=== PATIENT | female | born 1940 | race Caucasian/White ===

== ENCOUNTER 2016-12-17 12:27 | Emergency (ER) | payer MEDICARE, BC ==
[~2016-12-17] VITALS: Ht 154.9 cm; Wt 93.0 kg
[~2016-12-17 12:27] MED LIST: ATOR10TA64 PO; CYAN10009 PO; ENOX40DI SQ; ESCI5TAB8 PO; LACT1CAP73 PO; LOSA25TA34 PO; MAGN400T6 PO; METF500T7 PO; OMEP20CA10 PO; TRAM50TA53 PO; WARF2TAB6 PO; [UNRECOGNIZED DRUG - CODE] PO
[2016-12-17 12:30] VITALS: TEMP 98.2; Ht 154.9 cm; Wt 93.0 kg
--- OUTSIDE RECORDS SUMMARY | 2016-12-17 12:32 | XMS REPORT | Continuity of Care Document ---
Author Author [facility] Organization [facility] Address Unknown Phone Unavailable Support Name Relationship Address Phone CARMENCITA SCALES MD Caregiver [address] [place] [address] [place], [place] [phone] CHRISSIE MARRUFO Next Of Kin [address] [place] [address] Insurance Providers Payer Name Policy Number Subscriber Name Relationship Medicare [id number] Kyala Robertson 16 Self [employer] [place] [id number] Kayla Robertson 16 Self Problems Medical Problems Problem Onset Date Status Malaise and fatigue Unknown Active R/O RI Unknown Active Chest pain rule out RI Unknown Active Dizziness Unknown Active Malaise and fatigue Unknown Active Dizziness Unknown Active Bilateral lower extremity edema Unknown Active Bilateral lower extremity edema Unknown Active Shortness of breath 08/16/2014 Active CHEST PAIN NOS 08/16/2014 Active Dyspnea 08/16/2014 Active Pulmonary emboli Unknown Active Diabetes Unknown Active Hypertension Unknown Active Dyslipidemia Unknown Active GERD (gastroesophageal reflux disease) Unknown Active RLS (restless legs syndrome) Unknown Active Osteoarthritis Unknown Active Anxiety and depression Unknown Active History of gastritis Unknown Active Hypomagnesemia Unknown Active Obesity (BMI 35.0-39.9 without comorbidity) Unknown Active Pleuritic chest pain Unknown Active Atypical chest pain Unknown Active Atypical chest pain Unknown Active Atypical chest pain Unknown Active Anxiety and depression Unknown Active Medications Medication Dose Route Sig Days/Qty Instructions Order Date Discontinued Date Status Omeprazole 20 Mg PO DAILY 05/26/10 10/03/10 Discontinued Fexofenadine Hcl 180 Mg PO DAILY 04/01/09 05/25/10 Discontinued Pramipexole Di-Hcl 0.5 Mg PO BEDTIME 05/26/10 10/03/10 Discontinued Acetaminophen 650 Mg PO 2 TABS AT HS 05/26/10 10/03/10 Discontinued Multivitamins 1 Tab PO BEDTIME 04/01/09 05/25/10 Discontinued Ascorbic Acid 500 Mg PO DAILY 04/01/09 05/25/10 Discontinued Calcium Carbonate/Vitamin D3 1 Tab PO THREE TIMES A DAY 05/26/1012/09 Discontinued Magnesium Oxide 400 Mg PO TWICE A DAY 05/26/10 10/03/10 Discontinued Lisinopril 5 Mg PO DAILY 05/26/10 08/23/11 Discontinued Famotidine 20 Mg PO TWICE A DAY 05/26/10 10/03/10 Discontinued Cholecalciferol 2,000 Unit PO TWICE A DAY 05/26/10 10/03/10 Discontinued Ergocalciferol 50,000 Unit PO ONCE A WEEK 05/26/10 10/03/10 Discontinued [Lamisil] D-1 WEEK,OFF 3 WEEK 05/26/10 10/03/10 Discontinued Pramipexole Di-Hcl 0.5 Mg PO BEDTIME 08/23/11 Active Magnesium Oxide 400 Mg PO 4 TABS BID 08/23/11 10/11/11 Discontinued Calcium Citrate/Vitamin D3 1 Tab PO THREE TIMES A DAY 08/23/1110/11 Discontinued Cholecalciferol 2,000 Unit PO 08/23/11 10/11/11 Discontinued Morphine Sulfate 15 Mg PO TWICE A DAY 10/11/11 04/01/12 Discontinued Morphine Sulfate 10 Mg PO EVERY 4-6 HOURS 10/11/11 04/01/12 Discontinued Acetaminophen BEDTIME 04/01/12 04/10/12 Discontinued Atorvastatin Calcium 10 Mg PO BEDTIME 30 Qty 07/22/14 Active Chlorthalidone 25 Mg PO NEEDED 30 Qty 07/22/14 Active Losartan Potassium 100 Mg PO DAILY 30 Qty 07/22/14 Active Omeprazole 20 Mg PO DAILY 30 Qty 07/22/14 Active Acetaminophen 1-2 Tab PO BEDTIME PRN PAIN 07/22/14 Active [Amlodipine] Unknown Dose 08/27/14 Active Warfarin Sodium 2 Mg PO 1700 Take 1 tablet, by mouth, 1 time a day (at 5 pm). 08/27/14 Active Social History Social History Problem Response Recorded Date/Time Chewing Tobacco Status No 03/11/2014 2:30pm Hx Substance Use No 09/21/2014 9:50pm Hx Alcohol Use No 09/21/2014 9:50pm Has the pt used tobacco in the last 12 months No 07/22/2014 11:55am Tobacco Usage none 04/05/2014 8:20am Query Response Start Date Stop Date Smoking Status Never smoker Hospital Discharge Instructions Instructions: Care Instructions: Reason for Hospitalization: PE I was in the hospital because (patient own words): I FELT LIKE I HAD A BLOOD CLOT AND I DO. Discharge Diet: diabetic diet Discharge Activity: as tolerated Follow Up Appointments: Appointment scheduled with Dr. Scales at 7:00 am, have your INR drawn at that time. Patient Instructions: Should your symptoms return you could contact Dr Scales through the office or return to the ED for emergent evaluation. Please give PE and Coumadin handouts. Condition at time of discharge: Good Pass Congenital Heart Disease Screening Result: Pass Plan of Care Discharge Date 08/20/14 5:07pm Disposition 01 DISCHARGED HOME, SELF-CARE Instructions/Education Provided NM DVT Discharge Instructions Vitamin K DI for Pulmonary Embolism DI for Diabetes Type 2 Warfarin DI for Warfarin Therapy Prescriptions See Medications Section Functional Status Query Response Date Recorded Physical Hygiene Self September 21, 2014 9:50pm Physical Hygiene Self September 21, 2014 9:50pm Allergies, Adverse Reactions, Alerts Allergen Type Severity Reaction Status Last Updated Procaine HCl Allergy Unknown NERVOUS AND HEART RACE Active 09/21/14 hydrocodone bit Allergy Mild FINE RASH AND HEADACHE Active 09/21/14 propoxyphene HCl Allergy Unknown SHAKY, AND LOPEZ Active 09/21/14 albuterol sulfate Allergy Intermediate NERVOUSNESS, PALPITATIONS Active ciprofloxacin HCl Allergy Mild ITCH,HEADACHE Active 09/21/14 Lisinopril Adverse Reaction Unknown DRY COUGH Active 09/21/14 Codeine Allergy Mild RASH,HEADACHE Active 09/21/14 Hydrochlorothiazide Adverse Reaction Unknown NAUSEA, DIZZY Active 09/21/14 Doxycycline Adverse Reaction Unknown NAUSEA, DIZZY Active 09/21/14 Ciprofloxacin Allergy Mild ITCH,HEADACHE Active 09/21/14 Tuberculin,Old Skin Test Allergy Unknown Active 08/27/14 Rofecoxib Allergy Severe JOINT SWELL,RACHEL Active 09/21/14 Immunizations Name Given Type Hx Influenza Vaccination Y JUL 2014 Historical Hx Pneumococcal Vaccination Y JUL 2014 Historical Hx Influenza Vaccination Y JUL 2014 Historical Vital Signs Acute Vital Signs Vital Response Date/Time Temperature (Fahrenheit) 97.4 deg F (96.8 - 99.1) Temperature (Calculated Celsius) 36.07452 degrees C (36.0 - 37.3) Pulse Rate (adult) 69 bpm (60 - 100) Respiratory Rate 26 breaths/min (10 - 20) O2 Sat by Pulse Oximetry 94 % (90 - 100) Oxygen Flow Rate 2 L/min Blood Pressure 91/54 mm Hg Results Test Source Date Result Interp. Ref. Range Comments Activated Partial Thromboplast Time August 27, 2014 7:56pm 53.7 SEC H 24-36 Alanine Aminotransferase (ALT/SGPT) September 21, 2014 9:30pm 29 U/L N 9- 52 Albumin September 21, 2014 9:30pm 4.0 G/DL N 3.5-5.0 Albumin/Globulin Ratio September 21, 2014 9:30pm 1.6 RATIO N 1.1-2.2 Alkaline Phosphatase September 21, 2014 9:30pm 86 U/L N 38-126 Amylase Level April 10, 2012 3:16pm < 30 U/L L 30-110 Anion Gap September 21, 2014 9:30pm 10 MEQ/L N 5-15 Aspartate Amino Transf (AST/SGOT) September 21, 2014 9:30pm 22 U/L N 14- 36 BUN/Creatinine Ratio September 21, 2014 9:30pm 20 RATIO N 6-26 Basophils # (Auto) September 21, 2014 9:30pm 0.0 T/MM3 N 0-0.2 Basophils (%) (Auto) September 21, 2014 9:30pm 0.5 % N 0-2 Blood Urea Nitrogen September 21, 2014 9:30pm 14.0 MG/DL N 7-17 Calcium Level September 21, 2014 9:30pm 9.2 MG/DL N 8.4-10.2 Calculated Osmolality September 21, 2014 9:30pm 279 MOSM/KG N 261-280 Carbon Dioxide Level September 21, 2014 9:30pm 28 MEQ/L N 22-30 Chemistry Specimen Hemolysis September 21, 2014 9:30pm < 15 0-25 0-25 : No Hemolysis.26-70: Slight Hemolysis - can falsely elevate K and Urine Protein. 71-285: Moderate Hemolysis - can falsely elevate K, Troponin I, CA 19-9, PTH, CSF GLucose, and Urine Protein, and can falsely decrease Phenytoin. 286-999: Gross Hemolysis - can falsely elevate K, Troponin I, CA 19-9, PTH, CSF Glucose, and Urine Protine, and can falsely decrease Phenytoin. Recommend specimen recollection. Chloride Level September 21, 2014 9:30pm 105 MEQ/L N 98-107 Cholesterol Level November 10, 2013 6:20am 159 MG/DL N 132-199 COMMENT FASTING Cholesterol/HDL Ratio November 10, 2013 6:20am 3.6 RATIO N 0-4.0 COMMENT FASTING Conjugated Bilirubin June 10, 2012 3:05pm 0.00 MG/DL N 0.00-0.30 Creatinine September 21, 2014 9:30pm 0.7 MG/DL N 0.7-1.2 D-Dimer August 16, 2014 9:18pm 385 NG/ML H 0-224 <224 NG/ML= PRESUMPTIVE NEGATIVE FOR PE OR DVT>224 NG/ML=ADDITIONAL EVALUATION FOR PE OR DVT RECOMMENDED EKG February 06, 2008 12:44pm Complete - Eosinophils # (Auto) September 21, 2014 9:30pm 0.1 T/MM3 N 0-0.5 Eosinophils (%) (Auto) September 21, 2014 9:30pm 1.6 % N 0-4 Erythrocyte Sedimentation Rate October 12, 2011 4:15am 19 MM/HR N 0-20 Free Thyroxine November 10, 2013 6:20am 1.91 NG/DL N 0.78-2.19 COMMENT FASTING Globulin September 21, 2014 9:30pm 2.5 G/DL N 2.4-3.6 Glomerular Filtration Rate Calc September 21, 2014 9:30pm 81 - Glucometer August 20, 2014 10:53am 103 mg/dL N 65-110 Glucose Level September 21, 2014 9:30pm 152 MG/DL H 65-110 HDL Cholesterol Direct November 10, 2013 6:20am 44 MG/DL N 40-60 COMMENT FASTING Hematocrit September 21, 2014 9:30pm 36.8 % N 36-46 Hemoglobin September 21, 2014 9:30pm 12.0 GM/DL N 12-16 Hemoglobin A1c September 16, 2014 9:50am 6.3 % N 6-7 <6.0 NON-DIABETIC RANGE6.0-7.0 ADA THERAPEUTIC RANGE >7.0 ACTION SUGGESTED Icterus Index September 21, 2014 9:30pm < 2 0-7 Immature Granulocyte # (Auto) September 21, 2014 9:30pm 0.02 T/MM3 N 0.00 -0.03 Immature Granulocyte % (Auto) September 21, 2014 9:30pm 0.2 % N 0.0-0.5 LDL Cholesterol, Calculated November 10, 2013 6:20am 95.6 N 66-159 COMMENT FASTING Lab Scanned Report September 28, 2014 8:14pm LAB TEST FORM REQUEST - Lipase April 10, 2012 3:16pm 18 U/L L 23-300 Lymphocytes # (Auto) September 21, 2014 9:30pm 2.6 T/MM3 N 1-4.8 Lymphocytes (%) (Auto) September 21, 2014 9:30pm 30.8 % N 23-45 Magnesium Level 2014 5:21am 1.9 MG/DL DN 1.6-2.3 Mean Corpuscular Hemoglobin September 21, 2014 9:30pm 29.3 UUG N 26-34 Mean Corpuscular Hemoglobin Concent September 21, 2014 9:30pm 32.6 GM/DL N 31-37 Mean Corpuscular Volume September 21, 2014 9:30pm 90.0 UM3 N 80-100 Mean Platelet Volume September 21, 2014 9:30pm 10.5 UM3 N 9.4-12.4 Monocytes # (Auto) September 21, 2014 9:30pm 0.8 T/MM3 N 0-0.8 Monocytes (%) (Auto) September 21, 2014 9:30pm 9.6 % H 0-9.0 [id number] Natriuretic Peptide September 21, 2014 9:30pm 718 PG/ML H 0 -175 Rule in cut points: <50 years old=450; 50-75 years old=900; >75 years old=1800; When utilizing ProBNP rule-in cut points, adjustment for impaired renal function is typically not required. Neutrophils # (Auto) September 21, 2014 9:30pm 4.8 T/MM3 N 1.8-7.7 Neutrophils (%) (Auto) September 21, 2014 9:30pm 57.3 % N 33-66 Platelet Count September 21, 2014 9:30pm 287 T/MM3 N 130-400 Potassium Level September 21, 2014 9:30pm 3.6 MEQ/L N 3.6-5 Prealbumin August 16, 2014 9:18pm 19.7 MG/DL N 17.6-36.0 COMMENT may use blood in lab Prothromb Time International Ratio September 28, 2014 12:51pm 3.27 H 0.81 -1.09 THERAPUTIC RANGE=2.00-3.00 FOR ANTI-THROMBOSIS THERAPUTIC RANGE=2.50- 3.50 FOR IMPLANTED VALVE RDW Standard Deviation September 21, 2014 9:30pm 39.0 FL N 36.9-50.2 Red Blood Count September 21, 2014 9:30pm 4.09 M/MM3 N 4.00-5.20 Sodium Level September 21, 2014 9:30pm 143 MEQ/L N 134-144 Thyroid Stimulating Hormone (TSH) August 16, 2014 9:18pm 1.72 MIU/L N 0.47-4.68 Total Bilirubin September 21, 2014 9:30pm 0.50 MG/DL N 0.20-1.30 Total Protein September 21, 2014 9:30pm 6.5 G/DL N 6.3-8.2 Triglycerides Level November 10, 2013 6:20am 97 MG/DL N 35-135 COMMENT FASTING Troponin I September 21, 2014 9:30pm < 0.012 ng/ml 0-0.12 Turbidity September 21, 2014 9:30pm < 20 0-20 Unconjugated Bilirubin June 10, 2012 3:05pm 0.00 MG/DL N 0.00-1.10 Urinalysis Comment August 17, 2014 12:05am Microscopic not ind. - Has specimen been collected/obtained? Y Urine Bacteria April 11, 2013 6:10pm Trace H - Has specimen been collected/obtained? Y Urine Bilirubin August 17, 2014 12:05am Negative - Has specimen been collected/obtained? Y Urine Blood August 17, 2014 12:05am Negative - Has specimen been collected/obtained? Y Urine Collection Type March 11, 2014 5:30pm Voided-not cc-midstr - Has specimen been collected/obtained? Y Urine Color August 17, 2014 12:05am Yellow - Has specimen been collected/obtained? Y Urine Culture Indicated April 11, 2013 6:10pm Cult reflexed &setup - Has specimen been collected/obtained? Y Urine Glucose (UA) August 17, 2014 12:05am Negative - Has specimen been collected/obtained? Y Urine Ketones August 17, 2014 12:05am Negative - Has specimen been collected/obtained? Y Urine Leukocyte Esterase August 17, 2014 12:05am Negative - Has specimen been collected/obtained? Y Urine Microalbumin September 16, 2014 2:45pm 7.6 MG/L N 0-17 Urine Microalbumin/Creatinine Ratio September 16, 2014 2:45pm 6.1 MG/GM N 0-30 Urine Microscopic Not Indicated April 10, 2012 3:20pm Not indicated - Has specimen been collected/obtained? Y Urine Nitrite August 17, 2014 12:05am Negative - Has specimen been collected/obtained? Y Urine Protein August 17, 2014 12:05am Negative - Has specimen been collected/obtained? Y Urine RBC April 11, 2013 6:10pm None seen /HPF - Has specimen been collected/obtained? Y Urine Random Creatinine September 16, 2014 2:45pm 124.3 MG/DL - Urine Specific [place] August 17, 2014 12:05am <=1.005 L - Has specimen been collected/obtained? Y Urine Squamous Epithelial Cells April 11, 2013 6:10pm 5-10 - Has specimen been collected/obtained? Y Urine Turbidity August 17, 2014 12:05am Clear - Has specimen been collected/obtained? Y Urine Urobilinogen August 17, 2014 12:05am 0.2 EU/DL - Has specimen been collected/obtained? Y Urine WBC April 11, 2013 6:10pm 3-5 /HPF - Has specimen been collected /obtained? Y Urine pH August 17, 2014 12:05am 7.0 - Has specimen been collected/ obtained? Y VLDL Cholesterol November 10, 2013 6:20am 19.4 MG/DL N 0-28 COMMENT FASTING Vitamin B12 Level August 16, 2014 9:18pm 174 PG/ML L 239-931 COMMENT may use blood in lab White Blood Count September 21, 2014 9:30pm 8.3 T/MM3 N 4.5-11.0 Helicobacter pylori Rapid Urease Gastric Biopsy July 23, 2014 9:30am Urine Culture Urine, Voided-Not Cc-Midstream April 11, 2013 6:35pm Streptococcus Anginosus Name: KAYLA ROBERTSON Unit #: [id number] : 1940 Sex: F Loc / Svc: ED DOS: 09/21/14 Signed Report #: [id number] DIAGNOSTIC IMAGING REPORT TYPE OF EXAM: CHEST 1 VIEW Dictated By: DANIELLE ROBB MD INDICATION: ITS.REASON: chest pain CHEST 1 VIEW: Comparison: August 27, 2014 FINDINGS: The lungs are clear. There is no abnormal airspace opacity, pleural effusion or pneumothorax identified. The heart size, pulmonary vasculature and mediastinum are within normal limits. No significant skeletal abnormality is seen. IMPRESSION: No acute cardiopulmonary abnormality. . Procedures Procedure Status Date Provider(s) EGD BIOPSY SINGLE/MULTIPLE completed 07/23/14 MAXWELL YING MD, FACS, CWS PLACE NEEDLE IN VEIN completed 08/27/14 BENJIE LEYVA DO CHEST X-RAY 1 VIEW FRONTAL completed 08/27/14 COMPREHEN METABOLIC PANEL completed 08/27/14 ASSAY OF NATRIURETIC PEPTIDE completed 08/27/14 ASSAY OF TROPONIN QUANT completed 08/27/14 COMPLETE CBC W/AUTO DIFF WBC completed 08/27/14 PROTHROMBIN TIME completed 08/27/14 THROMBOPLASTIN TIME PARTIAL completed 08/27/14 ELECTROCARDIOGRAM TRACING completed 08/27/14 EMERGENCY DEPT VISIT completed 08/27/14 [id number] ITEM OR SERVICE completed 08/27/14 [id number] ITEM OR SERVICE completed 08/27/14 ROUTINE VENIPUNCTURE completed 09/16/14 COMPREHEN METABOLIC PANEL completed 09/16/14 MICROALBUMIN QUANTITATIVE completed 09/16/14 ASSAY OF URINE CREATININE completed 09/16/14 GLYCOSYLATED HEMOGLOBIN TEST completed 09/16/14 PROTHROMBIN TIME completed 09/16/14 PLACE NEEDLE IN VEIN completed 09/21/14 BARBIE HARE MD CHEST X-RAY 1 VIEW FRONTAL completed 09/21/14 COMPREHEN METABOLIC PANEL completed 09/21/14 ASSAY OF NATRIURETIC PEPTIDE completed 09/21/14 ASSAY OF TROPONIN QUANT completed 09/21/14 COMPLETE CBC W/AUTO DIFF WBC completed 09/21/14 PROTHROMBIN TIME completed 09/21/14 ELECTROCARDIOGRAM TRACING completed 09/21/14 EMERGENCY DEPT VISIT completed 09/21/14 Encounters Encounter Location Date/Time Discharged Recurring [facility] 09/28/14 9:39am Departed Emergency Room [facility] 09/21/14 9:22pm Registered Clinic [facility] 09/16/14 9:30am Departed Emergency Room [facility] 08/27/14 7:36pm Discharged Inpatient [facility] 08/16/14 10:43pm Departed Emergency Room [facility] 07/29/14 8:12pm
--- OUTSIDE RECORDS SUMMARY | 2016-12-17 12:32 | XMS REPORT | Referral Summary ---
Author Author [facility] Organization [facility] Address Unknown Phone Unavailable Care Team Providers Care Tennis Net Maker Name Role Phone Shikha Soliz Primary Care Physician [phone] Encounter Date(s): 08/11/16 - 08/11/16 [facility] [address] [place] [id number]- Discharge Diagnosis: Fatigue Discharge Diagnosis: Controlled type 2 diabetes mellitus without complication Discharge Diagnosis: Hypomagnesemia Discharge Diagnosis: CROW on CPAP Discharge Diagnosis: Primary hypercholesterolemia Discharge Diagnosis: Benign hypertension Discharge Diagnosis: LIBERTAD (generalized anxiety disorder) Discharge Diagnosis: Anemia Discharge Diagnosis: Moderate major depression Discharge Diagnosis: Restless legs syndrome (RLS) Discharge Diagnosis: Osteoarthritis of right hip Discharge Diagnosis: Chronic pain of left ankle Discharge Diagnosis: Visit for pelvic exam Discharge Diagnosis: Chronic gastritis Discharge Diagnosis: Spinal stenosis of lumbar region (disorder) Discharge Diagnosis: History of pulmonary embolism Discharge Disposition: 01-Home or Self Care Attending Physician: Jose Soliz MD Admitting Physician: Jose Soliz MD Vital Signs Most recent to 1 oldest [Reference Range]: Temperature Tympanic 36.2 degC [36.6-38.1 degC] *LOW* (08/11/16 9:45 AM) Peripheral Pulse 80 bpm Rate [60-100 bpm] (08/11/16 9:45 AM) Blood Pressure 170/78 mmHg [90-140/60-90 mmHg] *HI* (08/11/16 9:45 AM) Problem List Condition Effective Dates Status Health Status Informant Acquired lymphedema Active of leg(Confirmed) Acquired Active spondylolisthesis (disorder)(Confirmed ) Acute Active bronchitis(Confirmed ) Acute Active pain(Confirmed) Adenomatous colon 2012 Active polyps(Confirmed) Allergic reaction to 2000 Active Vioxx, hospitalized(Confirm ed) Allergic Active rhinitis(Confirmed) Anemia(Confirmed) Active At risk for Active injury(Confirmed)1 At risk of pressure Active sore(Confirmed) Ataxic Active gait(Confirmed) Benign Active hypertension(Confirm ed) Contusion of Active head(Confirmed) Oral Active thrush(Confirmed) Abscess or Active cellulitis, toe(Confirmed) Cellulitis of left Active abdominal wall(Confirmed) Cellulitis of left Active leg(Confirmed) Chronic Active gastritis(Confirmed) Chest Active pain(Confirmed) Chronic Active cough(Confirmed) C. difficile Active colitis(Confirmed) Contusion of right Active hip(Confirmed) Contusion of left Active leg(Confirmed) Degenerative disc Active disease(Confirmed) Acute Active diarrhea(Confirmed) Disc disease, Active degenerative, lumbar or lumbosacral(Confirme d) Edema(Confirmed) Active EGD and 2011 Resolved laryngoscopy(Confirm ed) EGD, popsitive for 07/10/13 Resolved Barretts(Confirmed)2 Endometriosis and 1976 Active heavy bleeding(Confirmed) Abdominal pain, Active acute, epigastric(Confirmed ) Epigastric Resolved pain(Confirmed) Sun exposure large / Active 5 serious sunburns(Confirmed) Fatigue(Confirmed) Active Ganglion Active cyst(Confirmed) Anxiety Active disorder(Confirmed) GERD(Confirmed) 2010 Active History of pulmonary Active embolism(Confirmed) Hayfever(Confirmed) Active High Active cholesterol(Confirme d) hx of adenomatous Resolved colon polyps(Confirmed) Hypertension(Confirm Active ed) Hypokalemia(Confirme Active d) Hypomagnesemia(Confi Active rmed) Hypothyroidism(Confi Resolved rmed) Impaired skin Active integrity(Confirmed) 3 Ingrown left big Active toenail(Confirmed) Knee pain, Active left(Confirmed) Knowledge Active deficit(Confirmed)4 Forearm Active laceration(Confirmed ) Low back pain Active (finding)(Confirmed) Acute right lumbar Active radiculopathy(Confir med) Lumbar Active radiculopathy(Confir med) Lumbar Active spondylosis(Confirme d) Lumbosacral Active spondylosis without myelopathy (disorder)(Confirmed ) Lymphedema of left Active leg(Confirmed) Depression, Active major(Confirmed) Chronic Active nausea(Confirmed) Leg pain, Active left(Confirmed) Palpitations(Confirm Active ed) Anxiety(Confirmed) Active Phlebitis of leg, Active left, superficial(Confirme d) Acute pulmonary Active embolism(Confirmed) Pure Active hypercholesterolemia (Confirmed) Depression(Confirmed Active ) Restless legs Active syndrome (RLS)(Confirmed) Seborrheic Active keratosis(Confirmed) Sinus Active infection(Confirmed) Spinal stenosis of Active lumbar region (disorder)(Confirmed ) Venous stasis Active dermatitis(Confirmed ) FARAZ(Confirmed) Resolved Abdominal Active tenderness, epigastric(Confirmed ) tendonitis, Resolved epicondylitis(Confir med) Tissue perfusion Active alteration(Confirmed )5 Controlled type 2 Active diabetes mellitus without complication(Confirm ed) DM (diabetes Active mellitus), type 2, uncontrolled(Confirm ed) Vasomotor Active rhinitis(Confirmed) 1Problem added automatically by system based on initiation of Risk for Injury Plan of Care 2staying on PPI repeat 3 years 3Problem added automatically by system based on initiation of Impaired Skin Integrity Plan of Care 4Problem added automatically by system based on initiation of Knowledge Deficit Plan of Care 5Problem added automatically by system based on initiation of Tissue Perfusion Cerebral Plan of Care Allergies, Adverse Reactions, Alerts Substance Reaction Severity Status cephalexin1 Active ciprofloxacin heart fluttering Active codeine LOPEZ, ITCH Active doxycycline dizzy, headach Active hydrochlorothiazide nausea, dizzy Active lidocaine-EPINEPHrine shaky and rapid heratbeat Active lisinopril dry cough Active Novocain nervous, heart racing Active Proventil HFA head swimming, nervous Active rofecoxib RASH, JOINTS SWELLED Active tuberculin purified arm swelled up Active protein derivative 1GOT C-DIFF Medications acetaminophen 650 mg, Oral, Bedtime (once a day), 2 tablets, 0 Refill(s) Start Date: 05/11/16 Status: Ordered atorvastatin 10 mg oral tablet See Instructions, TAKE ONE TABLET BY MOUTH DAILY, # 30 tabs, 5 Refill(s), eRx: [facility] #[id number], TAKE ONE TABLET BY MOUTH DAILY Start Date: 03/15/16 Status: Ordered escitalopram 5 mg oral tablet 5 mg 1 tabs, Oral, Daily, # 30 tabs, 5 Refill(s), Pharmacy: [facility] # [id number], 1 tabs Oral Daily Start Date: 03/24/16 Status: Ordered losartan 25 mg oral tablet See Instructions, TAKE ONE TABLET BY MOUTH DAILY, # 30 tabs, 1 Refill(s), eRx: [facility] #[id number], TAKE ONE TABLET BY MOUTH DAILY Start Date: 06/12/16 Status: Ordered magnesium oxide 400 mg (241.3 mg elemental magnesium) oral tablet 400 mg 1 tabs, Oral, Daily, # 30 tabs, 11 Refill(s), Pharmacy: [facility] #[id number], 1 tabs Oral Daily Start Date: 08/11/16 Status: Ordered metFORMIN 1000 mg oral tablet, extended release 1,000 mg 1 tabs, Oral, Daily, with evening meal, # 90 tabs, 3 Refill(s), Pharmacy: [facility] #[id number], 1 tabs Oral Daily,Instr:with evening meal Start Date: 04/04/16 Status: Ordered omeprazole 20 mg oral delayed release capsule See Instructions, TAKE ONE CAPSULE BY MOUTH EVERY DAY, # 30 caps, 2 Refill(s), eRx: [facility] #[id number], TAKE ONE CAPSULE BY MOUTH EVERY DAY Start Date: 05/18/16 Status: Ordered pramipexole 0.5 mg oral tablet See Instructions, TAKE ONE TABLET BY MOUTH EVERY NIGHT AT BEDTIME, # 30 tabs, 1 Refill(s), eRx: [facility] #[id number], TAKE ONE TABLET BY MOUTH EVERY NIGHT AT BEDTIME Start Date: 06/26/16 Status: Ordered Probiotic Formula oral capsule 1 caps, Oral, Daily, 0 Refill(s) Start Date: 05/31/15 Status: Ordered traMADol 50 mg oral tablet See Instructions, 1-2 tabs Oral q6hr as needed for pain, # 60 tabs, 1 Refill(s) Start Date: 05/29/16 Status: Ordered Vitamin B12 1,000 mcg, Oral, Daily, 0 Refill(s) Start Date: 10/22/14 Status: Ordered warfarin 2 mg oral tablet See Instructions, 1 tab daily., # 30 tabs, 1 Refill(s), Pharmacy: [facility] #[id number], 0.5 tabs Oral Daily,x30 days,Instr:NOTE: HOLD today and Sunday, start on 02/20/16Sunday. Start Date: 02/18/16 Status: Ordered Results Urinalysis Most recent to 1 oldest [Reference Range]: UA Color Yellow (08/11/16 10:47 AM) UA Appear Clear 1 (08/11/16 10:47 AM) UA pH [5.0-8.0] 6.0 (08/11/16 10:47 AM) UA Leuk Est Negative [Negative] (08/11/16 10:47 AM) UA Nitrite Negative [Negative] (08/11/16 10:47 AM) UA Protein Negative [Negative] (08/11/16 10:47 AM) UA Glucose Negative [Negative] (08/11/16 10:47 AM) UA Ketones Negative [Negative] (08/11/16 10:47 AM) UA Urobilinogen 0.2 mg/dL [<=1.0 mg/dL] (08/11/16 10:47 AM) UA Bili [Negative] Negative (08/11/16 10:47 AM) UA Blood [Negative] Trace *ABN* (08/11/16 10:47 AM) UA Spec Grav 1.025 [1.003-1.030] (08/11/16 10:47 AM) Type Clean Catch (08/11/16 10:47 AM) 1Result Comment: 2 mls urine submitted for analysis Immunizations Vaccine Date Refusal Reason influenza virus vaccine, inactivated 08/04/16 influenza virus vaccine, inactivated 07/26/15 influenza virus vaccine, inactivated1 07/09/14 influenza virus vaccine, live 07/02/13 influenza virus vaccine, live 08/21/12 pneumococcal 13-valent conjugate vaccine 07/09/14 pneumococcal 23-polyvalent vaccine 03/09/11 tetanus-diphth toxoids (Td) adult/adol 10/06/08 zoster vaccine live 10/20/08 1Result Comment: [07/09/2014] See scanned document Procedures Procedure Date Related Diagnosis Body Site Mammogram1 03/17/16 Cataract extraction and insertion of 2016 intraocular lens2 Open Reduction Internal Fixation Ankle 09/02/15 (Left)3 Open Reduction Internal Fixation Femur 09/02/15 Distal4 Esophagogastroduodenoscopy and biopsy5 07/23/14 Colonoscopic polypectomy6 07/10/13 Esophagogastroduodenoscopy and biopsy7 07/10/13 Rt L4-5/L5-S1 Facet, A Anastasiia 10/29/12 Colonoscopy8, 9 2012 right L4-5 Translaminar 04/24/12 L4-5 Translaminar 03/12/12 RT L3-4/L4-5 Transforaminal 01/02/12 [id number] 2011 Filgxffyphrpmyecmlghwxrbcr71 2010 Laryngoscopy 2011 Souhuut79 2010 Nasal xmqvllmnful72 2002 Left 1st toe joint replacement 2001 Laparoscopic cholecystectomy 2000 bilateral elbow - tendinitis, epicondylitis 1994 Apvvftr30 1985 Appendectomy Cholecystectomy Hysterectomy Knee uloytemjhle10 Right great toenail excision FARAZ - Total abdominal hysterectomy and bilateral salpingo-[id number] [address] [place] [address] 2bilateral--June 2016 3auto-populated from documented surgical case 4auto-populated from documented surgical case 5No Barretts noted on path No cancer ,JORGE ASSAY Negitive No explantion for epigastri pain if still having ongoing pain Rtc to discuss. 6Tubulovillous adenoma,, repeat in 5 years 7Chronic gastritis, Shields's esophagus, 8also had in 2000, and 2002 9and also in 2007 10right hip tendon release 11GERD positive, H. pylori negative 12right wrist surgery for tendinitis 13for fractured nose due to a fall 14on both elbows for tendinitis and epicondylitis 15bilateral TKAs: right in 1996, left in 2006 16endometriosis Social History Social History Type Response Smoking Status Never smoker Assessment and Plan Extracted from: Title: Ambulatory Patient Education Author: Jose Soliz MD Date: 08/16 Preventive Medicine Diabetes and Foot Care Diabetes may cause you to have problems because of poor blood supply ( circulation) to your feet and legs. This may cause the skin on your feet to become thinner, break easier, and heal more slowly. Your skin may become dry, and the skin may peel and crack. You may also have nerve damage in your legs and feet causing decreased feeling in them. You may not notice minor injuries to your feet that could lead to infections or more serious problems. Taking care of your feet is one of the most important things you can do for yourself. HOME CARE INSTRUCTIONS Wear shoes at all times, even in the house. Do not go barefoot. Bare feet are easily injured. Check your feet daily for blisters, cuts, and redness. If you cannot see the bottom of your feet, use a mirror or ask someone for help. Wash your feet with warm water (do not use hot water) and mild soap. Then pat your feet and the areas between your toes until they are completely dry. Do not soak your feet as this can dry your skin. Apply a moisturizing lotion or petroleum jelly (that does not contain alcohol and is unscented) to the skin on your feet and to dry, brittle toenails. Do not apply lotion between your toes. Trim your toenails straight across. Do not dig under them or around the cuticle. File the edges of your nails with an emery board or nail file. Do not cut corns or calluses or try to remove them with medicine. Wear clean socks or stockings every day. Make sure they are not too tight. Do not wear knee-high stockings since they may decrease blood flow to your legs. Wear shoes that fit properly and have enough cushioning. To break in new shoes, wear them for just a few hours a day. This prevents you from injuring your feet. Always look in your shoes before you put them on to be sure there are no objects inside. Do not cross your legs. This may decrease the blood flow to your feet. If you find a minor scrape, cut, or break in the skin on your feet, keep it and the skin around it clean and dry. These areas may be cleansed with mild soap and water. Do not cleanse the area with peroxide, alcohol, or iodine. When you remove an adhesive bandage, be sure not to damage the skin around it. If you have a wound, look at it several times a day to make sure it is healing. Do not use heating pads or hot water bottles. They may burn your skin. If you have lost feeling in your feet or legs, you may not know it is happening until it is too late. Make sure your health care provider performs a complete foot exam at least annually or more often if you have foot problems. Report any cuts, sores, or bruises to your health care provider immediately. SEEK MEDICAL CARE IF: You have an injury that is not healing. You have cuts or breaks in the skin. You have an ingrown nail. You notice redness on your legs or feet. You feel burning or tingling in your legs or feet. You have pain or cramps in your legs and feet. Your legs or feet are numb. Your feet always feel cold. SEEK IMMEDIATE MEDICAL CARE IF: There is increasing redness, swelling, or pain in or around a wound. There is a red line that goes up your leg. Pus is coming from a wound. You develop a fever or as directed by your health care provider. You notice a bad smell coming from an ulcer or wound. This information is not intended to replace advice given to you by your health care provider. Make sure you discuss any questions you have with your health care provider. Document Released: 09/14/2001 Document Revised: 05/20/2014 Document Reviewed: [employer] Patient Education 2016 [employer] No follow up information was provided. Extracted from: Title: Female Physical Author: Jose Soliz MD Date: 08/11/16 Impression and Plan Diagnosis Anemia (LAC55-WF D64.9, Discharge, Medical). Benign hypertension (ZYN57-QY I10, Discharge, Medical). Chronic gastritis (MNL10-XX K29.50, Discharge, Medical). Chronic pain of left ankle (MPV78-AF M25.572, Discharge, Medical). Controlled type 2 diabetes mellitus without complication (DKF77-HE E11.9, Discharge, Medical). Fatigue (HSP72-HY R53.83, Discharge, Medical). LIBERTAD (generalized anxiety disorder) (EGW64-JG F41.1, Discharge, Medical). History of pulmonary embolism (YBM14-NF Z86.711, Discharge, Medical). Hypomagnesemia (LUI51-DU E83.42, Discharge, Medical). Moderate major depression (VBK11-CY F32.1, Discharge, Medical). CROW on CPAP (DYR64-YY G47.33, Discharge, Medical). Osteoarthritis of right hip (RRZ65-NG M16.11, Discharge, Medical). Primary hypercholesterolemia (ELR62-AN E78.00, Discharge, Medical). Restless legs syndrome (RLS) (CFB25-PR G25.81, Discharge, Medical). Spinal stenosis of lumbar region (disorder) (KXB57-ZZ M48.06, Discharge, Medical ). Visit for pelvic exam (CQZ22-GM Z01.419, Discharge, Medical). Plan: 1) Medicare screening breast, pelvic and rectal exam done today. 2) Lab ordered. 3) You have medical clearance for surgery on 08/17/16 (left ankle hardware removal). 4) Stop your Warfarin until after surgery, then resume it at 4 mg daily for 2 days, then 2 mg daily thereafter.. 5) Start Lovenox 40 mg daily injections today, and daily until 24 hours prior to surgery. 6) Get an INR drawn 3 or 4 days after surgery. 7) See me in one month and as needed. 8) I recommend that you get started on your CPAP through sleep medicine. . Orders Orders (Selected) Outpatient Orders InProcess (In Process) Routine Urinalysis: Ordered Office Visit Level 5 Est 12613: Pelvis and Breast exam- with or without exam G0101: . Dx/Order Association Plan: Diagnosis: Anemia Comment: Diagnosis: Benign hypertension Comment: Ordered: Office Visit Level 5 Est 19014; 08/11/16 10:33:00 TAR LEVELER, Chronic pain of left ankle | Restless legs syndrome (RLS) | CROW on CPAP | Benign hypertension | Controlled type 2 diabetes mellitus without complication | Fatigue | LIBERTAD (generalized anxiety disorder) | Chronic gastritis | Histor... Diagnosis: Chronic gastritis Comment: Ordered: Office Visit Level 5 Est 15520; 08/11/16 10:33:00 TAR LEVELER, Chronic pain of left ankle | Restless legs syndrome (RLS) | CROW on CPAP | Benign hypertension | Controlled type 2 diabetes mellitus without complication | Fatigue | LIBERTAD (generalized anxiety disorder) | Chronic gastritis | Histor... Diagnosis: Chronic pain of left ankle Comment: Ordered: Office Visit Level 5 Est 42445; 08/11/16 10:33:00 TAR LEVELER, Chronic pain of left ankle | Restless legs syndrome (RLS) | CROW on CPAP | Benign hypertension | Controlled type 2 diabetes mellitus without complication | Fatigue | LIBERTAD (generalized anxiety disorder) | Chronic gastritis | Histor... Diagnosis: Controlled type 2 diabetes mellitus without complication Comment: Ordered: Office Visit Level 5 Est 05095; 08/11/16 10:33:00 TAR LEVELER, Chronic pain of left ankle | Restless legs syndrome (RLS) | CROW on CPAP | Benign hypertension | Controlled type 2 diabetes mellitus without complication | Fatigue | LIBERTAD (generalized anxiety disorder) | Chronic gastritis | Histor... Diagnosis: Fatigue Comment: Ordered: Office Visit Level 5 Est 43494; 08/11/16 10:33:00 TAR LEVELER, Chronic pain of left ankle | Restless legs syndrome (RLS) | CROW on CPAP | Benign hypertension | Controlled type 2 diabetes mellitus without complication | Fatigue | LIBERTAD (generalized anxiety disorder) | Chronic gastritis | Histor... Diagnosis: LIBERTAD (generalized anxiety disorder) Comment: Ordered: Office Visit Level 5 Est 52085; 08/11/16 10:33:00 TAR LEVELER, Chronic pain of left ankle | Restless legs syndrome (RLS) | CROW on CPAP | Benign hypertension | Controlled type 2 diabetes mellitus without complication | Fatigue | LIBERTAD (generalized anxiety disorder) | Chronic gastritis | Histor... Diagnosis: History of pulmonary embolism Comment: Ordered: Office Visit Level 5 Est 96562; 08/11/16 10:33:00 TAR LEVELER, Chronic pain of left ankle | Restless legs syndrome (RLS) | CROW on CPAP | Benign hypertension | Controlled type 2 diabetes mellitus without complication | Fatigue | LIBERTAD (generalized anxiety disorder) | Chronic gastritis | Histor... Diagnosis: Hypomagnesemia Comment: Ordered: Office Visit Level 5 Est 06803; 08/11/16 10:33:00 TAR LEVELER, Chronic pain of left ankle | Restless legs syndrome (RLS) | CROW on CPAP | Benign hypertension | Controlled type 2 diabetes mellitus without complication | Fatigue | LIBERTAD (generalized anxiety disorder) | Chronic gastritis | Histor... Diagnosis: Moderate major depression Comment: Ordered: Office Visit Level 5 Est 54760; 08/11/16 10:33:00 TAR LEVELER, Chronic pain of left ankle | Restless legs syndrome (RLS) | CROW on CPAP | Benign hypertension | Controlled type 2 diabetes mellitus without complication | Fatigue | LIBERTAD (generalized anxiety disorder) | Chronic gastritis | Histor... Diagnosis: CROW on CPAP Comment: Ordered: Office Visit Level 5 Est 53444; 08/11/16 10:33:00 TAR LEVELER, Chronic pain of left ankle | Restless legs syndrome (RLS) | CROW on CPAP | Benign hypertension | Controlled type 2 diabetes mellitus without complication | Fatigue | LIBERTAD (generalized anxiety disorder) | Chronic gastritis | Histor... Diagnosis: Osteoarthritis of right hip Comment: Diagnosis: Primary hypercholesterolemia Comment: Diagnosis: Restless legs syndrome (RLS) Comment: Ordered: Office Visit Level 5 Est 78558; 08/11/16 10:33:00 TAR LEVELER, Chronic pain of left ankle | Restless legs syndrome (RLS) | CROW on CPAP | Benign hypertension | Controlled type 2 diabetes mellitus without complication | Fatigue | LIBERTAD (generalized anxiety disorder) | Chronic gastritis | Histor... Diagnosis: Spinal stenosis of lumbar region (disorder) Comment: Ordered: Office Visit Level 5 Est 90783; 08/11/16 10:33:00 TAR LEVELER, Chronic pain of left ankle | Restless legs syndrome (RLS) | CROW on CPAP | Benign hypertension | Controlled type 2 diabetes mellitus without complication | Fatigue | LIBERTAD (generalized anxiety disorder) | Chronic gastritis | Histor... Diagnosis: Visit for pelvic exam Comment: Ordered: Pelvis and Breast exam- with or without exam G0101; 08/11 10:48:00 TAR LEVELER, 1, Visit for pelvic exam End of Orders ."
--- OUTSIDE RECORDS SUMMARY | 2016-12-17 12:34 | XMS REPORT | Referral Summary ---
Author Author [facility], [facility] Organization [facility] Address Unknown Phone Unavailable Care Team Providers Care [employer] Name Role Phone Shikha Soliz Primary Care Physician [phone] Encounter VC Date(s): 09/22/16 - 09/22/16 [facility] [address] [place] [id number]- Discharge Diagnosis: Spinal stenosis of lumbar region (disorder) Discharge Diagnosis: Lymphedema of leg Discharge Diagnosis: Right lumbar radiculopathy Discharge Diagnosis: Anemia Discharge Diagnosis: Benign essential hypertension Discharge Diagnosis: Controlled type 2 diabetes mellitus Discharge Disposition: 01-Home or Self Care Attending Physician: Jose Soliz MD Admitting Physician: Jose Soliz MD Vital Signs Most recent to 1 oldest [Reference Range]: Temperature Tympanic 36.0 degC [36.6-38.1 degC] *LOW* (09/22/16 10:21 AM) Peripheral Pulse 80 bpm Rate [60-100 bpm] (09/22/16 10:21 AM) Respiratory Rate 16 br/min [14-20 br/min] (09/22/16 10:21 AM) Blood Pressure 130/80 mmHg [90-140/60-90 mmHg] (09/22/16 10:21 AM) Problem List Condition Effective Dates Status [...] or lumbosacral(Confirme d) Edema(Confirmed) Active EGD and 2010 Resolved laryngoscopy(Confirm ed) EGD, popsitive for 07/10/13 [...] 0 Refill(s) Start Date: 05/11/16 Status: Ordered allopurinol 100 mg oral tablet 100 mg 1 tabs, Oral, Daily, # 30 tabs, 11 Refill(s), Pharmacy: [facility] #[id number], 1 tabs Oral Daily Start Date: 09/01/16 Status: Ordered atorvastatin 10 mg oral tablet See Instructions, TAKE ONE TABLET BY MOUTH DAILY, # 30 tabs, 4 Refill(s), eRx: [facility] #[id number], TAKE ONE TABLET BY MOUTH DAILY Start Date: 09/13/16 Status: Ordered escitalopram 5 mg oral tablet 5 mg 1 tabs, Oral, Daily, # 30 tabs, 5 Refill(s), Pharmacy: [facility] # [id number], 1 tabs Oral Daily Start Date: 03/24/16 Status: Ordered furosemide 20 mg oral tablet 20 mg 1 tabs, Oral, Every other day, # 30 tabs, 5 Refill(s), Pharmacy: [facility] #[id number], 1 tabs Oral Every other day Start Date: 09/22/16 Status: Ordered losartan 25 mg oral tablet See Instructions, TAKE ONE TABLET BY MOUTH DAILY, # 30 tabs, 1 Refill(s), eRx: [facility] #[id number], TAKE ONE TABLET BY MOUTH DAILY Start Date: 06/12/16 Status: Ordered magnesium oxide 400 mg (241.3 mg elemental magnesium) oral tablet 400 mg 1 tabs, Oral, Daily, # 30 tabs, 11 Refill(s), Pharmacy: [facility] #[id number], 1 tabs Oral Daily Start Date: 08/11/16 Status: Ordered metFORMIN 1000 mg oral tablet, extended release 1,000 mg 1 tabs, Oral, Daily, with evening meal, # 90 tabs, 3 Refill(s), Pharmacy: [facility] #[id number], 1 tabs Oral Daily,Instr:with evening meal Start Date: 04/04/16 Status: Ordered omeprazole 20 mg oral delayed release capsule See Instructions, TAKE ONE CAPSULE BY MOUTH EVERY DAY, # 30 caps, 10 Refill(s), eRx: [facility] #[id number], TAKE ONE CAPSULE BY MOUTH EVERY DAY Start Date: 08/28/16 Status: Ordered pramipexole 0.5 mg oral tablet See Instructions, TAKE ONE TABLET BY MOUTH EVERY NIGHT AT BEDTIME, # 30 tabs, 1 Refill(s), eRx: [facility] #[id number], TAKE ONE TABLET BY MOUTH EVERY NIGHT [...] daily., # 30 tabs, 1 Refill(s), Pharmacy: [facility] #[id number], 0.5 tabs Oral Daily,x30 days,Instr:NOTE: HOLD today and Sunday, start on 02/20/16Sunday. Start Date: 02/18/16 Status: Ordered Results No data available for this section Immunizations Given and Recorded Vaccine Date Status Refusal Reason influenza virus vaccine, inactivated 08/04/16 Given influenza virus vaccine, inactivated 07/26/15 Given influenza virus vaccine, inactivated1 07/09/14 Recorded influenza virus vaccine, live 07/02/13 Given influenza virus vaccine, live 08/21/12 Given pneumococcal 13-valent conjugate vaccine 07/09/14 Given pneumococcal 23-polyvalent vaccine 03/09/11 Recorded tetanus-diphth toxoids (Td) adult/adol 10/06/08 Given zoster vaccine live 10/20/08 Given 1Result Comment: [07/09/2014] See scanned document Procedures [...] L4-5 Translaminar 03/12/12 RT L3-4/L4-5 Transforaminal 01/02/12 [id number] 2012 Yd[id number] 2011 Laryngoscopy 2011 Wxeagld70 2011 Nasal gcupqfkibjp34 2002 Left 1st toe joint replacement 2001 Laparoscopic cholecystectomy 2000 bilateral elbow - tendinitis, epicondylitis 1994 Brtiuid26 1985 Appendectomy Cholecystectomy Hysterectomy Knee [id number] Right great toenail excision FARAZ - Total abdominal hysterectomy and bilateral [id number] [address] [place] [address] 2bilateral--June 2016 3auto-populated from documented surgical case [...] Extracted from: Title: Ambulatory Patient Education Author: Joes Soliz MD Date: Procedures Lymphedema Lymphedema is swelling that is caused by the abnormal collection of lymph under the skin. Lymph is fluid from the tissues in your body that travels in the lymphatic system. This system is part of the immune system and includes lymph nodes and lymph vessels. The lymph vessels collect and carry the excess fluid, fats, proteins, and wastes from the tissues of the body to the bloodstream. This system also works to clean and remove bacteria and waste products from the body. Lymphedema occurs when the lymphatic system is blocked. When the lymph vessels or lymph nodes are blocked or damaged, lymph does not drain properly, causing an abnormal buildup of lymph. This leads to swelling in the arms or legs. Lymphedema cannot be cured by medicines, but various methods can be used to help reduce the swelling. CAUSES There are two types of lymphedema. Primary lymphedema is caused by the absence or abnormality of the lymph vessel at . Secondary lymphedema is more common. It occurs when the lymph vessel is damaged or blocked. Common causes of lymph vessel blockage include: Skin infection, such as cellulitis. Infection by parasites (filariasis). Injury. Cancer. Radiation therapy. Formation of scar tissue. Surgery. SYMPTOMS Symptoms of this condition include: Swelling of the arm or leg. A heavy or tight feeling in the arm or leg. Swelling of the feet, toes, or fingers. Shoes or rings may fit more tightly than before. Redness of the skin over the affected area. Limited movement of the affected limb. Sensitivity to touch or discomfort in the affected limb. DIAGNOSIS This condition may be diagnosed with: A physical exam. Medical history. Imaging tests, such as: Lymphoscintigraphy. In this test, a low dose of a radioactive substance is injected to trace the flow of lymph through the lymph vessels. MRI. CT scan. Duplex ultrasound. This test uses sound waves to produce images of the vessels and the blood flow on a screen. Lymphangiography. In this test, a contrast dye is injected into the lymph vessel to help show blockages. TREATMENT Treatment for this condition may depend on the cause. Treatment may include: Exercise. Certain exercises can help fluid move out of the affected limb. Massage. Gentle massage of the affected limb can help move the fluid out of the area. Compression. Various methods may be used to apply pressure to the affected limb in order to reduce the swelling. Wearing compression stockings or sleeves on the affected limb. Bandaging the affected limb. Using an external pump that is attached to a sleeve that alternates between applying pressure and releasing pressure. Surgery. This is usually only done for severe cases. For example, surgery may be done if you have trouble moving the limb or if the swelling does not get better with other treatments. If an underlying condition is causing the lymphedema, treatment for that condition is needed. For example, antibiotic medicines may be used to treat an infection. HOME CARE INSTRUCTIONS Activities Exercise regularly as directed by your health care provider. Do not sit with your legs crossed. When possible, keep the affected limb raised (elevated) above the level of your heart. Avoid carrying things with an arm that is affected by lymphedema. Remember that the affected area is more likely to become injured or infected. Take these steps to help prevent infection: Keep the affected area clean and dry. Protect your skin from cuts. For example, you should use gloves while cooking or gardening. Do not walk barefoot. If you shave the affected area, use an electric razor. General Instructions Take medicines only as directed by your health care provider. Eat a healthy diet that includes a lot of fruits and vegetables. Do not wear tight clothes, shoes, or jewelry. Do not use heating pads over the affected area. Avoid having blood pressure checked on the affected limb. Keep all follow-up visits as directed by your health care provider. This is important. SEEK MEDICAL CARE IF: You continue to have swelling in your limb. You have a fever. You have a cut that does not heal. You have redness or pain in the affected area. You have new swelling in your limb that comes on suddenly. You develop purplish spots or sores (lesions) on your limb. SEEK IMMEDIATE MEDICAL CARE IF: You have a skin rash. You have chills or sweats. You have shortness of breath. This information is not intended to replace advice given to you by your health care provider. Make sure you discuss any questions you have with your health care provider. Document Released: 07/14/2008 Document Revised: 02/01/2016 Document Reviewed: [employer] Interactive Patient Education 2016 [employer] No follow up information was provided. Extracted from: Title: several problems Author: Jose Soliz MD Date: 09/22/16 Impression and Plan Diagnosis Lymphedema of leg (XDR70-VO I89.0, Discharge, Medical). Controlled type 2 diabetes mellitus (BWA40-HU E11.9, Discharge, Medical). Benign essential hypertension (QIZ80-WZ I10, Discharge, Medical). Spinal stenosis of lumbar region (disorder) (WWG53-HL M48.06, Discharge, Medical ). Right lumbar radiculopathy (ZYQ63-LL M54.16, Discharge, Medical). Anemia (BHA23-VK D64.9, Discharge, Medical). Plan: 1) Lab ordered today. 2) Wear your compression stockings every day. 3) Sleep in bed with your legs out horizontally. 4) Use Vaseline to the skin of your legs and feet every day. 5) Keep your appointment in about 12 days, and as needed. 6) No changes made to your routine meds otherwise. . Orders Orders (Selected) Outpatient Orders Ordered Office Visit Level 4 Est 02710: Future (On Hold) BNP: CBC w/ Differential: CMP: Routine Urinalysis: . 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, Lymphedema of leg | Controlled type 2 diabetes mellitus | Benign essential hypertension | Anemia | Spinal stenosis of lumbar region (disorder) | Right lumbar radiculopathy Diagnosis: Controlled type 2 diabetes mellitus Comment: Ordered: Office Visit Level 4 Est [id number]; 09/22/16 10:49:00 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, Lymphedema of leg | Controlled type 2 diabetes mellitus | Benign essential hypertension | Anemia | Spinal stenosis of lumbar region (disorder) | Right lumbar radiculopathy Diagnosis: Lymphedema of leg Comment: Ordered: Office Visit Level 4 Est [id number]; 09/22/16 10:49:00 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, Lymphedema of leg | Controlled type 2 diabetes mellitus | Benign essential hypertension | Anemia | Spinal stenosis of lumbar region (disorder) | Right lumbar radiculopathy Diagnosis: Right lumbar radiculopathy Comment: Ordered: Office Visit Level 4 Est [id number]; 09/22/16 10:49:00 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, Lymphedema of leg | Controlled type 2 diabetes mellitus | Benign essential hypertension | Anemia | Spinal stenosis of lumbar region (disorder) | Right lumbar radiculopathy Diagnosis: Spinal stenosis of lumbar region (disorder) Comment: Ordered: Office Visit Level 4 Est [id number]; 09/22/16 10:49:00 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
--- OUTSIDE RECORDS SUMMARY | 2016-12-17 12:34 | XMS REPORT | Referral Summary ---
Author Author [facility], Family Medicine Organization [facility] Address Unknown Phone Unavailable Care Team Providers Care Collections Clerk Name Role Phone Shikha Soliz Primary Care Physician [phone] Encounter VC Date(s): 10/03/16 - 10/03/16 [facility], Family [address] [place] [address]- Discharge Diagnosis: History of pulmonary embolism Discharge Diagnosis: Spinal stenosis of lumbar region (disorder) Discharge Diagnosis: Primary hypercholesterolemia Discharge Diagnosis: Benign hypertension Discharge Diagnosis: Lymphedema of leg Discharge Diagnosis: Acute bronchitis Discharge Diagnosis: Pansinusitis Discharge Diagnosis: CROW on CPAP Discharge Disposition: 01-Home or Self Care Attending Physician: Jose Soliz MD Admitting Physician: Jose Soliz MD Vital Signs Most recent to 1 oldest [Reference Range]: Temperature Tympanic 35.7 degC [36.6-38.1 degC] *LOW* (10/03/16 9:34 AM) Peripheral Pulse 88 bpm Rate [60-100 bpm] (10/03/16 9:34 AM) Respiratory Rate 18 br/min [14-20 br/min] (10/03/16 9:34 AM) Blood Pressure 126/70 mmHg [90-140/60-90 mmHg] (10/03/16 9:34 AM) SpO2 99 % (10/03/16 9:34 AM) Problem List Condition Effective Dates Status Health Status Informant Acquired lymphedema Active of leg(Confirmed) Acquired Active spondylolisthesis (disorder)(Confirmed ) Acute Active bronchitis(Confirmed ) Acute Active pain(Confirmed) Adenomatous colon 2013 Active polyps(Confirmed) Allergic reaction to 2001 Active Vioxx, hospitalized(Confirm ed) Allergic Active rhinitis(Confirmed) [...] Daily, # 30 tabs, 11 Refill(s), Pharmacy: [facility] #[id number], 1 tabs Oral Daily Start Date: 09/01/16 Status: Ordered atorvastatin 10 mg oral tablet See Instructions, TAKE ONE TABLET BY MOUTH DAILY, # 30 tabs, 4 Refill(s), eRx: [facility] #[id number], TAKE ONE TABLET BY MOUTH DAILY Start Date: 09/13/16 Status: Ordered escitalopram 5 mg oral tablet See Instructions, TAKE ONE TABLET BY MOUTH DAILY, # 30 tabs, 5 Refill(s), eRx: [facility] #[id number] Start Date: 09/28/16 Status: Ordered furosemide 20 mg oral tablet 20 mg 1 tabs, Oral, Every other day, # 30 tabs, 5 Refill(s), Pharmacy: [facility] #[id number], 1 tabs Oral Every other day Start Date: 09/22/16 Status: Ordered losartan 25 mg oral tablet See Instructions, TAKE ONE TABLET BY MOUTH DAILY, # 30 tabs, 5 Refill(s), eRx: [facility] #[id number] Start Date: 09/28/16 Status: Ordered magnesium oxide 400 mg (241.3 mg elemental magnesium) oral tablet 400 mg 1 tabs, Oral, Daily, # 30 tabs, 11 Refill(s), Pharmacy: [facility] #[id number], 1 tabs Oral Daily Start Date: 08/11/16 Status: Ordered metFORMIN 1000 mg oral tablet, extended release 1,000 mg 1 tabs, Oral, Daily, with evening meal, # 90 tabs, 3 Refill(s), Pharmacy: [facility] #[id number], 1 tabs Oral Daily,Instr:with evening meal Start Date: 04/04/16 Status: Ordered omeprazole 20 mg oral delayed release capsule See Instructions, TAKE ONE CAPSULE BY MOUTH EVERY DAY, # 30 caps, 10 Refill(s), eRx: [facility] #[id number], TAKE ONE CAPSULE BY MOUTH EVERY DAY Start Date: 08/28/16 Status: Ordered pramipexole 0.5 mg oral tablet See Instructions, TAKE ONE TABLET BY MOUTH EVERY NIGHT AT BEDTIME, # 30 tabs, 1 Refill(s), eRx: [facility] #[id number], TAKE ONE TABLET BY MOUTH EVERY NIGHT [...] daily., # 30 tabs, 1 Refill(s), Pharmacy: [facility] #[id number], 0.5 tabs Oral Daily,x30 days,Instr:NOTE: HOLD today [...] L4-5 Translaminar 03/12/12 RT L3-4/L4-5 Transforaminal 01/02/12 Lwdisyj42 2011 Kbhjestauntxqbtsxijcsgydco80 2011 Laryngoscopy 2011 Eytdnra86 2010 Nasal houvlusrupe22 2002 Left 1st toe joint replacement 2001 Laparoscopic cholecystectomy 2000 bilateral elbow - tendinitis, epicondylitis 1994 Atyvuhq54 1985 Appendectomy Cholecystectomy Hysterectomy Knee [id number] Right great toenail excision FARAZ - Total abdominal hysterectomy and bilateral salpingo-[id number] [address] [place] [address] 2bilateral--June 2016 3auto-populated from documented surgical case [...] Patient Education Author: Jose Soliz MD Date: Emergency Medicine Acute Bronchitis Bronchitis is inflammation of the airways that extend from the windpipe into the lungs (bronchi). The inflammation often causes mucus to develop. This leads to a cough, which is the most common symptom of bronchitis. In acute bronchitis, the condition usually develops suddenly and goes away over time, usually in a couple weeks. Smoking, allergies, and asthma can make bronchitis worse. Repeated episodes of bronchitis may cause further lung problems. CAUSES Acute bronchitis is most often caused by the same virus that causes a cold. The virus can spread from person to person (contagious) through coughing, sneezing, and touching contaminated objects. SIGNS AND SYMPTOMS Cough. Fever. Coughing up mucus. Body aches. Chest congestion. Chills. Shortness of breath. Sore throat. DIAGNOSIS Acute bronchitis is usually diagnosed through a physical exam. Your health care provider will also ask you questions about your medical history. Tests, such as chest X-rays, are sometimes done to rule out other conditions. TREATMENT Acute bronchitis usually goes away in a couple weeks. Oftentimes, no medical treatment is necessary. Medicines are sometimes given for relief of fever or cough. Antibiotic medicines are usually not needed but may be prescribed in certain situations. In some cases, an inhaler may be recommended to help reduce shortness of breath and control the cough. A cool mist vaporizer may also be used to help thin bronchial secretions and make it easier to clear the chest. HOME CARE INSTRUCTIONS Get plenty of rest. Drink enough fluids to keep your urine clear or pale yellow (unless you have a medical condition that requires fluid restriction). Increasing fluids may help thin your respiratory secretions (sputum) and reduce chest congestion, and it will prevent dehydration. Take medicines only as directed by your health care provider. If you were prescribed an antibiotic medicine, finish it all even if you start to feel better. Avoid smoking and secondhand smoke. Exposure to cigarette smoke or irritating chemicals will make bronchitis worse. If you are a smoker, consider using nicotine gum or skin patches to help control withdrawal symptoms. Quitting smoking will help your lungs heal faster. Reduce the chances of another bout of acute bronchitis by washing your hands frequently, avoiding people with cold symptoms, and trying not to touch your hands to your mouth, nose, or eyes. Keep all follow-up visits as directed by your health care provider. SEEK MEDICAL CARE IF: Your symptoms do not improve after 1 week of treatment. SEEK IMMEDIATE MEDICAL CARE IF: You develop an increased fever or chills. You have chest pain. You have severe shortness of breath. You have bloody sputum. You develop dehydration. You faint or repeatedly feel like you are going to pass out. You develop repeated vomiting. You develop a severe headache. MAKE SURE YOU: Understand these instructions. Will watch your condition. Will get help right away if you are not doing well or get worse. This information is not intended to replace advice given to you by your health care provider. Make sure you discuss any questions you have with your health care provider. Document Released: 10/25/2005 Document Revised: 10/08/2015 Document Reviewed: [employer] Patient Education 2016 [employer]. No follow up information was provided. Extracted from: Title: several problems Author: Jose Soliz MD Date: 10/03/16 Impression and Plan Diagnosis Spinal stenosis of lumbar region (disorder) (EUY98-GC M48.06, Discharge, Medical ). Benign hypertension (HTQ13-HX I10, Discharge, Medical). Primary hypercholesterolemia (CFE34-MI E78.00, Discharge, Medical). Lymphedema of leg (VNP62-IF I89.0, Discharge, Medical). Acute bronchitis (SKT20-TP J20.9, Discharge, Medical). Pansinusitis (DCW72-OF J32.4, Discharge, Medical). CROW on CPAP (FQQ21-RL G47.33, Discharge, Medical). History of pulmonary embolism (GYZ58-AQ Z86.711, Discharge, Medical). Plan: 1) Rest at home. 2) Humidity is helpful. 3) No antibiotics are indicated at this time. 4) Postpone your colonoscopy for 3-4 weeks. 5) Take your Lovenox today, then stop it. 6) Take 2 Warfarin tabs today and 2 tabs tomorrow, then resume one daily. 7) INR and CBC in 3 days. 8) No changes made to your other meds. 9) Keep your followup appointment with me as scheduled.. Orders Orders (Selected) Outpatient Orders Ordered Office Visit Level 4 Est 97247: . Dx/Order Association Plan: Diagnosis: Acute bronchitis Comment: Modified: Office Visit Level 4 Est [id number]; 10/03/16 10:04:00 [employer], Acute bronchitis | Pansinusitis | Lymphedema of leg | Benign hypertension | CROW on CPAP | Spinal stenosis of lumbar region (disorder) | Primary hypercholesterolemia | History of pulmonary embolism Diagnosis: Benign hypertension Comment: Modified: Office Visit Level 4 Est [id number]; 10/03/16 10:04:00 [employer] DES[employer]ER, Acute bronchitis | Pansinusitis | Lymphedema of leg | Benign hypertension | CROW on CPAP | Spinal stenosis of lumbar region (disorder) | Primary hypercholesterolemia | History of pulmonary embolism Diagnosis: History of pulmonary embolism Comment: Modified: Office Visit Level 4 Est [id number]; 10/03/16 10:04:00 [employer] DES[employer]ER, Acute bronchitis | Pansinusitis | Lymphedema of leg | Benign hypertension | CROW on CPAP | Spinal stenosis of lumbar region (disorder) | Primary hypercholesterolemia | History of pulmonary embolism Diagnosis: Lymphedema of leg Comment: Modified: Office Visit Level 4 Est [id number]; 10/03/16 10:04:00 [employer] DEC[employer] DES[employer]ER, Acute bronchitis | Pansinusitis | Lymphedema of leg | Benign hypertension | CROW on CPAP | Spinal stenosis of lumbar region (disorder) | Primary hypercholesterolemia | History of pulmonary embolism Diagnosis: CROW on CPAP Comment: Modified: Office Visit Level 4 Est [id number]; 10/03/16 10:04:00 [employer] DEC[employer] DES[employer]ER, Acute bronchitis | Pansinusitis | Lymphedema of leg | Benign hypertension | CROW on CPAP | Spinal stenosis of lumbar region (disorder) | Primary hypercholesterolemia | History of pulmonary embolism Diagnosis: Pansinusitis Comment: Modified: Office Visit Level 4 Est [id number]; 10/03/16 10:04:00 [employer] DES[employer]ER, Acute bronchitis | Pansinusitis | Lymphedema of leg | Benign hypertension | CROW on CPAP | Spinal stenosis of lumbar region (disorder) | Primary hypercholesterolemia | History of pulmonary embolism Diagnosis: Primary hypercholesterolemia Comment: Modified: Office Visit Level 4 Est [id number]; 10/03/16 10:04:00 [employer] DES[employer]ER, Acute bronchitis | Pansinusitis | Lymphedema of leg | Benign hypertension | CROW on CPAP | Spinal stenosis of lumbar region (disorder) | Primary hypercholesterolemia | History of pulmonary embolism Diagnosis: Spinal stenosis of lumbar region (disorder) Comment: Modified: Office Visit Level 4 Est [id number]; 10/03/16 10:04:00 [employer] DEC[employer] DES[employer]ER, Acute bronchitis | Pansinusitis | Lymphedema of leg | Benign hypertension | CROW on CPAP | Spinal stenosis of lumbar region (disorder) | Primary hypercholesterolemia | History of pulmonary embolism End of Orders ."
--- OUTSIDE RECORDS SUMMARY | 2016-12-17 12:35 | XMS REPORT | Continuity of Care Document ---
Author Author [facility] Organization [facility] Address Unknown Phone Unavailable Support Name Relationship Address Phone BARBIE HARE MD Caregiver [facility] [address] [place] [address] Unavailable CARMENCITA SCALES MD Caregiver [address] [place] [address] [phone] CHRISSIE MARRUFO Next Of Kin [address] [place] [address] Insurance Providers Payer Name Policy Number Subscriber Name Relationship Medicare [id number] Kayla Robertson [address] [facility] [id number] Kayla Robertson 16 Self Problems Medical Problems Problem Onset Date Status Malaise and fatigue Unknown Active R/O [place] Unknown Active Chest pain rule out [place] Unknown Active Dizziness Unknown Active Malaise and fatigue Unknown Active Dizziness Unknown Active Medications Medication Dose Route Sig [...] D-1 WEEK,OFF 3 WEEK 05/26/10 10/03/10 Discontinued Omeprazole 20 Mg PO DAILY 08/23/11 Active Losartan Potassium 100 Mg PO DAILY 08/23/11 Active Pramipexole Di-Hcl 0.5 Mg PO BEDTIME 08/23/11 [...] 04/01/12 Discontinued Acetaminophen BEDTIME 04/01/12 04/10/12 Discontinued Acetaminophen 1,000 Mg PO BEDTIME PRN 04/10/12 Active Ipratropium [place] 2 [place] EA NOSTRIL DAILY 07/09/13 Active Chlorthalidone 25 Mg PO NEEDED 11/09/13 Active Social History Social History Problem Response Recorded Date/Time Smoking Status Never smoker 03/11/2014 2:30pm Chewing Tobacco Status No 03/11/2014 2:30pm Hx Substance Use No 03/11/2014 2:30pm Hx Alcohol Use No 03/11/2014 2:30pm Has the pt used tobacco in the last 12 months No 11/09/2013 9:36pm Query Response Start Date Stop Date Smoking Status Never smoker Hospital Discharge Instructions No hospital discharge instructions. Plan of Care No plan of care. Functional Status No functional status results. Allergies, Adverse Reactions, Alerts Allergen Type Severity Reaction Status Last Updated Procaine HCl Allergy Unknown NERVOUS AND HEART RACE Active 11/09/13 hydrocodone bit Allergy Mild FINE RASH AND HEADACHE Active 11/09/13 propoxyphene HCl Allergy Unknown SHAKY, AND LOPEZ Active 11/09/13 albuterol sulfate Allergy Intermediate NERVOUSNESS, PALPITATIONS Active ciprofloxacin HCl Allergy Mild ITCH,HEADACHE Active 11/09/13 Lisinopril Adverse Reaction Unknown DRY COUGH Active 11/09/13 Codeine Allergy Mild RASH,HEADACHE Active 11/09/13 Hydrochlorothiazide Adverse Reaction Unknown NAUSEA, DIZZY Active 11/09/13 Doxycycline Adverse Reaction Unknown NAUSEA, DIZZY Active 11/09/13 Ciprofloxacin Allergy Mild ITCH,HEADACHE Active 11/09/13 Tuberculin,Old Skin Test Allergy Unknown Active 11/09/13 Rofecoxib Allergy Severe JOINT SWELL,RACHEL Active 11/09/13 Immunizations Name Given Type Hx Influenza Vaccination Y JUL 2013 Historical Hx Pneumococcal Vaccination Y JUL 2011 Historical Hx Influenza Vaccination Y JUL 2013 Historical Vital Signs No known vital signs results. Results Test Source Date Result Interp. Ref. Range Comments Activated Partial Thromboplast Time November 09, 2013 5:58pm 33.3 SEC N 24-36 Alanine Aminotransferase (ALT/SGPT) March 11, 2014 4:00pm 31 U/L N 9-52 Albumin March 11, 2014 4:00pm 3.9 G/DL N 3.5-5.0 Albumin/Globulin Ratio March 11, 2014 4:00pm 1.4 RATIO N 1.1-2.2 Alkaline Phosphatase March 11, 2014 4:00pm 93 U/L N 38-126 Amylase Level April 10, 2012 3:16pm < 30 U/L L 30-110 Anion Gap March 11, 2014 4:00pm 11 MEQ/L N 5-15 Aspartate Amino Transf (AST/SGOT) March 11, 2014 4:00pm 22 U/L N 14-36 BUN/Creatinine Ratio March 11, 2014 4:00pm 20 RATIO N 6-26 Basophils # (Auto) March 11, 2014 4:00pm 0.0 T/MM3 N 0-0.2 Basophils (%) (Auto) March 11, 2014 4:00pm 0.1 % N 0-2 Blood Urea Nitrogen March 11, 2014 4:00pm 16.0 MG/DL N 7-17 Calcium Level March 11, 2014 4:00pm 9.3 MG/DL N 8.4-10.2 Calculated Osmolality March 11, 2014 4:00pm 250 MOSM/KG L 261-280 Carbon Dioxide Level March 11, 2014 4:00pm 27 MEQ/L N 22-30 Chloride Level March 11, 2014 4:00pm 91 MEQ/L L 98-107 Cholesterol Level November 10, 2013 6:20am 159 MG/DL N 132-199 COMMENT FASTING Cholesterol/HDL Ratio November 10, 2013 6:20am 3.6 RATIO N 0-4.0 COMMENT FASTING Conjugated Bilirubin June 10, 2012 3:05pm 0.00 MG/DL N 0.00-0.30 Creatinine March 11, 2014 4:00pm 0.8 MG/DL N 0.7-1.2 Eosinophils # (Auto) March 11, 2014 4:00pm 0.0 T/MM3 N 0-0.5 Eosinophils (%) (Auto) March 11, 2014 4:00pm 0.4 % N 0-4 Erythrocyte Sedimentation Rate October 12, 2011 4:15am 19 MM/HR N 0-20 Free Thyroxine November 10, 2013 6:20am 1.91 NG/DL N 0.78-2.19 COMMENT FASTING Globulin March 11, 2014 4:00pm 2.7 G/DL N 2.4-3.6 Glucose Level March 11, 2014 4:00pm 105 MG/DL N 65-110 Hematocrit March 11, 2014 4:00pm 38.7 % N 36-46 Hemoglobin March 11, 2014 4:00pm 13.5 GM/DL N 12-16 LDL Cholesterol, Calculated November 10, 2013 6:20am 95.6 N 66-159 COMMENT FASTING Lipase April 10, 2012 3:16pm 18 U/L L 23-300 Lymphocytes # (Auto) March 11, 2014 4:00pm 1.5 T/MM3 N 1-4.8 Lymphocytes (%) (Auto) March 11, 2014 4:00pm 17.7 % L 23-45 Magnesium Level March 11, 2014 4:00pm 1.5 MG/DL L 1.6-2.3 Mean Corpuscular Hemoglobin March 11, 2014 4:00pm 29.7 UUG N 26-34 Mean Corpuscular Hemoglobin Concent March 11, 2014 4:00pm 34.9 GM/DL N 31 -37 Mean Corpuscular Volume March 11, 2014 4:00pm 85.2 UM3 N 80-100 Mean Platelet Volume March 11, 2014 4:00pm 10.4 UM3 N 9.4-12.4 Monocytes # (Auto) March 11, 2014 4:00pm 0.8 T/MM3 N 0-0.8 Monocytes (%) (Auto) March 11, 2014 4:00pm 9.9 % H 0-9.0 Neutrophils # (Auto) March 11, 2014 4:00pm 5.9 T/MM3 N 1.8-7.7 Neutrophils (%) (Auto) March 11, 2014 4:00pm 71.7 % H 33-66 Platelet Count March 11, 2014 4:00pm 274 T/MM3 N 130-400 Potassium Level March 11, 2014 4:00pm 3.7 MEQ/L N 3.6-5 Prothromb Time International Ratio November 09, 2013 5:58pm 0.97 N 0.86- 1.10 THERAPUTIC RANGE=2.00-3.00 FOR ANTI-THROMBOSIS THERAPUTIC RANGE=2.50- 3.50 FOR IMPLANTED VALVE RDW Standard Deviation March 11, 2014 4:00pm 38.7 FL N 36.9-50.2 Red Blood Count March 11, 2014 4:00pm 4.54 M/MM3 N 4.00-5.20 Sodium Level March 11, 2014 4:00pm 129 MEQ/L L 134-144 Thyroid Stimulating Hormone (TSH) March 11, 2014 4:00pm 1.59 MIU/L N 0.47 -4.68 Total Bilirubin March 11, 2014 4:00pm 1.00 MG/DL N 0.20-1.30 Total Protein March 11, 2014 4:00pm 6.6 G/DL N 6.3-8.2 Triglycerides Level November 10, 2013 6:20am 97 MG/DL N 35-135 COMMENT FASTING Troponin I March 11, 2014 4:00pm < 0.012 ng/ml 0-0.12 Unconjugated Bilirubin June 10, 2012 3:05pm 0.00 MG/DL N 0.00-1.10 Urine Bacteria April 11, 2013 6:10pm Trace H - Has specimen been collected/obtained? Y Urine Bilirubin March 11, 2014 5:30pm Negative - Has specimen been collected/obtained? Y Urine Blood March 11, 2014 5:30pm Negative - Has specimen been collected/obtained? Y Urine Collection Type March 11, 2014 5:30pm Voided-not cc-midstr - Has specimen been collected/obtained? Y Urine Color March 11, 2014 5:30pm Yellow - Has specimen been collected /obtained? Y Urine Culture Indicated April 11, 2013 6:10pm Cult reflexed &setup - Has specimen been collected/obtained? Y Urine Glucose (UA) March 11, 2014 5:30pm Negative - Has specimen been collected/obtained? Y Urine Ketones March 11, 2014 5:30pm Trace H - Has specimen been collected/obtained? Y Urine Leukocyte Esterase March 11, 2014 5:30pm Trace H - Has specimen been collected/obtained? Y Urine Nitrite March 11, 2014 5:30pm Negative - Has specimen been collected/obtained? Y Urine Protein March 11, 2014 5:30pm Negative - Has specimen been collected/obtained? Y Urine RBC April 11, 2013 6:10pm None seen /HPF - Has specimen been collected/obtained? Y Urine Specific [place] March 11, 2014 5:30pm <=1.005 L - Has specimen been collected/obtained? Y Urine Squamous Epithelial Cells April 11, 2013 6:10pm 5-10 - Has specimen been collected/obtained? Y Urine Turbidity March 11, 2014 5:30pm Clear - Has specimen been collected/obtained? Y Urine Urobilinogen March 11, 2014 5:30pm 0.2 EU/DL - Has specimen been collected/obtained? Y Urine WBC April 11, 2013 6:10pm 3-5 /HPF - Has specimen been collected /obtained? Y Urine pH March 11, 2014 5:30pm 6.0 - Has specimen been collected/ obtained? Y VLDL Cholesterol November 10, 2013 6:20am 19.4 MG/DL N 0-28 COMMENT FASTING White Blood Count March 11, 2014 4:00pm 8.3 T/MM3 N 4.5-11.0 Chemistry Specimen Hemolysis March 11, 2014 4:00pm 18 N 0-25 0-25: No Hemolysis.26-70: Slight Hemolysis - can falsely elevate K and Urine Protein. 71-285: Moderate Hemolysis - can falsely elevate K, Troponin I, CA 19-9, PTH, CSF GLucose, and Urine Protein, and can falsely decrease Phenytoin. 286-999: Gross Hemolysis - can falsely elevate K, Troponin I, CA 19-9, PTH, CSF Glucose, and Urine Protine, and can falsely decrease Phenytoin. Recommend specimen recollection. Urinalysis Comment March 11, 2014 5:30pm Microscopic not ind. - Has specimen been collected/obtained? Y Glucometer November 10, 2013 10:08am 133 mg/dL H 65-110 Lab Scanned Report November 01, 2011 10:07pm LAB TEST FORM REQUEST [id number] - EKG February 06, 2008 12:44pm Complete - HDL Cholesterol Direct November 10, 2013 6:20am 44 MG/DL N 40-60 COMMENT FASTING Turbidity March 11, 2014 4:00pm < 20 0-20 Glomerular Filtration Rate Calc March 11, 2014 4:00pm 70 - Immature Granulocyte # (Auto) March 11, 2014 4:00pm 0.02 T/MM3 N 0.00- 0.03 Immature Granulocyte % (Auto) March 11, 2014 4:00pm 0.2 % N 0.0-0.5 Icterus Index March 11, 2014 4:00pm < 2 0-7 IK-Lqz-C-Type Natriuretic Peptide March 11, 2014 4:00pm 266 PG/ML H 0- 175 Rule in cut points: <50 years old=450; 50-75 years old=900; >75 years old=1800; When utilizing ProBNP rule-in cut points, adjustment for impaired renal function is typically not required. Urine Microscopic Not Indicated April 10, 2012 3:20pm Not indicated - Has specimen been collected/obtained? Y Urine Culture Urine, Voided-Not Cc-Midstream April 11, 2013 6:35pm Streptococcus Anginosus Helicobacter pylori Rapid Urease Gastric Biopsy July 10, 2013 7:47am Procedures No known history of procedures. Encounters Encounter Location Date/Time Departed Emergency Room [facility] 06/22/14 8:30pm Recent Diagnosis
--- OUTSIDE RECORDS SUMMARY | 2016-12-17 12:36 | XMS REPORT | Referral Summary ---
Author Author [facility] Organization [facility]mediate [facility] Address Unknown Phone Unavailable Care Team Providers Care Abstract Manager Name Role Phone Shikha Soliz Primary Care Physician [phone] Encounter VC Date(s): 09/30/16 - 09/30/16 [facility], [address] [place] [address]- Discharge Diagnosis: Acute viral bronchitis Discharge Disposition: 01-Home or Self Care Attending Physician: Tj See MD Admitting Physician: Tj See MD Vital Signs Most recent to 1 oldest [Reference Range]: Temperature Tympanic 37.5 degC [36.6-38.1 degC] (09/30/16 11:56 AM) Peripheral Pulse 104 bpm Rate [60-100 bpm] *HI* (09/30/16 11:56 AM) Blood Pressure 142/82 mmHg [90-140/60-90 mmHg] *HI* (09/30/16 11:56 AM) SpO2 95 % (09/30/16 11:56 AM) Problem List Condition Effective Dates Status Health Status Informant Acquired lymphedema Active of leg(Confirmed) Acquired Active spondylolisthesis (disorder)(Confirmed ) Acute Active bronchitis(Confirmed ) Acute Active pain(Confirmed) Adenomatous colon 2012 Active polyps(Confirmed) Allergic reaction to 2001 Active [...] Daily, # 30 tabs, 11 Refill(s), Pharmacy: [facility] #[id number], 1 tabs Oral Daily Start Date: 09/01/16 Status: Ordered atorvastatin 10 mg oral tablet See Instructions, TAKE ONE TABLET BY MOUTH DAILY, # 30 tabs, 4 Refill(s), eRx: [facility] #[id number], TAKE ONE TABLET BY MOUTH DAILY Start Date: 09/13/16 Status: Ordered escitalopram 5 mg oral tablet See Instructions, TAKE ONE TABLET BY MOUTH DAILY, # 30 tabs, 5 Refill(s), eRx: [facility] #[id number] Start Date: 09/28/16 Status: Ordered furosemide 20 mg oral tablet 20 mg 1 tabs, Oral, Every other day, # 30 tabs, 5 Refill(s), Pharmacy: [facility] #[id number], 1 tabs Oral Every other day Start Date: 09/22/16 Status: Ordered losartan 25 mg oral tablet See Instructions, TAKE ONE TABLET BY MOUTH DAILY, # 30 tabs, 5 Refill(s), eRx: [facility] #[id number] Start Date: 09/28/16 Status: Ordered magnesium oxide 400 mg (241.3 mg elemental magnesium) oral tablet 400 mg 1 tabs, Oral, Daily, # 30 tabs, 11 Refill(s), Pharmacy: [facility] #[id number], 1 tabs Oral Daily Start Date: 08/11/16 Status: Ordered metFORMIN 1000 mg oral tablet, extended release 1,000 mg 1 tabs, Oral, Daily, with evening meal, # 90 tabs, 3 Refill(s), Pharmacy: [facility] #[id number], 1 tabs Oral Daily,Instr:with evening meal Start Date: 04/04/16 Status: Ordered omeprazole 20 mg oral delayed release capsule See Instructions, TAKE ONE CAPSULE BY MOUTH EVERY DAY, # 30 caps, 10 Refill(s), eRx: [facility] #[id number], TAKE ONE CAPSULE BY MOUTH EVERY DAY Start Date: 08/28/16 Status: Ordered pramipexole 0.5 mg oral tablet See Instructions, TAKE ONE TABLET BY MOUTH EVERY NIGHT AT BEDTIME, # 30 tabs, 1 Refill(s), eRx: [facility] #[id number], TAKE ONE TABLET BY MOUTH EVERY NIGHT [...] daily., # 30 tabs, 1 Refill(s), Pharmacy: [facility] #[id number], 0.5 tabs Oral Daily,x30 days,Instr:NOTE: HOLD today [...] L4-5 Translaminar 03/12/12 RT L3-4/L4-5 Transforaminal 01/02/12 [id number] 2011 Pezgxsotetucxjxoealomvimpw89 2011 Laryngoscopy 2011 Ygenzku65 2010 Nasal [id number] 2002 Left 1st toe joint replacement 2001 Laparoscopic cholecystectomy 2000 bilateral elbow - tendinitis, epicondylitis 1994 Biidvuu45 1985 Appendectomy Cholecystectomy Hysterectomy Knee [id number] Right great toenail excision FARAZ - Total abdominal hysterectomy and bilateral salpingo-[id number] [address] [place] [address] 2bilateral--June 2016 3auto-populated from documented surgical case [...] smoker Assessment and Plan Extracted from: Title: Immediate care Author: Tj See MD Date: 09/30/16 Assessment/Plan 1.Acute viral bronchitis Fever Influenza testing was obtained and was negative. Advised about symptomatic management, and encouraged more frequent blood sugar testing, discussed expectationsand follow-up when necessary.
--- OUTSIDE RECORDS SUMMARY | 2016-12-17 12:36 | XMS REPORT | Continuity of Care Document ---
Author Author [facility] Organization [facility] Address Unknown Phone Unavailable Support Name Relationship Address Phone ARCHIE BLOOD MD Caregiver [address] [place] [address] CARMENCITA SCALES MD Caregiver [address] [place] [address] [place] [address] [phone] YARONVIRGILA Next Of Kin [address] [place], [place] [id number] Insurance Providers Payer Name Policy Number Subscriber Name Relationship Medicare [id number] Kayla Robertson 16 Self [facility] [id number] Kayla Robertson 16 Self Problems Medical Problems Problem Onset Date Status Malaise and fatigue Unknown Active R/O [place] Unknown Active Chest pain rule out [place] Unknown Active Dizziness Unknown Active Malaise and fatigue Unknown Active Dizziness Unknown Active Bilateral lower extremity edema Unknown Active Medications Medication Dose Route Sig [...] Omeprazole 20 Mg PO DAILY 08/23/11 Active Pramipexole Di-Hcl [...] 04/01/12 Discontinued Acetaminophen BEDTIME 04/01/12 04/10/12 Discontinued Furosemide 1 Tab PO DAILY 06/29/14 Active [Lopressor] 06/29/14 Active [Hydroch] 06/29/14 Active Social History Social History Problem Response Recorded Date/Time Smoking Status Never smoker 03/11/2014 2:30pm Chewing Tobacco Status No 03/11/2014 2:30pm Hx Substance Use No 06/29/2014 7:59pm Hx Alcohol Use No 06/29/2014 7:59pm Has the pt used tobacco in the last 12 months No 11/09/2013 9:36pm Query Response Start Date Stop Date Smoking Status Never smoker Hospital Discharge Instructions No hospital discharge instructions. Plan of Care No plan of care. Functional Status Query Response Date Recorded Physical Hygiene Self June 29, 2014 7:59pm Disabilities None June 29, 2014 7:59pm Devices Used Glasses June 29, 2014 7:59pm Dressing Self June 29, 2014 7:59pm Ambulation Self June 29, 2014 7:59pm Diet Self June 29, 2014 7:59pm Mental Status Alert June 29, 2014 8:18pm Disabilities None June 29, 2014 7:59pm Devices Used Glasses June 29, 2014 7:59pm Physical Hygiene Self June 29, 2014 7:59pm Dressing Self June 29, 2014 7:59pm Ambulation Self June 29, 2014 7:59pm Diet Self June 29, 2014 7:59pm Allergies, Adverse Reactions, Alerts Allergen Type Severity Reaction Status Last Updated Procaine HCl Allergy Unknown NERVOUS AND HEART RACE Active 11/09/13 hydrocodone bit Allergy Mild FINE RASH AND HEADACHE Active 06/29/14 propoxyphene HCl Allergy Unknown SHAKY, AND LOPEZ Active 06/29/14 albuterol sulfate Allergy Intermediate NERVOUSNESS, PALPITATIONS Active ciprofloxacin HCl Allergy Mild ITCH,HEADACHE Active 06/29/14 Lisinopril Adverse Reaction Unknown DRY COUGH Active 06/29/14 Codeine Allergy Mild RASH,HEADACHE Active 06/29/14 Hydrochlorothiazide Adverse Reaction Unknown NAUSEA, DIZZY Active 06/29/14 Doxycycline Adverse Reaction Unknown NAUSEA, DIZZY Active 06/29/14 Ciprofloxacin Allergy Mild ITCH,HEADACHE Active 06/29/14 Tuberculin,Old Skin Test Allergy Unknown Active 06/29/14 Rofecoxib Allergy Severe JOINT SWELL,RACHEL Active 06/29/14 Immunizations Name Given Type Hx Influenza Vaccination Y JUL 2013 Historical Hx Pneumococcal Vaccination Y JUL 2011 Historical Hx Influenza Vaccination Y JUL 2013 Historical Vital Signs Acute Vital Signs Vital Response Date/Time Temperature (Fahrenheit) 97.7 deg F (96.8 - 99.1) Temperature (Calculated Celsius) 36.02768 degrees C (36.0 - 37.3) Pulse Rate (adult) 76 bpm (60 - 100) Respiratory Rate 20 breaths/min (10 - 20) O2 Sat by Pulse Oximetry 99 % (90 - 100) Blood Pressure 196/92 mm Hg Height 5 ft 1 in Weight 180 lb Body Mass Index 34.0 kg/m^2 Results Test Source Date Result Interp. Ref. [...] Has specimen been collected/obtained? Y Urine Specific [place] March 11, 2014 5:30pm <=1.005 L - [...] 01, 2011 10:07pm LAB TEST FORM REQUEST [id number] - EKG February 06, 2008 12:44pm Complete [...] March 11, 2014 4:00pm < 2 0-7 KJ-Wmo-P-Type Natriuretic Peptide March 11, 2014 4:00pm 266 [...] Encounters Encounter Location Date/Time Departed Emergency Room [facility] 06/29/14 4:02pm Departed Emergency Room [facility] 06/22/14 8:30pm Recent Diagnosis
--- OUTSIDE RECORDS SUMMARY | 2016-12-17 12:36 | XMS REPORT | Continuity of Care Document ---
Author Author [facility] Organization [facility] Address Unknown Phone Unavailable Support Name Relationship Address Phone BENJIE LEYVA DO Caregiver [facility] [address] [place], [place] [phone] CARMENCITA SCALES MD Caregiver [address] [place] [address] [place] [address] [phone] CHRISSIE MARRUFO Next Of Kin [address] [place] [address] Insurance Providers Payer Name Policy Number Subscriber Name Relationship Medicare [id number] Kayla Robertson 16 Self [employer] [facility] [id number] Kayla Robertson 16 Self Problems Medical Problems Problem Onset Date Status Malaise and fatigue Unknown Active R/O [place] Unknown Active Chest pain rule out [place] Unknown Active Dizziness Unknown Active Malaise and [...] Furosemide 1 Tab PO DAILY 06/29/14 Active Atorvastatin Calcium 10 Mg PO BEDTIME 30 Qty 07/22/14 Active Chlorthalidone 25 Mg PO NEEDED 30 Qty 07/22/14 Active Losartan Potassium 100 Mg PO DAILY 30 Qty 07/22/14 Active Omeprazole 20 Mg PO TWICE A DAY 30 Qty 07/22/14 Active Sucralfate 1 Gm PO FOUR TIMES DAILY 120 Qty 07/22/14 Active Acetaminophen 1-2 Tab PO Every 6 Hours PRN PAIN 07/22/14 Active Ondansetron HCl 4 Mg PO NEEDED 20 Qty 07/22/14 Active Social History Social History Problem Response Recorded Date/Time Smoking Status Never smoker 03/11/2014 2:30pm Chewing Tobacco Status No 03/11/2014 2:30pm Hx Substance Use No 07/22/2014 11:55am Hx Alcohol Use No 07/22/2014 11:55am Has the pt used tobacco in the last 12 months No 07/22/2014 11:55am Query Response Start Date Stop Date Smoking Status Never smoker Hospital Discharge Instructions No hospital discharge instructions. Plan of Care No plan of care. Functional Status Query Response Date Recorded Physical Hygiene Self June 29, 2014 7:59pm Physical Hygiene Self June 29, 2014 7:59pm Allergies, Adverse Reactions, Alerts Allergen Type Severity Reaction Status Last Updated Procaine HCl Allergy Unknown NERVOUS AND HEART RACE Active 07/30/14 hydrocodone bit Allergy Mild FINE RASH AND HEADACHE Active 10/30/14 propoxyphene HCl Allergy Unknown SHAKY, AND LOPEZ Active 07/30/14 albuterol sulfate Allergy Intermediate NERVOUSNESS, PALPITATIONS Active ciprofloxacin HCl Allergy Mild ITCH,HEADACHE Active 07/30/14 Lisinopril Adverse Reaction Unknown DRY COUGH Active 07/30/14 Codeine Allergy Mild RASH,HEADACHE Active 07/30/14 Hydrochlorothiazide Adverse Reaction Unknown NAUSEA, DIZZY Active 07/30/14 Doxycycline Adverse Reaction Unknown NAUSEA, DIZZY Active 07/30/14 Ciprofloxacin Allergy Mild ITCH,HEADACHE Active 07/30/14 Tuberculin,Old Skin Test Allergy Unknown Active 07/30/14 Rofecoxib Allergy Severe JOINT SWELL,RACHEL Active 07/30/14 Immunizations Name Given Type Hx Influenza Vaccination Y JULY 2014 Historical Hx Pneumococcal Vaccination Y JULY 2014 Historical Hx Influenza Vaccination Y JULY 2014 Historical Vital Signs Acute Vital Signs Vital Response Date/Time Temperature (Fahrenheit) 97 deg F (96.8 - 99.1) Temperature (Calculated Celsius) 36.1140 degrees C (36.0 - 37.3) Pulse Rate (adult) 75 bpm (60 - 100) Respiratory Rate 20 breaths/min (10 - 20) O2 Sat by Pulse Oximetry 98 % (90 - 100) Blood Pressure 169/89 mm Hg Results Test Source Date Result [...] Has specimen been collected/obtained? Y Urine Specific [place] March 11, 2014 5:30pm <=1.005 L - [...] - Has specimen been collected/obtained? Y Glucometer July 23, 2014 8:17am 125 mg/dL H 65-110 Lab Scanned Report November 01, 2011 10:07pm LAB TEST FORM REQUEST [id number] - EKG February 06, 2008 12:44pm Complete [...] March 11, 2014 4:00pm < 2 0-7 OH-Mvk-O-Type Natriuretic Peptide March 11, 2014 4:00pm 266 PG/ML H 0- 175 Rule in cut points: <50 years old=450; 50-75 years old=900; >75 years old=1800; When utilizing ProBNP rule-in cut points, adjustment for impaired renal function is typically not required. Urine Microscopic Not Indicated April 10, 2012 3:20pm Not indicated - Has specimen been collected/obtained? Y Helicobacter pylori Rapid Urease Gastric Biopsy July 23, 2014 9:30am Urine Culture Urine, Voided-Not Cc-Midstream April 11, 2013 6:35pm Streptococcus Anginosus Procedures Procedure Status Date Provider(s) EGD BIOPSY SINGLE/MULTIPLE completed 07/23/14 MAXWELL YING MD, FACS, CWS Encounters Encounter Location Date/Time Departed Emergency Room [facility] 07/29/14 8:12pm Departed Emergency Room [facility] 06/29/14 4:02pm Departed Emergency Room [facility] 06/22/14 8:30pm Recent Diagnosis
--- OUTSIDE RECORDS SUMMARY | 2016-12-17 12:37 | XMS REPORT | Referral Summary ---
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 Name Role Phone Shikha Soliz Primary Care Physician [phone] Encounter VC Date(s): 08/31/16 - 08/31/16 [facility] [address] [place] [id number]- Discharge Diagnosis: Benign hypertension Discharge Diagnosis: Spinal stenosis of lumbar region (disorder) Discharge Diagnosis: Controlled type 2 diabetes mellitus without complication Discharge Diagnosis: Swelling of finger joint of right hand Discharge Diagnosis: Pain in finger of right hand Discharge Disposition: 01-Home or Self Care Attending Physician: Jose Soliz MD Admitting Physician: Jose Soliz MD Vital Signs Most recent to 1 oldest [Reference Range]: Temperature Tympanic 36.5 degC [36.6-38.1 degC] *LOW* (08/31/16 9:36 AM) Peripheral Pulse 96 bpm Rate [60-100 bpm] (08/31/16 9:36 AM) Blood Pressure 120/64 mmHg [90-140/60-90 mmHg] (08/31/16 9:36 AM) Problem List Condition Effective Dates Status [...] DAILY, # 30 tabs, 5 Refill(s), eRx: [facility] #[id number], TAKE ONE TABLET BY MOUTH DAILY Start Date: 03/15/16 Status: Ordered escitalopram 5 mg oral tablet 5 mg 1 tabs, Oral, Daily, # 30 tabs, 5 Refill(s), Pharmacy: [facility] # [id number], 1 tabs Oral Daily Start Date: 03/24/16 Status: Ordered losartan 25 mg oral tablet See Instructions, TAKE ONE TABLET BY MOUTH DAILY, # 30 tabs, 1 Refill(s), eRx: [facility] #[id number], TAKE ONE TABLET BY MOUTH DAILY Start Date: 06/12/16 Status: Ordered magnesium oxide 400 mg (241.3 mg elemental magnesium) oral tablet 400 mg 1 tabs, Oral, Daily, # 30 tabs, 11 Refill(s), Pharmacy: [facility] #[id number], 1 tabs Oral Daily Start Date: 08/11/16 Status: Ordered metFORMIN 1000 mg oral tablet, extended release 1,000 mg 1 tabs, Oral, Daily, with evening meal, # 90 tabs, 3 Refill(s), Pharmacy: [facility] #[id number], 1 tabs Oral Daily,Instr:with evening meal Start Date: 04/04/16 Status: Ordered omeprazole 20 mg oral delayed release capsule See Instructions, TAKE ONE CAPSULE BY MOUTH EVERY DAY, # 30 caps, 10 Refill(s), eRx: [facility] #[id number], TAKE ONE CAPSULE BY MOUTH EVERY DAY Start Date: 08/28/16 Status: Ordered pramipexole 0.5 mg oral tablet See Instructions, TAKE ONE TABLET BY MOUTH EVERY NIGHT AT BEDTIME, # 30 tabs, 1 Refill(s), eRx: [facility] #[id number], TAKE ONE TABLET BY MOUTH EVERY NIGHT AT BEDTIME Start Date: 06/26/16 Status: Ordered predniSONE 20 mg oral tablet 20 mg 1 tabs, Oral, Daily, X 5 days, # 5 tabs, 0 Refill(s), Pharmacy: [facility] #[id number], 1 tabs Oral Daily,x5 days Start Date: 08/31/16 Stop Date: 09/05/16 Status: Ordered Probiotic Formula oral capsule 1 [...] daily., # 30 tabs, 1 Refill(s), Pharmacy: [facility] #[id number], 0.5 tabs Oral Daily,x30 days,Instr:NOTE: HOLD today and Sunday, start on 02/20/16Sunday. Start Date: 02/18/16 Status: Ordered Results Hematology Most recent to 1 oldest [Reference Range]: WBC [4.8-10.8 9.1 10*3/uL 10*3/uL] (08/31/16 10:55 AM) RBC [4.00-5.20] 4.17 (08/31/16 10:55 AM) Hgb [12.0-16.0 11.8 gm/dL gm/dL] *LOW* (08/31/16 10:55 AM) Hct [37.0-47.0 %] 37.7 % (08/31/16 10:55 AM) MCV [82.0-99.0 fL] 90.4 fL (08/31/16 10:55 AM) MCH [27.0-32.0 pg] 28.3 pg (08/31/16 10:55 AM) MCHC [32.0-36.0 31.3 gm/dL gm/dL] *LOW* (08/31/16 10:55 AM) RDW [11.5-14.5 %] 13.7 % (08/31/16 10:55 AM) Platelet [150-400 309 10*3/uL 10*3/uL] (08/31/16 10:55 AM) MPV [8.8-14.8 fL] 11.4 fL (08/31/16 10:55 AM) Immature 0.1 % Granulocytes (08/31/16 10:55 AM) [0.0-1.0 %] Neutrophils [51-75 63 % %] (08/31/16 10:55 AM) Lymphocytes [20-46 27 % %] (08/31/16 10:55 AM) Monocytes [4-11 %] 9 % (08/31/16 10:55 AM) Eosinophils [0-4 %] 1 % (08/31/16 10:55 AM) Basophils [0-2 %] 0 % (08/31/16 10:55 AM) Neutro Absolute 5.75 10*3 [1.90-7.00 10*3] (08/31/16 10:55 AM) Lymph Absolute 2.43 10*3 [0.80-3.30 10*3] (08/31/16 10:55 AM) Whiteside Absolute 0.81 10*3 [0.30-1.00 10*3] (08/31/16 10:55 AM) Eos Absolute 0.11 10*3 [0.00-0.50 10*3] (08/31/16 10:55 AM) Baso Absolute 0.02 10*3 [0.00-0.20 10*3] (08/31/16 10:55 AM) Sed Rate [0-23] 34 *HI* (08/31/16 10:55 AM) Chemistry Most recent to 1 oldest [Reference Range]: Sodium Lvl [135-144 142 mEq/L mEq/L] (08/31/16 10:55 AM) Potassium Lvl 4.3 mEq/L [3.5-5.2 mEq/L] (08/31/16 10:55 AM) Chloride [99-111 108 mEq/L mEq/L] (08/31/16 10:55 AM) CO2 [22-31 mEq/L] 19 mEq/L *LOW* (08/31/16 10:55 AM) AGAP [3-20] 15 (08/31/16 10:55 AM) BUN [10-20 mg/dL] 17 mg/dL (08/31/16 10:55 AM) Glucose Lvl [70-99 109 mg/dL mg/dL] *HI* (08/31/16 10:55 AM) Creatinine Lvl 0.85 mg/dL [0.57-1.11 mg/dL] (08/31/16 10:55 AM) eGFR [>60 mL/min] >60 mL/min 1 (08/31/16 10:55 AM) Calcium Lvl 9.0 mg/dL [8.9-10.5 mg/dL] (08/31/16 10:55 AM) Uric Acid [2.6-6.0 7.7 mg/dL mg/dL] *HI* (08/31/16 10:55 AM) 1Result Comment: Multiply eGFR results by 1.21 for race. Immunizations Vaccine Date Refusal Reason influenza virus [...] L4-5 Translaminar 03/12/12 RT L3-4/L4-5 Transforaminal 01/02/12 Itemlif51 2011 Usjclgvducglqdsjentxzriefv61 2011 Laryngoscopy 2011 Krshzvo89 2011 Nasal bpcwjhfttio41 2002 Left 1st toe joint replacement 2001 Laparoscopic cholecystectomy 2000 bilateral elbow - tendinitis, epicondylitis 1994 Msxbinn65 1985 Appendectomy Cholecystectomy Hysterectomy Knee [id number] Right great toenail excision FARAZ - Total abdominal hysterectomy and bilateral [id number]-[id number] 1[place] [facility] 2bilateral--June 2016 3auto-populated from documented surgical case [...] Patient Education Author: Jose Soliz MD Date: 08/31 Home Health Care Diabetes and Exercise Exercising regularly is important. It is not just about losing weight. It has many health benefits, such as: Improving your overall fitness, flexibility, and endurance. Increasing your bone density. Helping with weight control. Decreasing your body fat. Increasing your muscle strength. Reducing stress and tension. Improving your overall health. People with diabetes who exercise gain additional benefits because exercise: Reduces appetite. Improves the body's use of blood sugar (glucose). Helps lower or control blood glucose. Decreases blood pressure. Helps control blood lipids (such as cholesterol and triglycerides). Improves the body's use of the hormone insulin by: Increasing the body's insulin sensitivity. Reducing the body's insulin needs. Decreases the risk for heart disease because exercising: Lowers cholesterol and triglycerides levels. Increases the levels of good cholesterol (such as high-density lipoproteins [HDL]) in the body. Lowers blood glucose levels. YOUR ACTIVITY PLAN Choose an activity that you enjoy, and set realistic goals. To exercise safely, you should begin practicing any new physical activity slowly, and gradually increase the intensity of the exercise over time. Your health care provider or community educator can help create an activity plan that works for you. General recommendations include: Encouraging children to engage in at least 60 minutes of physical activity each day. Stretching and performing strength training exercises, such as yoga or weight lifting, at least 2 times per week. Performing a total of at least 150 minutes of moderate-intensity exercise each week, such as brisk walking or water aerobics. Exercising at least 3 days per week, making sure you allow no more than 2 consecutive days to pass without exercising. Avoiding long periods of inactivity (90 minutes or more). When you have to spend an extended period of time sitting down, take frequent breaks to walk or stretch. RECOMMENDATIONS FOR EXERCISING WITH TYPE 1 OR TYPE 2 DIABETES Check your blood glucose before exercising. If blood glucose levels are greater than 240 mg/dL, check for urine ketones. Do not exercise if ketones are present. Avoid injecting insulin into areas of the body that are going to be exercised. For example, avoid injecting insulin into: The arms when playing tennis. The legs when jogging. Keep a record of: Food intake before and after you exercise. Expected peak times of insulin action. Blood glucose levels before and after you exercise. The type and amount of exercise you have done. Review your records with your health care provider. Your health care provider will help you to develop guidelines for adjusting food intake and insulin amounts before and after exercising. If you take insulin or oral hypoglycemic agents, watch for signs and symptoms of hypoglycemia. They include: Dizziness. Shaking. Sweating. Chills. Confusion. Drink plenty of water while you exercise to prevent dehydration or heat stroke. Body water is lost during exercise and must be replaced. Talk to your health care provider before starting an exercise program to make sure it is safe for you. Remember, almost any type of activity is better than none. This information is not intended to replace advice given to you by your health care provider. Make sure you discuss any questions you have with your health care provider. Document Released: 12/07/2004 Document Revised: 02/01/2016 Document Reviewed: [employer] Patient Education 2016 [employer] No follow up information was provided. Extracted from: Title: right fourth finger pain and Author: Jose Soliz MD Date: 08/31 swelling Impression and Plan Diagnosis Pain in finger of right hand (FXT33-SZ M79.644, Discharge, Medical). Swelling of finger joint of right hand (CSJ73-XN M25.441, Discharge, Medical). Spinal stenosis of lumbar region (disorder) (FGM26-GA M48.06, Discharge, Medical ). Benign hypertension (ILI39-WG I10, Discharge, Medical). Controlled type 2 diabetes mellitus without complication (SLJ36-LR E11.9, Discharge, Medical). Plan: 1) Lab and finger xrays ordered. 2) Take the Colcrys and prednisone as directed. 3) No changes made to your other meds. 4) Followup as scheduled.. Orders Orders (Selected) Outpatient Orders Ordered Office Visit Level 4 Est 71738: Completed BMP: CBC w/ Differential: CRP C-Reactive Protein: ESR: Uric Acid: XR Finger 4th Digit Right: eGFR: Prescriptions Prescribed predniSONE 20 mg oral tablet: 20 mg=1 tabs, Oral, Daily, for 5 days, 5 tabs, 0 Refill(s) Completed Colcrys 0.6 mg oral tablet: 1.2 mg=2 tabs, Oral, Once, at first sign of gout flare followed by 1 tablet in 1 hour, 3 tabs, 1 Refill(s). Dx/Order Association Plan: Diagnosis: Benign hypertension Comment: Ordered: Office Visit Level 4 Est [id number]; 08/31/16 10:22:00 BOAT MASTER, Pain in finger of right hand | Swelling of finger joint of right hand | Controlled type 2 diabetes mellitus without complication | Benign hypertension | Spinal stenosis of lumbar region (disorder) Other status: BMP; Blood, Routine Collect, 08/31/16 10:35:00 BOAT MASTER, Once, Stop date 08/31/16 10:35:00 BOAT MASTER, Lab Collect, Controlled type 2 diabetes mellitus without complication | Benign hypertension (Completed) Diagnosis: Controlled type 2 diabetes mellitus without complication Comment: Ordered: Office Visit Level 4 Est [id number]; 08/31/16 10:22:00 BOAT MASTER, Pain in finger of right hand | Swelling of finger joint of right hand | Controlled type 2 diabetes mellitus without complication | Benign hypertension | Spinal stenosis of lumbar region (disorder) Other status: BMP; Blood, Routine Collect, 08/31/16 10:35:00 BOAT MASTER, Once, Stop date 08/31/16 10:35:00 BOAT MASTER, Lab Collect, Controlled type 2 diabetes mellitus without complication | Benign hypertension (Completed) Diagnosis: Pain in finger of right hand Comment: Ordered: Office Visit Level 4 Est [id number]; 08/31/16 10:22:00 BOAT MASTER, Pain in finger of right hand | Swelling of finger joint of right hand | Controlled type 2 diabetes mellitus without complication | Benign hypertension | Spinal stenosis of lumbar region (disorder) Other status: CRP C-Reactive Protein; Blood, Routine Collect, 10/16 10:35:00 BOAT MASTER, Once, Stop date 08/31/16 10:35:00 BOAT MASTER, Lab Collect, Pain in finger of right hand | Swelling of finger joint of right hand (Completed) Uric Acid; Blood, Routine Collect, 08/31/16 10:35:00 BOAT MASTER, Once, Stop date 08/31/16 10:35:00 BOAT MASTER, Lab Collect, Pain in finger of right hand | Swelling of finger joint of right hand (Completed) ESR; Blood, Routine Collect, 08/31/16 10:35: 00 BOAT MASTER, Once, Stop date 08/31/16 10:35:00 BOAT MASTER, Lab Collect, Pain in finger of right hand | Swelling of finger joint of right hand (Completed) CBC w/ Differential; Blood, Routine Collect , 08/31/16 10:35:00 BOAT MASTER, Once, Stop date 08/31/16 10:35:00 BOAT MASTER, Lab Collect, Pain in finger of right hand | Swelling of finger joint of right hand (Completed ) XR Finger 4th Digit Right; 08/31/16 10:35: 00 BOAT MASTER, Routine, Stop date 08/31/16 10:35:00 BOAT MASTER, Reason: Pain in joint finger, Transport Mode: Patient Bed, Patient has IV, Pain in finger of right hand | Swelling of finger joint of right hand, ABN Status: Not Required (Completed) Diagnosis: Spinal stenosis of lumbar region (disorder) Comment: Ordered: Office Visit Level 4 Est [id number]; 08/31/16 10:22:00 BOAT MASTER, Pain in finger of right hand | Swelling of finger joint of right hand | Controlled type 2 diabetes mellitus without complication | Benign hypertension | Spinal stenosis of lumbar region (disorder) Diagnosis: Swelling of finger joint of right hand Comment: Ordered: Office Visit Level 4 Est [id number]; 08/31/16 10:22:00 BOAT MASTER, Pain in finger of right hand | Swelling of finger joint of right hand | Controlled type 2 diabetes mellitus without complication | Benign hypertension | Spinal stenosis of lumbar region (disorder) Other status: CRP C-Reactive Protein; Blood, Routine Collect, 10/16 10:35:00 BOAT MASTER, Once, Stop date 08/31/16 10:35:00 BOAT MASTER, Lab Collect, Pain in finger of right hand | Swelling of finger joint of right hand (Completed) Uric Acid; Blood, Routine Collect, 08/31/16 10:35:00 BOAT MASTER, Once, Stop date 08/31/16 10:35:00 BOAT MASTER, Lab Collect, Pain in finger of right hand | Swelling of finger joint of right hand (Completed) ESR; Blood, Routine Collect, 08/31/16 10:35: 00 BOAT MASTER, Once, Stop date 08/31/16 10:35:00 BOAT MASTER, Lab Collect, Pain in finger of right hand | Swelling of finger joint of right hand (Completed) CBC w/ Differential; Blood, Routine Collect , 08/31/16 10:35:00 BOAT MASTER, Once, Stop date 08/31/16 10:35:00 BOAT MASTER, Lab Collect, Pain in finger of right hand | Swelling of finger joint of right hand (Completed ) XR Finger 4th Digit Right; 08/31/16 10:35: 00 BOAT MASTER, Routine, Stop date 08/31/16 10:35:00 BOAT MASTER, Reason: Pain in joint finger, Transport Mode: Patient Bed, Patient has IV, Pain in finger of right hand | Swelling of finger joint of right hand, ABN Status: Not Required (Completed) Additional Orders: Comment: Other status: Colcrys 0.6 mg oral tablet,1.2 mg 2 tabs, Oral, Once , at first sign of gout flare followed by 1 tablet in 1 hour, # 3 tabs, 1 Refill (s), Pharmacy: [facility] #[id number](Complete) Ordered: predniSONE 20 mg oral tablet,20 mg 1 tabs, Oral, Daily, X 5 days, # 5 tabs, 0 Refill(s), Pharmacy: [facility] #[id number], 1 tabs Oral Daily,x5 days End of Orders ."
--- OUTSIDE RECORDS SUMMARY | 2016-12-17 12:38 | XMS REPORT | Referral Summary ---
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 Name Role Phone Shikha Soliz Primary Care Physician [phone] Encounter VC Date(s): 08/04/16 - 08/04/16 [facility], [address] [place] [address]- Discharge Disposition: 01-Home or Self Care Attending Physician: Jose Soliz MD Admitting Physician: Jose Sloiz MD Vital Signs Most recent to 1 oldest [Reference Range]: Blood Pressure 124/80 mmHg [90-140/60-90 mmHg] (08/04/16 10:33 AM) Problem List Condition Effective Dates Status [...] abdominal wall(Confirmed) Cellulitis of left Active leg(Confirmed) Chest Active pain(Confirmed) Chronic Active cough(Confirmed) Chronic Active gastritis(Confirmed) C. difficile Active colitis(Confirmed) Contusion of right Active hip(Confirmed) Contusion of left Active leg(Confirmed) Degenerative disc Active disease(Confirmed) Acute Active diarrhea(Confirmed) Disc disease, Active degenerative, lumbar or lumbosacral(Confirme d) Edema(Confirmed) Active EGD and 2010 Resolved laryngoscopy(Confirm ed) EGD, popsitive for 07/10/13 Resolved Barretts(Confirmed)2 Endometriosis and 1977 Active heavy bleeding(Confirmed) Abdominal pain, Active acute, [...] headach Active hydrochlorothiazide nausea, dizzy Active lidocaine-EPINEPHrine Active lisinopril dry cough Active Novocain nervous, [...] DAILY, # 30 tabs, 5 Refill(s), eRx: [facility] #[id number], TAKE ONE TABLET BY MOUTH DAILY Start Date: 03/15/16 Status: Ordered escitalopram 5 mg oral tablet 5 mg 1 tabs, Oral, Daily, # 30 tabs, 5 Refill(s), Pharmacy: [facility] # [id number], 1 tabs Oral Daily Start Date: 03/24/16 Status: Ordered losartan 25 mg oral tablet See Instructions, TAKE ONE TABLET BY MOUTH DAILY, # 30 tabs, 1 Refill(s), eRx: [facility] #[id number], TAKE ONE TABLET BY MOUTH DAILY Start Date: 06/12/16 Status: Ordered metFORMIN 1000 mg oral tablet, extended release 1,000 mg 1 tabs, Oral, Daily, with evening meal, # 90 tabs, 3 Refill(s), Pharmacy: [facility] #[id number], 1 tabs Oral Daily,Instr:with evening meal Start Date: 04/04/16 Status: Ordered omeprazole 20 mg oral delayed release capsule See Instructions, TAKE ONE CAPSULE BY MOUTH EVERY DAY, # 30 caps, 2 Refill(s), eRx: [facility] #[id number], TAKE ONE CAPSULE BY MOUTH EVERY DAY Start Date: 05/18/16 Status: Ordered pramipexole 0.5 mg oral tablet See Instructions, TAKE ONE TABLET BY MOUTH EVERY NIGHT AT BEDTIME, # 30 tabs, 1 Refill(s), eRx: [facility] #[id number], TAKE ONE TABLET BY MOUTH EVERY NIGHT [...] Status: Ordered warfarin 2 mg oral tablet 1 mg 0.5 tabs, Oral, Daily, NOTE: HOLD today and Sunday, start on 02/20/16Sunday., # 15 tabs, 1 Refill(s), Pharmacy: [facility] #[id number], 0.5 tabs Oral Daily,x30 days,Instr:NOTE: HOLD today and Sunday, start on 02/20/16Sunday. Start Date: 02/18/16 Stop Date: 04/18/16 Status: Ordered Results No data available for this section Immunizations Vaccine Date Refusal Reason influenza virus vaccine, inactivated 08/04/16 influenza virus vaccine, inactivated 07/26/15 influenza virus vaccine, inactivated1 07/09/14 influenza virus vaccine, live 07/02/13 influenza virus vaccine, live 08/21/12 pneumococcal 13-valent conjugate vaccine 07/09/14 pneumococcal 23-polyvalent vaccine 03/09/11 tetanus-diphth toxoids (Td) adult/adol 10/06/08 zoster vaccine live 10/20/08 1Result Comment: [07/09/2014] See scanned document Procedures Procedure Date Related Diagnosis Body Site Mammogram1 03/17/16 Open Reduction Internal Fixation Ankle 09/02/15 (Left)2 Open Reduction Internal Fixation Femur 09/02/15 Distal3 Esophagogastroduodenoscopy and biopsy4 07/23/14 Colonoscopic polypectomy5 07/10/13 Esophagogastroduodenoscopy and biopsy6 07/10/13 Rt L4-5/L5-S1 Facet, A Anastasiia 10/29/12 Colonoscopy7, 8 2012 right L4-5 Translaminar 04/24/12 L4-5 Translaminar 03/12/12 RT L3-4/L4-5 Transforaminal 01/02/12 Surgery9 2011 Mlwfbfgxjikxoxeuxrzdreavhr96 2011 Laryngoscopy 2011 Qzlxymy97 2011 Nasal zbsxbzqudyz26 2002 Left 1st toe joint replacement 2001 Laparoscopic cholecystectomy 2001 bilateral elbow - tendinitis, epicondylitis 1994 Ejlywmg06 1985 Appendectomy Cholecystectomy Hysterectomy Knee [id number] Right great toenail excision FARAZ - Total abdominal hysterectomy and bilateral salpingo-vejcrjfokuzn65 [address] [place] [address] 2auto-populated from documented surgical case 3auto-populated from documented surgical case 4No Barretts noted on path No cancer ,JORGE ASSAY Negitive No explantion for epigastri pain if still having ongoing pain Rtc to discuss. 5Tubulovillous adenoma,, repeat in 5 years 6Chronic gastritis, Shields's esophagus, 7also had in 2000, and 2002 8and also in 2007 9right hip tendon release 10GERD positive, H. pylori negative 11right wrist surgery for tendinitis 12for fractured nose due to a fall 13on both elbows for tendinitis and epicondylitis 14bilateral TKAs: right in 1996, left in 2006 15endometriosis Social History Social History Type Response Smoking Status Never smoker Assessment and Plan Extracted from: Title: additional Wellness note Author: Jaxon Ureña RN Date: 08/04/16 Patient scored a 6 on the depressions screening. She is currently taking escitalopram for her depression. Extracted from: Title: Ambulatory Patient Education Author: Jaxon Ureña RN Date: 08/04/16 Geriatrics Fall Prevention in the Home Falls can cause injuries. They can happen to people of all ages. There are many things you can do to make your home safe and to help prevent falls. WHAT CAN I DO ON THE OUTSIDE OF MY HOME? Regularly fix the edges of walkways and driveways and fix any cracks. Remove anything that might make you trip as you walk through a door, such as a raised step or threshold. Trim any bushes or trees on the path to your home. Use bright outdoor lighting. Clear any walking paths of anything that might make someone trip, such as rocks or tools. Regularly check to see if handrails are loose or broken. Make sure that both sides of any steps have handrails. Any raised decks and porches should have guardrails on the edges. Have any leaves, snow, or ice cleared regularly. Use sand or salt on walking paths during winter. Clean up any spills in your garage right away. This includes oil or grease spills. WHAT CAN I DO IN THE BATHROOM? Use night lights. Install grab bars by the toilet and in the tub and shower. Do not use towel bars as grab bars. Use non-skid mats or decals in the tub or shower. If you need to sit down in the shower, use a plastic, non-slip stool. Keep the floor dry. Clean up any water that spills on the floor as soon as it happens. Remove soap buildup in the tub or shower regularly. Attach bath mats securely with double-sided non-slip rug tape. Do not have throw rugs and other things on the floor that can make you trip. WHAT CAN I DO IN THE BEDROOM? Use night lights. Make sure that you have a light by your bed that is easy to reach. Do not use any sheets or blankets that are too big for your bed. They should not hang down onto the floor. Have a firm chair that has side arms. You can use this for support while you get dressed. Do not have throw rugs and other things on the floor that can make you trip. WHAT CAN I DO IN THE KITCHEN? Clean up any spills right away. Avoid walking on wet floors. Keep items that you use a lot in blwk-na-ttqop places. If you need to reach something above you, use a strong step stool that has a grab bar. Keep electrical cords out of the way. Do not use floor russian or wax that makes floors slippery. If you must use wax, use non-skid floor wax. Do not have throw rugs and other things on the floor that can make you trip. WHAT CAN I DO WITH MY STAIRS? Do not leave any items on the stairs. Make sure that there are handrails on both sides of the stairs and use them. Fix handrails that are broken or loose. Make sure that handrails are as long as the stairways. Check any carpeting to make sure that it is firmly attached to the stairs. Fix any carpet that is loose or worn. Avoid having throw rugs at the top or bottom of the stairs. If you do have throw rugs, attach them to the floor with carpet tape. Make sure that you have a light switch at the top of the stairs and the bottom of the stairs. If you do not have them, ask someone to add them for you. WHAT ELSE CAN I DO TO HELP PREVENT FALLS? Wear shoes that: Do not have high heels. Have rubber bottoms. Are comfortable and fit you well. Are closed at the toe. Do not wear sandals. If you use a stepladder: Make sure that it is fully opened. Do not climb a closed stepladder. Make sure that both sides of the stepladder are locked into place. Ask someone to hold it for you, if possible. Clearly jef and make sure that you can see: Any grab bars or handrails. First and last steps. Where the edge of each step is. Use tools that help you move around (mobility aids) if they are needed. These include: Canes. Walkers. Scooters. Crutches. Turn on the lights when you go into a dark area. Replace any light bulbs as soon as they burn out. Set up your furniture so you have a clear path. Avoid moving your furniture around. If any of your floors are uneven, fix them. If there are any pets around you, be aware of where they are. Review your medicines with your doctor. Some medicines can make you feel dizzy. This can increase your chance of falling. Ask your doctor what other things that you can do to help prevent falls. This information is not intended to replace advice given to you by your health care provider. Make sure you discuss any questions you have with your health care provider. Document Released: 07/14/2010 Document Revised: 02/01/2016 Document Reviewed: Elsevier Interactive Patient Education 2016 [employer] No follow up information was provided.
--- OUTSIDE RECORDS SUMMARY | 2016-12-17 12:38 | XMS REPORT | Continuity of Care Document ---
Author Author [facility] Organization [facility] Address Unknown Phone Unavailable Support Name Relationship Address Phone MAXWELL YING FACS, MD Caregiver [address] [place] [address] [place] [phone] CARMENCITA SCALES MD Caregiver [address] [place] [address] [place] [phone] CHRISSIE MARRUFO Next Of Kin [address] [place], [place] [id number] Insurance Providers Payer Name Policy Number Subscriber Name Relationship Medicare [id number] Kayla Robertson 16 Self [facility] [id number] Kayla Robertson 16 Self Advance Directives Directive Response Recorded Date/Time Ordered Resuscitation Status Full Code 07/22/14 12:13pm Resuscitation Documents on File Yes 07/22/14 11:52am Problems Medical Problems Problem Onset Date Status [...] Vital Signs Vital Response Date/Time Temperature (Fahrenheit) 97.6 deg F (96.8 - 99.1) Temperature (Calculated Celsius) 36.90383 degrees C (36.0 - 37.3) Temperature Source Temporal Pulse Rate (adult) 77 bpm (60 - 100) Respiratory Rate 14 breaths/min (10 - 20) O2 Sat by Pulse Oximetry 97 % (90 - 100) Oxygen Delivery Method Room Air Blood Pressure 173/75 mm Hg Blood Pressure Source Automatic Cuff Height 5 ft 1 in Weight 186 lb Body Mass Index 35.0 kg/m^2 Results Test Source Date Result Interp. [...] 11, 2014 4:00pm 27 MEQ/L N 22-30 Chemistry Specimen Hemolysis March 11, 2014 4:00pm [...] decrease Phenytoin. Recommend specimen recollection. Chloride Level March 11, 2014 4:00pm 91 MEQ/L L 98-107 Cholesterol Level November 10, 2013 6:20am 159 MG/DL N 132-199 COMMENT FASTING Cholesterol/HDL Ratio November 10, 2013 6:20am 3.6 RATIO N 0-4.0 COMMENT FASTING Conjugated Bilirubin June 10, 2012 3:05pm 0.00 MG/DL N 0.00-0.30 Creatinine March 11, 2014 4:00pm 0.8 MG/DL N 0.7-1.2 EKG February 06, 2008 12:44pm Complete - Eosinophils # (Auto) March 11, 2014 4:00pm 0.0 T/MM3 N 0-0.5 Eosinophils (%) (Auto) March 11, 2014 4:00pm 0.4 % N 0-4 Erythrocyte Sedimentation Rate October 12, 2011 4:15am 19 MM/HR N 0-20 Free Thyroxine November 10, 2013 6:20am 1.91 NG/DL N 0.78-2.19 COMMENT FASTING Globulin March 11, 2014 4:00pm 2.7 G/DL N 2.4-3.6 Glomerular Filtration Rate Calc March 11, 2014 4:00pm 70 - Glucometer July 23, 2014 8:17am 125 mg/dL H 65-110 Glucose Level March 11, 2014 4:00pm 105 MG/DL N 65-110 HDL Cholesterol Direct November 10, 2013 6:20am 44 MG/DL N 40-60 COMMENT FASTING Hematocrit March 11, 2014 4:00pm 38.7 % N 36-46 Hemoglobin March 11, 2014 4:00pm 13.5 GM/DL N 12-16 Icterus Index March 11, 2014 4:00pm < 2 0-7 Immature Granulocyte # (Auto) March 11, 2014 4:00pm 0.02 T/MM3 N 0.00- 0.03 Immature Granulocyte % (Auto) March 11, 2014 4:00pm 0.2 % N 0.0-0.5 LDL Cholesterol, Calculated November 10, 2013 6:20am 95.6 N 66-159 COMMENT FASTING Lab Scanned Report November 01, 2011 10:07pm LAB TEST FORM REQUEST [id number] - Lipase April 10, 2012 3:16pm 18 [...] 11, 2014 4:00pm 9.9 % H 0-9.0 NM-Olu-S-Type Natriuretic Peptide March 11, 2014 4:00pm 266 PG/ML H 0- 175 Rule in cut points: <50 years old=450; 50-75 years old=900; >75 years old=1800; When utilizing ProBNP rule-in cut points, adjustment for impaired renal function is typically not required. Neutrophils # (Auto) March 11, 2014 4:00pm [...] 11, 2014 4:00pm < 0.012 ng/ml 0-0.12 Turbidity March 11, 2014 4:00pm < 20 0-20 Unconjugated Bilirubin June 10, 2012 3:05pm 0.00 MG/DL N 0.00-1.10 Urinalysis Comment March 11, 2014 5:30pm Microscopic [...] - Has specimen been collected/obtained? Y Urine Microscopic Not Indicated April 10, 2012 3:20pm Not indicated - Has specimen been collected/obtained? Y Urine Nitrite March 11, 2014 5:30pm Negative - Has specimen been collected/obtained? Y Urine Protein March 11, 2014 5:30pm Negative - Has specimen been collected/obtained? Y Urine RBC April 11, 2013 6:10pm None seen /HPF - Has specimen been collected/obtained? Y Urine Specific [place] March 11, 2014 5:30pm <=1.005 L - [...] 11, 2014 4:00pm 8.3 T/MM3 N 4.5-11.0 Helicobacter pylori Rapid Urease Gastric Biopsy July 10, 2013 7:47am Urine Culture Urine, Voided-Not Cc-Midstream April 11, 2013 6:35pm Streptococcus Anginosus Procedures Procedure Status Date Provider(s) EGD (esophagogastroduodenoscopy) completed 07/23/14 MAXWELL YING MD, FACS, CWS Encounters Encounter Location Date/Time Departed Emergency Room [facility] 06/29/14 4:02pm Departed Emergency Room [facility] 06/22/14 8:30pm
--- OUTSIDE RECORDS SUMMARY | 2016-12-17 12:39 | XMS REPORT | Continuity of Care Document ---
Author Author [facility] Organization [facility] Address Unknown Phone Unavailable Support Name Relationship Address Phone BARBIE HARE MD Caregiver [facility] [address] [place] [address] Unavailable CARMENCITA SCALES MD Caregiver [address] [place] [phone] CHRISSIE MARRUFO Next Of Kin [address] [place] [address] Insurance Providers Payer Name Policy Number Subscriber Name Relationship Medicare [id number] Kayla Robertson 16 Self [facility] [id number] Kayla Robertson 16 Self Chief Complaint and Reason for Visit Chief Complaint Chest Pain Reason for Visit [id number] Problems Medical Problems Problem Onset Date Status Malaise and fatigue Unknown Active R/O MN Unknown Active Chest pain rule out MN Unknown Active Dizziness Unknown Active Malaise and [...] handouts. Condition at time of discharge: Good Good at [phone]. 2. Problems such as: Temp above 101.5 degrees You develop redness, excessive swelling of the incision, increasing pain or excessive foul smelling drainage. 3. If the office is closed, call [facility] at [phone] and have your Surgeon paged. Condition at time of discharge: Fair Discharge Diet: Regular Diet Discharge Activity: No weight bearing on left leg. Elevate left leg. Apply ice pack to left knee to reduce swelling. May ambulate with front wheeled walker but must avoid weight bearing left leg. Follow Up Appointments: Scheduled for surgical repair of left tibial plateau fracture by Dr. Danielle Ureña on 09/21/14. Patient Instructions: Same as discharge activity listed above Take medications as directed. Durable Medical Equipment: Front wheeled Walker Notify Physician If: Severe pain not controlled with Roxicodone 5 mg 1-2 tabs po q4-6hrs prn pain. Condition at time of discharge: Good Plan of Care Discharge Date 08/20/14 5:07pm Disposition 02 TO [facility] Condition at Discharge Improved Instructions/Education Provided [facility] Discharge Instructions Vitamin K DI for Pulmonary Embolism DI for Diabetes Type 2 Warfarin DI for Warfarin Therapy Prescriptions See Medications Section Referrals CARMENCITA SCALES MD Functional Status Query Response Date Recorded Physical Hygiene Self September 21, 2014 9:50pm Disabilities None September 21, 2014 9:50pm Devices Used None September 21, 2014 9:50pm Dressing Self September 21, 2014 9:50pm Ambulation Self September 21, 2014 9:50pm Diet Self September 21, 2014 9:50pm Mental Status Alert September 21, 2014 10:45pm Disabilities None September 21, 2014 9:50pm Devices Used None September 21, 2014 9:50pm Physical Hygiene Self September 21, 2014 9:50pm Dressing Self September 21, 2014 9:50pm Ambulation Self September 21, 2014 9:50pm Diet Self September 21, 2014 9:50pm Allergies, Adverse [...] F (96.8 - 99.1) Temperature (Calculated Celsius) 36.39683 degrees C (36.0 - 37.3) Pulse Rate (adult) 69 bpm (60 - 100) Respiratory Rate 26 breaths/min (10 - 20) O2 Sat by Pulse Oximetry 94 % (90 - 100) Oxygen Flow Rate 2 L/min Blood Pressure 91/54 mm Hg Height 5 ft 1 in Weight 188 lb Body Mass Index 35.0 kg/m^2 Results [...] 21, 2014 9:30pm 28 MEQ/L N 22-30 Chloride Level September 21, 2014 9:30pm 105 [...] NG/ML=ADDITIONAL EVALUATION FOR PE OR DVT RECOMMENDED Eosinophils # (Auto) September 21, 2014 9:30pm 0.1 T/MM3 N 0-0.5 Eosinophils (%) (Auto) September 21, 2014 9:30pm 1.6 % N 0-4 Erythrocyte Sedimentation Rate October 12, 2011 4:15am 19 MM/HR N 0-20 Free Thyroxine November 10, 2013 6:20am 1.91 NG/DL N 0.78-2.19 COMMENT FASTING Globulin September 21, 2014 9:30pm 2.5 G/DL N 2.4-3.6 Glucose Level September 21, 2014 9:30pm 152 MG/DL H 65-110 Hematocrit September 21, 2014 9:30pm 36.8 % N 36-46 Hemoglobin September 21, 2014 9:30pm 12.0 GM/DL N 12-16 Hemoglobin A1c September 16, 2014 9:50am 6.3 % N 6-7 <6.0 NON-DIABETIC RANGE6.0-7.0 ADA THERAPEUTIC RANGE >7.0 ACTION SUGGESTED LDL Cholesterol, Calculated November 10, 2013 6:20am [...] 21, 2014 9:30pm 9.6 % H 0-9.0 Neutrophils # (Auto) September 21, 2014 9:30pm 4.8 T/MM3 N 1.8-7.7 Neutrophils (%) (Auto) September 21, 2014 9:30pm 57.3 % N 33-66 Platelet Count September 21, 2014 9:30pm 287 T/MM3 N 130-400 Potassium Level September 21, 2014 9:30pm 3.6 MEQ/L N 3.6-5 Prealbumin August 16, 2014 9:18pm 19.7 MG/DL N 17.6-36.0 COMMENT may use blood in lab Prothromb Time International Ratio September 21, 2014 9:30pm 4.47 H 0.81- 1.09 THERAPUTIC RANGE=2.00-3.00 FOR ANTI-THROMBOSIS THERAPUTIC RANGE=2.50- 3.50 [...] 21, 2014 9:30pm < 0.012 ng/ml 0-0.12 Unconjugated Bilirubin June [...] 2014 2:45pm 6.1 MG/GM N 0-30 Urine Nitrite August 17, 2014 12:05am Negative - Has specimen been collected/obtained? Y Urine Protein August 17, 2014 12:05am Negative - Has specimen been collected/obtained? Y Urine RBC April 11, 2013 6:10pm None seen /HPF - Has specimen been collected/obtained? Y Urine Random Creatinine September 16, 2014 2:45pm 124.3 MG/DL - Urine Specific [place] August 17, 2014 12:05am <=1.005 L - [...] 21, 2014 9:30pm 8.3 T/MM3 N 4.5-11.0 Chemistry Specimen Hemolysis September 21, 2014 9:30pm [...] decrease Phenytoin. Recommend specimen recollection. Urinalysis Comment August 17, 2014 12:05am Microscopic not ind. - Has specimen been collected/obtained? Y Glucometer August 20, 2014 10:53am 103 mg/dL N 65-110 Lab Scanned Report September 21, 2014 9:08pm LAB TEST FORM REQUEST [id number] - EKG February 06, 2008 12:44pm Complete - HDL Cholesterol Direct November 10, 2013 6:20am 44 MG/DL N 40-60 COMMENT FASTING Turbidity September 21, 2014 9:30pm < 20 0-20 Glomerular Filtration Rate Calc September 21, 2014 9:30pm 81 - Immature Granulocyte # (Auto) September 21, 2014 9:30pm 0.02 T/MM3 N 0.00 -0.03 Immature Granulocyte % (Auto) September 21, 2014 9:30pm 0.2 % N 0.0-0.5 Icterus Index September 21, 2014 9:30pm < 2 0-7 QR-Fha-V-Type Natriuretic Peptide September 21, 2014 9:30pm 718 [...] Urease Gastric Biopsy July 23, 2014 9:30am Name: KAYLA ROEBRTSON Unit #: [id number] : 1940 Sex: F Loc / Svc: ED DOS: 08/27/14 Signed Report #: [id number] DIAGNOSTIC IMAGING REPORT TYPE OF EXAM: CHEST 1 VIEW Dictated By: DANIELLE MANDUJANO MD INDICATION: ITS.REASON: chest pain CHEST 1 VIEW: Comparison: August 20, 2014 Findings: The lungs are stable in appearance without new focal airspace consolidation. There is no pleural effusion or pneumothorax. The heart size, pulmonary vascularity and mediastinal contours are unchanged. IMPRESSION: Stable appearance of the chest without acute cardiopulmonary disease. . Procedures Procedure Status Date Provider(s) EGD [...] completed 08/27/14 EMERGENCY DEPT VISIT completed 08/27/14 [id number] ITEM OR SERVICE completed 08/27/14 [id number] ITEM OR SERVICE completed 08/27/14 Encounters Encounter Location Date/Time Departed Emergency Room [facility] 09/21/14 9:22pm Registered [facility] 09/21/14 8:56am Registered Clinic [facility] 09/16/14 9:30am Departed Emergency Room [facility] 08/27/14 7:36pm Discharged Inpatient [facility] 08/16/14 10:43pm Departed Emergency Room [facility] 07/29/14 8:12pm Departed Emergency Room [facility] 06/29/14 4:02pm Recent Diagnosis
--- OUTSIDE RECORDS SUMMARY | 2016-12-17 12:40 | XMS REPORT | Continuity of Care Document ---
Author Author [facility] Organization [facility] Address Unknown Phone Unavailable Support Name Relationship Address Phone MAXWELL YING FACS, MD Caregiver [address] [place] [address] [place] [address] Unavailable CARMENCITA SCALES MD Caregiver [address] [place] [address] [place] [address] Unavailable RAHUL ROBERTSON Next Of Kin [address] [place] [address] C Insurance Providers Guarantor Kayla Robertson Address [address] [place] [address] Email [email or web address] Payer Medicare Policy Number [id number] Subscriber's Name Kayla Robertson Relationship 18 Self Effective Date 03 [facility] Policy Number [id number] Subscriber's Name Kayla Robertson Relationship 18 Self Group Number [id number] Effective Date 91 Advance Directives Directive Response Recorded Date/Time Ordered Resuscitation Status Full Code 11/02/16 12:02pm Resuscitation Documents on File Yes 11/03/16 6:47am DPOA for Healthcare Only Yes 11/03/16 6:47am Living Will Yes 11/03/16 6:47am Problems Active Problems Medical Problem Onset Date Status Anticoagulated on Coumadin Unknown Chronic Anticoagulated on Coumadin Unknown Acute Anxiety and depression Unknown Chronic Atypical chest pain Unknown Acute Bilateral lower extremity edema Unknown Acute C. difficile colitis Unknown Resolved CHEST PAIN NOS 08/16/2014 Acute Cellulitis Unknown Acute Diabetes Unknown Chronic Dizziness Unknown Acute Dyslipidemia Unknown Chronic Elevated blood pressure Unknown Acute Femur fracture, left Unknown Acute Femur fracture, left Unknown Acute GERD (gastroesophageal reflux disease) Unknown Chronic Gait instability Unknown Acute Head ache Unknown Acute History of deep venous thrombosis or pulmonary embolus Unknown Resolved History of gastritis Unknown Chronic History of migraine headaches Unknown Resolved Hx of pulmonary embolus Unknown Resolved Hyperkalemia Unknown Acute Hypertension Unknown Chronic Hypomagnesemia Unknown Acute Knee pain Unknown Acute Left fibular fracture Unknown Acute Low back pain Unknown Acute Lymphedema Unknown Resolved Malaise and fatigue Unknown Acute Nausea & vomiting Unknown Acute Obesity (BMI 35.0-39.9 without comorbidity) Unknown Chronic Osteoarthritis Unknown Chronic Palpitations Unknown Acute Peptic ulcer disease Unknown Chronic Pleuritic chest pain Unknown Acute Pulmonary emboli Unknown Acute R/O NM Unknown Acute RLS (restless legs syndrome) Unknown Chronic Shortness of breath 08/16/2014 Acute Status post ORIF of fracture of ankle Unknown Chronic Swelling of left knee joint Unknown Acute Swelling of left lower extremity Unknown Acute Thrush Unknown Acute Trimalleolar fracture of ankle, closed Unknown Acute UTI (urinary tract infection) Unknown Acute Vitamin B12 deficiency Unknown Chronic Past Problems Medical Problem Onset Date Dyspnea 08/16/2014 History of pulmonary embolism Unknown Mixed headache Unknown Palpitations Unknown Postoperative bleeding from incision Unknown Skin irritation Unknown Skin tear of right forearm without complication Unknown Sprain of left knee Unknown Tachycardia Unknown Medications Current Home Medications Medication Dose Units Route Directions Days Qty Instructions Start Date Atorvastatin Calcium 10 Mg Tablet 10 Mg Oral Bedtime 06/15/15 Cyanocobalamin (Vitamin B-12) (Vitamin B-12) 1,000 Mcg Tablet 1,000 Mcg Oral Daily 03/30/16 Enoxaparin Sodium (Lovenox) 40 Mg/0.4 Ml Inj 0.4 Ml Sub-Q Daily 11/02/16 Escitalopram Oxalate 5 Mg Tablet 5 Mg Oral Daily 09/01/15 Lactobacillus Combination No.4 (Probiotic) 1 Each Capsule 1 Cap Oral Daily 08/17/16 Losartan Potassium 25 Mg Tablet 25 Mg Oral Daily 03/26/16 Magnesium Oxide 400 Mg Tablet 400 Mg Oral Daily 08/16/16 Metformin Hcl (Metformin Hcl Er) 500 Mg Tab.er.24h 500 Mg Oral Twice Daily With Meals 09/14/16 Omeprazole 20 Mg Capsule.dr 20 Mg Oral Before Breakfast 07/22/14 Pramipexole Di-Hcl (Mirapex) 0.5 Mg Tablet 0.5 Mg Oral Bedtime Tramadol Hcl (Ultram) 50 Mg Tablet 50-100 Mg Oral Every 6 Hours as needed for Pain 60 Tablet 08/18/16 Warfarin Sodium 2 Mg Tablet 2 Mg Oral Give With Supper 06/24/15 Past Home Medications Medication Directions Ordered Status Acetaminophen (Tylenol Extra Strength) 500 Mg Tablet, 1000 Mg Oral Bedtime as needed for Pain 07/22/14 Discontinued Acetaminophen (Tylenol) 500 Mg Tablet, Bedtime 04/01/12 Discontinued Acetaminophen (Tylenol Arthritis) 650 Mg Tablet.sa, 650 Mg Oral 2 Tabs At Hs 05/26/10 Discontinued Ascorbic Acid (Vitamin C) 500 Mg Tablet, 500 Mg Oral Daily 04/01/09 Discontinued Calcium Carbonate/Vitamin D3 (Calcium 600 + D Tablet) 1 Tab Tablet, 1 Tab Oral Three Times A Day 05/26/10 Discontinued Calcium Citrate/Vitamin D3 (Calcium Citrate + D Caplet) 1 Tab Tablet, 1 Tab Oral Three Times A Day 08/23/11 Discontinued Cholecalciferol (Vitamin D) 1,000 Unit Capsule, 2000 Unit Oral 08/23/11 Discontinued Cholecalciferol (Vitamin D) 1,000 Unit Tablet, 2000 Unit Oral Twice A Day 26/07 Discontinued Citalopram Hydrobromide (Celexa) 10 Mg Tablet, 1 Tab Oral Daily 06/24/15 Discontinued Ergocalciferol (Vitamin D) 50,000 Unit Capsule, [address]331 Unit Oral Once A Week 05/26/10 Discontinued Famotidine 20 Mg Tablet, 20 Mg Oral Twice A Day 05/26/10 Discontinued Fexofenadine Hcl 180 Mg Tablet, 180 Mg Oral Daily 04/01/09 Discontinued Lamisil , D-1 Week,Off 3 Week 05/26/10 Discontinued Lisinopril 5 Mg Tablet, 5 Mg Oral Daily 05/26/10 Discontinued Losartan Potassium 100 Mg Tablet, 100 Mg Oral Daily 07/22/14 Discontinued Magnesium Oxide 400 Mg Tablet, 400 Mg Oral 4 Tabs Bid 08/23/11 Discontinued Magnesium Oxide 400 Mg Tablet, 400 Mg Oral Twice A Day 05/26/10 Discontinued Metformin Hcl 1,000 Mg Tablet, 1000 Mg Oral Daily 06/15/15 Discontinued Morphine Sulfate (Ms Contin) 15 Mg Tablet.sa, 15 Mg Oral Twice A Day Discontinued Morphine Sulfate 10 Mg/5 Ml Solution, 10 Mg Oral Every 4-6 Hours 10/11/11 Discontinued Multivitamins (Multivitamin) 1 Tab Tablet, 1 Tab Oral Bedtime 04/01/09 Discontinued Nystatin 100,000 Unit/1 Ml Oral.susp, 5 Ml Oral Four Times Daily 06/22/15 Discontinued Omeprazole (Prilosec) 20 Mg Tablet.dr, 20 Mg Oral Daily 05/26/10 Discontinued Pramipexole Di-Hcl (Mirapex) 0.5 Mg Tablet, 0.5 Mg Oral Bedtime 05/26/10 Discontinued Tramadol Hcl 50 Mg Tablet, 50 Mg Oral Every 4 Hours as needed for Pain Discontinued Warfarin Sodium 2 Mg Tablet, 1 Tab Oral Daily 06/12/15 Discontinued Social History Social History Problem Response Recorded Date/Time Onset Date Status Reason for Hospitalization History of polyps 11/03/2016 9:26am Not Applicable Not Applicable Chewing Tobacco Status No 03/11/2014 2:30pm Not Applicable Not Applicable Hx Substance Use No 09/14/2016 6:54pm Not Applicable Not Applicable Hx Alcohol Use No 09/14/2016 6:54pm Not Applicable Not Applicable Has the pt used tobacco in the last 12 months No 10/29/2016 4:34pm Not Applicable Not Applicable Tobacco Usage none 09/09/2015 10:15am Not Applicable Not Applicable Query Response Start Date Stop Date Smoking Status Never smoker Hospital Discharge Instructions Instructions: Care Instructions: I was in the hospital because (patient own words): "COLONOSCOPY" Discharge Diet: As Tolerated Discharge Activity: Do NOT drive today Follow Up Appointments: Follow up with Dr. Ying as needed. Pending Lab / Results: Will be notified Patient Instructions: If biopsies performed during colonoscopy, results/recommendations will be mailed in about 2-3 weeks. If biopsies performed during EGD, results/recommendations will be mailed in about 1 week. Expected Signs/Symptoms: None Notify Physician If: Call physician if temperature is GREATER than 101.5, severe abdominal pain or severe rectal bleeding. During Business Hours:: Call [phone] After Business Hours:: Call [phone] (hospital) Pain Management/Treatment: Call Dr. Ying if increasing abdominal pain Wound/Incision Care: N/A Condition at time of discharge: Good Plan of Care Discharge Date 11/03/16 10:06am Instructions/Education Provided [facility] Prescriptions See Medication Section Functional Status Query Response Date Recorded Ability to complete ADL's impeded by No change November 03, 2016 6:47am Allergies, Adverse Reactions, Alerts Allergen Type Severity Reaction Status Last Updated Procaine HCl Allergy Unknown NERVOUS AND HEART RACE Active 11/03/16 hydrocodone bit Allergy Mild FINE RASH AND HEADACHE Active 11/03/16 propoxyphene HCl Allergy Unknown SHAKY, AND LOPEZ Active 11/03/16 albuterol sulfate Allergy Intermediate NERVOUSNESS, PALPITATIONS Active ciprofloxacin HCl Allergy Mild ITCH,HEADACHE; HEART FLUTTER Active Lisinopril Adverse Reaction Unknown DRY COUGH Active 11/03/16 Lidocaine Allergy Unknown PER H&P Active 11/03/16 Codeine Allergy Mild RASH,HEADACHE Active 11/03/16 Epinephrine Allergy Unknown PER H&P Active 11/03/16 Hydrochlorothiazide Adverse Reaction Unknown NAUSEA, DIZZY Active 11/03/16 Cephalexin Adverse Reaction Intermediate C-DIFF Active 11/03/16 Doxycycline Adverse Reaction Unknown NAUSEA, DIZZY Active 11/03/16 Ciprofloxacin Allergy Mild ITCH,HEADACHE, HEART FLUTTER Active 11/03/16 Tuberculin,Old Skin Test Allergy Unknown SWELLING OF ARM AT INJECTION SITE Active 11/03/16 Rofecoxib Allergy Severe JOINT SWELL,RACHEL Active 11/03/16 Immunizations Query Response on File Recorded Date/Time Hx Influenza Vaccination Y 10/29/16 4:34pm Hx Pneumococcal Vaccination Y doesnt remember, less than 10yrs 10/29/16 4: 34pm Hx Influenza Vaccination Y 10/29/16 4:34pm Influenza Vaccine Hx AUGUST 2016 09/14/16 7:02pm Tetanus Diptheria Vaccine History 09/01/15 09/14/16 6:54pm Tdap Vaccine Hx 201409/14/16 7:02pm Vital Signs Acute Vital Signs Vital Response Date/Time Temperature (Fahrenheit) 97.2 deg F (96.8 - 99.1) 11/03/2016 9:09am Temperature (Calculated Celsius) 36.23372 degrees C (36.0 - 37.3) 11/03/2016 9:09am Temperature Source Temporal 11/03/2016 9:09am Pulse Rate (adult) 72 bpm (60 - 100) 11/03/2016 10:00am Respiratory Rate 16 breaths/min (10 - 20) 11/03/2016 10:00am O2 Sat by Pulse Oximetry 95 % (90 - 100) 11/03/2016 10:00am Oxygen Delivery Method Room Air 2016 12:05pm Oxygen Delivery Method Room Air 11/03/2016 10:00am Oxygen Flow Rate 1.00 L/min 2016 3:44am Blood Pressure 172/79 mm Hg 11/03/2016 10:00am Blood Pressure Source Automatic Cuff 11/03/2016 10:00am Height (Feet) 5 feet 11/03/2016 6:38am Height (Inches) 1.00 inches 11/03/2016 6:38am Weight (Kilograms) 86.700 kg 11/03/2016 6:38am Body Mass Index (BMI) 36.1 11/03/2016 6:38am Results Laboratory Results Test Name Result Units Flags Reference Collection Date/Time Result Date/ Time Comments Magnesium Level 1.5 MG/DL L 1.6-2.3 08/11/2016 1:20pm 08/11/2016 2:03pm Hemoglobin A1c 6.8 % 6.1-7.9 08/11/2016 1:20pm 08/11/2016 1:38pm <6.0 NON-DIABETIC RANGE 6.1-7.9 [facility] TARGET RANGE >8.0 ACTION SUGGESTED Prothromb Time International Ratio 0.94 0.76-1.04 11/03/2016 6:51am 11/03/2016 7:18am THERAPUTIC RANGE=2.00-3.00 FOR ANTI-THROMBOSIS THERAPUTIC RANGE=2.50-3.50 FOR IMPLANTED VALVE Glucometer 155 mg/dL H 65-110 11/03/2016 6:27am 11/03/2016 7:11am Icterus Index < 2 0-7 09/22/2016 11:30am 09/22/2016 11:45am Chemistry Specimen Hemolysis < 15 0-25 09/22/2016 11:30am 09/22/2016 11:45am 0-25: Specimen Exhibited No Hemolysis. Turbidity < 20 0-20 09/22/2016 11:30am 09/22/2016 11:45am Sodium Level 139 MEQ/L 134-144 09/22/2016 11:30am 09/22/2016 11:45am Potassium Level 3.8 MEQ/L 3.6-5 09/22/2016 11:30am 09/22/2016 11:45am Chloride Level 102 MEQ/L 98-107 09/22/2016 11:30am 09/22/2016 11:45am Carbon Dioxide Level 28 MEQ/L 22-30 09/22/2016 11:30am 09/22/2016 11: 45am Anion Gap 9 MEQ/L 5-15 09/22/2016 11:30am 09/22/2016 11:45am Blood Urea Nitrogen 13.0 MG/DL 7-17 09/22/2016 11:30am 09/22/2016 11: 45am Creatinine 0.6 MG/DL L 0.7-1.2 09/22/2016 11:30am 09/22/2016 11:45am BUN/Creatinine Ratio 22 RATIO 6-26 09/22/2016 11:30am 09/22/2016 11: 45am Glomerular Filtration Rate Calc 97 09/22/2016 11:30am 09/22/2016 11 :45am Glucose Level 137 MG/DL H 65-110 09/22/2016 11:30am 09/22/2016 11:45am Calculated Osmolality 270 MOSM/KG 261-280 09/22/2016 11:30am 2015 11:45am Calcium Level 9.6 MG/DL 8.4-10.2 09/22/2016 11:30am 09/22/2016 11:45am Total Bilirubin 0.80 MG/DL 0.20-1.30 09/22/2016 11:30am 09/22/2016 11: 45am Alkaline Phosphatase 103 U/L 38-126 09/22/2016 11:30am 09/22/2016 11: 45am Total Protein 6.8 G/DL 6.3-8.2 09/22/2016 11:30am 09/22/2016 11:45am Albumin 3.8 G/DL 3.5-5.0 09/22/2016 11:30am 09/22/2016 11:45am Globulin 3.0 G/DL 2.4-3.6 09/22/2016 11:30am 09/22/2016 11:45am Albumin/Globulin Ratio 1.3 RATIO 1.1-2.2 09/22/2016 11:30am 09/22/2016 11:45am Aspartate Amino Transf (AST/SGOT) 16 U/L 14-36 09/22/2016 11:30am 09/22 11:45am Alanine Aminotransferase (ALT/SGPT) 27 U/L 9-52 09/22/2016 11:30am 11:45am JB-Fht-X-Type Natriuretic Peptide 1440 PG/ML H 0-175 09/22/2016 11:30am 09/22/2016 11:53am Rule in cut points: <50 years old=450; 50-75 years old=900; >75 years old=1800; When utilizing ProBNP rule-in cut points, adjustment for impaired renal function is typically not required. Urine Collection Type CLEANCATCH-MIDSTREAM 09/22/2016 11:33am 09/22 11:37am Urine Color YELLOW YELLOW 09/22/2016 11:33am 09/22/2016 11:37am Urine Turbidity CLEAR CLEAR 09/22/2016 11:33am 09/22/2016 11:37am Urine Specific Fortine 1.015 1.015-1.025 09/22/2016 11:33am 2015 11:37am Urine pH 6.0 5.0-8.0 09/22/2016 11:33am 09/22/2016 11:37am Urine Leukocyte Esterase NEGATIVE NEGATIVE 09/22/2016 11:33am 2015 11:37am Urine Nitrite NEGATIVE NEGATIVE 09/22/2016 11:33am 09/22/2016 11: 37am Urine Protein NEGATIVE NEGATIVE 09/22/2016 11:33am 09/22/2016 11: 37am Urine Glucose (UA) NEGATIVE NEGATIVE 09/22/2016 11:33am 09/22/2016 11 :37am Urine Ketones NEGATIVE NEGATIVE 09/22/2016 11:33am 09/22/2016 11: 37am Urine Urobilinogen 0.2 EU/DL NORMAL 09/22/2016 11:33am 09/22/2016 11: 37am Urine Bilirubin NEGATIVE NEGATIVE 09/22/2016 11:33am 09/22/2016 11: 37am Urine Blood NEGATIVE NEGATIVE 09/22/2016 11:33am 09/22/2016 11:37am Urinalysis Comment MICROSCOPIC NOT IND. 09/22/2016 11:33am 2015 11:37am Neutrophils % (Manual) 68.0 % H 33-66 10/06/2016 9:53am 10/06/2016 11: 00am Lymphocytes % (Manual) 25.0 % 23-45 10/06/2016 9:53am 10/06/2016 11: 00am Monocytes % (Manual) 5.0 % 0-9.0 10/06/2016 9:53am 10/06/2016 11:00am Eosinophils % (Manual) 1.0 % 0-4 10/06/2016 9:53am 10/06/2016 11:00am Basophils % (Manual) 1.0 % 0-2 10/06/2016 9:53am 10/06/2016 11:00am Absolute Neutrophils (Manual) 6.3 T/MM3 1.8-7.7 10/06/2016 9:53am 10/06 11:00am Lymphocytes # (Manual) 2.3 T/MM3 1-4.8 10/06/2016 9:53am 10/06/2016 11: 00am Monocytes # (Manual) 0.5 T/MM3 0-0.8 10/06/2016 9:53am 10/06/2016 11: 00am Eosinophils # (Manual) 0.1 T/MM3 0-0.5 10/06/2016 9:53am 10/06/2016 11: 00am Basophils # (Manual) 0.1 T/MM3 0-0.2 10/06/2016 9:53am 10/06/2016 11: 00am Red Cell Morphology Comment NORMAL 10/06/2016 9:53am 10/06/2016 11: 00am White Blood Count 7.3 T/MM3 4.5-11.0 11/01/2016 10:13am 11/01/2016 10: 18am Red Blood Count 4.40 M/MM3 4.00-5.20 11/01/2016 10:am 11/01/2016 10: 18am Hemoglobin 12.6 GM/DL 12-16 11/01/2016 10:11/01/2016 10:18am Hematocrit 39.7 % 36-46 11/01/2016 10:11/01/2016 10:18am Mean Corpuscular Volume 90.2 UM3 80-100 11/01/2016 10:am 11/01/2016 10:18am Mean Corpuscular Hemoglobin 28.6 UUG 26-34 11/01/2016 10:am 2016 10:18am Mean Corpuscular Hemoglobin Concent 31.7 GM/DL 31-37 11/01/2016 10:11/01/2016 10:18am RDW Standard Deviation 44.8 FL 36.9-50.2 11/01/2016 10:11/01/2016 10:18am Platelet Count 257 T/MM3 130-400 11/01/2016 10:11/01/2016 10:18am Mean Platelet Volume 10.4 UM3 9.4-12.4 11/01/2016 10:11/01/2016 10 :18am Neutrophils (%) (Auto) 58.2 % 33-66 11/01/2016 10:11/01/2016 10: 18am Lymphocytes (%) (Auto) 31.9 % 23-45 11/01/2016 10:11/01/2016 10: 18am Monocytes (%) (Auto) 8.3 % 0-9.0 11/01/2016 10:11/01/2016 10:18am Eosinophils (%) (Auto) 1.0 % 0-4 11/01/2016 10:11/01/2016 10:18am Basophils (%) (Auto) 0.3 % 0-2 11/01/2016 10:11/01/2016 10:18am Immature Granulocyte % (Auto) 0.3 % 0.0-0.5 11/01/2016 10:2016 10:18am Absolute Neutrophils (auto) 4.2 T/MM3 1.8-7.7 11/01/2016 10:am 2016 10:18am Absolute Lymphocytes (auto) 2.3 T/MM3 1-4.8 11/01/2016 10:2016 10:18am Absolute Monocytes (auto) 0.6 T/MM3 0-0.8 11/01/2016 10:2016 10:18am Absolute Eosinophils (auto) 0.1 T/MM3 0-0.5 11/01/2016 10:2016 10:18am Absolute Basophils (auto) 0.0 T/MM3 0-0.2 11/01/2016 10:2016 10:18am Absolute Immature Granulocyte (auto 0.02 T/MM3 0.00-0.03 11/01/2016 10: 11/01/2016 10:18am Procedures Procedure Status Date Provider(s) Routine venipuncture Completed 04/07/16 Assay of magnesium Completed 04/07/16 Prothrombin time Completed 04/07/16 Routine venipuncture Completed 04/07/16 Prothrombin time Completed 04/07/16 Capillary blood draw Completed 04/07/16 Prothrombin time Completed 04/07/16 Capillary blood draw Completed 04/07/16 Prothrombin time Completed 04/07/16 Capillary blood draw Completed 04/07/16 Prothrombin time Completed 04/07/16 Capillary blood draw Completed 04/07/16 Prothrombin time Completed 04/07/16 Capillary blood draw Completed 04/07/16 Prothrombin time Completed 04/07/16 Capillary blood draw Completed 04/07/16 Prothrombin time Completed 04/07/16 Capillary blood draw Completed 04/07/16 Prothrombin time Completed 04/07/16 Capillary blood draw Completed 04/07/16 Prothrombin time Completed 04/07/16 Capillary blood draw Completed 04/07/16 Prothrombin time Completed 04/07/16 Capillary blood draw Completed 04/07/16 Prothrombin time Completed 04/07/16 Capillary blood draw Completed 04/07/16 Prothrombin time Completed 04/07/16 Capillary blood draw Completed 04/07/16 Prothrombin time Completed 04/07/16 Removal of support implant Completed 08/17/16 LUCERO DANIELLE MD Routine venipuncture Completed 08/17/16 Routine venipuncture Completed 08/17/16 X-ray exam of ankle Completed 08/17/16 Fluoroscope examination Completed 08/17/16 Metabolic panel total ca Completed 08/17/16 Reagent strip/blood glucose Completed 08/17/16 Reagent strip/blood glucose Completed 08/17/16 Reagent strip/blood glucose Completed 08/17/16 Complete cbc w/auto diff wbc Completed 08/17/16 Prothrombin time Completed 08/17/16 Prothrombin time Completed 08/17/16 Measure blood oxygen level Completed 08/17/16 PT EVALUATION Completed 08/17/16 OT EVALUATION Completed 08/17/16 Gait training therapy Completed 08/17/16 Therapeutic activities Completed 08/17/16 Self care mngment training Completed 08/17/16 060714"16 SQ. IN. OR LESS, WITHOUT ADHESIVE BORDER, EACH ANY Completed [id number] ITEM OR SERVICE Completed 08/17/16 [id number] ITEM OR SERVICE Completed 08/17/16 [id number] ITEM OR SERVICE Completed 08/17/16 [id number] ITEM OR SERVICE Completed 08/17/16 [id number] ITEM OR SERVICE Completed 08/17/16 [id number] ITEM OR SERVICE Completed 08/17/16 [id number] ITEM OR SERVICE Completed 08/17/16 [id number] ITEM OR SERVICE Completed 08/17/16 [id number] ITEM OR SERVICE Completed 08/17/16 [id number] ITEM OR SERVICE Completed 08/17/16 PT MOBILITY CURRENT STATUS Completed 08/17/16 PT MOBILITY GOAL STATUS Completed 08/17/16 PT MOBILITY GOAL STATUS Completed 08/17/16 PT MOBILITY DISCHARGE STATUS Completed 08/17/16 OT SELF CARE CURRENT STATUS Completed 08/17/16 OT SELF CARE GOAL STATUS Completed 08/17/16 [id number]"INJECTION, ENOXAPARIN SODIUM, 10 MG" Completed 08/17/16 [id number]"INJECTION, ENOXAPARIN SODIUM, 10 MG" Completed 08/17/16 [id number]"INJECTION, ONDANSETRON HYDROCHLORIDE, PER 1 MG" Completed 08/17/16 PROPOFOL INJ 500 MG/50ML Completed 08/17/16 PROPOFOL INJ 500 MG/50ML Completed 08/17/16 139014"INJECTION, FENTANYL CITRATE, 0.1 MG" Completed 08/17/16 [id number]"INJECTION, FENTANYL CITRATE, 0.1 MG" Completed 08/17/16 055504"INJECTION, FENTANYL CITRATE, 0.1 MG" Completed 08/17/16 485430"RINGERS LACTATE INFUSION, UP TO 1000 CC" Completed 08/17/16 [id number]"RINGERS LACTATE INFUSION, UP TO 1000 CC" Completed 08/17/16 [id number]"RINGERS LACTATE INFUSION, UP TO 1000 CC" Completed 08/17/16 [id number]"RINGERS LACTATE INFUSION, UP TO 1000 CC" Completed 08/17/16 [id number]"RINGERS LACTATE INFUSION, UP TO 1000 CC" Completed 08/17/16 102801"MATERIAL, PREFABRICATED, INCLUDES FITTING AND ADJUSTM Completed Glycosylated hemoglobin test Completed 08/11/16 Assay of magnesium Completed 08/11/16 Ther/proph/diag inj sc/im Completed 08/11/16 030815"INJECTION, ENOXAPARIN SODIUM, 10 MG" Completed 08/11/16 Ther/proph/diag inj sc/im Completed 08/11/16 467142"INJECTION, ENOXAPARIN SODIUM, 10 MG" Completed 08/11/16 Ther/proph/diag inj sc/im Completed 08/11/16 [id number]"INJECTION, ENOXAPARIN SODIUM, 10 MG" Completed 08/11/16 Ther/proph/diag inj sc/im Completed 08/11/16 [id number]"INJECTION, ENOXAPARIN SODIUM, 10 MG" Completed 08/11/16 Ther/proph/diag inj sc/im Completed 08/11/16 958125"INJECTION, ENOXAPARIN SODIUM, 10 MG" Completed 08/11/16 Ther/proph/diag inj sc/im Completed 08/11/16 [id number]"INJECTION, ENOXAPARIN SODIUM, 10 MG" Completed 08/11/16 Ther/proph/diag inj sc/im Completed 08/19/16 [id number]"INJECTION, ENOXAPARIN SODIUM, 10 MG" Completed 08/19/16 Ther/proph/diag inj sc/im Completed 08/19/16 [id number]"INJECTION, ENOXAPARIN SODIUM, 10 MG" Completed 08/19/16 Emergency dept visit Completed 08/20/16 [id number]"ADHESIVE BORDER, EACH DRESSING" Completed 08/20/16 X-ray exam of knee 3 Completed 09/14/16 Emergency dept visit Completed 09/14/16 Routine venipuncture Completed 09/19/16 Complete cbc w/auto diff wbc Completed 09/19/16 Routine venipuncture Completed 09/22/16 Comprehen metabolic panel Completed 09/22/16 Urinalysis auto w/o scope Completed 09/22/16 Assay of natriuretic peptide Completed 09/22/16 Complete cbc w/auto diff wbc Completed 09/22/16 Colonoscopy with polypectomy and biopsy Completed 11/03/16 MAXWELL YING MD, FACS, JENAS Encounters Encounter Location Arrival/Admit Date Discharge/Depart Date Attending Provider Departed [facility] 11/03/16 6:15am 11/03/16 10 :06am MAXWELL YING FACSS MD Registered [facility] 11/02/16 10:00am CARMENCITA SCALES MD Registered [facility] 11/02/16 9:48am ERNESTO MCLEAN Registered [facility] 10/23/16 9:20am CARMENCITA SCALES MD Discharged [facility] 10/03/16 2:00pm 10/03/16 4:35pm CARMENCITA SCALES MD Registered [facility] 09/22/16 11:07am CARMENCITA SCALES MD Registered [facility] 09/19/16 4:31pm MAXWELL MERCER APRN Departed Emergency Room [facility] 09/14/16 6:34pm 09/14/16 8: 03pm RENE RANGEL MD Departed Emergency Room [facility] 08/20/16 12:59am 08/20/16 1: 49am IGNACIO HERRERA MD Discharged Recurring [facility] 08/19/16 9:21am 09/30/16 11:06pm ERNESTO MCLEAN Departed Surgical Day Care [facility] 08/17/16 5:28am 08/18/16 1: 05pm LUCERO DANIELLE MD Discharged Recurring [facility] 08/11/16 1:07pm 08/16/16 7:38am CARMENCITA SCALES MD Discharged Recurring [facility] 04/07/16 8:51am 09/30/16 11:31pm CARMENCITA SCALES MD
--- OUTSIDE RECORDS SUMMARY | 2016-12-17 12:41 | XMS REPORT | Continuity of Care Document ---
Author Author [facility] Organization [facility] Address Unknown Phone Unavailable Support Name Relationship Address Phone AUTUMNBENJIE MENDIETA Caregiver [facility] [address] [place] [phone] CARMENCITA SOLIZ MD Caregiver [address] [place] [address] [place] [phone] CHRISSIE MARRUFO Next Of Kin [address] [place] [address] Insurance Providers Payer Name Policy Number Subscriber Name Relationship Medicare [id number] Kayla Robertson 16 Self [facility] [id number] Kayla Robertson 16 Self Advance Directives Directive Response Recorded Date/Time Advanced Directives Type None 08/27/14 7:39pm Chief Complaint and Reason for Visit Chief Complaint Chest Pain Reason for Visit [id number] Problems Medical Problems Problem Onset Date Status Malaise and fatigue Unknown Active R/O WI Unknown Active Chest pain rule out WI Unknown Active Dizziness Unknown Active Malaise and [...] Unknown Active Atypical chest pain Unknown Active Medications Medication Dose Route Sig [...] No 03/11/2014 2:30pm Hx Substance Use No 08/27/2014 8:21pm Hx Alcohol Use No 08/27/2014 8:21pm Has the pt used tobacco in the [...] Follow Up Appointments: Appointment scheduled with Dr. Soliz at 7:00 am, have your INR drawn at that time. Patient Instructions: Should your symptoms return you could contact Dr Soliz through the office or return to the ED for emergent evaluation. Please give PE and Coumadin handouts. Condition at time of discharge: Good Condition at time of discharge: Good see instructions Condition at time of discharge: Good Fair Plan of Care Discharge Date 08/20/14 5:07pm Disposition 02 TO [facility] Condition at Discharge Improved Instructions/Education Provided [facility] Discharge Instructions Vitamin K DI for Pulmonary Embolism DI for Diabetes Type 2 Warfarin DI for Warfarin Therapy Prescriptions See Medications Section Referrals CARMENCITA SOLIZ MD Functional Status Query Response Date Recorded Physical Hygiene Self August 27, 2014 8:21pm Disabilities None August 27, 2014 8:21pm Devices Used Glasses August 27, 2014 8:21pm Dressing Self August 27, 2014 8:21pm Ambulation Self August 27, 2014 8:21pm Diet Self August 27, 2014 8:21pm Mental Status Alert Oriented August 27, 2014 8:21pm Disabilities None August 27, 2014 8:21pm Devices Used Glasses August 27, 2014 8:21pm Physical Hygiene Self August 27, 2014 8:21pm Dressing Self August 27, 2014 8:21pm Ambulation Self August 27, 2014 8:21pm Diet Self August 27, 2014 8:21pm Allergies, Adverse Reactions, Alerts Allergen Type Severity Reaction Status Last Updated Procaine HCl Allergy Unknown NERVOUS AND HEART RACE Active 08/27/14 hydrocodone bit Allergy Mild FINE RASH AND HEADACHE Active 08/27/14 propoxyphene HCl Allergy Unknown SHAKY, AND LOPEZ Active 08/27/14 albuterol sulfate Allergy Intermediate NERVOUSNESS, PALPITATIONS Active ciprofloxacin HCl Allergy Mild ITCH,HEADACHE Active 08/27/14 Lisinopril Adverse Reaction Unknown DRY COUGH Active 08/27/14 Codeine Allergy Mild RASH,HEADACHE Active 08/27/14 Hydrochlorothiazide Adverse Reaction Unknown NAUSEA, DIZZY Active 08/27/14 Doxycycline Adverse Reaction Unknown NAUSEA, DIZZY Active 08/27/14 Ciprofloxacin Allergy Mild ITCH,HEADACHE Active 08/27/14 Tuberculin,Old Skin Test Allergy Unknown Active 08/27/14 Rofecoxib Allergy Severe JOINT SWELL,RACHEL Active 08/27/14 Immunizations Name Given Type Hx Influenza Vaccination Y JUL 2014 Historical Hx Pneumococcal Vaccination Y JUL 2014 Historical Hx Influenza Vaccination Y JUL 2014 Historical Vital Signs Acute Vital Signs Vital Response Date/Time Temperature (Fahrenheit) 96.9 deg F (96.8 - 99.1) Temperature (Calculated Celsius) 36.69312 degrees C (36.0 - 37.3) Pulse Rate (adult) 73 bpm (60 - 100) Respiratory Rate 16 breaths/min (10 - 20) O2 Sat by Pulse Oximetry 98 % (90 - 100) Oxygen Flow Rate 2 L/min Blood Pressure 138/78 mm Hg Height 5 ft 1 in Weight 190 lb Body Mass Index 35.0 kg/m^2 Results Test Source Date Result Interp. Ref. Range Comments Activated Partial Thromboplast Time August 27, 2014 7:56pm 53.7 SEC H 24-36 Alanine Aminotransferase (ALT/SGPT) August 27, 2014 7:56pm 39 U/L N 9- 52 Albumin August 27, 2014 7:56pm 3.7 G/DL N 3.5-5.0 Albumin/Globulin Ratio August 27, 2014 7:56pm 1.4 RATIO N 1.1-2.2 Alkaline Phosphatase August 27, 2014 7:56pm 101 U/L N 38-126 Amylase Level April 10, 2012 3:16pm < 30 U/L L 30-110 Anion Gap August 27, 2014 7:56pm 10 MEQ/L N 5-15 Aspartate Amino Transf (AST/SGOT) August 27, 2014 7:56pm 18 U/L N 14- 36 BUN/Creatinine Ratio August 27, 2014 7:56pm 20 RATIO N 6-26 Basophils # (Auto) August 27, 2014 7:56pm 0.0 T/MM3 N 0-0.2 Basophils (%) (Auto) August 27, 2014 7:56pm 0.3 % N 0-2 Blood Urea Nitrogen August 27, 2014 7:56pm 16.0 MG/DL N 7-17 Calcium Level August 27, 2014 7:56pm 9.0 MG/DL N 8.4-10.2 Calculated Osmolality August 27, 2014 7:56pm 279 MOSM/KG N 261-280 Carbon Dioxide Level August 27, 2014 7:56pm 28 MEQ/L N 22-30 Chloride Level August 27, 2014 7:56pm 105 MEQ/L N 98-107 Cholesterol Level November 10, 2013 6:20am 159 MG/DL N 132-199 COMMENT FASTING Cholesterol/HDL Ratio November 10, 2013 6:20am 3.6 RATIO N 0-4.0 COMMENT FASTING Conjugated Bilirubin June 10, 2012 3:05pm 0.00 MG/DL N 0.00-0.30 Creatinine August 27, 2014 7:56pm 0.8 MG/DL N 0.7-1.2 D-Dimer August 16, 2014 9:18pm 385 NG/ML H 0-224 <224 NG/ML= PRESUMPTIVE NEGATIVE FOR PE OR DVT>224 NG/ML=ADDITIONAL EVALUATION FOR PE OR DVT RECOMMENDED Eosinophils # (Auto) August 27, 2014 7:56pm 0.1 T/MM3 N 0-0.5 Eosinophils (%) (Auto) August 27, 2014 7:56pm 1.3 % N 0-4 Erythrocyte Sedimentation Rate October 12, 2011 4:15am 19 MM/HR N 0-20 Free Thyroxine November 10, 2013 6:20am 1.91 NG/DL N 0.78-2.19 COMMENT FASTING Globulin August 27, 2014 7:56pm 2.7 G/DL N 2.4-3.6 Glucose Level August 27, 2014 7:56pm 146 MG/DL H 65-110 Hematocrit August 27, 2014 7:56pm 37.1 % N 36-46 Hemoglobin August 27, 2014 7:56pm 12.0 GM/DL N 12-16 Hemoglobin A1c August 17, 2014 5:06am 6.4 % N 6-7 <6.0 NON-DIABETIC RANGE6.0-7.0 ADA THERAPEUTIC RANGE >7.0 ACTION SUGGESTED LDL Cholesterol, Calculated November 10, 2013 6:20am 95.6 N 66-159 COMMENT FASTING Lipase April 10, 2012 3:16pm 18 U/L L 23-300 Lymphocytes # (Auto) August 27, 2014 7:56pm 2.2 T/MM3 N 1-4.8 Lymphocytes (%) (Auto) August 27, 2014 7:56pm 28.0 % N 23-45 Magnesium Level 2014 5:21am 1.9 MG/DL DN 1.6-2.3 Mean Corpuscular Hemoglobin August 27, 2014 7:56pm 29.7 UUG N 26-34 Mean Corpuscular Hemoglobin Concent August 27, 2014 7:56pm 32.3 GM/DL N 31-37 Mean Corpuscular Volume August 27, 2014 7:56pm 91.8 UM3 N 80-100 Mean Platelet Volume August 27, 2014 7:56pm 10.4 UM3 N 9.4-12.4 Monocytes # (Auto) August 27, 2014 7:56pm 0.6 T/MM3 N 0-0.8 Monocytes (%) (Auto) August 27, 2014 7:56pm 8.0 % N 0-9.0 Neutrophils # (Auto) August 27, 2014 7:56pm 4.8 T/MM3 N 1.8-7.7 Neutrophils (%) (Auto) August 27, 2014 7:56pm 62.3 % N 33-66 Platelet Count August 27, 2014 7:56pm 266 T/MM3 N 130-400 Potassium Level August 27, 2014 7:56pm 4.0 MEQ/L N 3.6-5 Prealbumin August 16, 2014 9:18pm 19.7 MG/DL N 17.6-36.0 COMMENT may use blood in lab Prothromb Time International Ratio August 27, 2014 7:56pm 3.11 H 0.81- 1.09 THERAPUTIC RANGE=2.00-3.00 FOR ANTI-THROMBOSIS THERAPUTIC RANGE=2.50- 3.50 FOR IMPLANTED VALVE RDW Standard Deviation August 27, 2014 7:56pm 40.4 FL N 36.9-50.2 Red Blood Count August 27, 2014 7:56pm 4.04 M/MM3 N 4.00-5.20 Sodium Level August 27, 2014 7:56pm 143 MEQ/L N 134-144 Thyroid Stimulating Hormone (TSH) August 16, 2014 9:18pm 1.72 MIU/L N 0.47-4.68 Total Bilirubin August 27, 2014 7:56pm 0.40 MG/DL N 0.20-1.30 Total Protein August 27, 2014 7:56pm 6.4 G/DL N 6.3-8.2 Triglycerides Level November 10, 2013 6:20am 97 MG/DL N 35-135 COMMENT FASTING Troponin I August 27, 2014 7:56pm < 0.012 ng/ml 0-0.12 Unconjugated Bilirubin June [...] Has specimen been collected/obtained? Y Urine Specific [place] August 17, 2014 12:05am <=1.005 L - [...] use blood in lab White Blood Count August 27, 2014 7:56pm 7.7 T/MM3 N 4.5-11.0 Chemistry Specimen Hemolysis August 27, 2014 7:56pm < 15 0-25 0-25 : No Hemolysis.26-70: [...] 103 mg/dL N 65-110 Lab Scanned Report August 26, 2014 10:29am LAB TEST FORM REQUEST [id number] - EKG February 06, 2008 12:44pm Complete - HDL Cholesterol Direct November 10, 2013 6:20am 44 MG/DL N 40-60 COMMENT FASTING Turbidity August 27, 2014 7:56pm < 20 0-20 Glomerular Filtration Rate Calc August 27, 2014 7:56pm 70 - Immature Granulocyte # (Auto) August 27, 2014 7:56pm 0.01 T/MM3 N 0.00 -0.03 Immature Granulocyte % (Auto) August 27, 2014 7:56pm 0.1 % N 0.0-0.5 Icterus Index August 27, 2014 7:56pm < 2 0-7 IU-Ztt-G-Type Natriuretic Peptide August 27, 2014 7:56pm 634 PG/ML H 0 -175 Rule in cut [...] Biopsy July 23, 2014 9:30am Name: KAYLA ROBERTSON Unit #: [id number] : 1940 Sex: F DISCHARGE SUMMARY Admit Date: 08/16/14 Report #: [id number] General Date Date DATE: 08/20/14 TIME: 16:23 Attending Physician Omid Olivares MD Admitting Physician Omid Olivares MD Consulting Physician Admitting Diagnosis (1) Pulmonary emboli Status: Acute (2) Pleuritic chest pain Status: Acute (3) History of gastritis Status: Chronic Assessment & Plan: EGD 07/23/14 (4) Anxiety and depression Status: Chronic (5) RLS (restless legs syndrome) Status: Chronic (6) Dyslipidemia Status: Chronic (7) Hypertension Status: Chronic (8) GERD (gastroesophageal reflux disease) Status: Chronic (9) Osteoarthritis Status: Chronic (10) Diabetes Status: Chronic (11) Hypomagnesemia Status: Acute Assessment & Plan: Present on admission Discharge Diagnosis same Procedures none Laboratory Laboratory Laboratory Tests Test 08/19/14 08/19/14 08/20/14 08/20/14 17:31 20:40 06:05 06:38 Glucometer 137 mg/dL 133 mg/dL 123 mg/dL White Blood Count 5.4 T/MM3 Red Blood Count 3.89 M/MM3 Hemoglobin 11.7 GM/DL Hematocrit 35.6 % Mean Corpuscular Volume 91.5 UM3 Mean Corpuscular Hemoglobin 30.1 UUG Mean Corpuscular Hemoglobin 32.9 GM/DL Concent RDW Standard Deviation 39.6 FL Platelet Count 223 T/MM3 Mean Platelet Volume 10.5 UM3 Immature Granulocyte % (Auto) 0.6 % Neutrophils (%) (Auto) 49.1 % Lymphocytes (%) (Auto) 38.8 % Monocytes (%) (Auto) 9.2 % Eosinophils (%) (Auto) 1.7 % Basophils (%) (Auto) 0.6 % Immature Granulocyte # (Auto) 0.03 T/MM3 Neutrophils # (Auto) 2.7 T/MM3 Lymphocytes # (Auto) 2.1 T/MM3 Monocytes # (Auto) 0.5 T/MM3 Eosinophils # (Auto) 0.1 T/MM3 Basophils # (Auto) 0.0 T/MM3 Prothromb Time International 2.20 Ratio Turbidity < 20 Sodium Level 139 MEQ/L Potassium Level 5.1 MEQ/L Chloride Level 110 MEQ/L Carbon Dioxide Level 23 MEQ/L Anion Gap 6 MEQ/L Blood Urea Nitrogen 10.0 MG/DL Creatinine 0.6 MG/DL Glomerular Filtration Rate 97 Calc BUN/Creatinine Ratio 17 RATIO Glucose Level 111 MG/DL Calculated Osmolality 268 MOSM/KG Calcium Level 8.9 MG/DL Icterus Index < 2 Chemistry Specimen Hemolysis 178 Test 08/20/14 10:53 Glucometer 103 mg/dL History of Present Illness Mrs. Robertson is a 73-year-old female who presents to the emergency room secondary to acute onset of left-sided chest pain with associated shortness of breath. She reports about two days ago she dropped a very heavy wooden plank onto her left leg. She has been noticing some increasing bruising but no significant swelling of her left leg or calf. She has some twinging of discomfort at times when she touches this area but really she has been able to walk around and move well. This evening, she noticed a sharp twinge of pain in her left chest. It was quite sharp and stabbing. Associated with this was shortness of breath. She hasnt been having increasing cough, congestion or any sputum. Denies fevers or chills. She has not been noticing nausea, vomiting or change in stool. In light of her recent leg injury and this chest pain, she was worried about possible blood clot she presents to emergency room where she was evaluated. There, her D-dimer is elevated at 385. Troponin is undetectable. She underwent CT per PE protocol which did show evidence of bilateral pulmonary emboli. Dr. Olivares was notified and patient was subsequently placed in inpatient admission status. Of note, she has not been noticing any recent viral syndrome. She denies palpitations, cardiac irregularity. Vision and hearing have been stable. Her acid reflux has been doing well and she has not been having odynophagia or dysphagia. Bowels have been stable. She denies urinary pain or discomfort. She denies any syncope or loss of consciousness. Anticipated length of stay is thought to be greater than two midnights. Level of intensity of care is deemed moderate in that she will need anticoagulation with Lovenox for her acute pulmonary emboli while we transition to oral Coumadin. She will also need close cardiopulmonary monitoring in light of her bilateral pulmonary emboli. Hospital Course 08/20- Pt INR 2.2, repeat CXR is negative. Discharge home with Rx for Coumadin and instructions to f/u with Dr Soliz on Sunday for repeat INR and hospital followup. Should her symptoms return she could contact Dr Soliz through the office or return to the ED for emergent evaluation. Time spent in discharge activity was 35 min 08/19- Continue current plan of care Lovenox and Coumadin until therapeutic Blood sugars remain stable Continue to monitor other labs including hemoglobin and electrolytes Discuss discharge planning 08/18/14: Kayla is breathing easily on room air and has not had much change today. She is noted to be slightly anemic at 11.2 today. Mag level has improved to 1.9. Will continue Lovenox and Coumadin per pharmacy protocol for anticoagulation as well as home medications. Blood sugars remain stable and will continue to monitor BGMs. She continues to have occasional left sided chest pain that requires morphine for relief . 08/17/14: Kayla has not had much change today. Serial troponins remained negative. Doppler US of legs was negative for DVTs. Due to feeling short of breath, she was placed on 2L NC with improvement. Will continue to try and wean oxygen requirements. Will continue Lovenox and Coumadin per pharmacy protocol for anticoagulation as well as home medications. Blood sugars remain stable and will continue BGMs. Will continue to monitor labs including CBC, BMP, INR and Mag in AM. Problems: DVT Prophylaxis: Lovenox, Coumadin GI Prophylaxis: Protonix Code Status Full Code Home Meds Active Scripts Warfarin Sodium 4 Mg Tablet4 Mg PO 1700 30 Days Take 1 tablet, by mouth, 1 time a day (at 5 pm). Prov:MARIEADEEL DO 08/20/14 Reported Medications Acetaminophen (Tylenol Extra Strength)500 Mg Tablet1-2 Tab PO HS PRN (PAIN) 07/22/14 Omeprazole 20 Mg Capsule.dr20 Mg PO BID #30 07/22/14 Losartan Potassium 100 Mg [id number] Mg PO DAILY #30 07/22/14 Chlorthalidone 25 Mg Qvhuia19 Mg PO PRN #30 07/22/14 Atorvastatin Calcium 40 Mg Pfuuvb72 Mg PO HS #30 07/22/14 Pramipexole Di-Hcl (Mirapex)0.5 Mg Tablet0.5 Mg PO HS 08/23/11 Discharge Disposition stable Copies To 1: CARMENCITA SOLIZ MD, CARRIE DO Aug 20, 2014 16:24 Procedures Procedure Status Date Provider(s) EGD BIOPSY SINGLE/MULTIPLE completed 07/23/14 MAXWELL YING MD, FACS, CWS Encounters Encounter Location Date/Time Departed Emergency Room [facility] 08/27/14 7:36pm Registered Recurring [facility] 08/26/14 8:39am Discharged Inpatient [facility] 08/16/14 10:43pm Departed Emergency Room [facility] 07/29/14 8:12pm Departed Emergency Room [facility] 06/29/14 4:02pm Departed Emergency Room [facility] 06/22/14 8:30pm Recent Diagnosis
--- OUTSIDE RECORDS SUMMARY | 2016-12-17 12:41 | XMS REPORT | Referral Summary ---
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 Operator Name Role Phone Shikha Soliz Primary Care Physician [phone] Encounter Date(s): 11/14/16 - 11/14/16 [facility], [address] [place] [phone] Discharge Diagnosis: Chronic low back pain Discharge Diagnosis: Bilateral primary osteoarthritis of hip Discharge Diagnosis: Lumbar spinal stenosis Discharge Diagnosis: Controlled type 2 diabetes mellitus without complication Discharge Diagnosis: Benign essential hypertension Discharge Diagnosis: Right lumbar radiculopathy Discharge Disposition: 01-Home or Self Care Attending Physician: Jose Soliz MD Vital Signs Most recent to 1 oldest [Reference Range]: Temperature Tympanic 36.9 degC [36.6-38.1 degC] (11/14/16 9:43 AM) Peripheral Pulse 68 bpm Rate [60-100 bpm] (11/14/16 9:43 AM) Blood Pressure 158/84 mmHg [90-140/60-90 mmHg] *HI* (11/14/16 9:43 AM) Problem List Condition Effective Dates Status [...] DAILY, # 30 tabs, 4 Refill(s), eRx: [facility] #[id number], TAKE ONE TABLET BY MOUTH DAILY Start Date: 09/13/16 Status: Ordered escitalopram 5 mg oral tablet See Instructions, TAKE ONE TABLET BY MOUTH DAILY, # 30 tabs, 5 Refill(s), eRx: [facility] #[id number] Start Date: 09/28/16 Status: Ordered furosemide 20 mg oral tablet 20 mg 1 tabs, Oral, Every other day, # 30 tabs, 5 Refill(s), Pharmacy: [facility] #[id number], 1 tabs Oral Every other day Start Date: 09/22/16 Status: Ordered losartan 25 mg oral tablet See Instructions, TAKE ONE TABLET BY MOUTH DAILY, # 30 tabs, 5 Refill(s), eRx: [facility] #[id number] Start Date: 09/28/16 Status: Ordered magnesium oxide 400 mg (241.3 mg elemental magnesium) oral tablet 400 mg 1 tabs, Oral, Daily, # 30 tabs, 11 Refill(s), Pharmacy: [facility] #[id number], 1 tabs Oral Daily Start Date: 08/11/16 Status: Ordered metFORMIN 1000 mg oral tablet, extended release 1,000 mg 1 tabs, Oral, Daily, with evening meal, # 90 tabs, 3 Refill(s), Pharmacy: [facility] #[id number], 1 tabs Oral Daily,Instr:with evening meal Start Date: 04/04/16 Status: Ordered omeprazole 20 mg oral delayed release capsule See Instructions, TAKE ONE CAPSULE BY MOUTH EVERY DAY, # 30 caps, 10 Refill(s), eRx: [facility] #[id number], TAKE ONE CAPSULE BY MOUTH EVERY DAY Start Date: 08/28/16 Status: Ordered pramipexole 0.5 mg oral tablet 0.5 mg 1 tabs, Oral, Bedtime (once a day), # 30 tabs, 9 Refill(s), Pharmacy: [facility] #[id number], 1 tabs Oral Bedtime (once a day) Start Date: 10/31/16 Status: Ordered Probiotic Formula oral capsule 1 [...] daily., # 30 tabs, 1 Refill(s), Pharmacy: [facility] #[id number], 0.5 tabs Oral Daily,x30 days,Instr:NOTE: HOLD today [...] L4-5 Translaminar 03/12/12 RT L3-4/L4-5 Transforaminal 01/02/12 [id number] 2011 Gizsretagzxxtroknkkiergilq50 2010 Laryngoscopy 2011 Ulcmpig51 2010 Nasal bcpwobftslb39 2002 Left 1st toe joint replacement 2001 Laparoscopic cholecystectomy 2000 bilateral elbow - tendinitis, epicondylitis 1994 Azjaykc88 1985 Appendectomy Cholecystectomy Hysterectomy Knee [id number] Right great toenail excision FARAZ - Total abdominal hysterectomy and bilateral salpingo-ymhzcvvdkhew95 [address] [place] [address] 2bilateral--June 2016 3auto-populated from documented surgical case [...] Patient Education Author: Jose Soliz MD Date: 11/14 Preventive Medicine Back Exercises Back exercises help treat and prevent back injuries. The goal of back exercises is to increase the strength of your abdominal and back muscles and the flexibility of your back. These exercises should be started when you no longer have back pain. Back exercises include: Pelvic Tilt. Lie on your back with your knees bent. Tilt your pelvis until the lower part of your back is against the floor. Hold this position 5 to 10 sec and repeat 5 to 10 times. Knee to Chest. Pull first 1 knee up against your chest and hold for 20 to 30 seconds, repeat this with the other knee, and then both knees. This may be done with the other leg straight or bent, whichever feels better. Sit-Ups or Curl-Ups. Bend your knees 90 degrees. Start with tilting your pelvis, and do a partial, slow sit-up, lifting your trunk only 30 to 45 degrees off the floor. Take at least 2 to 3 seconds for each sit-up. Do not do sit-ups with your knees out straight. If partial sit-ups are difficult, simply do the above but with only tightening your abdominal muscles and holding it as directed. Hip-Lift. Lie on your back with your knees flexed 90 degrees. Push down with your feet and shoulders as you raise your hips a couple inches off the floor; hold for 10 seconds, repeat 5 to 10 times. Back arches. Lie on your stomach, propping yourself up on bent elbows. Slowly press on your hands, causing an arch in your low back. Repeat 3 to 5 times. Any initial stiffness and discomfort should lessen with repetition over time. Shoulder-Lifts. Lie face down with arms beside your body. Keep hips and torso pressed to floor as you slowly lift your head and shoulders off the floor. Do not overdo your exercises, especially in the beginning. Exercises may cause you some mild back discomfort which lasts for a few minutes; however, if the pain is more severe, or lasts for more than 15 minutes, do not continue exercises until you see your caregiver. Improvement with exercise therapy for back problems is slow. See your caregivers for assistance with developing a proper back exercise program. This information is not intended to replace advice given to you by your health care provider. Make sure you discuss any questions you have with your health care provider. Document Released: 10/25/2005 Document Revised: 12/09/2012 Document Reviewed: [employer] Interactive Patient Education 2016 [employer] No follow up information was provided. Extracted from: Title: multiple problems Author: Jose Soliz MD Date: 11/14/16 Impression and Plan Diagnosis Lumbar spinal stenosis (ZYX81-BI M48.06, Discharge, Medical). Chronic low back pain (OPE00-LF M54.5, Discharge, Medical). Right lumbar radiculopathy (RRL53-AX M54.16, Discharge, Medical). Benign essential hypertension (RKK37-DA I10, Discharge, Medical). Controlled type 2 diabetes mellitus without complication (NTE10-XE E11.9, Discharge, Medical). Bilateral primary osteoarthritis of hip (LVX83-XH M16.0, Discharge, Medical). Plan: 1) Daily water exercises will help your low back pain the most. 2) PT ordered for your lumbar spinal stenosis. 3) You may proceed with your right hip injection as planned. 4) Continue your current meds, and your planned INR in 6 days. 5) See me in 3 months and as needed.. Orders Orders (Selected) Outpatient Orders Ordered Office Visit Level 4 Est 16546: . Dx/Order Association Plan: Diagnosis: Benign essential hypertension Comment: Ordered: Office Visit Level 4 Est 81993; 11/14/16 10:23:00 [employer], Lumbar spinal stenosis | Chronic low back pain | Right lumbar radiculopathy | Benign essential hypertension | Controlled type 2 diabetes mellitus without complication | Bilateral primary osteoarthritis of hip Diagnosis: Bilateral primary osteoarthritis of hip Comment: Ordered: Office Visit Level 4 Est 21684; 11/14/16 10:23:00 [employer], Lumbar spinal stenosis | Chronic low back pain | Right lumbar radiculopathy | Benign essential hypertension | Controlled type 2 diabetes mellitus without complication | Bilateral primary osteoarthritis of hip Diagnosis: Chronic low back pain Comment: Ordered: Office Visit Level 4 Est 83912; 11/14/16 10:23:00 [employer], Lumbar spinal stenosis | Chronic low back pain | Right lumbar radiculopathy | Benign essential hypertension | Controlled type 2 diabetes mellitus without complication | Bilateral primary osteoarthritis of hip Diagnosis: Controlled type 2 diabetes mellitus without complication Comment: Ordered: Office Visit Level 4 Est 83164; 11/14/16 10:23:00 [employer]ER, Lumbar spinal stenosis | Chronic low back pain | Right lumbar radiculopathy | Benign essential hypertension | Controlled type 2 diabetes mellitus without complication | Bilateral primary osteoarthritis of hip Diagnosis: Lumbar spinal stenosis Comment: Ordered: Office Visit Level 4 Est 37023; 11/14/16 10:23:00 [employer]ER, Lumbar spinal stenosis | Chronic low back pain | Right lumbar radiculopathy | Benign essential hypertension | Controlled type 2 diabetes mellitus without complication | Bilateral primary osteoarthritis of hip Diagnosis: Right lumbar radiculopathy Comment: Ordered: Office Visit Level 4 Est 25392; 11/14/16 10:23:00 [employer]ER, Lumbar spinal stenosis | Chronic low back pain | Right lumbar radiculopathy | Benign essential hypertension | Controlled type 2 diabetes mellitus without complication | Bilateral primary osteoarthritis of hip End of Orders ."
--- OUTSIDE RECORDS SUMMARY | 2016-12-17 12:41 | XMS REPORT | Referral Summary ---
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 Name Role Phone Shikha Soliz Primary Care Physician [phone] Encounter Date(s): 09/05/16 - 09/05/16 [facility], Surgery [address] [place] [address] [place] [phone]- Discharge Diagnosis: History of pulmonary embolism Discharge Diagnosis: Encounter for colonoscopy due to history of adenomatous colonic polyps Discharge Disposition: 01-Home or Self Care Attending Physician: Levi Thomas MD Admitting Physician: Levi Thomas MD Referring Physician: Jose Soliz MD Vital Signs Most recent to 1 oldest [Reference Range]: Temperature Tympanic 36.6 degC [36.6-38.1 degC] (09/05/16 2:06 PM) Blood Pressure 152/70 mmHg [90-140/60-90 mmHg] *HI* (09/05/16 2:06 PM) Problem List Condition Effective Dates Status Health [...] Daily, # 30 tabs, 11 Refill(s), Pharmacy: [facility] #[id number], 1 tabs Oral Daily Start Date: 09/01/16 Status: Ordered atorvastatin 10 mg oral tablet See Instructions, TAKE ONE TABLET BY MOUTH DAILY, # 30 tabs, 5 Refill(s), eRx: [facility] #[id number], TAKE ONE TABLET BY MOUTH DAILY Start Date: 03/15/16 Status: Ordered escitalopram 5 mg oral tablet 5 mg 1 tabs, Oral, Daily, # 30 tabs, 5 Refill(s), Pharmacy: [facility] # [id number], 1 tabs Oral Daily Start Date: 03/24/16 Status: Ordered losartan 25 mg oral tablet See Instructions, TAKE ONE TABLET BY MOUTH DAILY, # 30 tabs, 1 Refill(s), eRx: [facility] #[id number], TAKE ONE TABLET BY MOUTH DAILY Start Date: 06/12/16 Status: Ordered magnesium oxide 400 mg (241.3 mg elemental magnesium) oral tablet 400 mg 1 tabs, Oral, Daily, # 30 tabs, 11 Refill(s), Pharmacy: [facility] #[id number], 1 tabs Oral Daily Start Date: 08/11/16 Status: Ordered metFORMIN 1000 mg oral tablet, extended release 1,000 mg 1 tabs, Oral, Daily, with evening meal, # 90 tabs, 3 Refill(s), Pharmacy: [facility] #[id number], 1 tabs Oral Daily,Instr:with evening meal Start Date: 04/04/16 Status: Ordered omeprazole 20 mg oral delayed release capsule See Instructions, TAKE ONE CAPSULE BY MOUTH EVERY DAY, # 30 caps, 10 Refill(s), eRx: [facility] #[id number], TAKE ONE CAPSULE BY MOUTH EVERY DAY Start Date: 08/28/16 Status: Ordered pramipexole 0.5 mg oral tablet See Instructions, TAKE ONE TABLET BY MOUTH EVERY NIGHT AT BEDTIME, # 30 tabs, 1 Refill(s), eRx: [facility] #[id number], TAKE ONE TABLET BY MOUTH EVERY NIGHT [...] daily., # 30 tabs, 1 Refill(s), Pharmacy: [facility] #[id number], 0.5 tabs Oral Daily,x30 days,Instr:NOTE: HOLD today [...] L4-5 Translaminar 03/12/12 RT L3-4/L4-5 Transforaminal 01/02/12 [id number] 2011 Okkxbxujvtbmhfahwzdjbulczr10 2010 Laryngoscopy 2011 Yjmrggp19 2010 Nasal uhdtjqirfsh52 2002 Left 1st toe joint replacement 2001 Laparoscopic cholecystectomy 2000 bilateral elbow - tendinitis, epicondylitis 1994 Cntgzim87 1985 Appendectomy Cholecystectomy Hysterectomy Knee Right great toenail excision FARAZ - Total abdominal hysterectomy and bilateral salpingo-shrigonaahgh42 [address] [place] [address] 2bilateral--June 2016 3auto-populated from documented surgical case [...] Smoking Status Never smoker Assessment and Plan No data available for this section
--- OUTSIDE RECORDS SUMMARY | 2016-12-17 12:41 | XMS REPORT | Continuity of Care Document ---
Author Author [facility] Organization [facility] Address Unknown Phone Unavailable Support Name Relationship Address Phone OMID OLIVARES MD Caregiver [address] [place] [address] [address] [place] [phone] CONNOR CONCEPCION MD Caregiver [address] [place] [address] [place] [phone] CARMENCITA SOLIZ MD Caregiver [address] [place] [address] [address] [place] [phone] CHRISSIE MARRUFO Next Of Kin [address] [place] [phone] Insurance Providers Payer Name Policy Number Subscriber Name Relationship Medicare [id number] Kayla Robertson 16 Self [facility] [id number] Kayla Robertson 18 Self Advance Directives Directive Response Recorded Date/Time Advanced Directives Type DNR Documentation Living Will DPOA for Healthcare 10:43pm Ordered Resuscitation Status Full Code 08/16/14 10:43pm Resuscitation Documents on File Yes 08/16/14 11:16pm Chief Complaint and Reason for Visit Chief Complaint BILATERAL PULMONARY EMBOLI Reason for Visit Chest pain rule out [place] Shortness of breath CHEST PAIN NOS Dyspnea Pulmonary emboli Diabetes Hypertension Dyslipidemia GERD (gastroesophageal reflux disease) RLS (restless legs syndrome) Osteoarthritis Anxiety and depression History of gastritis Hypomagnesemia Obesity (BMI 35.0-39.9 without comorbidity) Pleuritic chest pain Problems Medical Problems Problem Onset Date Status Malaise and fatigue Unknown Active R/O [place] Unknown Active Chest pain rule out [place] Unknown Active Dizziness Unknown Active Malaise and [...] Unknown Active Pleuritic chest pain Unknown Active Medications Medication Dose [...] TWICE A DAY 30 Qty 07/22/14 Active Acetaminophen 1-2 Tab PO BEDTIME PRN PAIN 07/22/14 Active Warfarin Sodium 4 Mg PO 1700 30 Days Take 1 tablet, by mouth, 1 time a day (at 5 pm). 08/20/14 Active Social History Social History Problem Response Recorded Date/Time Smoking Status Never smoker 03/11/2014 2:30pm Chewing Tobacco Status No 03/11/2014 2:30pm Hx Substance Use No 08/16/2014 9:21pm Hx Alcohol Use No 08/16/2014 9:21pm Has the pt used tobacco in the [...] Good Condition at time of discharge: Good your medications, please contact our office at [phone]. Condition at time of discharge: Fair Plan of Care Discharge Date 08/20/14 5:07pm Disposition 01 DISCHARGED HOME, SELF-CARE Instructions/Education Provided [facility] DVT Discharge Instructions Vitamin K DI for Pulmonary Embolism DI for Diabetes Type 2 Warfarin DI for Warfarin Therapy Prescriptions See Medications Section Functional Status Query Response Date Recorded Physical Hygiene Self August 20, 2014 4:36pm Disabilities Visual August 20, 2014 4:36pm Devices Used Glasses August 20, 2014 4:36pm Dressing Self August 20, 2014 4:36pm Ambulation Self August 20, 2014 4:36pm Diet Self August 20, 2014 4:36pm Mental Status Alert Oriented August 20, 2014 4:36pm Disabilities Visual August 20, 2014 4:36pm Devices Used Glasses August 20, 2014 4:36pm Physical Hygiene Self August 20, 2014 4:36pm Dressing Self August 20, 2014 4:36pm Ambulation Self August 20, 2014 4:36pm Diet Self August 20, 2014 4:36pm Allergies, Adverse Reactions, Alerts Allergen Type Severity Reaction Status Last Updated Procaine HCl Allergy Unknown NERVOUS AND HEART RACE Active 08/16/14 hydrocodone bit Allergy Mild FINE RASH AND HEADACHE Active 07/30/14 propoxyphene HCl Allergy Unknown SHAKY, AND LOPEZ Active 08/16/14 albuterol sulfate Allergy Intermediate NERVOUSNESS, PALPITATIONS Active ciprofloxacin HCl Allergy Mild ITCH,HEADACHE Active 08/16/14 Lisinopril Adverse Reaction Unknown DRY COUGH Active 08/16/14 Codeine Allergy Mild RASH,HEADACHE Active 08/16/14 Hydrochlorothiazide Adverse Reaction Unknown NAUSEA, DIZZY Active 08/16/14 Doxycycline Adverse Reaction Unknown NAUSEA, DIZZY Active 08/16/14 Ciprofloxacin Allergy Mild ITCH,HEADACHE Active 08/16/14 Tuberculin,Old Skin Test Allergy Unknown Active 08/16/14 Rofecoxib Allergy Severe JOINT SWELL,RACHEL Active 08/16/14 Immunizations Name Given Type Hx Influenza Vaccination Y JUL 2014 Historical Hx Pneumococcal Vaccination Y JUL 2014 Historical Hx Influenza Vaccination Y JUL 2014 Historical Vital Signs Acute Vital Signs Vital Response Date/Time Temperature (Fahrenheit) 98.5 deg F (96.8 - 99.1) Temperature (Calculated Celsius) 36.00345 degrees C (36.0 - 37.3) Temperature Source Oral Pulse Rate (adult) 71 bpm (60 - 100) Respiratory Rate 20 breaths/min (10 - 20) O2 Sat by Pulse Oximetry 97 % (90 - 100) Oxygen Delivery Method Room Air Height 5 ft 1 in Weight 191 lb Body Mass Index 36.0 kg/m^2 Results Test Source Date Result Interp. Ref. Range Comments Activated Partial Thromboplast Time August 16, 2014 9:18pm 26.9 SEC N 24-36 Ordering r/o VTE Yes Alanine Aminotransferase (ALT/SGPT) August 17, 2014 5:06am 32 U/L N 9- 52 Albumin August 17, 2014 5:06am 2.7 G/DL L 3.5-5.0 Albumin/Globulin Ratio August 17, 2014 5:06am 1.2 RATIO N 1.1-2.2 Alkaline Phosphatase August 17, 2014 5:06am 69 U/L N 38-126 Amylase Level April 10, 2012 3:16pm < 30 U/L L 30-110 Anion Gap August 20, 2014 6:38am 6 MEQ/L N 5-15 Aspartate Amino Transf (AST/SGOT) August 17, 2014 5:06am 15 U/L DN 14- 36 BUN/Creatinine Ratio August 20, 2014 6:38am 17 RATIO N 6-26 Basophils # (Auto) August 20, 2014 6:38am 0.0 T/MM3 N 0-0.2 Basophils (%) (Auto) August 20, 2014 6:38am 0.6 % N 0-2 Blood Urea Nitrogen August 20, 2014 6:38am 10.0 MG/DL N 7-17 Calcium Level August 20, 2014 6:38am 8.9 MG/DL N 8.4-10.2 Calculated Osmolality August 20, 2014 6:38am 268 MOSM/KG N 261-280 Carbon Dioxide Level August 20, 2014 6:38am 23 MEQ/L N 22-30 Chemistry Specimen Hemolysis August 20, 2014 6:38am 178 H 0-25 0-25: No Hemolysis.26-70: Slight Hemolysis - [...] decrease Phenytoin. Recommend specimen recollection. Chloride Level August 20, 2014 6:38am 110 MEQ/L H 98-107 Cholesterol Level November 10, 2013 6:20am 159 MG/DL N 132-199 COMMENT FASTING Cholesterol/HDL Ratio November 10, 2013 6:20am 3.6 RATIO N 0-4.0 COMMENT FASTING Conjugated Bilirubin June 10, 2012 3:05pm 0.00 MG/DL N 0.00-0.30 Creatinine August 20, 2014 6:38am 0.6 MG/DL L 0.7-1.2 D-Dimer August 16, 2014 9:18pm 385 NG/ML H 0-224 <224 NG/ML= PRESUMPTIVE NEGATIVE FOR PE OR DVT>224 NG/ML=ADDITIONAL EVALUATION FOR PE OR DVT RECOMMENDED EKG February 06, 2008 12:44pm Complete - Eosinophils # (Auto) August 20, 2014 6:38am 0.1 T/MM3 N 0-0.5 Eosinophils (%) (Auto) August 20, 2014 6:38am 1.7 % N 0-4 Erythrocyte Sedimentation Rate October 12, 2011 4:15am 19 MM/HR N 0-20 Free Thyroxine November 10, 2013 6:20am 1.91 NG/DL N 0.78-2.19 COMMENT FASTING Globulin August 17, 2014 5:06am 2.3 G/DL L 2.4-3.6 Glomerular Filtration Rate Calc August 20, 2014 6:38am 97 - Glucometer August 20, 2014 10:53am 103 mg/dL N 65-110 Glucose Level August 20, 2014 6:38am 111 MG/DL H 65-110 HDL Cholesterol Direct November 10, 2013 6:20am 44 MG/DL N 40-60 COMMENT FASTING Hematocrit August 20, 2014 6:38am 35.6 % L 36-46 Hemoglobin August 20, 2014 6:38am 11.7 GM/DL L 12-16 Hemoglobin A1c August 17, 2014 5:06am 6.4 % N 6-7 <6.0 NON-DIABETIC RANGE6.0-7.0 ADA THERAPEUTIC RANGE >7.0 ACTION SUGGESTED Icterus Index August 20, 2014 6:38am < 2 0-7 Immature Granulocyte # (Auto) August 20, 2014 6:38am 0.03 T/MM3 N 0.00 -0.03 Immature Granulocyte % (Auto) August 20, 2014 6:38am 0.6 % H 0.0-0.5 LDL Cholesterol, Calculated November 10, 2013 6:20am 95.6 N 66-159 COMMENT FASTING Lab Scanned Report November 01, 2011 10:07pm LAB TEST FORM REQUEST [id number] - Lipase April 10, 2012 3:16pm 18 U/L L 23-300 Lymphocytes # (Auto) August 20, 2014 6:38am 2.1 T/MM3 N 1-4.8 Lymphocytes (%) (Auto) August 20, 2014 6:38am 38.8 % N 23-45 Magnesium Level 2014 5:21am 1.9 MG/DL DN 1.6-2.3 Mean Corpuscular Hemoglobin August 20, 2014 6:38am 30.1 UUG N 26-34 Mean Corpuscular Hemoglobin Concent August 20, 2014 6:38am 32.9 GM/DL N 31-37 Mean Corpuscular Volume August 20, 2014 6:38am 91.5 UM3 N 80-100 Mean Platelet Volume August 20, 2014 6:38am 10.5 UM3 N 9.4-12.4 Monocytes # (Auto) August 20, 2014 6:38am 0.5 T/MM3 N 0-0.8 Monocytes (%) (Auto) August 20, 2014 6:38am 9.2 % H 0-9.0 JE-Cdp-Y-Type Natriuretic Peptide August 16, 2014 9:18pm 305 PG/ML H 0 -175 Rule in cut points: <50 years old=450; 50-75 years old=900; >75 years old=1800; When utilizing ProBNP rule-in cut points, adjustment for impaired renal function is typically not required. Neutrophils # (Auto) August 20, 2014 6:38am 2.7 T/MM3 N 1.8-7.7 Neutrophils (%) (Auto) August 20, 2014 6:38am 49.1 % N 33-66 Platelet Count August 20, 2014 6:38am 223 T/MM3 N 130-400 Potassium Level August 20, 2014 6:38am 5.1 MEQ/L DH 3.6-5 CAPILLARY DRAW, PATIENT IS A DIFFICULT STICK, MODERATEHEMOLYSIS NOTED Prealbumin August 16, 2014 9:18pm 19.7 MG/DL N 17.6-36.0 COMMENT may use blood in lab Prothromb Time International Ratio August 20, 2014 6:38am 2.20 H 0.79- 1.23 THERAPUTIC RANGE=2.00-3.00 FOR ANTI-THROMBOSIS THERAPUTIC RANGE=2.50- 3.50 FOR IMPLANTED VALVE RDW Standard Deviation August 20, 2014 6:38am 39.6 FL N 36.9-50.2 Red Blood Count August 20, 2014 6:38am 3.89 M/MM3 L 4.00-5.20 Sodium Level August 20, 2014 6:38am 139 MEQ/L N 134-144 Thyroid Stimulating Hormone (TSH) August 16, 2014 9:18pm 1.72 MIU/L N 0.47-4.68 Total Bilirubin August 17, 2014 5:06am 0.30 MG/DL N 0.20-1.30 Total Protein August 17, 2014 5:06am 5.0 G/DL L 6.3-8.2 Triglycerides Level November 10, 2013 6:20am 97 MG/DL N 35-135 COMMENT FASTING Troponin I August 17, 2014 1:06pm < 0.012 ng/ml 0-0.12 Turbidity August 20, 2014 6:38am < 20 0-20 Unconjugated Bilirubin June 10, [...] Has specimen been collected/obtained? Y Urine Specific [place] August 17, 2014 12:05am <=1.005 L - [...] blood in lab White Blood Count August 20, 2014 6:38am 5.4 T/MM3 N 4.5-11.0 Helicobacter pylori Rapid Urease Gastric Biopsy July 23, 2014 9:30am Urine Culture Urine, Voided-Not Cc-Midstream April 11, 2013 6:35pm Streptococcus Anginosus Name: KAYLA ROBERTSON Unit #: [id number] : 1940 Sex: F DISCHARGE SUMMARY Admit Date: 08/16/14 Report #: [id number] General Date Date DATE: 08/20/14 TIME: 16:23 [...] 1 time a day (at 5 pm). Prov:ADEEL SALAZAR DO 08/20/14 Reported Medications Acetaminophen (Tylenol Extra Strength)500 Mg Tablet1-2 Tab PO HS PRN (PAIN) 07/22/14 Omeprazole 20 Mg Capsule.dr20 Mg PO BID #30 07/22/14 Losartan Potassium 100 Mg [id number] Mg PO DAILY #30 07/22/14 Chlorthalidone 25 Mg Dleoyn48 Mg PO PRN #30 07/22/14 Atorvastatin Calcium 40 Mg Vxmmoi08 Mg PO HS #30 07/22/14 Pramipexole Di-Hcl (Mirapex)0.5 Mg Tablet0.5 Mg PO HS 08/23/11 Discharge Disposition stable Copies To 1: CARMENCITA SOLIZ MD, CARRIE DO Aug 20, 2014 16:24 Procedures Procedure Status Date Provider(s) EGD BIOPSY SINGLE/MULTIPLE completed 07/23/14 MAXWELL YING MD, FACS, CWS Encounters Encounter Location Date/Time Discharged Inpatient [facility] 08/16/14 10:43pm Departed Emergency Room [facility] 07/29/14 8:12pm Departed Emergency Room [facility] 06/29/14 4:02pm Departed Emergency Room [facility] 06/22/14 8:30pm Recent Diagnosis Chest pain rule out [place] Shortness of breath CHEST PAIN NOS Dyspnea Pulmonary emboli Diabetes Hypertension Dyslipidemia GERD (gastroesophageal reflux disease) RLS (restless legs syndrome) Osteoarthritis Anxiety and depression History of gastritis Hypomagnesemia Obesity (BMI 35.0-39.9 without comorbidity) Pleuritic chest pain
--- OUTSIDE RECORDS SUMMARY | 2016-12-17 12:42 | XMS REPORT | Continuity of Care Document ---
Author Author [facility] [facility] Organization [facility] Address Unknown Phone Unavailable Support Name Relationship Address Phone MAXWELL YING FACS, MD Caregiver [address] [place] [address] [place] [address] Unavailable CARMENCITA SCALES MD Caregiver [address] [place] [address] [place] [address] Unavailable RAHUL ROBERTSON Next Of Kin [address] [place] [address] C Insurance Providers Guarantor Kayla Robertson Address [address] [place] [address] Email [email or web address] Payer Medicare Policy Number [id number] Subscriber's Name Kayla Robertson Relationship 18 Self Effective Date 03 [facility] Policy Number [id number] Subscriber's Name Kayla Robertson Relationship 18 Self Group Number [id number] Effective Date 91 Advance Directives Directive Response [...] Unknown Acute Pulmonary emboli Unknown Acute R/O [place] Unknown Acute RLS (restless legs syndrome) Unknown [...] Discontinued Ergocalciferol (Vitamin D) 50,000 Unit Capsule, 54446 Unit Oral Once A Week 05/26/10 Discontinued [...] severe rectal bleeding. During Business Hours:: Call [phone] After Business Hours:: Call [phone] (hospital) Pain Management/Treatment: Call Dr. Ying if increasing abdominal pain Wound/Incision Care: N/A Condition at time of discharge: Good Plan of Care Discharge Date 11/03/16 10:06am Instructions/Education Provided [facility] Prescriptions See Medication Section Functional [...] Vital Signs Vital Response Date/Time Temperature (Fahrenheit) 96.5 deg F (96.8 - 99.1) 11/04/2016 5:51pm Temperature (Calculated Celsius) 35.95103 degrees C (36.0 - 37.3) 11/04/2016 5:51pm Temperature Source Temporal 11/03/2016 9:09am Pulse Rate (adult) 68 bpm (60 - 100) 11/04/2016 5:51pm Respiratory Rate 20 breaths/min (10 - 20) 11/04/2016 5:51pm O2 Sat by Pulse Oximetry 100 % (90 - 100) 11/04/2016 5:51pm Oxygen Delivery Method Room Air 2016 12:05pm Oxygen Delivery Method Room Air 11/03/2016 5:56pm Oxygen Flow Rate 1.00 L/min 2016 3:44am Blood Pressure 178/78 mm Hg 11/04/2016 5:51pm Blood Pressure Source Automatic Cuff 11/04/2016 5:51pm Height (Feet) 5 feet 11/03/2016 6:38am Height (Inches) 1.00 inches 11/03/2016 6:38am Weight (Kilograms) 86.700 kg 11/03/2016 6:38am Body Mass Index (BMI) 36.1 11/03/2016 6:38am Results Laboratory Results Test Name Result Units Flags Reference Collection Date/Time Result Date/ Time Comments Magnesium Level 1.5 MG/DL L 1.6-2.3 08/11/2016 1:20pm 08/11/2016 2:03pm Hemoglobin A1c 6.8 % 6.1-7.9 08/11/2016 1:20pm 08/11/2016 1:38pm <6.0 NON-DIABETIC RANGE 6.1-7.9 [facility] TARGET RANGE >8.0 ACTION SUGGESTED Glucometer 155 mg/dL H 65-110 11/03/2016 6:27am [...] (ALT/SGPT) 27 U/L 9-52 09/22/2016 11:30am 11:45am DL-Rbd-C-Type Natriuretic Peptide 1440 PG/ML H 0-175 09/22/2016 [...] CLEAR 09/22/2016 11:33am 09/22/2016 11:37am Urine Specific [place] 1.015 1.015-1.025 09/22/2016 11:33am 2015 11:37am Urine [...] Comment NORMAL 10/06/2016 9:53am 10/06/2016 11: 00am Prothromb Time International Ratio 1.50 H 0.90-1.23 11/07/2016 8:47am 11/07/2016 9:07am THERAPUTIC RANGE=2.00-3.00 FOR ANTI-THROMBOSIS THERAPUTIC RANGE=2.50-3.50 FOR IMPLANTED VALVE White Blood Count 7.3 T/MM3 4.5-11.0 11/01/2016 10:13am 11/01/2016 10: 18am Red Blood Count 4.40 M/MM3 4.00-5.20 11/01/2016 10:13am 11/01/2016 10: 18am Hemoglobin 12.6 GM/DL 12-16 11/01/2016 10:11/01/2016 10:18am Hematocrit 39.7 % 36-46 11/01/2016 10:11/01/2016 10:18am Mean Corpuscular Volume 90.2 UM3 80-100 11/01/2016 10:13am 11/01/2016 10:18am Mean Corpuscular Hemoglobin 28.6 UUG 26-34 11/01/2016 10:13am 2016 10:18am Mean Corpuscular Hemoglobin Concent 31.7 GM/DL 31-37 11/01/2016 10:1311/01/2016 10:18am RDW Standard Deviation 44.8 FL 36.9-50.2 11/01/2016 10:1311/01/2016 10:18am Platelet Count 257 T/MM3 130-400 11/01/2016 10:11/01/2016 10:18am Mean Platelet Volume 10.4 UM3 9.4-12.4 11/01/2016 10:11/01/2016 10 :18am Neutrophils (%) (Auto) 58.2 % 33-66 11/01/2016 10:11/01/2016 10: 18am Lymphocytes (%) (Auto) 31.9 % 23-45 11/01/2016 10:11/01/2016 10: 18am Monocytes (%) (Auto) 8.3 % 0-9.0 11/01/2016 10:am 11/01/2016 10:18am Eosinophils (%) (Auto) 1.0 % 0-4 11/01/2016 10:11/01/2016 10:18am Basophils (%) (Auto) 0.3 % 0-2 11/01/2016 10:11/01/2016 10:18am Immature Granulocyte % (Auto) 0.3 % 0.0-0.5 11/01/2016 10:2016 10:18am Absolute Neutrophils (auto) 4.2 T/MM3 1.8-7.7 11/01/2016 10:am 2016 10:18am Absolute Lymphocytes (auto) 2.3 T/MM3 1-4.8 11/01/2016 10:am 2016 10:18am Absolute Monocytes (auto) 0.6 T/MM3 0-0.8 [...] 08/17/16 Self care mngment training Completed 08/17/16 839275"16 SQ. IN. OR LESS, WITHOUT ADHESIVE BORDER, EACH ANY Completed [id number] ITEM OR SERVICE Completed 08/17/16 [id number] ITEM OR SERVICE Completed 08/17/16 921240EMH-RELFGIS ITEM OR SERVICE Completed 08/17/16 [id number]-MRWLSCT ITEM OR SERVICE Completed 08/17/16 [id number]-AADVJDI ITEM OR SERVICE Completed 08/17/16 [id number]-ZJDBNON ITEM OR SERVICE Completed 08/17/16 243794RPN-YVJMORC ITEM OR SERVICE Completed 08/17/16 252525YDK-RNRFNFG ITEM OR SERVICE Completed 08/17/16 [id number]-SEMUVNL ITEM OR SERVICE Completed 08/17/16 [id number]-BWUMUKN ITEM OR SERVICE Completed 08/17/16 PT MOBILITY CURRENT STATUS Completed 08/17/16 PT MOBILITY GOAL STATUS Completed 08/17/16 PT MOBILITY GOAL STATUS Completed 08/17/16 PT MOBILITY DISCHARGE STATUS Completed 08/17/16 OT SELF CARE CURRENT STATUS Completed 08/17/16 OT SELF CARE GOAL STATUS Completed 08/17/16 [id number]"INJECTION, ENOXAPARIN SODIUM, 10 MG" Completed 08/17/16 [id number]"INJECTION, ENOXAPARIN SODIUM, 10 MG" Completed 08/17/16 [id number]"INJECTION, ONDANSETRON HYDROCHLORIDE, PER 1 MG" Completed 08/17/16 PROPOFOL INJ 500 MG/50ML Completed 08/17/16 PROPOFOL INJ 500 MG/50ML Completed 08/17/16 093461"INJECTION, FENTANYL CITRATE, 0.1 MG" Completed 08/17/16 [id number]"INJECTION, FENTANYL CITRATE, 0.1 MG" Completed 08/17/16 280753"INJECTION, FENTANYL CITRATE, 0.1 MG" Completed 08/17/16 769460"RINGERS LACTATE INFUSION, UP TO 1000 CC" Completed 08/17/16 277614"RINGERS LACTATE INFUSION, UP TO 1000 CC" Completed 08/17/16 895571"RINGERS LACTATE INFUSION, UP TO 1000 CC" Completed 08/17/16 350780"RINGERS LACTATE INFUSION, UP TO 1000 CC" Completed 08/17/16 862977"RINGERS LACTATE INFUSION, UP TO 1000 CC" Completed 08/17/16 755031"MATERIAL, PREFABRICATED, INCLUDES FITTING AND ADJUSTM Completed Glycosylated hemoglobin test Completed 08/11/16 Assay of magnesium Completed 08/11/16 Ther/proph/diag inj sc/im Completed 08/11/16 802727"INJECTION, ENOXAPARIN SODIUM, 10 MG" Completed 08/11/16 Ther/proph/diag inj sc/im Completed 08/11/16 136731"INJECTION, ENOXAPARIN SODIUM, 10 MG" Completed 08/11/16 Ther/proph/diag inj sc/im Completed 08/11/16699219"INJECTION, ENOXAPARIN SODIUM, 10 MG" Completed 08/11/16 Ther/proph/diag inj sc/im Completed 08/11/16 541114"INJECTION, ENOXAPARIN SODIUM, 10 MG" Completed 08/11/16 Ther/proph/diag inj sc/im Completed 08/11/16 [id number]"INJECTION, ENOXAPARIN SODIUM, 10 MG" Completed 08/11/16 Ther/proph/diag inj sc/im Completed 08/11/16 341381"INJECTION, ENOXAPARIN SODIUM, 10 MG" Completed 08/11/16 Ther/proph/diag inj sc/im Completed 08/19/16 [id number]"INJECTION, ENOXAPARIN SODIUM, 10 MG" Completed 08/19/16 Ther/proph/diag inj sc/im Completed 08/19/16 [id number]"INJECTION, ENOXAPARIN SODIUM, 10 MG" Completed 08/19/16 Emergency dept visit Completed 08/20/16 878156"ADHESIVE BORDER, EACH DRESSING" Completed 08/20/16 Colonoscopy w/lesion removal Completed 11/03/16 MAXWELL YING MD, FACS, CWS Reagent strip/blood glucose Completed 11/03/16 Prothrombin time Completed 11/03/16 Tissue exam by pathologist Completed 11/03/16 [id number]"RINGERS LACTATE INFUSION, UP TO 1000 CC" Completed 11/03/16 Ther/proph/diag inj sc/im Completed 10/01/16 391655"INJECTION, ENOXAPARIN SODIUM, 10 MG" Completed 10/01/16 Ther/proph/diag inj sc/im Completed 10/01/16 [id number]"INJECTION, ENOXAPARIN SODIUM, 10 MG" Completed 10/01/16 Ther/proph/diag inj sc/im Completed 10/01/16 159576"INJECTION, ENOXAPARIN SODIUM, 10 MG" Completed 10/01/16 X-ray exam of knee 3 Completed 09/14/16 Emergency dept visit Completed 09/14/16 Routine venipuncture Completed 09/19/16 Complete cbc w/auto diff wbc Completed 09/19/16 Routine venipuncture Completed 09/22/16 Comprehen metabolic panel Completed 09/22/16 Urinalysis auto w/o scope Completed 09/22/16 Assay of natriuretic peptide Completed 09/22/16 Complete cbc w/auto diff wbc Completed 09/22/16 Njx interlaminar lmbr/sac Completed 11/02/16 277097"INJECTION, METHYLPREDNISOLONE ACETATE, 40 MG" Completed 11/02/16 [id number]"LOW OSMOLAR CONTRAST MATERIAL, 100-199 MG/ML IODINE C Completed Encounters Encounter Location Arrival/Admit Date Discharge/Depart Date Attending Provider Registered [facility] 11/07/16 8:36am CARMENCITA SCALES MD Discharged [facility] 11/04/16 10:00am 11/04/16 6:04pm CARMENCITA SCALES MD Departed Surgical Day Care [facility] 11/03/16 6:15am 11/03/16 10 :06am MAXWELL YING FACS, MD Registered [facility] 11/02/16 9:48am ERNESTO MCLEAN Discharged [facility] 10/01/16 3:58pm 10/03/16 4:35pm CARMENCITA SCALES MD Registered [facility] 09/22/16 11:07am CARMENCITA SCALES MD Registered [facility] 09/19/16 4:31pm MAXWELL MERCER APRN Departed Emergency Room [facility] 09/14/16 6:34pm 09/14/16 8: 03pm RENE RANGEL MD Departed Emergency Room [facility] 08/20/16 12:59am 08/20/16 1: 49am IGNACIO HERRERA MD Discharged [facility] 08/19/16 9:21am 09/30/16 11:06pm ERNESTO MCLEAN Departed Surgical Day Care [facility] 08/17/16 5:28am 08/18/16 1: 05pm LUCERO DANIELLE MD Discharged [facility] 08/11/16 1:07pm 08/16/16 7:38am CARMENCITA SCALES MD Discharged [facility] 04/07/16 8:51am 09/30/16 11:31pm CARMENCITA SCALES MD
--- OUTSIDE RECORDS SUMMARY | 2016-12-17 12:43 | XMS REPORT | Continuity of Care Document ---
Author Author [facility] Organization [facility] Address Unknown Phone Unavailable Support Name Relationship Address Phone BENJIE LEYVA Caregiver [address] [place] [phone] CAMDEN HERNANDEZ MD Caregiver [address] [place] [address] DR VARELA, [facility] CARMENCITA SOLIZ MD Caregiver [address] [place] [address] [place] [address] [phone] CHRISSIE MARRUFO Next Of Kin [address] [place] [phone] Insurance Providers Payer Name Policy Number Subscriber Name Relationship Medicare [id number] Kayla Robertson 16 Self [employer] [facility] [id number] Kayla Robertson 18 Self Advance Directives Directive Response Recorded Date/Time Advanced Directives Type None 10/21/14 12:17am Ordered Resuscitation Status Full Code 10/20/14 11:40pm Resuscitation Documents on File Yes 10/21/14 12:40am Chief Complaint and Reason for Visit Chief Complaint CHEST PAIN Reason for Visit Anxiety and depression Swelling of left knee joint Anticoagulated on Coumadin Swelling of left lower extremity Problems Medical Problems Problem Onset Date Status Malaise and fatigue Unknown Active R/O IA Unknown Active Chest pain rule out IA Unknown Active Dizziness Unknown Active Malaise and [...] Unknown Active Anxiety and depression Unknown Active Swelling of left knee joint Unknown Active Anticoagulated on Coumadin Unknown Active Swelling of left lower extremity Unknown Active Medications Medication Dose Route Sig [...] a day (at 5 pm). 08/27/14 Active [Lasix] 10/20/14 Active Cyanocobalamin (Vitamin B-12) 1 Tab PO DAILY For Low B12 60 Days Active Social History Social History Problem Response Recorded Date/Time Chewing Tobacco Status No 03/11/2014 2:30pm Hx Substance Use No 10/20/2014 9:48pm Hx Alcohol Use No 10/20/2014 9:48pm Has the pt used tobacco in the last 12 months No 10/21/2014 12:45am Tobacco Usage none 10/21/2014 9:00am Query Response Start Date Stop Date Smoking Status Never smoker Hospital Discharge Instructions Instructions: Care Instructions: Reason for Hospitalization: Chest pain I was in the hospital because (patient own words): LEG PAIN, CHEST AND BACK TIGHTNESS Discharge Diet: Cardiac Discharge Activity: As tolerated Follow Up Appointments: Dr Soliz in 1 week Condition at time of discharge: Good Notify Physician If: fever greater than or equal to 101, chest pain, shortness of breath, calf pain. Condition at time of discharge: Good Good Good Plan of Care Discharge Date 10/21/14 7:18pm Disposition 01 DISCHARGED HOME, SELF-CARE Instructions/Education Provided DI for Chest Pain Prescriptions See Medications Section Functional Status Query Response Date Recorded Physical Hygiene Self October 20, 2014 9:48pm Disabilities None October 21, 2014 12:17am Devices Used None October 21, 2014 12:17am Dressing Self October 20, 2014 9:48pm Ambulation Self October 20, 2014 9:48pm Diet Self October 20, 2014 9:48pm Mental Status Alert Oriented October 21, 2014 12:17am Disabilities None October 21, 2014 12:17am Devices Used None October 21, 2014 12:17am Physical Hygiene Self October 20, 2014 9:48pm Dressing Self October 20, 2014 9:48pm Ambulation Self October 20, 2014 9:48pm Diet Self October 20, 2014 9:48pm Allergies, Adverse Reactions, Alerts Allergen Type Severity Reaction Status Last Updated Procaine HCl Allergy Unknown NERVOUS AND HEART RACE Active 10/20/14 hydrocodone bit Allergy Mild FINE RASH AND HEADACHE Active 10/20/14 propoxyphene HCl Allergy Unknown SHAKY, AND LOPEZ Active 10/20/14 albuterol sulfate Allergy Intermediate NERVOUSNESS, PALPITATIONS Active ciprofloxacin HCl Allergy Mild ITCH,HEADACHE Active 10/20/14 Lisinopril Adverse Reaction Unknown DRY COUGH Active 10/20/14 Codeine Allergy Mild RASH,HEADACHE Active 10/20/14 Hydrochlorothiazide Adverse Reaction Unknown NAUSEA, DIZZY Active 10/20/14 Doxycycline Adverse Reaction Unknown NAUSEA, DIZZY Active 10/20/14 Ciprofloxacin Allergy Mild ITCH,HEADACHE Active 10/20/14 Tuberculin,Old Skin Test Allergy Unknown Active 10/20/14 Rofecoxib Allergy Severe JOINT SWELL,RACHEL Active 10/20/14 Immunizations Name Given Type Hx Influenza Vaccination Y JUL 2014 Historical Hx Pneumococcal Vaccination Y JUL 2014 Historical Hx Influenza Vaccination Y JUL 2014 Historical Vital Signs Acute Vital Signs Vital Response Date/Time Temperature (Fahrenheit) 97.5 deg F (96.8 - 99.1) Temperature (Calculated Celsius) 36.27000 degrees C (36.0 - 37.3) Temperature Source Temporal Pulse Rate (adult) 73 bpm (60 - 100) Respiratory Rate 18 breaths/min (10 - 20) O2 Sat by Pulse Oximetry 100 % (90 - 100) Oxygen Delivery Method Room Air Blood Pressure 155/81 mm Hg Blood Pressure Source Automatic Cuff Height 5 ft 1 in Weight 192 lb Body Mass Index 36.0 kg/m^2 Results Test Source Date Result Interp. Ref. Range Comments Activated Partial Thromboplast Time October 20, 2014 9:59pm 42.4 SEC H 24-36 Alanine Aminotransferase (ALT/SGPT) October 20, 2014 9:59pm 28 U/L N 9- 52 Albumin October 20, 2014 9:59pm 4.2 G/DL N 3.5-5.0 Albumin/Globulin Ratio October 20, 2014 9:59pm 1.4 RATIO N 1.1-2.2 Alkaline Phosphatase October 20, 2014 9:59pm 101 U/L N 38-126 Amylase Level April 10, 2012 3:16pm < 30 U/L L 30-110 Anion Gap October 21, 2014 4:14am 8 MEQ/L N 5-15 Aspartate Amino Transf (AST/SGOT) October 20, 2014 9:59pm 20 U/L N 14- 36 BUN/Creatinine Ratio October 21, 2014 4:14am 16 RATIO N 6-26 Basophils # (Auto) October 21, 2014 4:14am 0.0 T/MM3 N 0-0.2 Basophils (%) (Auto) October 21, 2014 4:14am 0.5 % N 0-2 Blood Urea Nitrogen October 21, 2014 4:14am 11.0 MG/DL N 7-17 Calcium Level October 21, 2014 4:14am 8.6 MG/DL N 8.4-10.2 Calculated Osmolality October 21, 2014 4:14am 270 MOSM/KG N 261-280 Carbon Dioxide Level October 21, 2014 4:14am 29 MEQ/L N 22-30 Chemistry Specimen Hemolysis October 21, 2014 4:16am < 15 0-25 0-25: No Hemolysis.26-70: Slight Hemolysis - [...] decrease Phenytoin. Recommend specimen recollection. Chloride Level October 21, 2014 4:14am 102 MEQ/L N 98-107 Cholesterol Level November 10, 2013 6:20am 159 MG/DL N 132-199 COMMENT FASTING Cholesterol/HDL Ratio November 10, 2013 6:20am 3.6 RATIO N 0-4.0 COMMENT FASTING Conjugated Bilirubin June 10, 2012 3:05pm 0.00 MG/DL N 0.00-0.30 Creatinine October 21, 2014 4:14am 0.7 MG/DL N 0.7-1.2 D-Dimer August 16, 2014 9:18pm 385 NG/ML H 0-224 <224 NG/ML= PRESUMPTIVE NEGATIVE FOR PE OR DVT>224 NG/ML=ADDITIONAL EVALUATION FOR PE OR DVT RECOMMENDED EKG February 06, 2008 12:44pm Complete - Eosinophils # (Auto) October 21, 2014 4:14am 0.2 T/MM3 N 0-0.5 Eosinophils (%) (Auto) October 21, 2014 4:14am 2.4 % N 0-4 Erythrocyte Sedimentation Rate October 12, 2011 4:15am 19 MM/HR N 0-20 Free Thyroxine November 10, 2013 6:20am 1.91 NG/DL N 0.78-2.19 COMMENT FASTING Globulin October 20, 2014 9:59pm 2.9 G/DL N 2.4-3.6 Glomerular Filtration Rate Calc October 21, 2014 4:14am 81 - Glucometer October 21, 2014 5:15pm 140 mg/dL H 65-110 Glucose Level October 21, 2014 4:14am 148 MG/DL H 65-110 HDL Cholesterol Direct November 10, 2013 6:20am 44 MG/DL N 40-60 COMMENT FASTING Hematocrit October 21, 2014 4:14am 31.7 % DL 36-46 Hemoglobin October 21, 2014 4:14am 10.2 GM/DL DL 12-16 Hemoglobin A1c September 16, 2014 9:50am 6.3 % N 6-7 <6.0 NON-DIABETIC RANGE6.0-7.0 ADA THERAPEUTIC RANGE >7.0 ACTION SUGGESTED Icterus Index October 21, 2014 4:14am < 2 0-7 Immature Granulocyte # (Auto) October 21, 2014 4:14am 0.01 T/MM3 N 0.00- 0.03 Immature Granulocyte % (Auto) October 21, 2014 4:14am 0.2 % N 0.0-0.5 LDL Cholesterol, Calculated November 10, 2013 6:20am 95.6 N 66-159 COMMENT FASTING Lab Scanned Report October 19, 2014 8:32pm LAB TEST FORM REQUEST [id number] - Lipase April 10, 2012 3:16pm 18 U/L L 23-300 Lymphocytes # (Auto) October 21, 2014 4:14am 2.2 T/MM3 N 1-4.8 Lymphocytes (%) (Auto) October 21, 2014 4:14am 33.4 % N 23-45 Magnesium Level 2014 5:21am 1.9 MG/DL DN 1.6-2.3 Mean Corpuscular Hemoglobin October 21, 2014 4:14am 28.9 UUG N 26-34 Mean Corpuscular Hemoglobin Concent October 21, 2014 4:14am 32.2 GM/DL N 31-37 Mean Corpuscular Volume October 21, 2014 4:14am 89.8 UM3 N 80-100 Mean Platelet Volume October 21, 2014 4:14am 10.9 UM3 N 9.4-12.4 Monocytes # (Auto) October 21, 2014 4:14am 0.6 T/MM3 N 0-0.8 Monocytes (%) (Auto) October 21, 2014 4:14am 8.8 % N 0-9.0 [id number]-Zjd-A-Type Natriuretic Peptide October 20, 2014 9:59pm 481 PG/ML H 0- 175 Rule in cut points: <50 years old=450; 50-75 years old=900; >75 years old=1800; When utilizing ProBNP rule-in cut points, adjustment for impaired renal function is typically not required. Neutrophils # (Auto) October 21, 2014 4:14am 3.6 T/MM3 N 1.8-7.7 Neutrophils (%) (Auto) October 21, 2014 4:14am 54.7 % N 33-66 Platelet Count October 21, 2014 4:14am 221 T/MM3 N 130-400 Potassium Level October 21, 2014 4:14am 3.4 MEQ/L L 3.6-5 Prealbumin October 21, 2014 4:16am 15.9 MG/DL L 17.6-36.0 COMMENT BLOOD IN LABCOMMENT BLOOD IN LAB COMMENT BLOOD IN LAB Prothromb Time International Ratio October 21, 2014 4:14am 2.28 H 0.81- 1.09 THERAPUTIC RANGE=2.00-3.00 FOR ANTI-THROMBOSIS THERAPUTIC RANGE=2.50- 3.50 FOR IMPLANTED VALVE RDW Standard Deviation October 21, 2014 4:14am 38.3 FL N 36.9-50.2 Red Blood Count October 21, 2014 4:14am 3.53 M/MM3 L 4.00-5.20 Sodium Level October 21, 2014 4:14am 139 MEQ/L N 134-144 Thyroid Stimulating Hormone (TSH) October 21, 2014 4:16am 2.86 MIU/L N 0.47-4.68 COMMENT BLOOD IN LABCOMMENT BLOOD IN LAB COMMENT BLOOD IN LAB Total Bilirubin October 20, 2014 9:59pm 0.60 MG/DL N 0.20-1.30 Total Protein October 20, 2014 9:59pm 7.1 G/DL N 6.3-8.2 Triglycerides Level November 10, 2013 6:20am 97 MG/DL N 35-135 COMMENT FASTING Troponin I October 21, 2014 4:16am < 0.012 ng/ml 0-0.12 COMMENT BLOOD IN LABCOMMENT BLOOD IN LAB COMMENT BLOOD IN LAB Turbidity October 21, 2014 4:14am < 20 0-20 Unconjugated Bilirubin June 10, [...] 2014 2:45pm 124.3 MG/DL - Urine Specific [place] August 17, 2014 12:05am <=1.005 L - [...] N 0-28 COMMENT FASTING Vitamin B12 Level October 21, 2014 4:16am 193 PG/ML L 239-931 COMMENT BLOOD IN LABCOMMENT BLOOD IN LAB COMMENT BLOOD IN LAB White Blood Count October 21, 2014 4:14am 6.6 T/MM3 N 4.5-11.0 Helicobacter pylori Rapid Urease Gastric Biopsy July 23, 2014 9:30am Urine Culture Urine, Voided-Not Cc-Midstream April 11, 2013 6:35pm Streptococcus Anginosus Name: KAYLA ROBERTSON Unit #: [id number] : 1940 Sex: F Loc / Svc: SRG DOS: 10/20/14 Signed Report #: [id number] DIAGNOSTIC IMAGING REPORT TYPE OF EXAM: CHEST 1 VIEW Dictated By: MAXWELL BLAKE MD INDICATION: ITS.REASON: chest pain CHEST 1 VIEW: Comparison: Compared to the previous study dated 08/27/2014 FINDINGS: The lungs are clear. There is [...] completed 08/27/14 EMERGENCY DEPT VISIT completed 08/27/14 [id number] ITEM OR SERVICE completed 08/27/14 [id number] ITEM OR SERVICE completed 08/27/14 ROUTINE VENIPUNCTURE [...] completed 09/21/14 Encounters Encounter Location Date/Time Discharged Inpatient [facility] 10/20/14 11:40pm Registered [facility] 10/19/14 3:34pm Departed Emergency Room [facility] 09/21/14 9:22pm Registered Clinic [facility] 09/16/14 9:30am Departed Emergency Room [facility] 08/27/14 7:36pm Discharged Recurring [facility] 08/26/14 8:39am Discharged Inpatient [facility] 08/16/14 10:43pm Departed Emergency Room [facility] 07/29/14 8:12pm Recent Diagnosis Anxiety and depression Swelling of left knee joint Anticoagulated on Coumadin Swelling of left lower extremity
--- OUTSIDE RECORDS SUMMARY | 2016-12-17 12:43 | XMS REPORT | Continuity of Care Document ---
Author Author [facility] Organization [facility] Address Unknown Phone Unavailable Allergies Medications Problems Procedures Results Encounters ACCT No. Visit Date/Time Discharge Status Pt. Type Provider Facility Loc./Unit Complaint [id number] 11/06/2013 09:54:00 11/06/2013 23 :59:59 CLS Outpatient [id number] 10/20/2013 14:46:00 10/20/2013 23 :59:59 CLS Outpatient [id number] 10/06/2013 11:06:00 10/06/2013 23 :59:59 CLS Outpatient [id number] 09/03/2013 10:26:00 09/03/2013 23 :59:59 CLS Outpatient
--- OUTSIDE RECORDS SUMMARY | 2016-12-17 12:45 | XMS REPORT | Continuity of Care Document ---
Author Author [facility] LIVE Organization [facility] LIVE Address Unknown Phone Unavailable Support Name Relationship Address Phone CONNOR CONCEPCION MD Caregiver [address] [place] [phone] CARMENCITA SOLIZ MD Caregiver [address] [place] [address] [place] [address] [phone] YARONVIRGILA Next Of Kin [address] [place] [address] Insurance Providers Payer Name Policy Number Subscriber Name Relationship Medicare [id number] Kayla Robertson 16 Self [facility] [id number] Kayla Robertson 16 Self Advance Directives Directive Response Recorded Date/Time Advanced Directives Type Living Will None 11/08/14 9:58pm Chief Complaint and Reason for Visit Chief Complaint Chest Pain Reason for Visit [id number] pain rule out TN Problems Medical Problems Problem Onset Date Status Malaise and fatigue Unknown Active R/O TN Unknown Active Chest pain rule out TN Unknown Active Dizziness Unknown Active Malaise and [...] Swelling of left lower extremity Unknown Active Cellulitis Unknown Active Medications Medication Dose Route Sig [...] 04/01/12 Discontinued Acetaminophen BEDTIME 04/01/12 04/10/12 Discontinued Losartan Potassium 100 Mg PO DAILY 30 Qty 07/22/14 Active Omeprazole 20 Mg PO DAILY 30 Qty 07/22/14 Active Acetaminophen 1-2 Tab PO BEDTIME PRN PAIN 07/22/14 Active [Amlodipine] Unknown Dose 08/27/14 Active Warfarin Sodium 2 Mg PO 1700 Take 1 tablet, by mouth, 1 time a day (at 5 pm). 08/27/14 Active Cyanocobalamin (Vitamin B-12) 1 Tab PO DAILY For Low B12 60 Days Active Cephalexin 1 Cap PO THREE TIMES A DAY 21 Qty 11/09/14 Active Social History Social History Problem Response Recorded Date/Time Chewing Tobacco Status No 03/11/2014 2:30pm Hx Substance Use No 11/08/2014 10:22pm Hx Alcohol Use No 11/08/2014 10:22pm Has the pt used tobacco in the [...] week Condition at time of discharge: Good Plan of Care Discharge Date 10/21/14 7:18pm [place] [address] [facility] [place] Improved Instructions/Education Provided DI for Chest Pain Prescriptions See Medications Section Referrals CARMENCITA SOLIZ MD Functional Status Query Response Date Recorded Physical Hygiene Self November 08, 2014 10:22pm Disabilities Visual November 08, 2014 10:22pm Devices Used Glasses November 08, 2014 10:22pm Dressing Self November 08, 2014 10:22pm Ambulation Self November 08, 2014 10:22pm Diet Self November 08, 2014 10:22pm Mental Status Alert Oriented November 08, 2014 10:22pm Disabilities Visual November 08, 2014 10:22pm Devices Used Glasses November 08, 2014 10:22pm Physical Hygiene Self November 08, 2014 10:22pm Dressing Self November 08, 2014 10:22pm Ambulation Self November 08, 2014 10:22pm Diet Self November 08, 2014 10:22pm Allergies, Adverse Reactions, Alerts Allergen Type Severity Reaction Status Last Updated Procaine HCl Allergy Unknown NERVOUS AND HEART RACE Active 11/08/14 hydrocodone bit Allergy Mild FINE RASH AND HEADACHE Active 11/08/14 propoxyphene HCl Allergy Unknown SHAKY, AND LOPEZ Active 11/08/14 albuterol sulfate Allergy Intermediate NERVOUSNESS, PALPITATIONS Active ciprofloxacin HCl Allergy Mild ITCH,HEADACHE Active 11/08/14 Lisinopril Adverse Reaction Unknown DRY COUGH Active 11/08/14 Codeine Allergy Mild RASH,HEADACHE Active 11/08/14 Hydrochlorothiazide Adverse Reaction Unknown NAUSEA, DIZZY Active 11/08/14 Doxycycline Adverse Reaction Unknown NAUSEA, DIZZY Active 02/08/15 Ciprofloxacin Allergy Mild ITCH,HEADACHE Active 11/08/14 Tuberculin,Old Skin Test Allergy Unknown Active 11/08/14 Rofecoxib Allergy Severe JOINT SWELL,RACHEL Active 11/08/14 Immunizations Name Given Type Hx Influenza Vaccination Y 07/2014 Historical Hx Pneumococcal Vaccination Y JUL 2014 Historical Hx Influenza Vaccination Y 07/2014 Historical Vital Signs Acute Vital Signs Vital Response Date/Time Temperature (Fahrenheit) 97.7 deg F (96.8 - 99.1) Temperature (Calculated Celsius) 36.02156 degrees C (36.0 - 37.3) Pulse Rate (adult) 70 bpm (60 - 100) Respiratory Rate 20 breaths/min (10 - 20) O2 Sat by Pulse Oximetry 97 % (90 - 100) Blood Pressure 115/56 mm Hg Height 5 ft 1 in Weight 194 lb Body Mass Index 36.0 kg/m^2 Results Test Source Date Result Interp. Ref. Range Comments Activated Partial Thromboplast Time November 08, 2014 10:43pm 41.8 SEC H 24-36 Alanine Aminotransferase (ALT/SGPT) November 08, 2014 10:43pm 18 U/L N 9 -52 Albumin November 08, 2014 10:43pm 3.7 G/DL N 3.5-5.0 Albumin/Globulin Ratio November 08, 2014 10:43pm 1.4 RATIO N 1.1-2.2 Alkaline Phosphatase November 08, 2014 10:43pm 99 U/L N 38-126 Amylase Level April 10, 2012 3:16pm < 30 U/L L 30-110 Anion Gap November 08, 2014 10:43pm 11 MEQ/L N 5-15 Aspartate Amino Transf (AST/SGOT) November 08, 2014 10:43pm 16 U/L N 14- 36 BUN/Creatinine Ratio November 08, 2014 10:43pm 14 RATIO N 6-26 Basophils # (Auto) November 08, 2014 10:43pm 0.0 T/MM3 N 0-0.2 Basophils (%) (Auto) November 08, 2014 10:43pm 0.4 % N 0-2 Blood Urea Nitrogen November 08, 2014 10:43pm 11.0 MG/DL N 7-17 Calcium Level November 08, 2014 10:43pm 9.1 MG/DL N 8.4-10.2 Calculated Osmolality November 08, 2014 10:43pm 275 MOSM/KG N 261-280 Carbon Dioxide Level November 08, 2014 10:43pm 29 MEQ/L N 22-30 Chemistry Specimen Hemolysis November 08, 2014 10:43pm < 15 0-25 0-25 : No Hemolysis.26-70: [...] decrease Phenytoin. Recommend specimen recollection. Chloride Level November 08, 2014 10:43pm 100 MEQ/L N 98-107 Cholesterol Level November 10, 2013 6:20am 159 MG/DL N 132-199 COMMENT FASTING Cholesterol/HDL Ratio November 10, 2013 6:20am 3.6 RATIO N 0-4.0 COMMENT FASTING Conjugated Bilirubin June 10, 2012 3:05pm 0.00 MG/DL N 0.00-0.30 Creatinine November 08, 2014 10:43pm 0.8 MG/DL N 0.7-1.2 D-Dimer November 08, 2014 10:43pm < 150 NG/ML 0-230 <230 NG/ML D-DU= PRESUMPTIVE NEGATIVE FOR PE OR DVT>230 NG/ML D-DU=ADDITIONAL EVAL FOR PE OR DVT RECOMMENDED EKG February 06, 2008 12:44pm Complete - Eosinophils # (Auto) November 08, 2014 10:43pm 0.2 T/MM3 N 0-0.5 Eosinophils (%) (Auto) November 08, 2014 10:43pm 3.2 % N 0-4 Erythrocyte Sedimentation Rate October 12, 2011 4:15am 19 MM/HR N 0-20 Free Thyroxine November 10, 2013 6:20am 1.91 NG/DL N 0.78-2.19 COMMENT FASTING Globulin November 08, 2014 10:43pm 2.7 G/DL N 2.4-3.6 Glomerular Filtration Rate Calc November 08, 2014 10:43pm 70 - Glucometer October 21, 2014 5:15pm 140 mg/dL H 65-110 Glucose Level November 08, 2014 10:43pm 217 MG/DL H 65-110 HDL Cholesterol Direct November 10, 2013 6:20am 44 MG/DL N 40-60 COMMENT FASTING Hematocrit November 08, 2014 10:43pm 34.1 % L 36-46 Hemoglobin November 08, 2014 10:43pm 11.2 GM/DL L 12-16 Hemoglobin A1c September 16, 2014 9:50am 6.3 % N 6-7 <6.0 NON-DIABETIC RANGE6.0-7.0 ADA THERAPEUTIC RANGE >7.0 ACTION SUGGESTED Icterus Index November 08, 2014 10:43pm < 2 0-7 Immature Granulocyte # (Auto) November 08, 2014 10:43pm 0.01 T/MM3 N 0.00-0.03 Immature Granulocyte % (Auto) November 08, 2014 10:43pm 0.1 % N 0.0-0.5 LDL Cholesterol, Calculated November 10, 2013 6:20am 95.6 N 66-159 COMMENT FASTING Lab Scanned Report October 29, 2014 10:18pm LAB TEST FORM REQUEST - Lipase April 10, 2012 3:16pm 18 U/L L 23-300 Lymphocytes # (Auto) November 08, 2014 10:43pm 1.9 T/MM3 N 1-4.8 Lymphocytes (%) (Auto) November 08, 2014 10:43pm 26.5 % N 23-45 Magnesium Level 2014 5:21am 1.9 MG/DL DN 1.6-2.3 Mean Corpuscular Hemoglobin November 08, 2014 10:43pm 29.3 UUG N 26-34 Mean Corpuscular Hemoglobin Concent November 08, 2014 10:43pm 32.8 GM/DL N 31-37 Mean Corpuscular Volume November 08, 2014 10:43pm 89.3 UM3 N 80-100 Mean Platelet Volume November 08, 2014 10:43pm 10.4 UM3 N 9.4-12.4 Monocytes # (Auto) November 08, 2014 10:43pm 0.5 T/MM3 N 0-0.8 Monocytes (%) (Auto) November 08, 2014 10:43pm 7.6 % N 0-9.0 TY-Vur-O-Type Natriuretic Peptide October 20, 2014 9:59pm 481 PG/ML H 0- 175 Rule in cut points: <50 years old=450; 50-75 years old=900; >75 years old=1800; When utilizing ProBNP rule-in cut points, adjustment for impaired renal function is typically not required. Neutrophils # (Auto) November 08, 2014 10:43pm 4.3 T/MM3 N 1.8-7.7 Neutrophils (%) (Auto) November 08, 2014 10:43pm 62.2 % N 33-66 Platelet Count November 08, 2014 10:43pm 240 T/MM3 N 130-400 Potassium Level November 08, 2014 10:43pm 3.4 MEQ/L L 3.6-5 Prealbumin October 21, 2014 4:16am 15.9 MG/DL L 17.6-36.0 COMMENT BLOOD IN LABCOMMENT BLOOD IN LAB COMMENT BLOOD IN LAB Prothromb Time International Ratio November 08, 2014 10:43pm 2.09 H 0.81 -1.09 THERAPUTIC RANGE=2.00-3.00 FOR ANTI-THROMBOSIS THERAPUTIC RANGE=2.50- 3.50 FOR IMPLANTED VALVE RDW Standard Deviation November 08, 2014 10:43pm 38.9 FL N 36.9-50.2 Red Blood Count November 08, 2014 10:43pm 3.82 M/MM3 L 4.00-5.20 Sodium Level November 08, 2014 10:43pm 140 MEQ/L N 134-144 Thyroid Stimulating Hormone (TSH) October 21, 2014 4:16am 2.86 MIU/L N 0.47-4.68 COMMENT BLOOD IN LABCOMMENT BLOOD IN LAB COMMENT BLOOD IN LAB Total Bilirubin November 08, 2014 10:43pm 0.50 MG/DL N 0.20-1.30 Total Protein November 08, 2014 10:43pm 6.4 G/DL N 6.3-8.2 Triglycerides Level November 10, 2013 6:20am 97 MG/DL N 35-135 COMMENT FASTING Troponin I October 21, 2014 4:16am < 0.012 ng/ml 0-0.12 COMMENT BLOOD IN LABCOMMENT BLOOD IN LAB COMMENT BLOOD IN LAB Turbidity November 08, 2014 10:43pm < 20 0-20 Unconjugated Bilirubin June 10, 2012 3:05pm 0.00 MG/DL N 0.00-1.10 Urinalysis Comment November 08, 2014 11:35pm Microscopic not ind. - Has specimen been collected/obtained? Y Urine Bacteria April 11, 2013 6:10pm Trace H - Has specimen been collected/obtained? Y Urine Bilirubin November 08, 2014 11:35pm Negative - Has specimen been collected/obtained? Y Urine Blood November 08, 2014 11:35pm Negative - Has specimen been collected/obtained? Y Urine Collection Type November 08, 2014 11:35pm Cleancatch-midstream - Has specimen been collected/obtained? Y Urine Color November 08, 2014 11:35pm Yellow - Has specimen been collected/obtained? Y Urine Culture Indicated April 11, 2013 6:10pm Cult reflexed &setup - Has specimen been collected/obtained? Y Urine Glucose (UA) November 08, 2014 11:35pm 1+ H - Has specimen been collected/obtained? Y Urine Ketones November 08, 2014 11:35pm Negative - Has specimen been collected/obtained? Y Urine Leukocyte Esterase November 08, 2014 11:35pm Negative - Has specimen been collected/obtained? Y Urine Microalbumin September 16, 2014 2:45pm 7.6 MG/L N 0-17 Urine Microalbumin/Creatinine Ratio September 16, 2014 2:45pm 6.1 MG/GM N 0-30 Urine Microscopic Not Indicated April 10, 2012 3:20pm Not indicated - Has specimen been collected/obtained? Y Urine Nitrite November 08, 2014 11:35pm Negative - Has specimen been collected/obtained? Y Urine Protein November 08, 2014 11:35pm Negative - Has specimen been collected/obtained? Y Urine RBC April 11, 2013 6:10pm None seen /HPF - Has specimen been collected/obtained? Y Urine Random Creatinine September 16, 2014 2:45pm 124.3 MG/DL - Urine Specific Mulino November 08, 2014 11:35pm 1.010 L - Has specimen been collected/obtained? Y Urine Squamous Epithelial Cells April 11, 2013 6:10pm 5-10 - Has specimen been collected/obtained? Y Urine Turbidity November 08, 2014 11:35pm Clear - Has specimen been collected/obtained? Y Urine Urobilinogen November 08, 2014 11:35pm 0.2 EU/DL - Has specimen been collected/obtained? Y Urine WBC April 11, 2013 6:10pm 3-5 /HPF - Has specimen been collected /obtained? Y Urine pH November 08, 2014 11:35pm 6.0 - Has specimen been collected/ obtained? Y VLDL Cholesterol November 10, 2013 6:20am 19.4 MG/DL N 0-28 COMMENT FASTING Vitamin B12 Level October 21, 2014 4:16am 193 PG/ML L 239-931 COMMENT BLOOD IN LABCOMMENT BLOOD IN LAB COMMENT BLOOD IN LAB White Blood Count November 08, 2014 10:43pm 7.0 T/MM3 N 4.5-11.0 Helicobacter pylori Rapid Urease Gastric Biopsy July 23, 2014 9:30am Urine Culture Urine, Voided-Not Cc-Midstream April 11, 2013 6:35pm Streptococcus Anginosus Name: KAYLA ROBERTSON Unit #: [id number] : 1940 Sex: F Loc / Svc: SR DOS: 10/20/14 Signed Report #: [id number] DIAGNOSTIC IMAGING REPORT TYPE OF EXAM: CHEST [...] abnormality. . Procedures Procedure Status Date Provider(s) PLACE NEEDLE IN VEIN completed 08/27/14 BENJIE LEYVA DO CHEST X-RAY 1 VIEW FRONTAL completed 08/27/14 COMPREHEN METABOLIC PANEL completed 08/27/14 ASSAY OF NATRIURETIC PEPTIDE completed 08/27/14 ASSAY OF TROPONIN QUANT completed 08/27/14 COMPLETE CBC W/AUTO DIFF WBC completed 08/27/14 PROTHROMBIN TIME completed 08/27/14 THROMBOPLASTIN TIME PARTIAL completed 08/27/14 ELECTROCARDIOGRAM TRACING completed 08/27/14 EMERGENCY DEPT VISIT completed 08/27/14 [id number] ITEM OR SERVICE completed 08/27/14 [id number] ITEM OR SERVICE completed 08/27/14 ROUTINE VENIPUNCTURE [...] completed 09/21/14 EMERGENCY DEPT VISIT completed 09/21/14 ROUTINE VENIPUNCTURE completed 10/20/14 ROUTINE VENIPUNCTURE completed 10/20/14 CHEST X-RAY 1 VIEW FRONTAL completed 10/20/14 METABOLIC PANEL TOTAL CA completed 10/20/14 COMPREHEN METABOLIC PANEL completed 10/20/14 VITAMIN B-12 completed 10/20/14 REAGENT STRIP/BLOOD GLUCOSE completed 10/20/14 REAGENT STRIP/BLOOD GLUCOSE completed 10/20/14 ASSAY OF NATRIURETIC PEPTIDE completed 10/20/14 ASSAY OF PREALBUMIN completed 10/20/14 ASSAY THYROID STIM HORMONE completed 10/20/14 ASSAY OF TROPONIN QUANT completed 10/20/14 ASSAY OF TROPONIN QUANT completed 10/20/14 ASSAY OF TROPONIN QUANT completed 10/20/14 COMPLETE CBC W/AUTO DIFF WBC completed 10/20/14 COMPLETE CBC W/AUTO DIFF WBC completed 10/20/14 PROTHROMBIN TIME completed 10/20/14 PROTHROMBIN TIME completed 10/20/14 THROMBOPLASTIN TIME PARTIAL completed 10/20/14 ELECTROCARDIOGRAM TRACING completed 10/20/14 THER/PROPH/DIAG INJ SC/IM completed 10/20/14 THER/PROPH/DIAG INJ SC/IM completed 10/20/14 THER/PROPH/DIAG INJ IV PUSH completed 10/20/14 EMERGENCY DEPT VISIT completed 10/20/14 [id number] ITEM OR SERVICE completed 10/20/14 [id number] ITEM OR SERVICE completed 10/20/14 [id number] ITEM OR SERVICE completed 10/20/14 [id number] ITEM OR SERVICE completed 10/20/14 [id number] ITEM OR SERVICE completed 10/20/14 [id number] ITEM OR SERVICE completed 10/20/14 [id number]"HOSPITAL OBSERVATION SERVICE, PER HOUR" completed 10/20/14 [id number]"HOSPITAL OBSERVATION SERVICE, PER HOUR" completed 10/20/14 [id number]"INJECTION, ENOXAPARIN SODIUM, 10 MG" completed 10/20/14"INJECTION, ENOXAPARIN SODIUM, 10 MG" completed 10/20/14"INJECTION, FUROSEMIDE, UP TO 20 MG" completed 10/20/14"INJECTION, VITAMIN B-12 CYANOCOBALAMIN, UP TO 1000 M completed ROUTINE VENIPUNCTURE completed 10/22/14 ASSAY OF SERUM POTASSIUM completed 10/22/14 PROTHROMBIN TIME completed 10/22/14 Encounters Encounter Location Date/Time Departed Emergency Room [facility] 11/08/14 9:56pm Registered [facility] 11/03/14 1:20pm Registered [facility] 10/29/14 9:56am Registered [facility] 10/22/14 10:38am Discharged Inpatient [facility] 10/20/14 11:40pm Departed Emergency Room [facility] 09/21/14 9:22pm Registered [facility] 09/16/14 9:30am Departed Emergency Room [facility] 08/27/14 7:36pm Discharged Recurring [facility] 08/26/14 8:39am Discharged Inpatient [facility] 08/16/14 10:43pm Recent Diagnosis
--- NOTE | 2016-12-17 12:56 | NUR ---
REPORT TO BRENDON MORE
[2016-12-17] MEDS ORDERED: LIDOCAINE 1% (10mg/ml) 30ml SDV INFIL ONE (13:00)
--- NOTE | 2016-12-17 13:03 | ERPDOC ---
Departure Disposition Decision Date: Dec 17, 2016 Disposition Decision Time: 13:12 (JEET BUCKLEY APRN) Disposition: 01 DISCHARGED HOME, SELF-CARE Impression Impression (JEET BUCKLEY APRN) Impression: Primary Impression: Leg laceration Encounter type: initial encounter Laterality: right Qualified Codes: S81.811A - Laceration without foreign body, right lower leg, initial encounter Severity: Moderate (JEET BUCKLEY APRN) Condition: Stable Seen By: Mid-level only (JEET BUCKLEY APRN) Referrals: CARMENCITA SCALES MD (Family) Patient Instructions: Laceration (ED) Problems/Meds/Labs Reviewed?: Yes Medications reviewed and manag: Yes (JEET BUCKLEY APRN) Additional Instructions: Wash the area daily with soap and water. I do want you to follow up with your primary care provider in 7-10 days for suture removal. May keep covered with a thin layer of antibiotic ointment and a band aid. Follow up care ordered?: Yes Mental Status: Alert, Oriented (JEET BUCKLEY APRN) HPI - Skin General General Chief Complaint: Laceration Stated Complaint: CUT ON RIGHT LEG Time Seen by Provider: 12:49 Source: patient Exam Limitations: no limitations (JEET BUCKLEY APRN) Time Seen by Provider: 12:49 (RENE RANGEL MD) HPI - Skin General Initial Comments She was at home today was walking through the house. She hit her right leg on the laundry basket and has a small 1 cm laceration on her leg. It was bleeding quite a bit at home since she is on Coumadin so she wanted to get it evaluated due to the bleeding. Occurred At: home Onset: Rapid Duration: 1 hr Severity: mild Location: extremities (right leg) Possible Cause: no cause identified Associated Symptoms: denies symptoms Hx of Similar Symptoms: No (JEET BUCKLEY APRN) Allergies: Coded Allergies: rofecoxib (Verified Allergy, Severe, JOINT SWELL,RACHEL, 12/17/16) albuterol sulfate (Verified Allergy, Intermediate, NERVOUSNESS, PALPITATIONS, 12/17/16) ciprofloxacin (Verified Allergy, Mild, ITCH,HEADACHE, HEART FLUTTER, ) ciprofloxacin HCl (Verified Allergy, Mild, ITCH,HEADACHE; HEART FLUTTER, ) codeine (Verified Allergy, Mild, RASH,HEADACHE, 12/17/16) hydrocodone bit (Verified Allergy, Mild, FINE RASH AND HEADACHE, 12/17/16) Procaine HCl (Verified Allergy, Unknown, NERVOUS AND HEART RACE, 12/17/16) FROM DR SCALES H&P DATED 03-14-12 Tuberculin,Old Skin Test (Verified Allergy, Unknown, SWELLING OF ARM AT INJECTION SITE, 12/17/16) epinephrine (Verified Allergy, Unknown, PER H&P, 12/17/16) lidocaine (Verified Allergy, Unknown, PER H&P, 12/17/16) propoxyphene HCl (Verified Allergy, Unknown, SHAKY, AND LOPEZ, 12/17/16) cephalexin (Verified Adverse Reaction, Intermediate, C-DIFF, 12/17/16) C-Diff doxycycline (Verified Adverse Reaction, Unknown, NAUSEA, DIZZY, 12/17/16) hydrochlorothiazide (Verified Adverse Reaction, Unknown, NAUSEA, DIZZY, ) PER H&P lisinopril (Verified Adverse Reaction, Unknown, DRY COUGH, 12/17/16) Past History Patient Surgical History 1. Appendectomy 2. Cholecystectomy 3. Hysterectomy 4. Bilateral total knee arthroplasties 5. Tendon surgeries on both forearms, right hip, and right wrist 6. ORIF trimalleolar fracture with ORIF of periprosthetic femur fracture (NOLD,JEET N SUPERINTENDENT TERMINAL) Past Medical History Metabolic: diabetes, hypercholesterolemia, hypertension ENMT: sinusitis Cardiac: A-fib Respiratory: pulmonary embolus GI: GERD, constipation, gallbladder disease, other, ulcers Female: kidney stones Neurological: CVA, migraines Musculoskeletal: osteoarthritis, other Hematologic: DVT Psychological: anxiety, depression (NOLD,JEET N SUPERINTENDENT TERMINAL) Surgical History General: appendix, gallbladder Reproductive/: hysterectomy Joint: elbow, foot, knee (NOLD,JEET N SUPERINTENDENT TERMINAL) Family History Family PMH: FOUND: CAD, hypertension (NOLD,JEET N SUPERINTENDENT TERMINAL) Vaccines Hx Influenza Vaccination: Yes () Hx Pneumococcal Vaccination: Yes (doesnt remember, less than 10yrs) (NOLD,JEET N SUPERINTENDENT TERMINAL) Social History Does patient use chewing tobac: No Second Hand Exposure: No Substance Use Type: does not use Alcohol Intake: none Housing: house Household Members: none (JEET BUCKLEY APRN) Review of Systems Constitutional Constitutional: DENIES: chills, dizziness, fatigue, fever, weakness (SAV BUCKLEYA N SUPERINTENDENT TERMINAL) Musculoskeletal General: DENIES: pain (SAV BUCKLEYA N SUPERINTENDENT TERMINAL) Integumentary Skin: other (1cm laceration on the right leg), DENIES: rash (SAV BUCKLEYA Aj SUPERINTENDENT TERMINAL ) Neurological General: DENIES: numbness, tingling, weakness (INA,JEET N SUPERINTENDENT TERMINAL) Physical Exam General General Nourishment: well nourished, well developed, appears stated age, no acute distress, adult General Body Habitus: well groomed (JEET BUCKLEY APRN) Vitals and Pain First Documented Vital Signs Date Time Temp Pulse Resp B/P Pulse Ox O2 Delivery O2 Flow Rate FiO2 12/17/16 12:30 98.2 78 16 177/78 98 Room Air (RENE RANGEL MD) Vitals and Pain Weight: Kilograms: Height (feet): 5 Height (inches): 1.00 Triage Pain Scale: (JEET BUCKLEY APRN) RN VS reviewed by Provider: Yes (JEET BUCKLEY APRN) Normal Exams: Musculoskeletal: No tenderness, or deformity noted, good range of motion, all extremities Integumentary: No rashes, hives, or bruising noted Neurologic: Patient is alert, and oriented Psychiatric: Patient exhibits, appropriate attention, emotion and affect (JEET BUCKLEY SUPERINTENDENT TERMINAL) Integumentary (brief) Integumentary Brief: FOUND: other (She does have a small 1cm laceration on the right nichols, no active bleeding currently but is a little oozy. It does not approximate well enough for wound adhesive) (SAV BUCKLEYA N SUPERINTENDENT TERMINAL) Differential Diagnoses Considering: Laceration, Other (FB in skin) (STARKESA N SUPERINTENDENT TERMINAL) Procedures Procedures Performed Procedures Performed: Laceration Repair (STARKESA N SUPERINTENDENT TERMINAL) Laceration/Wound Repair Wound/Laceration Repair : Wound Location: lower extremity (right lower extremity) Wound Length (cm): 1 Depth, Shape: superficial, linear Explored: clean Prep: chlorasept Anesthesia: 1% Lidocaine Type of Block: local Repaired With: Sutures Suture Size: 5:0 Suture Type: prolene Number of Sutures: 2 Layer Closure?: No (JEET BUCKLEY APRN) Progress Results/Orders Orders Procedure Category Date Status Time Lidocaine 1% PHA 12/17/16 Complete (Xylocaine 1%) 13:00 (RENE RANGEL MD) Medications Current ED Medications Lidocaine HCl (Xylocaine 1%) 100 mg O ONCE INFIL Last administered on t 13:22; Start 12/17/16 at 13:00; Stop 12/17/16 at 13:01; Status DC (RENE RANGEL MD) Progress Progress Sutures out with PCP in 7-10 days. Cover with a band aid as needed and wash daily with soap and water. Follow up with PCP if any other issues/concerns. (JEET BUCKLEY APRN) JEET BUCKLEY APRN Dec 17, 2016 13:03 RENE RANGEL MD Dec 18, 2016 10:24
[2016-12-17] MEDS ORDERED: FURO20TA4 PO (13:04)
[2016-12-17] MEDS ORDERED: LIDO700A30 TD (13:04)
--- NOTE | 2016-12-17 13:04 | NUR ---
CLARICE OTERO IN WITH PT
--- OUTSIDE RECORDS SUMMARY | 2016-12-17 13:10 | XMS REPORT | Continuity of Care Document ---
Author Author [facility] Organization [facility] Address Unknown Phone Unavailable Support Name Relationship Address Phone CARMENCITA SCALES MD Caregiver [address] [place] [address] [address] [place], [place] [phone] CHRISSIE MARRUFO Next Of Kin [address] [place] [address] Insurance Providers Payer Name Policy Number Subscriber Name Relationship Medicare [id number] Kayla Robertson 16 Self [employer] [place] [id number] Kayla Robertson 16 Self Problems Medical Problems Problem Onset Date Status Malaise and fatigue Unknown Active R/O [place] Unknown Active Chest pain rule out [place] Unknown Active Dizziness Unknown Active Malaise and [...] F (96.8 - 99.1) Temperature (Calculated Celsius) 36.92254 degrees C (36.0 - 37.3) Pulse Rate [...] 21, 2014 9:30pm 9.6 % H 0-9.0 NF-Zfi-W-Type Natriuretic Peptide September 21, 2014 9:30pm 718 [...] 2014 2:45pm 124.3 MG/DL - Urine Specific [place] August 17, 2014 12:05am <=1.005 L - [...] Streptococcus Anginosus Name: KAYLA ROBERTSON Unit #: [id number] : 1940 Sex: F Loc / Svc: ED DOS: 09/21/14 Signed Report #: [id number] DIAGNOSTIC IMAGING REPORT TYPE OF EXAM: CHEST [...] completed 08/27/14 EMERGENCY DEPT VISIT completed 08/27/14 [id number] ITEM OR SERVICE completed 08/27/14 [id number] ITEM OR SERVICE completed 08/27/14 ROUTINE VENIPUNCTURE [...] 09/21/14 Encounters Encounter Location Date/Time Discharged Recurring [facility] 09/28/14 9:39am Departed Emergency Room [facility] 09/21/14 9:22pm Registered Clinic [facility] 09/16/14 9:30am Departed Emergency Room [facility] 08/27/14 7:36pm Discharged Inpatient [facility] 08/16/14 10:43pm Departed Emergency Room [facility] 07/29/14 8:12pm
--- OUTSIDE RECORDS SUMMARY | 2016-12-17 13:13 | XMS REPORT | Continuity of Care Document ---
Author Author [facility] Organization [facility] Address Unknown Phone Unavailable Support Name Relationship Address Phone BENJIE LEYVA DO Caregiver [facility] [address] [place], [place] [phone] CARMENCITA SCALES MD Caregiver [address] [place] [address] [place] [address] [phone] CHRISSIE MARRUFO Next Of Kin [address] [place] [address] Insurance Providers Payer Name Policy Number Subscriber Name Relationship Medicare [id number] Kayla Robertson [address] [facility] [id number] Kayla Robertson 16 Self Problems Medical Problems [...] Has specimen been collected/obtained? Y Urine Specific [place] March 11, 2014 5:30pm <=1.005 L - [...] 01, 2011 10:07pm LAB TEST FORM REQUEST [id number] - EKG February 06, 2008 12:44pm Complete [...] March 11, 2014 4:00pm < 2 0-7 GX-Njc-D-Type Natriuretic Peptide March 11, 2014 4:00pm 266 [...] Encounters Encounter Location Date/Time Departed Emergency Room [facility] 07/29/14 8:12pm Departed Emergency Room [facility] 06/29/14 4:02pm Departed Emergency Room [facility] 06/22/14 8:30pm Recent Diagnosis
--- OUTSIDE RECORDS SUMMARY | 2016-12-17 13:13 | XMS REPORT | Continuity of Care Document ---
Author Author [facility] Organization [facility] Address Unknown Phone Unavailable Support Name Relationship Address Phone BARBIE HARE MD Caregiver [facility] [address] [place] [address] Unavailable CARMENCITA SCALES MD Caregiver [address] [place] [address] [phone] CHRISSIE MARRUFO Next Of Kin [address] [place] [address] Insurance Providers Payer Name Policy Number Subscriber Name Relationship Medicare [id number] Kayla Robertson 16 Self [employer] [facility] [id number] Kayla Robertson 16 Self Problems Medical Problems [...] Mg PO BEDTIME PRN 04/10/12 Active Ipratropium [place] 2 Wrights EA NOSTRIL DAILY 07/09/13 Active Chlorthalidone 25 [...] Has specimen been collected/obtained? Y Urine Specific [place] March 11, 2014 5:30pm <=1.005 L - [...] 01, 2011 10:07pm LAB TEST FORM REQUEST [id number] - EKG February 06, 2008 12:44pm Complete [...] March 11, 2014 4:00pm < 2 0-7 FM-Cce-U-Type Natriuretic Peptide March 11, 2014 4:00pm 266 [...] Encounters Encounter Location Date/Time Departed Emergency Room [facility] 06/22/14 8:30pm Recent Diagnosis
--- OUTSIDE RECORDS SUMMARY | 2016-12-17 13:14 | XMS REPORT | Continuity of Care Document ---
Author Author [facility] Organization [facility] Address Unknown Phone Unavailable Support Name Relationship Address Phone ARCHIE BLOOD MD Caregiver [address] [place] [phone] CARMENCITA SCALES MD Caregiver [address] [place] [address] [place] [address] [phone] YARONVIRGILA Next Of Kin [address] [place], [place] [phone] Insurance Providers Payer Name Policy Number Subscriber Name Relationship Medicare [id number] Kayla Robertson 16 Self [facility] [id number] Kayla Robertson 16 Self Problems Medical Problems Problem Onset Date Status Malaise and fatigue Unknown Active R/O MD Unknown Active Chest pain rule out [place] Unknown Active Dizziness Unknown Active Malaise and [...] F (96.8 - 99.1) Temperature (Calculated Celsius) 36.95037 degrees C (36.0 - 37.3) Pulse Rate [...] Has specimen been collected/obtained? Y Urine Specific [place] March 11, 2014 5:30pm <=1.005 L - [...] 01, 2011 10:07pm LAB TEST FORM REQUEST [id number] - EKG February 06, 2008 12:44pm Complete [...] March 11, 2014 4:00pm < 2 0-7 YZ-Hul-T-Type Natriuretic Peptide March 11, 2014 4:00pm 266 [...] Encounters Encounter Location Date/Time Departed Emergency Room [facility] 06/29/14 4:02pm Departed Emergency Room [facility] 06/22/14 8:30pm Recent Diagnosis
--- OUTSIDE RECORDS SUMMARY | 2016-12-17 13:15 | XMS REPORT | Continuity of Care Document ---
Author Author [facility] Organization [facility] Address Unknown Phone Unavailable Support Name Relationship Address Phone MAXWELL YING FACS, MD Caregiver [address] [place] [address] [place] [phone] CARMENCITA SCALES MD Caregiver [address] [place] [address] [place] [phone] CHRISSIE MARRUFO Next Of Kin [address] [place], [place] [phone] Insurance Providers Payer Name Policy Number Subscriber Name Relationship Medicare [id number] Kayla Robertson 16 Self [facility] [id number] Kayla Robertson 16 Self Advance Directives Directive [...] F (96.8 - 99.1) Temperature (Calculated Celsius) 36.07910 degrees C (36.0 - 37.3) Temperature Source [...] 01, 2011 10:07pm LAB TEST FORM REQUEST [id number] - Lipase April 10, 2012 3:16pm 18 [...] 11, 2014 4:00pm 9.9 % H 0-9.0 HZ-Bxc-P-Type Natriuretic Peptide March 11, 2014 4:00pm 266 [...] Has specimen been collected/obtained? Y Urine Specific [place] March 11, 2014 5:30pm <=1.005 L - [...] Encounters Encounter Location Date/Time Departed Emergency Room [facility] 06/29/14 4:02pm Departed Emergency Room [facility] 06/22/14 8:30pm
--- OUTSIDE RECORDS SUMMARY | 2016-12-17 13:16 | XMS REPORT | Continuity of Care Document ---
Author Author [facility] Organization [facility] Address Unknown Phone Unavailable Support Name Relationship Address Phone BARBIE HARE MD Caregiver [facility] [address] [place] [address] Unavailable CARMENCITA SCALES MD Caregiver [address] [place] [phone] CHRISSIE MARRUFO Next Of Kin [address] [place] [address] Insurance Providers Payer Name Policy Number Subscriber Name Relationship Medicare [id number] Kayla Robertson 18 Self [facility] [id number] Kayla Robertson 16 Self Chief Complaint and Reason for Visit Chief Complaint Chest Pain Reason for Visit [id number] Problems Medical Problems Problem Onset Date Status Malaise and fatigue Unknown Active R/O [place] Unknown Active Chest pain rule out [place] Unknown Active Dizziness Unknown Active Malaise and [...] at time of discharge: Good Good at [phone]. 2. Problems such as: Temp above 101.5 degrees You develop redness, excessive swelling of the incision, increasing pain or excessive foul smelling drainage. 3. If the office is closed, call [facility] at [phone] and have your Surgeon paged. Condition at [...] Discharge Date 08/20/14 5:07pm Disposition 02 TO [facility] Condition at Discharge Improved Instructions/Education Provided [facility] Discharge Instructions Vitamin K DI for [...] F (96.8 - 99.1) Temperature (Calculated Celsius) 36.59645 degrees C (36.0 - 37.3) Pulse Rate [...] 2014 2:45pm 124.3 MG/DL - Urine Specific [place] August 17, 2014 12:05am <=1.005 L - [...] 21, 2014 9:08pm LAB TEST FORM REQUEST [id number] - EKG February 06, 2008 12:44pm Complete [...] September 21, 2014 9:30pm < 2 0-7 QH-Zmz-O-Type Natriuretic Peptide September 21, 2014 9:30pm 718 [...] 2014 9:30am Name: KAYLA ROBERTSON Unit #: [id number] : 1940 Sex: F Loc / Svc: ED DOS: 08/27/14 Signed Report #: [id number] DIAGNOSTIC IMAGING REPORT TYPE OF EXAM: CHEST [...] completed 08/27/14 EMERGENCY DEPT VISIT completed 08/27/14 [id number] ITEM OR SERVICE completed 08/27/14 [id number] ITEM OR SERVICE completed 08/27/14 Encounters Encounter Location Date/Time Departed Emergency Room [facility] 09/21/14 9:22pm Registered [facility] 09/21/14 8:56am Registered Clinic [facility] 09/16/14 9:30am Departed Emergency Room [facility] 08/27/14 7:36pm Discharged Inpatient [facility] 08/16/14 10:43pm Departed Emergency Room [facility] 07/29/14 8:12pm Departed Emergency Room [facility] 06/29/14 4:02pm Recent Diagnosis
--- OUTSIDE RECORDS SUMMARY | 2016-12-17 13:18 | XMS REPORT | Continuity of Care Document ---
Author Author [facility] Organization [facility] Address Unknown Phone Unavailable Support Name Relationship Address Phone AUTUMNBENJIE MENDIETA Caregiver [facility] [address] [place] [phone] CARMENCITA SOLIZ MD Caregiver [address] [place] [address] [place] [address] [phone] CHRISSIE MARRUFO Next Of Kin [address] [place] [address] Insurance Providers Payer Name Policy Number Subscriber Name Relationship Medicare [id number] Kayla Robertson [address] [facility] [id number] Kayla Robertson 16 Self Advance Directives Directive Response Recorded Date/Time Advanced Directives Type None 08/27/14 7:39pm Chief Complaint and Reason for Visit Chief Complaint Chest Pain Reason for Visit [id number] Problems Medical Problems Problem Onset Date Status [...] Discharge Date 08/20/14 5:07pm Disposition 02 TO [facility] Condition at Discharge Improved Instructions/Education Provided [facility] Discharge Instructions Vitamin K DI for [...] F (96.8 - 99.1) Temperature (Calculated Celsius) 36.32614 degrees C (36.0 - 37.3) Pulse Rate [...] Has specimen been collected/obtained? Y Urine Specific [place] August 17, 2014 12:05am <=1.005 L - [...] 26, 2014 10:29am LAB TEST FORM REQUEST [id number] - EKG February 06, 2008 12:44pm Complete [...] August 27, 2014 7:56pm < 2 0-7 LA-Vgq-U-Type Natriuretic Peptide August 27, 2014 7:56pm 634 [...] 2014 9:30am Name: KAYLA ROBERTSON Unit #: [id number] : 1940 Sex: F DISCHARGE SUMMARY Admit Date: 08/16/14 Report #: [id number] General Date Date DATE: 08/20/14 TIME: 16:23 [...] BID #30 07/22/14 Losartan Potassium 100 Mg [id number] Mg PO DAILY #30 07/22/14 Chlorthalidone 25 Mg Dfnkvn15 Mg PO PRN #30 07/22/14 Atorvastatin Calcium 40 Mg Zaokad89 Mg PO HS #30 07/22/14 Pramipexole Di-Hcl (Mirapex)0.5 Mg Tablet0.5 Mg PO HS 08/23/11 Discharge Disposition stable Copies To 1: CARMENCITA SOLIZ MD, CARRIE DO Aug 20, 2014 16:24 Procedures Procedure Status Date Provider(s) EGD BIOPSY SINGLE/MULTIPLE completed 07/23/14 MAXWELL YING MD, FACS, CWS Encounters Encounter Location Date/Time Departed Emergency Room [facility] 08/27/14 7:36pm Registered Recurring [facility] 08/26/14 8:39am Discharged Inpatient [facility] 08/16/14 10:43pm Departed Emergency Room [facility] 07/29/14 8:12pm Departed Emergency Room [facility] 06/29/14 4:02pm Departed Emergency Room [facility] 06/22/14 8:30pm Recent Diagnosis
--- OUTSIDE RECORDS SUMMARY | 2016-12-17 13:18 | XMS REPORT | Continuity of Care Document ---
Author Author [facility] Organization [facility] Address Unknown Phone Unavailable Support Name Relationship Address Phone OMID OLIVARES MD Caregiver [address] [place] [address] [place] [phone] CONNOR CONCEPCION MD Caregiver [address] [place] [address] [place] [phone] CARMENCITA SOLIZ MD Caregiver [address] [place] [address] [place] [phone] CHRISSIE MARRUFO Next Of Kin [address] [place] [phone] Insurance Providers Payer Name Policy Number Subscriber Name Relationship Medicare [id number] Kayla Robertson 16 Self [facility] [id number] Kayla Robertson 16 Self Advance Directives Directive Response Recorded Date/Time Advanced Directives Type DNR Documentation Living Will DPOA for Healthcare 10:43pm Ordered Resuscitation Status Full Code 08/16/14 10:43pm Resuscitation Documents on File Yes 08/16/14 11:16pm Chief Complaint and Reason for Visit Chief Complaint BILATERAL PULMONARY EMBOLI Reason for Visit Chest pain rule out [place] Shortness of breath CHEST PAIN NOS Dyspnea Pulmonary emboli Diabetes Hypertension Dyslipidemia GERD (gastroesophageal reflux disease) RLS (restless legs syndrome) Osteoarthritis Anxiety and depression History of gastritis Hypomagnesemia Obesity (BMI 35.0-39.9 without comorbidity) Pleuritic chest pain Problems Medical Problems Problem Onset Date Status Malaise and fatigue Unknown Active R/O [place] Unknown Active Chest pain rule out [place] Unknown Active Dizziness Unknown Active Malaise and [...] your medications, please contact our office at [phone]. Condition at time of discharge: Fair Plan [...] F (96.8 - 99.1) Temperature (Calculated Celsius) 36.48928 degrees C (36.0 - 37.3) Temperature Source [...] 01, 2011 10:07pm LAB TEST FORM REQUEST [id number] - Lipase April 10, 2012 3:16pm 18 [...] 20, 2014 6:38am 9.2 % H 0-9.0 TA-Atx-B-Type Natriuretic Peptide August 16, 2014 9:18pm 305 [...] Has specimen been collected/obtained? Y Urine Specific [place] August 17, 2014 12:05am <=1.005 L - [...] Streptococcus Anginosus Name: KAYLA ROBERTSON Unit #: [id number] : 1940 Sex: F DISCHARGE SUMMARY Admit Date: 08/16/14 Report #: [id number] General Date Date DATE: 08/20/14 TIME: 16:23 [...] BID #30 07/22/14 Losartan Potassium 100 Mg Woagtz195 Mg PO DAILY #30 07/22/14 Chlorthalidone 25 Mg Ytrefo48 Mg PO PRN #30 07/22/14 Atorvastatin Calcium 40 Mg Qkmvrq42 Mg PO HS #30 07/22/14 Pramipexole Di-Hcl (Mirapex)0.5 Mg Tablet0.5 Mg PO HS 08/23/11 Discharge Disposition stable Copies To 1: CARMENCITA SOLIZ MD, CARRIE DO Aug 20, 2014 16:24 Procedures Procedure Status Date Provider(s) EGD BIOPSY SINGLE/MULTIPLE completed 07/23/14 MAXWELL YING MD, FACS, CWS Encounters Encounter Location Date/Time Discharged Inpatient [facility] 08/16/14 10:43pm Departed Emergency Room [facility] 07/29/14 8:12pm Departed Emergency Room [facility] 06/29/14 4:02pm Departed Emergency Room [facility] 06/22/14 8:30pm Recent Diagnosis Chest pain rule out MS Shortness of breath CHEST PAIN NOS Dyspnea Pulmonary emboli Diabetes Hypertension Dyslipidemia GERD (gastroesophageal reflux disease) RLS (restless legs syndrome) Osteoarthritis Anxiety and depression History of gastritis Hypomagnesemia Obesity (BMI 35.0-39.9 without comorbidity) Pleuritic chest pain
--- OUTSIDE RECORDS SUMMARY | 2016-12-17 13:20 | XMS REPORT | Continuity of Care Document ---
Author Author [facility] Organization [facility] Address Unknown Phone Unavailable Allergies Medications Problems Procedures Results Encounters ACCT No. Visit Date/Time Discharge Status Pt. Type Provider Facility Loc./Unit Complaint [id number] 11/06/2013 09:54:00 11/06/2013 23 :59:59 CLS Outpatient [id number] 10/20/2013 14:46:00 10/20/2013 23 :59:59 CLS Outpatient [id number] 10/06/2013 11:06:00 10/06/2013 23 :59:59 CLS Outpatient [id number] 09/03/2013 10:26:00 09/03/2013 23 :59:59 CLS Outpatient
--- OUTSIDE RECORDS SUMMARY | 2016-12-17 13:20 | XMS REPORT | Continuity of Care Document ---
Author Author [facility] Organization [facility] Address Unknown Phone Unavailable Support Name Relationship Address Phone BENJIE LYEVA Caregiver [address] [place] [phone] CAMDEN HERNANDEZ MD Caregiver [address] [place] [address] DR VAREL[place], [facility] CARMENCITA SOLIZ MD Caregiver [address] [place] [address] [place] [address] [phone] CHRISSIE MARRUFO Next Of Kin [address] [place] [phone] Insurance Providers Payer Name Policy Number Subscriber Name Relationship Medicare [id number] Kayla Robertson 18 Self [facility] [id number] Kayla Robertson 16 Self Advance Directives Directive [...] F (96.8 - 99.1) Temperature (Calculated Celsius) 36.86634 degrees C (36.0 - 37.3) Temperature Source [...] 19, 2014 8:32pm LAB TEST FORM REQUEST [id number] - Lipase April 10, 2012 3:16pm 18 [...] 21, 2014 4:14am 8.8 % N 0-9.0 FK-Prf-Q-Type Natriuretic Peptide October 20, 2014 9:59pm 481 [...] 2014 2:45pm 124.3 MG/DL - Urine Specific [place] August 17, 2014 12:05am <=1.005 L - [...] Streptococcus Anginosus Name: KAYLA ROBERTSON Unit #: [id number] : 1940 Sex: F Loc / Svc: SRG DOS: 10/20/14 Signed Report #: [id number] DIAGNOSTIC IMAGING REPORT TYPE OF EXAM: CHEST [...] completed 08/27/14 EMERGENCY DEPT VISIT completed 08/27/14 [id number] ITEM OR SERVICE completed 08/27/14 [id number] ITEM OR SERVICE completed 08/27/14 ROUTINE VENIPUNCTURE [...] 09/21/14 Encounters Encounter Location Date/Time Discharged Inpatient [facility] 10/20/14 11:40pm Registered [facility] 10/19/14 3:34pm Departed Emergency Room [facility] 09/21/14 9:22pm Registered Clinic [facility] 09/16/14 9:30am Departed Emergency Room [facility] 08/27/14 7:36pm Discharged Recurring [facility] 08/26/14 8:39am Discharged Inpatient [facility] 08/16/14 10:43pm Departed Emergency Room [facility] 07/29/14 8:12pm Recent Diagnosis Anxiety and depression Swelling of left knee joint Anticoagulated on Coumadin Swelling of left lower extremity
--- OUTSIDE RECORDS SUMMARY | 2016-12-17 13:22 | XMS REPORT | Continuity of Care Document ---
Author Author [facility] Organization [facility] Address Unknown Phone Unavailable Support Name Relationship Address Phone CONNOR CONCEPCION MD Caregiver [address] [place] [phone] CARMENCITA SOLIZ MD Caregiver [address] [address] [place] [address] [phone] YARONVIRGILA Next Of Kin [address] [place] [address] Insurance Providers Payer Name Policy Number Subscriber Name Relationship Medicare [id number] Kayla Robertson 16 Self [facility] [id number] Kayla Robertson 16 Self Advance Directives Directive Response Recorded Date/Time Advanced Directives Type Living Will None 11/08/14 9:58pm Chief Complaint and Reason for Visit Chief Complaint Chest Pain Reason for Visit YVW-AIRU-Riman pain rule out [place] Problems Medical Problems Problem Onset Date Status Malaise and fatigue Unknown Active R/O [place] Unknown Active Chest pain rule out [place] Unknown Active Dizziness Unknown Active Malaise and [...] Date 10/21/14 7:18pm Disposition 02 [place] [facility] Condition at Discharge Improved Instructions/Education Provided DI [...] F (96.8 - 99.1) Temperature (Calculated Celsius) 36.97959 degrees C (36.0 - 37.3) Pulse Rate [...] 08, 2014 10:43pm 7.6 % N 0-9.0 MN-Gvt-B-Type Natriuretic Peptide October 20, 2014 9:59pm 481 [...] 2014 2:45pm 124.3 MG/DL - Urine Specific [place] November 08, 2014 11:35pm 1.010 L - [...] Streptococcus Anginosus Name: KAYLA ROBERTSON Unit #: [id number] : 1940 Sex: F Loc / Svc: SR DOS: 10/20/14 Signed Report #: [id number] DIAGNOSTIC IMAGING REPORT TYPE OF EXAM: CHEST [...] completed 08/27/14 EMERGENCY DEPT VISIT completed 08/27/14 [id number] ITEM OR SERVICE completed 08/27/14 [id number] ITEM OR SERVICE completed 08/27/14 ROUTINE VENIPUNCTURE [...] completed 10/20/14 EMERGENCY DEPT VISIT completed 10/20/14 [id number] ITEM OR SERVICE completed 10/20/14 [id number] ITEM OR SERVICE completed 10/20/14 [id number] ITEM OR SERVICE completed 10/20/14 [id number] ITEM OR SERVICE completed 10/20/14 [id number] ITEM OR SERVICE completed 10/20/14 [id number] ITEM OR SERVICE completed 10/20/14 [id number]"HOSPITAL OBSERVATION SERVICE, PER HOUR" completed 10/20/14 [id number]"HOSPITAL OBSERVATION SERVICE, PER HOUR" completed 10/20/14 [id number]"INJECTION, ENOXAPARIN SODIUM, 10 MG" completed 10/20/14"INJECTION, ENOXAPARIN SODIUM, 10 MG" completed 10/20/14"INJECTION, FUROSEMIDE, UP TO 20 MG" completed 10/20/14"INJECTION, VITAMIN B-12 CYANOCOBALAMIN, UP TO 1000 M completed ROUTINE VENIPUNCTURE completed 10/22/14 ASSAY OF SERUM POTASSIUM completed 10/22/14 PROTHROMBIN TIME completed 10/22/14 Encounters Encounter Location Date/Time Departed Emergency Room [facility] 11/08/14 9:56pm Registered [facility] 11/03/14 1:20pm Registered [facility] 10/29/14 9:56am Registered [facility] 10/22/14 10:38am Discharged Inpatient [facility] 10/20/14 11:40pm Departed Emergency Room [facility] 09/21/14 9:22pm Registered [facility] 09/16/14 9:30am Departed Emergency Room [facility] 08/27/14 7:36pm Discharged Recurring [facility] 08/26/14 8:39am Discharged Inpatient [facility] 08/16/14 10:43pm Recent Diagnosis
[2016-12-17 13:25] VITALS: BP 162/74; PULSE 86; RESP 16; O2SAT 98
== END 2016-12-17 13:25 | disposition home or self-care (01) ==
LOC: ED 12:27
DX: S81.811A Laceration without foreign body, right lower leg, initial encounter (principal); W45.8XXA Other foreign body or object entering through skin, initial encounter; W22.09XA Striking against other stationary object, initial encounter; Y93.01 Activity, walking, marching and hiking; Y92.009 Unspecified place in unspecified non-institutional (private) residence as the place of occurrence of the external cause; Y99.8 Other external cause status

== ENCOUNTER → 2016-12-26 | Outpatient (CLI) | payer MEDICARE, BC ==
[~2016-12-26] MED LIST changes: -ENOX40DI SQ; +FURO20TA4 PO; +LIDO700A30 TD
[2016-12-26 11:04] LABS: INR 1.4 (0.90-1.23); PROTHROMBIN TIME 16.4 SEC (10.8-13.8)
[2016-12-26 11:11] LABS: BASOPHILS % (AUTO) 0.4 % (0-2); EOSINOPHILS # (AUTO) 0.1 T/MM3 (0-0.5); EOSINOPHILS % (AUTO) 0.9 % (0-4); HCT - HEMATOCRIT 39.3 % (36-46); HGB - HEMOGLOBIN 12.6 GM/DL (12-16); IMMATURE GRANULOCYTE # (AUTO) 0.02 T/MM3 (0.00-0.03); IMMATURE GRANULOCYTE % (AUTO) 0.2 % (0.0-0.5); LYMPHOCYTES # (AUTO) 2.1 T/MM3 (1-4.8); LYMPHOCYTES % (AUTO) 25.5 % (23-45); MEAN CORPUSCULAR HGB 28.8 UUG (26-34); MEAN CORPUSCULAR HGB CONC(MCHC 32.1 GM/DL (31-37); MEAN CORPUSCULAR VOLUME 89.7 UM3 (80-100); MEAN PLATELET VOLUME 10.4 UM3 (9.4-12.4); MONOCYTES # (AUTO) 0.7 T/MM3 (0-0.8); MONOCYTES % (AUTO) 8.3 % (0-9.0); NEUTROPHILS #(AUTO)-ABSOLUTE 5.2 T/MM3 (1.8-7.7); NEUTROPHILS % (AUTO) 64.7 % (33-66); RED BLOOD COUNT 4.38 M/MM3 (4.00-5.20); WBC - WHITE BLOOD COUNT 8.1 T/MM3 (4.5-11.0)
[2016-12-26 11:22] LABS: ANION GAP 9 MEQ/L (5-15); BUN/CREATININE RATIO 30 RATIO (6-26); CALCIUM 9.4 MG/DL (8.4-10.2); CHLORIDE 104 MEQ/L (98-107); CO2 - CARBON DIOXIDE 24 MEQ/L (22-30); GLOMERULAR FILTRATION RATE 54; GLUCOSE 205 MG/DL (65-110); POTASSIUM 5.3 MEQ/L (3.6-5); SODIUM 137 MEQ/L (134-144)
== END ==
LOC: LAB 10:35
PROVIDERS: ATTEND Family Medicine
DX: L03.116 Cellulitis of left lower limb (principal); Z86.711 Personal history of pulmonary embolism; E11.9 Type 2 diabetes mellitus without complications
CPT/HCPCS: 36416; 80048; 85025; 85610

== ENCOUNTER → 2017-01-03 | Outpatient (CLI) | payer MEDICARE, BC ==
[2017-01-03 11:36] LABS: INR 1.9 (0.76-1.04); PROTHROMBIN TIME 21.6 SEC (9.31-12.49)
[2017-01-03 11:38] LABS: BASOPHILS # (AUTO) 0.1 T/MM3 (0-0.2); BASOPHILS % (AUTO) 0.7 % (0-2); EOSINOPHILS # (AUTO) 0.1 T/MM3 (0-0.5); EOSINOPHILS % (AUTO) 1.3 % (0-4); HCT - HEMATOCRIT 39.1 % (36-46); HGB - HEMOGLOBIN 12.5 GM/DL (12-16); IMMATURE GRANULOCYTE # (AUTO) 0.02 T/MM3 (0.00-0.03); IMMATURE GRANULOCYTE % (AUTO) 0.3 % (0.0-0.5); LYMPHOCYTES # (AUTO) 2.2 T/MM3 (1-4.8); LYMPHOCYTES % (AUTO) 31.5 % (23-45); MEAN CORPUSCULAR HGB 28.5 UUG (26-34); MEAN CORPUSCULAR VOLUME 89.1 UM3 (80-100); MEAN PLATELET VOLUME 10.5 UM3 (9.4-12.4); MONOCYTES # (AUTO) 0.5 T/MM3 (0-0.8); MONOCYTES % (AUTO) 6.6 % (0-9.0); NEUTROPHILS #(AUTO)-ABSOLUTE 4.1 T/MM3 (1.8-7.7); NEUTROPHILS % (AUTO) 59.6 % (33-66); RED BLOOD COUNT 4.39 M/MM3 (4.00-5.20); WBC - WHITE BLOOD COUNT 6.9 T/MM3 (4.5-11.0)
[2017-01-03 11:46] LABS: ANION GAP 11 MEQ/L (5-15); BUN/CREATININE RATIO 23 RATIO (6-26); CALCIUM 9.5 MG/DL (8.4-10.2); CHLORIDE 101 MEQ/L (98-107); CO2 - CARBON DIOXIDE 25 MEQ/L (22-30); CREATININE 1.1 MG/DL (0.7-1.2); GLOMERULAR FILTRATION RATE 48; GLUCOSE 137 MG/DL (65-110); POTASSIUM 5.1 MEQ/L (3.6-5); SODIUM 137 MEQ/L (134-144)
[2017-01-04 08:16] LABS: BAND NEUTROPHILS # 0.1 T/MM3; BASOPHILS # (MANUAL) 0.1 T/MM3 (0-0.2); EOSINOPHILS # (MANUAL) 0.1 T/MM3 (0-0.5); LYMPHOCYTES # (MANUAL) 2.6 T/MM3 (1-4.8); MONOCYTES # (MANUAL) 0.6 T/MM3 (0-0.8); NEUTROPHILS #(MANUAL)-ABSOLUTE 3.5 T/MM3 (1.8-7.7); TOTAL CELLS COUNTED 100 %
== END ==
LOC: LAB 11:03
PROVIDERS: ATTEND Family Medicine
DX: L03.116 Cellulitis of left lower limb (principal); R19.7 Diarrhea, unspecified; Z86.711 Personal history of pulmonary embolism
CPT/HCPCS: 36415; 80048; 85007; 85025; 85027; 85610; 87507

== ENCOUNTER → 2017-01-17 | Outpatient (CLI) | payer MEDICARE, BC ==
[2017-01-17 10:58] LABS: INR 2.8 (0.90-1.23); PROTHROMBIN TIME 31.8 SEC (10.8-13.8)
[2017-01-17 11:08] LABS: ANION GAP 11 MEQ/L (5-15); BUN/CREATININE RATIO 34 RATIO (6-26); CALCIUM 9.8 MG/DL (8.4-10.2); CHLORIDE 109 MEQ/L (98-107); CO2 - CARBON DIOXIDE 23 MEQ/L (22-30); CREATININE 0.7 MG/DL (0.7-1.2); GLOMERULAR FILTRATION RATE 81; GLUCOSE 169 MG/DL (65-110); SODIUM 143 MEQ/L (134-144)
== END ==
LOC: LAB 10:22
PROVIDERS: ATTEND Family Medicine
DX: Z86.711 Personal history of pulmonary embolism (principal); R60.9 Edema, unspecified
CPT/HCPCS: 36416; 80048; 85610

== ENCOUNTER 2017-01-23 19:55 | Emergency (ER) | payer MEDICARE, BC ==
[~2017-01-23] VITALS: Ht 154.9 cm; Wt 95.4 kg
[2017-01-23 19:58] VITALS: Ht 154.9 cm; Wt 95.4 kg
--- OUTSIDE RECORDS SUMMARY | 2017-01-23 20:10 | XMS REPORT | Continuity of Care Document ---
Author Author [facility] Organization [facility] Address Unknown Phone Unavailable Support Name Relationship Address Phone CARMENCITA SCALES MD Caregiver [address] [place] [address] [place], [place] [phone] CHRISSIE MARRUFO Next Of Kin [address] [place] [address] Insurance Providers Payer Name Policy Number Subscriber Name Relationship Medicare [id number] Kayla Robertson 16 Self [employer] [place] [id number] Kayla Robertson 16 Self Problems Medical Problems [...] F (96.8 - 99.1) Temperature (Calculated Celsius) 36.38621 degrees C (36.0 - 37.3) Pulse Rate [...] 21, 2014 9:30pm 9.6 % H 0-9.0 AV-Wac-N-Type Natriuretic Peptide September 21, 2014 9:30pm 718 [...] 2014 2:45pm 124.3 MG/DL - Urine Specific [place] August 17, 2014 12:05am <=1.005 L - [...] Streptococcus Anginosus Name: KAYLA ROBERTSON Unit #: [id number] : 1940 Sex: F Loc / Svc: ED DOS: 09/21/14 Signed Report #: [id number] DIAGNOSTIC IMAGING REPORT TYPE OF EXAM: CHEST [...] completed 08/27/14 EMERGENCY DEPT VISIT completed 08/27/14 [id number] ITEM OR SERVICE completed 08/27/14 [id number] ITEM OR SERVICE completed 08/27/14 ROUTINE VENIPUNCTURE [...] 09/21/14 Encounters Encounter Location Date/Time Discharged Recurring [facility] 09/28/14 9:39am Departed Emergency Room [facility] 09/21/14 9:22pm Registered Clinic [facility] 09/16/14 9:30am Departed Emergency Room [facility] 08/27/14 7:36pm Discharged Inpatient [facility] 08/16/14 10:43pm Departed Emergency Room [facility] 07/29/14 8:12pm
--- OUTSIDE RECORDS SUMMARY | 2017-01-23 20:12 | XMS REPORT | Continuity of Care Document ---
Author Author [facility] Organization [facility] Address Unknown Phone Unavailable Support Name Relationship Address Phone RENE RANGEL MD Caregiver [address] [place] [address] Unavailable CARMENCITA SCALES MD Caregiver [address] [facility] [place] [address] Unavailable RAHUL ROBERTSON Next Of Kin [address] [place] [address] C Insurance Providers Guarantor Kayla Robertson Address [address] [place] [id number] Email [email or web address] Payer Medicare Policy Number [id number] Subscriber's Name Kayla Robertson Relationship 18 Self Effective Date 03 Payer [facility] Policy Number [id number] Subscriber's Name Kayla Robertson Relationship 18 Self Group Number [id number] Effective Date 91 Advance Directives Directive Response Recorded Date/Time Advanced Directives Type None 12/17/16 12:30pm Chief Complaint and Reason for Visit Chief Complaint Laceration Reason for Visit [id number] Problems Active Problems Medical Problem Onset Date [...] Unknown Acute Pulmonary emboli Unknown Acute R/O [place] Unknown Acute RLS (restless legs syndrome) Unknown [...] Dyspnea 08/16/2014 History of pulmonary embolism Unknown Leg laceration Unknown Mixed headache Unknown Palpitations Unknown Postoperative [...] Mcg Tablet 1,000 Mcg Oral Daily 03/30/16 Escitalopram Oxalate 5 Mg Tablet 5 Mg Oral Daily 09/01/15 Furosemide 20 Mg Tablet 20 Mg Oral Daily 12/17/16 Lactobacillus Combination No.4 (Probiotic) 1 Each Capsule 1 Cap Oral Daily 08/17/16 Lidocaine 1 Each Adh..patch 1 Patch Transderm Daily 12/17/16 Losartan Potassium 25 Mg Tablet 25 Mg [...] Discontinued Ergocalciferol (Vitamin D) 50,000 Unit Capsule, [id number] Unit Oral Once A Week 05/26/10 Discontinued [...] Problem Response Recorded Date/Time Onset Date Status Chewing Tobacco Status No 03/11/2014 2:30pm Not Applicable Not Applicable Hx Substance Use No 12/17/2016 12:54pm Not Applicable Not Applicable Hx Alcohol Use No 12/17/2016 12:54pm Not Applicable Not Applicable Has the pt used tobacco in the last 12 months No 10/29/2016 4:34pm Not Applicable Not Applicable Tobacco Usage none 09/09/2015 10:15am Not Applicable Not Applicable Query Response Start Date Stop Date Smoking Status Never smoker Hospital Discharge Instructions No hospital discharge instructions. Plan of Care Discharge Date 12/17/16 1:25pm Disposition 01 DISCHARGED HOME, SELF-CARE Condition at Discharge Stable Instructions/Education Provided Laceration (ED) Prescriptions See Medication Section Referrals CARMENCITA SCALES MD Address: [address] [place] [address] [place] [phone] Additional Instructions/Education Wash the area daily with soap and water. I do want you to follow up with your primary care provider in 7-10 days for suture removal. May keep covered with a thin layer of antibiotic ointment and a band aid. Care Plan and Goals Physician Care Plan Problem:Leg Laceration Goal: Follow up with primary care provider Instructions: Take medications and follow care plan as discussed/written Functional Status No functional status results. Allergies, Adverse Reactions, Alerts Allergen Type Severity Reaction Status Last Updated Procaine HCl Allergy Unknown NERVOUS AND HEART RACE Active 12/17/16 hydrocodone bit Allergy Mild FINE RASH AND HEADACHE Active 12/17/16 propoxyphene HCl Allergy Unknown SHAKY, AND LOPEZ Active 12/17/16 albuterol sulfate Allergy Intermediate NERVOUSNESS, PALPITATIONS Active ciprofloxacin HCl Allergy Mild ITCH,HEADACHE; HEART FLUTTER Active Lisinopril Adverse Reaction Unknown DRY COUGH Active 12/17/16 Lidocaine Allergy Unknown PER H&P Active 12/17/16 Codeine Allergy Mild RASH,HEADACHE Active 12/17/16 Epinephrine Allergy Unknown PER H&P Active 12/17/16 Hydrochlorothiazide Adverse Reaction Unknown NAUSEA, DIZZY Active 12/17/16 Cephalexin Adverse Reaction Intermediate C-DIFF Active 12/17/16 Doxycycline Adverse Reaction Unknown NAUSEA, DIZZY Active 12/17/16 Ciprofloxacin Allergy Mild ITCH,HEADACHE, HEART FLUTTER Active 12/17/16 Tuberculin,Old Skin Test Allergy Unknown SWELLING OF ARM AT INJECTION SITE Active 12/17/16 Rofecoxib Allergy Severe JOINT SWELL,RACHEL Active 12/17/16 Immunizations Query Response on File Recorded Date/Time Hx Influenza Vaccination Y 10/29/16 4:34pm Hx Pneumococcal Vaccination Y doesnt remember, less than 10yrs 10/29/16 4: 34pm Hx Influenza Vaccination Y 10/29/16 4:34pm Influenza Vaccine Hx AUGUST 2016 12/17/16 12:56pm Tetanus Diptheria Vaccine History 09/01/15 12/17/16 12:54pm Tdap Vaccine Hx 201412/17/16 12:56pm Vital Signs Acute Vital Signs Vital Response Date/Time Temperature (Fahrenheit) 98.2 deg F (96.8 - 99.1) 12/17/2016 12:30pm Temperature (Calculated Celsius) 36.08239 degrees C (36.0 - 37.3) 12/17/2016 12:30pm Temperature Source Temporal 11/03/2016 9:09am Pulse Rate (adult) 78 bpm (60 - 100) 12/17/2016 12:30pm Respiratory Rate 16 breaths/min (10 - 20) 12/17/2016 12:30pm O2 Sat by Pulse Oximetry 98 % (90 - 100) 12/17/2016 12:30pm Oxygen Delivery Method Room Air 11/03/2016 5:56pm Blood Pressure 177/78 mm Hg 12/17/2016 12:30pm Blood Pressure Source Automatic Cuff 11/04/2016 5:51pm Height (Feet) 5 feet 12/17/2016 12:30pm Height (Inches) 1.00 inches 12/17/2016 12:30pm Weight (Kilograms) 93.000 kg 12/17/2016 12:30pm Body Mass Index (BMI) 38.0 12/17/2016 12:30pm Results Laboratory Results Test Name Result Units Flags Reference Collection Date/Time Result Date/ Time Comments Magnesium Level 1.4 MG/DL L 1.6-2.3 04/07/2016 9:14am 04/07/2016 9:28am Glucometer 155 mg/dL H 65-110 11/03/2016 6:27am [...] 270 MOSM/KG 261-280 09/22/2016 11:30am 2015 11:45am Total Bilirubin 0.80 MG/DL 0.20-1.30 09/22/2016 11:30am 09/22/2016 11: 45am Total Protein 6.8 G/DL 6.3-8.2 09/22/2016 11:30am 09/22/2016 11:45am Albumin 3.8 G/DL 3.5-5.0 09/22/2016 11:30am 09/22/2016 11:45am Globulin 3.0 G/DL 2.4-3.6 09/22/2016 11:30am 09/22/2016 11:45am Albumin/Globulin Ratio 1.3 RATIO 1.1-2.2 09/22/2016 11:30am 09/22/2016 11:45am Aspartate Amino Transf (AST/SGOT) 16 U/L 14-36 09/22/2016 11:30am 09/22 11:45am Alanine Aminotransferase (ALT/SGPT) 27 U/L 9-52 09/22/2016 11:30am 11:45am BP-Nml-G-Type Natriuretic Peptide 1440 PG/ML H 0-175 09/22/2016 [...] CLEAR 09/22/2016 11:33am 09/22/2016 11:37am Urine Specific [place] 1.015 1.015-1.025 09/22/2016 11:33am 2015 11:37am Urine [...] 10/06/2016 11: 00am Prothromb Time International Ratio 2.20 H 0.90-1.23 12/12/2016 9:44am 12/12/2016 9:49am THERAPUTIC RANGE=2.00-3.00 FOR ANTI-THROMBOSIS THERAPUTIC RANGE=2.50-3.50 FOR IMPLANTED VALVE White Blood Count 7.3 T/MM3 4.5-11.0 11/01/2016 10:13am 11/01/2016 10: 18am Red Blood Count 4.40 M/MM3 4.00-5.20 11/01/2016 10:11/01/2016 10: 18am Hemoglobin 12.6 GM/DL 12-16 11/01/2016 10:11/01/2016 10:18am Hematocrit 39.7 % 36-46 11/01/2016 10:11/01/2016 10:18am Mean Corpuscular Volume 90.2 UM3 80-100 11/01/2016 10:11/01/2016 10:18am Mean Corpuscular Hemoglobin 28.6 UUG 26-34 11/01/2016 10:2016 10:18am Mean Corpuscular Hemoglobin Concent 31.7 GM/DL [...] Absolute Neutrophils (auto) 4.2 T/MM3 1.8-7.7 11/01/2016 10:2016 10:18am Absolute Lymphocytes (auto) 2.3 T/MM3 1-4.8 11/01/2016 10:13am 2016 10:18am Absolute Monocytes (auto) 0.6 T/MM3 0-0.8 11/01/2016 10:13am 2016 10:18am Absolute Eosinophils (auto) 0.1 T/MM3 0-0.5 11/01/2016 10:13am 2016 10:18am Absolute Basophils (auto) 0.0 T/MM3 0-0.2 11/01/2016 10:13am 2016 10:18am Absolute Immature Granulocyte (auto 0.02 T/MM3 0.00-0.03 11/01/2016 10: 13am 11/01/2016 10:18am Calcium Level 9.1 MG/DL 8.4-10.2 12/05/2016 1:00pm 12/05/2016 1:34pm Alkaline Phosphatase 90 U/L 38-126 12/05/2016 1:00pm 12/05/2016 1:34pm 25-Hydroxy Vitamin D3 <10 ng/mL 12/05/2016 1:00pm 12/07/2016 8:24am 25-Hydroxy Vitamin D2 <7 ng/mL 12/05/2016 1:00pm 12/07/2016 8:24am 25-Hydroxy Vitamin D Total <17 ng/mL L 30-74 12/05/2016 1:00pm 2016 8:24am The desirable level of 25-Hydroxy Vitamin D Total(D2 + D3) is 30- 74 ng/mL. A level consistently >200 is potentially toxic. Vitamin D, 25-Hydroxy performed at [facility] Reference [facility], [address] [place] [address] Skin Toggler Alhaji Ferreira, Procedures Procedure Status Date Provider(s) Routine venipuncture [...] draw Completed 04/07/16 Prothrombin time Completed 04/07/16 Ther/proph/diag inj sc/im Completed 08/19/16 [id number]"INJECTION, ENOXAPARIN SODIUM, 10 MG" Completed 08/19/16 Ther/proph/diag inj sc/im Completed 08/19/16 [id number]"INJECTION, ENOXAPARIN SODIUM, 10 MG" Completed 08/19/16 Colonoscopy w/lesion removal Completed 11/03/16 MAXWELL YING MD, FACS, CWS Reagent strip/blood glucose Completed 11/03/16 Prothrombin time Completed 11/03/16 Tissue exam by pathologist Completed 11/03/16 [id number]"RINGERS LACTATE INFUSION, UP TO 1000 CC" Completed 11/03/16 Ther/proph/diag inj sc/im Completed 10/01/16 [id number]"INJECTION, ENOXAPARIN SODIUM, 10 MG" Completed 10/01/16 Ther/proph/diag inj sc/im Completed 10/01/16 [id number]"INJECTION, ENOXAPARIN SODIUM, 10 MG" Completed 10/01/16 Ther/proph/diag inj sc/im Completed 10/01/16 [id number]"INJECTION, ENOXAPARIN SODIUM, 10 MG" Completed 10/01/16 Routine venipuncture Completed 09/19/16 Complete cbc w/auto diff wbc Completed 09/19/16 Routine venipuncture Completed 09/22/16 Comprehen metabolic panel Completed 09/22/16 Urinalysis auto w/o scope Completed 09/22/16 Assay of natriuretic peptide Completed 09/22/16 Complete cbc w/auto diff wbc Completed 09/22/16 Njx interlaminar lmbr/sac Completed 11/02/16 [id number]"INJECTION, METHYLPREDNISOLONE ACETATE, 40 MG" Completed 11/02/16"LOW OSMOLAR CONTRAST MATERIAL, 100-199 MG/ML IODINE C Completed Drain/inj joint/bursa w/o us Completed 11/20/16 LUCERO DANIELLE MD Needle localization by xray Completed 11/20/16"INJECTION, METHYLPREDNISOLONE ACETATE, 80 MG" Completed 11/20/16"LOW OSMOLAR CONTRAST MATERIAL, 300-399 MG/ML IODINE C Completed "LOW OSMOLAR CONTRAST MATERIAL, 300-399 MG/ML IODINE C Completed Routine venipuncture Completed 12/05/16 Dxa bone density axial Completed 12/05/16 Vitamin d 25 hydroxy Completed 12/05/16 Assay of calcium Completed 12/05/16 Assay alkaline phosphatase Completed 12/05/16 Encounters Encounter Location Arrival/Admit Date Discharge/Depart Date Attending Provider Departed Emergency Room [facility] 12/17/16 12:27pm 12/17/16 1: 25pm RENE RANGEL MD Registered [facility] 12/12/16 9:20am CARMENCITA SCALES MD Registered [facility] 12/05/16 12:09pm RENE BEARD MD Registered [facility] 11/20/16 7:11am LUCERO DANIELLE MD Discharged [facility] 11/04/16 10:00am 11/04/16 6:04pm CARMENCITA SCALES MD Departed [facility] Day Care [facility] 11/03/16 6:15am 11/03/16 10 :06am MAXWELL YING FACS, MD Registered [facility] 11/02/16 9:48am ERNESTO MCLEAN Discharged [facility] 10/01/16 3:58pm 10/03/16 4:35pm CARMENCITA SCALES MD Registered [facility] 09/22/16 11:07am CARMENCITA SCALES MD Registered [facility] 09/19/16 4:31pm MAXWELL MERCER APRN Discharged [facility] 08/19/16 9:21am 09/30/16 11:06pm ERNESTO MCLEAN Discharged [facility] 04/07/16 8:51am 09/30/16 11:31pm CARMENCITA SCALES MD Recent Diagnosis
--- OUTSIDE RECORDS SUMMARY | 2017-01-23 20:13 | XMS REPORT | Continuity of Care Document ---
Author Author [facility] Organization [facility] Address Unknown Phone Unavailable Support Name Relationship Address Phone BENJIE LEYVA DO Caregiver [facility] [address] [place], [place] [id number] CARMENCITA SCALES MD Caregiver [address] [place] [address] [place] [address] [phone] CHRISSIE MARRUFO Next Of Kin [address] [place] [address] Insurance Providers Payer Name Policy Number Subscriber Name Relationship Medicare [id number] Kayla Robertson 18 Self Blue Cross [facility] [id number] Kayla Robertson 16 Self Problems Medical Problems Problem Onset Date Status Malaise and fatigue Unknown Active R/O [place] Unknown Active Chest pain rule out [place] Unknown Active Dizziness Unknown Active Malaise and [...] Has specimen been collected/obtained? Y Urine Specific [place] March 11, 2014 5:30pm <=1.005 L - [...] 01, 2011 10:07pm LAB TEST FORM REQUEST [id number] - EKG February 06, 2008 12:44pm Complete [...] March 11, 2014 4:00pm < 2 0-7 LJ-Kqj-R-Type Natriuretic Peptide March 11, 2014 4:00pm 266 [...] Encounters Encounter Location Date/Time Departed Emergency Room [facility] 07/29/14 8:12pm Departed Emergency Room [facility] 06/29/14 4:02pm Departed Emergency Room [facility] 06/22/14 8:30pm Recent Diagnosis
--- OUTSIDE RECORDS SUMMARY | 2017-01-23 20:13 | XMS REPORT | Continuity of Care Document ---
Author Author [facility] Organization [facility] Address Unknown Phone Unavailable Support Name Relationship Address Phone BARBIE HARE MD Caregiver [facility] [address] [place] [address] Unavailable CARMENCITA SCALES MD Caregiver [address] [place] [address] [phone] CHRISSIE MARRUFO Next Of Kin [address] [place] [address] Insurance Providers Payer Name Policy Number Subscriber Name Relationship Medicare [id number] Kayla Robertson 18 Self Blue Cross [facility] [id number] Kayla Robertson 18 Self Problems Medical Problems Problem Onset Date Status Malaise and fatigue Unknown Active R/O [place] Unknown Active Chest pain rule out [place] Unknown Active Dizziness Unknown Active Malaise and [...] Mg PO BEDTIME PRN 04/10/12 Active Ipratropium [place] 2 [place] EA NOSTRIL DAILY 07/09/13 Active Chlorthalidone 25 [...] Has specimen been collected/obtained? Y Urine Specific [place] March 11, 2014 5:30pm <=1.005 L - [...] 01, 2011 10:07pm LAB TEST FORM REQUEST [id number] - EKG February 06, 2008 12:44pm Complete [...] March 11, 2014 4:00pm < 2 0-7 TY-Sfw-L-Type Natriuretic Peptide March 11, 2014 4:00pm 266 [...] Encounters Encounter Location Date/Time Departed Emergency Room [facility] 06/22/14 8:30pm Recent Diagnosis
--- OUTSIDE RECORDS SUMMARY | 2017-01-23 20:14 | XMS REPORT | Continuity of Care Document ---
Author Author [facility] Organization LIVE Address Unknown Phone Unavailable Support Name Relationship Address Phone ARCHIE BLOOD MD Caregiver [address] [place] [address] CARMENCITA SCALES MD Caregiver [address] [place] [address] [place] [address] [phone] YARONVIRGILA Next Of Kin [address] [place], [place] [phone] Insurance Providers Payer Name Policy Number Subscriber Name Relationship Medicare [id number] Kayla Robertson 16 Self Blue [facility] [id number] Kayla Robertson 16 Self Problems Medical Problems [...] F (96.8 - 99.1) Temperature (Calculated Celsius) 36.70769 degrees C (36.0 - 37.3) Pulse Rate [...] Has specimen been collected/obtained? Y Urine Specific [place] March 11, 2014 5:30pm <=1.005 L - [...] 01, 2011 10:07pm LAB TEST FORM REQUEST [id number] - EKG February 06, 2008 12:44pm Complete [...] March 11, 2014 4:00pm < 2 0-7 QI-Wxa-N-Type Natriuretic Peptide March 11, 2014 4:00pm 266 [...] Encounters Encounter Location Date/Time Departed Emergency Room [facility] 06/29/14 4:02pm Departed Emergency Room [facility] 06/22/14 8:30pm Recent Diagnosis
[2017-01-23] MEDS ORDERED: ASPIRIN 81 MG CHEWABLE TABLET PO ONE (20:15)
--- OUTSIDE RECORDS SUMMARY | 2017-01-23 20:15 | XMS REPORT | Continuity of Care Document ---
Author Author [facility] Organization [facility] Address Unknown Phone Unavailable Support Name Relationship Address Phone MAXWELL YING FACS, MD Caregiver [address] [place] [address] [place] [phone] CARMENCITA SCALES MD Caregiver [address] [place] [address] [place] [phone] CHRISSIE MARRUFO Next Of Kin [address] [place], [place] [phone] Insurance Providers Payer Name Policy Number Subscriber Name Relationship Medicare [id number] Kayla Robertson 16 Self [facility] [id number] Kayla Robertson 16 Self Advance Directives Directive Response Recorded Date/Time Ordered Resuscitation Status Full Code 07/22/14 12:13pm Resuscitation Documents on File Yes 07/22/14 11:52am Problems Medical Problems Problem Onset Date Status Malaise and fatigue Unknown Active R/O [place] Unknown Active Chest pain rule out [place] Unknown Active Dizziness Unknown Active Malaise and [...] F (96.8 - 99.1) Temperature (Calculated Celsius) 36.01870 degrees C (36.0 - 37.3) Temperature Source [...] 01, 2011 10:07pm LAB TEST FORM REQUEST [id number] - Lipase April 10, 2012 3:16pm 18 [...] 11, 2014 4:00pm 9.9 % H 0-9.0 FZ-Seg-E-Type Natriuretic Peptide March 11, 2014 4:00pm 266 [...] Has specimen been collected/obtained? Y Urine Specific [place] March 11, 2014 5:30pm <=1.005 L - [...] Encounters Encounter Location Date/Time Departed Emergency Room [facility] 06/29/14 4:02pm Departed Emergency Room [facility] 06/22/14 8:30pm
--- OUTSIDE RECORDS SUMMARY | 2017-01-23 20:16 | XMS REPORT | Continuity of Care Document ---
Author Author [facility] Organization [facility] Address Unknown Phone Unavailable Support Name Relationship Address Phone BARBIE HARE MD Caregiver [facility] [address] [place] [address] Unavailable CARMENCITA SCALES MD Caregiver [address] [place] [phone] CHRISSIE MARRUFO Next Of Kin [address] [place] [address] Insurance Providers Payer Name Policy Number Subscriber Name Relationship Medicare [id number] Kayla Robertson 16 Self [facility] [id number] Kayla Robertson 16 Self Chief Complaint and Reason for Visit Chief Complaint Chest Pain Reason for Visit [id number] Problems Medical Problems Problem Onset Date Status Malaise and fatigue Unknown Active R/O [place] Unknown Active Chest pain rule out [place] Unknown Active Dizziness Unknown Active Malaise and [...] at time of discharge: Good Good at [phone]. 2. Problems such as: Temp above 101.5 degrees You develop redness, excessive swelling of the incision, increasing pain or excessive foul smelling drainage. 3. If the office is closed, call [facility] at [phone] and have your Surgeon paged. Condition at [...] Discharge Date 08/20/14 5:07pm Disposition 02 TO [facility] Condition at Discharge Improved Instructions/Education Provided [facility] Discharge Instructions Vitamin K DI for [...] F (96.8 - 99.1) Temperature (Calculated Celsius) 36.87082 degrees C (36.0 - 37.3) Pulse Rate [...] 2014 2:45pm 124.3 MG/DL - Urine Specific [place] August 17, 2014 12:05am <=1.005 L - [...] 21, 2014 9:08pm LAB TEST FORM REQUEST [id number] - EKG February 06, 2008 12:44pm Complete [...] September 21, 2014 9:30pm < 2 0-7 BN-Vhn-Q-Type Natriuretic Peptide September 21, 2014 9:30pm 718 [...] 2014 9:30am Name: KAYLA ROBERTSON Unit #: [id number] : 1940 Sex: F Loc / Svc: ED DOS: 08/27/14 Signed Report #: [id number] DIAGNOSTIC IMAGING REPORT TYPE OF EXAM: CHEST [...] completed 08/27/14 EMERGENCY DEPT VISIT completed 08/27/14 [id number] ITEM OR SERVICE completed 08/27/14 [id number] ITEM OR SERVICE completed 08/27/14 Encounters Encounter Location Date/Time Departed Emergency Room [facility] 09/21/14 9:22pm Registered [facility] 09/21/14 8:56am Registered Clinic [facility] 09/16/14 9:30am Departed Emergency Room [facility] 08/27/14 7:36pm Discharged Inpatient [facility] 08/16/14 10:43pm Departed Emergency Room [facility] 07/29/14 8:12pm Departed Emergency Room [facility] 06/29/14 4:02pm Recent Diagnosis
--- OUTSIDE RECORDS SUMMARY | 2017-01-23 20:18 | XMS REPORT | Continuity of Care Document ---
Author Author [facility] Organization [facility] Address Unknown Phone Unavailable Support Name Relationship Address Phone AUTUMNBENJIE MENDIETA Caregiver [facility] [address] [place] [phone] CARMENCITA SOLIZ MD Caregiver [address] [place] [address] [place] [address] [phone] CHRISSIE MARRUFO Next Of Kin [address] [place] [address] Insurance Providers Payer Name Policy Number Subscriber Name Relationship Medicare [id number] Kayla Robertson 16 Self [facility] [id number] Kayla Robertson 18 Self Advance Directives Directive Response Recorded Date/Time Advanced Directives Type None 08/27/14 7:39pm Chief Complaint and Reason for Visit Chief Complaint Chest Pain Reason for Visit [id number] Problems Medical Problems Problem Onset Date Status [...] Discharge Date 08/20/14 5:07pm Disposition 02 [place] [facility] Condition at Discharge Improved Instructions/Education Provided [facility] Discharge Instructions Vitamin K DI for [...] F (96.8 - 99.1) Temperature (Calculated Celsius) 36.72203 degrees C (36.0 - 37.3) Pulse Rate [...] Has specimen been collected/obtained? Y Urine Specific [place] August 17, 2014 12:05am <=1.005 L [...] 26, 2014 10:29am LAB TEST FORM REQUEST [id number] - EKG February 06, 2008 12:44pm Complete [...] August 27, 2014 7:56pm < 2 0-7 ZN-Oqc-G-Type Natriuretic Peptide August 27, 2014 7:56pm 634 [...] 2014 9:30am Name: KAYLA ROBERTSON Unit #: [id number] : 1940 Sex: F DISCHARGE SUMMARY Admit Date: 08/16/14 Report #: [id number] General Date Date DATE: 08/20/14 TIME: 16:23 [...] BID #30 07/22/14 Losartan Potassium 100 Mg [id number] Mg PO DAILY #30 07/22/14 Chlorthalidone 25 Mg Aglwcp46 Mg PO PRN #30 07/22/14 Atorvastatin Calcium 40 Mg Mwwtvc41 Mg PO HS #30 07/22/14 Pramipexole Di-Hcl (Mirapex)0.5 Mg Tablet0.5 Mg PO HS 08/23/11 Discharge Disposition stable Copies To 1: CARMENCITA SOLIZ MD, CARRIE DO Aug 20, 2014 16:24 Procedures Procedure Status Date Provider(s) EGD BIOPSY SINGLE/MULTIPLE completed 07/23/14 MAXWELL YING MD, FACS, CWS Encounters Encounter Location Date/Time Departed Emergency Room [facility] 08/27/14 7:36pm Registered Recurring [facility] 08/26/14 8:39am Discharged Inpatient [facility] 08/16/14 10:43pm Departed Emergency Room [facility] 07/29/14 8:12pm Departed Emergency Room [facility] 06/29/14 4:02pm Departed Emergency Room [facility] 06/22/14 8:30pm Recent Diagnosis
--- OUTSIDE RECORDS SUMMARY | 2017-01-23 20:18 | XMS REPORT | Continuity of Care Document ---
Author Author [facility] Organization [facility] Address Unknown Phone Unavailable Support Name Relationship Address Phone OMID OLIVARES MD Caregiver [address] [place] [address] [place] [phone] CONNOR CONCEPCION MD Caregiver [address] [place] [address] [place] [phone] CARMENCITA SOLIZ MD Caregiver [address] [place] [address] [place] [phone] CHRISSIE MARRUFO Next Of Kin [address] [place] [phone] Insurance Providers Payer Name Policy Number Subscriber Name Relationship Medicare [id number] Kayla Robertson 18 Self [facility] [id number] Kayla Robertson 18 Self Advance Directives Directive Response Recorded Date/Time Advanced Directives Type DNR Documentation Living Will DPOA for Healthcare 10:43pm Ordered Resuscitation Status Full Code 08/16/14 10:43pm Resuscitation Documents on File Yes 08/16/14 11:16pm Chief Complaint and Reason for Visit Chief Complaint BILATERAL PULMONARY EMBOLI Reason for Visit Chest pain rule out SC Shortness of breath CHEST PAIN NOS Dyspnea Pulmonary emboli Diabetes Hypertension Dyslipidemia GERD (gastroesophageal reflux disease) RLS (restless legs syndrome) Osteoarthritis Anxiety and depression History of gastritis Hypomagnesemia Obesity (BMI 35.0-39.9 without comorbidity) Pleuritic chest pain Problems Medical Problems Problem Onset Date Status Malaise and fatigue Unknown Active R/O SC Unknown Active Chest pain rule out SC Unknown Active Dizziness Unknown Active Malaise and [...] your medications, please contact our office at [phone]. Condition at time of discharge: Fair Plan [...] F (96.8 - 99.1) Temperature (Calculated Celsius) 36.29711 degrees C (36.0 - 37.3) Temperature Source [...] 01, 2011 10:07pm LAB TEST FORM REQUEST [id number] - Lipase April 10, 2012 3:16pm 18 [...] 20, 2014 6:38am 9.2 % H 0-9.0 PT-Bdq-K-Type Natriuretic Peptide August 16, 2014 9:18pm 305 [...] Has specimen been collected/obtained? Y Urine Specific [place] August 17, 2014 12:05am <=1.005 L - [...] Streptococcus Anginosus Name: KAYLA ROBERTSON Unit #: [id number] : 1940 Sex: F DISCHARGE SUMMARY Admit Date: 08/16/14 Report #: [id number] General Date Date DATE: 08/20/14 TIME: 16:23 [...] BID #30 07/22/14 Losartan Potassium 100 Mg [id number] Mg PO DAILY #30 07/22/14 Chlorthalidone 25 Mg Sxkddl38 Mg PO PRN #30 07/22/14 Atorvastatin Calcium 40 Mg Yfmzah09 Mg PO HS #30 07/22/14 Pramipexole Di-Hcl (Mirapex)0.5 Mg Tablet0.5 Mg PO HS 08/23/11 Discharge Disposition stable Copies To 1: CARMENCITA SOLIZ MD, CARRIE DO Aug 20, 2014 16:24 Procedures Procedure Status Date Provider(s) EGD BIOPSY SINGLE/MULTIPLE completed 07/23/14 MAXWELL YING MD, FACS, CWS Encounters Encounter Location Date/Time Discharged Inpatient [facility] 08/16/14 10:43pm Departed Emergency Room [facility] 07/29/14 8:12pm Departed Emergency Room [facility] 06/29/14 4:02pm Departed Emergency Room [facility] 06/22/14 8:30pm Recent Diagnosis Chest pain rule out SC Shortness of breath CHEST PAIN NOS Dyspnea Pulmonary emboli Diabetes Hypertension Dyslipidemia GERD (gastroesophageal reflux disease) RLS (restless legs syndrome) Osteoarthritis Anxiety and depression History of gastritis Hypomagnesemia Obesity (BMI 35.0-39.9 without comorbidity) Pleuritic chest pain
--- NOTE | 2017-01-23 20:20 | NUR ---
IV IV ATTEMPTS UNSUCCESSFUL X2 BY THIS RN, DISCUSSED WITH Aj BUCKLEY APRN AND IS OK FOR LAB DRAW AT THIS TIME, WITH POSSIBLE IV INSERTION IF NEEDED. PATIENT AGREES TO THIS PLAN.
--- OUTSIDE RECORDS SUMMARY | 2017-01-23 20:20 | XMS REPORT | Continuity of Care Document ---
Author Author [facility] Organization [facility] Address Unknown Phone Unavailable Allergies Medications Problems Procedures Results Encounters ACCT No. Visit Date/Time Discharge Status Pt. Type Provider Facility Loc./Unit Complaint [id number] 11/06/2013 09:54:00 11/06/2013 23 :59:59 CLS Outpatient [id number] 10/20/2013 14:46:00 10/20/2013 23 :59:59 CLS Outpatient [id number] 10/06/2013 11:06:00 10/06/2013 23 :59:59 CLS Outpatient [id number] 09/03/2013 10:26:00 09/03/2013 23 :59:59 CLS Outpatient
--- OUTSIDE RECORDS SUMMARY | 2017-01-23 20:20 | XMS REPORT | Continuity of Care Document ---
Author Author [facility] Organization [facility] Address Unknown Phone Unavailable Support Name Relationship Address Phone BENJIE LEYVA Caregiver [address] [place] [phone] CAMDEN HERNANDEZ MD Caregiver [address] [place] [address] DR [place], [facility] [address] CARMENCITA SOLIZ MD Caregiver [address] [place] [address] [place] [address] [phone] CHRISSIE MARRUFO Next Of Kin [address] [place] [phone] Insurance Providers Payer Name Policy Number Subscriber Name Relationship Medicare [id number] Kayla Robertson 16 Self [facility] [id number] Kayla Robertson 18 Self Advance Directives Directive [...] Status Malaise and fatigue Unknown Active R/O [place] Unknown Active Chest pain rule out [place] Unknown Active Dizziness Unknown Active Malaise and [...] F (96.8 - 99.1) Temperature (Calculated Celsius) 36.08320 degrees C (36.0 - 37.3) Temperature Source [...] 19, 2014 8:32pm LAB TEST FORM REQUEST [id number] - Lipase April 10, 2012 3:16pm 18 [...] 21, 2014 4:14am 8.8 % N 0-9.0 PC-Ehr-L-Type Natriuretic Peptide October 20, 2014 9:59pm 481 [...] 2014 2:45pm 124.3 MG/DL - Urine Specific [place] August 17, 2014 12:05am <=1.005 L - [...] Streptococcus Anginosus Name: KAYLA ROBERTSON Unit #: [id number] : 1940 Sex: F Loc / Svc: SRG DOS: 10/20/14 Signed Report #: [id number] DIAGNOSTIC IMAGING REPORT TYPE OF EXAM: CHEST [...] completed 08/27/14 EMERGENCY DEPT VISIT completed 08/27/14 [id number] ITEM OR SERVICE completed 08/27/14 [id number] ITEM OR SERVICE completed 08/27/14 ROUTINE VENIPUNCTURE [...] 09/21/14 Encounters Encounter Location Date/Time Discharged Inpatient [facility] 10/20/14 11:40pm Registered [facility] 10/19/14 3:34pm Departed Emergency Room [facility] 09/21/14 9:22pm Registered Clinic [facility] 09/16/14 9:30am Departed Emergency Room [facility] 08/27/14 7:36pm Discharged Recurring [facility] 08/26/14 8:39am Discharged Inpatient [facility] 08/16/14 10:43pm Departed Emergency Room [facility] 07/29/14 8:12pm Recent Diagnosis Anxiety and depression Swelling of left knee joint Anticoagulated on Coumadin Swelling of left lower extremity
--- NOTE | 2017-01-23 20:21 | ERPDOC ---
Departure Disposition Decision Date: Jan 23, 2017 Disposition Decision Time: 21:08 (JEET BUCKLEY APRN) Disposition: 01 DISCHARGED HOME, SELF-CARE Impression Impression (JEET BUCKLEY APRN) Impression: Primary Impression: CHEST PAIN NOS Severity: Moderate (JEET BUCKLEY APRN) Condition: Stable Seen By: Mid-level only (JEET BUCKLEY APRN) Referrals: CARMENCITA SCALES MD (Family) Patient Instructions: Chest Pain (ED) Problems/Meds/Labs Reviewed?: Yes Medications reviewed and manag: Yes (JEET BUCKLEY APRN) Additional Instructions: Your labs today are all in normal range. Your INR is 2.54. I do want you to follow up with your primary care provider for reevaluation this week however. Return to Er with any worsening chest pain, dyspnea, or any new issues/concerns. Follow up care ordered?: Yes Mental Status: Alert (JEET BUCKLEY APRN) HPI - Chest Pain General Chief Complaint: Chest Pain Stated Complaint: CHEST PAIN,BACK PAIN Time Seen by Provider: 20:07 Source: patient Exam Limitations: no limitations (JEET BUCKLEY APRN) Time Seen by Provider: 20:07 (SARIAH ADDISON DO) HPI - Chest Pain Initial Comments She has had some left sided chest pain off an on all day. This has been pretty mild in intensity and she denies any chest pain at this time. She states that this worried her as she is on Warfarin for a history of PE in the past. This was in 2013 but the pain that she is having is the exact same. She has had increased BLE swelling over the last several days as well that has made her legs achy. Occurred At: home Onset/Timing: Gradual Duration: 12-24 hrs Activities at Onset/Context: none Location: substernal, back Quality: sharp Associated Symptoms: back pain, DENIES: abdominal pain, diaphoresis, dizziness , edema, fast HR, fatigue, fever/chills, headache, heartburn, irregular HR, nausea/vomiting, rash, shortness of breath, slow HR, swelling/lump in chest, syncope, weakness Chest Pain Radiation: back Nitro Today/Relief: no nitro taken today Aspirin Treatment Today: unknown Hx of Similar Symptoms: No (NOLD,JEET N WELDER FITTER APPRENTICE) Allergies: Coded Allergies: rofecoxib (Verified Allergy, Severe, JOINT SWELL,RACHEL, 01/23/17) albuterol sulfate (Verified Allergy, Intermediate, NERVOUSNESS, PALPITATIONS, 01/23/17) ciprofloxacin (Verified Allergy, Mild, ITCH,HEADACHE, HEART FLUTTER, ) ciprofloxacin HCl (Verified Allergy, Mild, ITCH,HEADACHE; HEART FLUTTER, ) codeine (Verified Allergy, Mild, RASH,HEADACHE, 01/23/17) hydrocodone bit (Verified Allergy, Mild, FINE RASH AND HEADACHE, 01/23/17) Procaine HCl (Verified Allergy, Unknown, NERVOUS AND HEART RACE, 01/23/17) FROM DR SCALES H&P DATED 03-14-12 Tuberculin,Old Skin Test (Verified Allergy, Unknown, SWELLING OF ARM AT INJECTION SITE, 01/23/17) epinephrine (Verified Allergy, Unknown, PER H&P, 01/23/17) lidocaine (Verified Allergy, Unknown, PER H&P, 01/23/17) propoxyphene HCl (Verified Allergy, Unknown, SHAKY, AND LOPEZ, 01/23/17) cephalexin (Verified Adverse Reaction, Intermediate, C-DIFF, 01/23/17) C-Diff doxycycline (Verified Adverse Reaction, Unknown, NAUSEA, DIZZY, 01/23/17) hydrochlorothiazide (Verified Adverse Reaction, Unknown, NAUSEA, DIZZY, ) PER H&P lisinopril (Verified Adverse Reaction, Unknown, DRY COUGH, 01/23/17) Past History Patient Surgical History 1. Appendectomy 2. Cholecystectomy 3. Hysterectomy 4. Bilateral total knee arthroplasties 5. Tendon surgeries on both forearms, right hip, and right wrist 6. ORIF trimalleolar fracture with ORIF of periprosthetic femur fracture (NOLD,JEET N WELDER FITTER APPRENTICE) Past Medical History Metabolic: diabetes, hypercholesterolemia, hypertension ENMT: sinusitis Cardiac: A-fib Respiratory: pulmonary embolus GI: GERD, constipation, gallbladder disease, other, ulcers Female: kidney stones Neurological: CVA, migraines Musculoskeletal: osteoarthritis, other Hematologic: DVT Psychological: anxiety, depression (NOLD,JEET N WELDER FITTER APPRENTICE) Surgical History General: appendix, gallbladder Reproductive/: hysterectomy Joint: elbow, foot, knee (NOLD,JEET N WELDER FITTER APPRENTICE) Family History Family PMH: FOUND: CAD, hypertension (NOLD,JEET N WELDER FITTER APPRENTICE) Vaccines Hx Influenza Vaccination: Yes () Hx Pneumococcal Vaccination: Yes (doesnt remember, less than 10yrs) (NOLD,JEET N WELDER FITTER APPRENTICE) Social History Does patient use chewing tobac: No Second Hand Exposure: No Substance Use Type: does not use Alcohol Intake: none Housing: house Household Members: none (NOLD,JEET N WELDER FITTER APPRENTICE) Review of Systems Constitutional Constitutional: DENIES: chills, dizziness, fatigue, fever, weakness (NOLD, JEET N WELDER FITTER APPRENTICE) Cardiovascular Cardiac: chest pain, DENIES: dyspnea on exertion, orthopnea Rhythm/Rate: DENIES: irregular beat, palpitations Vascular: pedal edema (BLE), DENIES: unilateral swelling (NOLD,JEET N WELDER FITTER APPRENTICE) Pulmonary Respiratory: DENIES: cough, dyspnea, sputum (NOLD,JEET N WELDER FITTER APPRENTICE) GI Upper Abdomen: DENIES: nausea, pain, vomiting Lower Abdomen: DENIES: constipation, diarrhea, pain (NOLD,JEET N WELDER FITTER APPRENTICE) Integumentary Skin: DENIES: rash (NOLD,JEET N WELDER FITTER APPRENTICE) Neurological General: DENIES: headache, numbness, tingling, weakness (NOLD,JEET N WELDER FITTER APPRENTICE) Physical Exam General General Nourishment: well nourished, well developed, appears stated age, no acute distress, adult General Body Habitus: well groomed (NOLD,JEET N WELDER FITTER APPRENTICE) Vitals and Pain First Documented Vital Signs Date Time Temp Pulse Resp B/P Pulse Ox O2 Delivery O2 Flow Rate FiO2 01/23/17 19:58 98.1 76 22 206/92 98 Room Air (JANUARY,SARIAH M DO) Vitals and Pain Weight: Kilograms: Height (feet): 5 Height (inches): 1.00 Triage Pain Scale: (NOLD,JEET N WELDER FITTER APPRENTICE) RN VS reviewed by Provider: Yes (NOANTELMO,JEET N WELDER FITTER APPRENTICE) Normal Exams: Neck: Full range of motion, without adenopathy, JVD, bruits or thyromegaly Chest/Resp: Clear all lora, with good airflow, and symmetry bilaterally CV: Regular rate and rhythm, without murmur or gallop, Pulses 2+ all extremities, capillary refill, <2 seconds all ext., no pedal edema noted Abdomen: Bowel sounds positive, soft, non-tender, non-distended, no hepatosplenomegaly, masses or bruits noted Lymphatic: No lymphadenopathy, or lymphedema noted Integumentary: No rashes, hives, or bruising noted Neurologic: Patient is alert, and oriented Psychiatric: Patient exhibits, appropriate attention, emotion and affect (NOLD,JEET N WELDER FITTER APPRENTICE) Cardiovascular (brief) Cardiac: FOUND: pedal edema (2+ pitting bilaterally) (NOLD,JEET N WELDER FITTER APPRENTICE) Differential Diagnoses Considering: Acute ND, Anxiety/Panic, Angina, CHF, Costochondritis, Pulmonary Edema, Pulmonary Embolus (NOANTELMO,JEET N WELDER FITTER APPRENTICE) Progress Results/Orders Orders Procedure Category Date Status Time Cbc W/Auto LAB 01/23/17 Complete Diff-Reflex Manual 20:13 Bmp - Basic Metabolic LAB 01/23/17 Complete Panel 20:13 Probnp LAB 01/23/17 Complete 20:13 Troponin I W LAB 01/23/17 Complete Hemolysis Index 20:13 INR LAB 01/23/17 Complete 20:13 EKG EKG 01/23/17 Taken 20:13 Chest 1 View RAD 01/23/17 Taken 20:13 Iv Lock (Ed Only) EDM 01/23/17 Transmitted 20:13 Aspirin (Asa) PHA 01/23/17 Complete 20:15 D-Dimer LAB 01/23/17 Complete 20:13 ( DO) Lab Results Laboratory Tests Test 01/23/17 20:32 White Blood Count 8.6T/MM3 Red Blood Count 4.02M/MM3 Hemoglobin 11.6GM/DL Hematocrit 37.3% Mean Corpuscular Volume 92.8UM3 Mean Corpuscular Hemoglobin 28.9UUG Mean Corpuscular Hemoglobin Concent 31.1GM/DL RDW Standard Deviation 44.8FL Platelet Count 260T/MM3 Mean Platelet Volume 10.6UM3 Immature Granulocyte % (Auto) 0.2% Neutrophils (%) (Auto) 61.7% Lymphocytes (%) (Auto) 28.4% Monocytes (%) (Auto) 7.7% Eosinophils (%) (Auto) 1.7% Basophils (%) (Auto) 0.3% Absolute Immature Granulocyte (auto 0.02T/MM3 Absolute Neutrophils (auto) 5.3T/MM3 Absolute Lymphocytes (auto) 2.4T/MM3 Absolute Monocytes (auto) 0.7T/MM3 Absolute Eosinophils (auto) 0.2T/MM3 Absolute Basophils (auto) 0.0T/MM3 Prothromb Time International Ratio 2.54 D-Dimer < 150NG/ML Turbidity < 20 Sodium Level 141MEQ/L Potassium Level 3.6MEQ/L Chloride Level 102MEQ/L Carbon Dioxide Level 27MEQ/L Anion Gap 12MEQ/L Blood Urea Nitrogen 15.0MG/DL Creatinine 0.7MG/DL Glomerular Filtration Rate Calc 81 BUN/Creatinine Ratio 21RATIO Glucose Level 203MG/DL Calculated Osmolality 278MOSM/KG Calcium Level 9.0MG/DL Icterus Index < 2 Troponin I < 0.012ng/ml DF-Tqx-I-Type Natriuretic Peptide 597PG/ML Chemistry Specimen Hemolysis < 15 ([facility] ) Medications Current ED Medications Aspirin (ASA) 324 mg O ONCE PO Last administered on 01/23/17 20:40; Start at 20:15; Stop 01/23/17 at 20:16; Status DC ([facility] ) Progress Progress CBC is normal today. BMP is normal, troponin is negative. ProBNP is mildly elevated at 597. INR is 2.54 and D dimer today is negative. Chest xray is negative. No indication of PE or ND as the pain has been all day and troponin was undetectable. Will go ahead and dismiss to home at this time. Follow up with her PCP this week for reevaluation. (JEET BUCKLEY APRN) Xray Xray : Reason for Exam: chest pain Xray: CXR PA/Lat Interpretation: Normal (JEET BUCKLEY APRN) JEET BUCKLEY APRN Jan 23, 2017 20:21 [facility] Jan 24, 2017 00:17
--- OUTSIDE RECORDS SUMMARY | 2017-01-23 20:21 | XMS REPORT | Continuity of Care Document ---
Author Author [facility] Organization [facility] Address Unknown Phone Unavailable Support Name Relationship Address Phone CARMENCITA SCALES MD Caregiver [address] [place] [address] [place] [address] Unavailable CARMENCITA SCALES MD Caregiver [address] [place] [address] [place] [address] Unavailable RAHUL ROBERTSON Next Of Kin [address] [place] [address] C Insurance Providers Guarantor Kayla Robertson Address [address] [place] [phone] Email [email or web address] Payer Medicare Policy Number [id number] Subscriber's Name Kayla Robertson Relationship 18 Self Effective Date 03 Payer [facility] Policy Number [id number] Subscriber's Name Kayla Robertson Relationship 18 Self Group Number [id number] Effective Date 91 Problems Active Problems Medical Problem Onset Date [...] Unknown Acute Pulmonary emboli Unknown Acute R/O [place] Unknown Acute RLS (restless legs syndrome) Unknown [...] Discontinued Ergocalciferol (Vitamin D) 50,000 Unit Capsule, 24899 Unit Oral Once A Week 05/26/10 Discontinued [...] Smoking Status Never smoker Hospital Discharge Instructions Current inpatient/outpatient. Discharge instructions are currently unavailable. Plan of Care Current inpatient/outpatient. The plan of care is currently unavailable Functional Status No functional status results. Allergies, [...] - 99.1) 12/17/2016 12:30pm Temperature (Calculated Celsius) 36.80618 degrees C (36.0 - 37.3) 12/17/2016 12:30pm Temperature Source Temporal 11/03/2016 9:09am Pulse Rate (adult) 86 bpm (60 - 100) 12/17/2016 1:25pm Respiratory Rate 16 breaths/min (10 - 20) 12/17/2016 1:25pm O2 Sat by Pulse Oximetry 98 % (90 - 100) 12/17/2016 1:25pm Oxygen Delivery Method Room Air 11/03/2016 5:56pm Blood Pressure 162/74 mm Hg 12/17/2016 1:25pm Blood Pressure Source Automatic Cuff 11/04/2016 5:51pm Height (Feet) 5 feet 12/17/2016 12:30pm Height (Inches) 1.00 inches 12/17/2016 12:30pm Weight (Kilograms) 93.000 kg 12/17/2016 12:30pm Body Mass Index (BMI) 38.0 12/17/2016 12:30pm Results Laboratory Results Test Name Result Units Flags Reference Collection Date/Time Result Date/ Time Comments Glucometer 155 mg/dL H 65-110 11/03/2016 6:27am 11/03/2016 7:11am Prothromb Time International Ratio 2.40 H 0.90-1.23 01/09/2017 9:25am 01/09/2017 9:38am THERAPUTIC RANGE=2.00-3.00 FOR ANTI-THROMBOSIS THERAPUTIC RANGE=2.50-3.50 FOR IMPLANTED VALVE 25-Hydroxy Vitamin D3 <10 ng/mL 12/05/2016 1:00pm 12/07/2016 8:24am 25-Hydroxy Vitamin D2 <7 ng/mL 12/05/2016 1:00pm 12/07/2016 8:24am 25-Hydroxy Vitamin D Total <17 ng/mL L 30-74 12/05/2016 1:00pm 2016 8:24am The desirable level of 25-Hydroxy Vitamin D Total(D2 + D3) is 30- 74 ng/mL. A level consistently >200 is potentially toxic. Vitamin D, 25-Hydroxy performed at [facility] Reference Lab, [address] [place] [id number] [employer] Lin[employer] Alhaji Ferreira DO Total Bilirubin 0.80 MG/DL 0.20-1.30 12/20/2016 1:20pm 12/20/2016 1: 37pm Alkaline Phosphatase 110 U/L 38-126 12/20/2016 1:20pm 12/20/2016 1: 37pm Total Protein 7.2 G/DL 6.3-8.2 12/20/2016 1:20pm 12/20/2016 1:37pm Albumin 4.1 G/DL 3.5-5.0 12/20/2016 1:20pm 12/20/2016 1:37pm Globulin 3.1 G/DL 2.4-3.6 12/20/2016 1:20pm 12/20/2016 1:37pm Albumin/Globulin Ratio 1.3 RATIO 1.1-2.2 12/20/2016 1:pm 12/20/2016 1 :37pm Aspartate Amino Transf (AST/SGOT) 18 U/L 14-36 12/20/2016 1:20pm 2016 1:37pm Alanine Aminotransferase (ALT/SGPT) 29 U/L 9-52 12/20/2016 1:20pm 12/20 1:37pm Hemoglobin A1c 7.7 % 6.1-7.9 12/20/2016 1:pm 12/20/2016 1:51pm <6.0 NON-DIABETIC RANGE 6.1-7.9 [facility] TARGET RANGE >8.0 ACTION SUGGESTED White Blood Count 6.9 T/MM3 4.5-11.0 01/03/2017 11:32am 01/03/2017 11: 38am Red Blood Count 4.39 M/MM3 4.00-5.20 01/03/2017 11:32am 01/03/2017 11: 38am Hemoglobin 12.5 GM/DL 12-16 01/03/2017 11:32am 01/03/2017 11:38am Hematocrit 39.1 % 36-46 01/03/2017 11:32am 01/03/2017 11:38am Mean Corpuscular Volume 89.1 UM3 80-100 01/03/2017 11:32am 01/03/2017 11:38am Mean Corpuscular Hemoglobin 28.5 UUG 26-34 01/03/2017 11:322016 11:38am Mean Corpuscular Hemoglobin Concent 32.0 GM/DL 31-37 01/03/2017 11:3201/03/2017 11:38am RDW Standard Deviation 44.3 FL 36.9-50.2 01/03/2017 11:3201/03/2017 11:38am Platelet Count 266 T/MM3 130-400 01/03/2017 11:3201/03/2017 11:38am Mean Platelet Volume 10.5 UM3 9.4-12.4 01/03/2017 11:3201/03/2017 11 :38am Neutrophils (%) (Auto) 59.6 % 33-66 01/03/2017 11:3201/03/2017 11: 38am Lymphocytes (%) (Auto) 31.5 % 23-45 01/03/2017 11:3201/03/2017 11: 38am Monocytes (%) (Auto) 6.6 % 0-9.0 01/03/2017 11:3201/03/2017 11:38am Eosinophils (%) (Auto) 1.3 % 0-4 01/03/2017 11:32am 01/03/2017 11:38am Basophils (%) (Auto) 0.7 % 0-2 01/03/2017 11:3201/03/2017 11:38am Immature Granulocyte % (Auto) 0.3 % 0.0-0.5 01/03/2017 11:322016 11:38am Absolute Neutrophils (auto) 4.1 T/MM3 1.8-7.7 01/03/2017 11:322016 11:38am Absolute Lymphocytes (auto) 2.2 T/MM3 1-4.8 01/03/2017 11:32am 2016 11:38am Absolute Monocytes (auto) 0.5 T/MM3 0-0.8 01/03/2017 11:322016 11:38am Absolute Eosinophils (auto) 0.1 T/MM3 0-0.5 01/03/2017 11:32am 2016 11:38am Absolute Basophils (auto) 0.1 T/MM3 0-0.2 01/03/2017 11:322016 11:38am Absolute Immature Granulocyte (auto 0.02 T/MM3 0.00-0.03 01/03/2017 11: 32am 01/03/2017 11:38am Neutrophils % (Manual) 51.0 % 33-66 01/03/2017 11:32am 01/04/2017 8: 16am Band Neutrophils % 1.0 % 0-6 01/03/2017 11:32am 01/04/2017 8:16am Lymphocytes % (Manual) 37.0 % 23-45 01/03/2017 11:32am 01/04/2017 8: 16am Monocytes % (Manual) 9.0 % 0-9.0 01/03/2017 11:32am 01/04/2017 8:16am Eosinophils % (Manual) 1.0 % 0-4 01/03/2017 11:3201/04/2017 8:16am Basophils % (Manual) 1.0 % 0-2 01/03/2017 11:32am 01/04/2017 8:16am Band Neutrophils # 0.1 T/MM3 01/03/2017 11:3201/04/2017 8:16am Absolute Neutrophils (Manual) 3.5 T/MM3 1.8-7.7 01/03/2017 11:32am 03/2017 8:16am Lymphocytes # (Manual) 2.6 T/MM3 1-4.8 01/03/2017 11:32am 01/04/2017 8: 16am Monocytes # (Manual) 0.6 T/MM3 0-0.8 01/03/2017 11:32am 01/04/2017 8: 16am Eosinophils # (Manual) 0.1 T/MM3 0-0.5 01/03/2017 11:3201/04/2017 8: 16am Basophils # (Manual) 0.1 T/MM3 0-0.2 01/03/2017 11:3201/04/2017 8: 16am Red Cell Morphology Comment NORMAL 01/03/2017 11:3201/04/2017 8: 16am Icterus Index < 2 0-7 01/03/2017 11:3201/03/2017 11:46am Chemistry Specimen Hemolysis < 15 0-25 01/03/2017 11:3201/03/2017 11:46am 0-25: Specimen Exhibited No Hemolysis. Turbidity < 20 0-20 01/03/2017 11:32am 01/03/2017 11:46am Sodium Level 137 MEQ/L 134-144 01/03/2017 11:32am 01/03/2017 11:46am Potassium Level 5.1 MEQ/L H 3.6-5 01/03/2017 11:32am 01/03/2017 11:46am Chloride Level 101 MEQ/L 98-107 01/03/2017 11:32am 01/03/2017 11:46am Carbon Dioxide Level 25 MEQ/L 22-30 01/03/2017 11:32am 01/03/2017 11: 46am Anion Gap 11 MEQ/L 5-15 01/03/2017 11:32am 01/03/2017 11:46am Blood Urea Nitrogen 25.0 MG/DL H 7-17 01/03/2017 11:32am 01/03/2017 11: 46am Creatinine 1.1 MG/DL 0.7-1.2 01/03/2017 11:3201/03/2017 11:46am BUN/Creatinine Ratio 23 RATIO 6-26 01/03/2017 11:32am 01/03/2017 11: 46am Glomerular Filtration Rate Calc 48 01/03/2017 11:32am 01/03/2017 11 :46am Glucose Level 137 MG/DL H 65-110 01/03/2017 11:32am 01/03/2017 11:46am Calculated Osmolality 270 MOSM/KG 261-280 01/03/2017 11:322016 11:46am Calcium Level 9.5 MG/DL 8.4-10.2 01/03/2017 11:32am 01/03/2017 11:46am Stool Campylobacter PCR NEGATIVE NEGATIVE 01/03/2017 11:45am 2016 1:14pm Stool C. difficile Toxin (PCR) NEGATIVE NEGATIVE 01/03/2017 11:45am 01/03/2017 1:14pm Stool Plesiomonas shigelloides PCR NEGATIVE NEGATIVE 01/03/2017 11: 45am 01/03/2017 1:14pm Stool Salmonella PCR NEGATIVE NEGATIVE 01/03/2017 11:45am 01/03/2017 1:14pm Stool Vibrio (PCR) NEGATIVE NEGATIVE 01/03/2017 11:45am 01/03/2017 1: 14pm Stool Vibrio cholera (PCR) NEGATIVE NEGATIVE 01/03/2017 11:45am 01/03 1:14pm Stool Yersinia enterocolitica (PCR) NEGATIVE NEGATIVE 01/03/2017 11: 45am 01/03/2017 1:14pm Stool Enteroaggregative E. coli PCR NEGATIVE NEGATIVE 01/03/2017 11: 45am 01/03/2017 1:14pm Stool Enteropathogenic E. coli (PCR N/A NEGATIVE 01/03/2017 11:45am 01/03/2017 1:14pm Stool Enterotoxigenic Ecoli PCR NEGATIVE NEGATIVE 01/03/2017 11:45am 01/03/2017 1:14pm Stool E. coli Shiga Toxins NEGATIVE NEGATIVE 01/03/2017 11:45am 01/03 1:14pm Stool E coli O157 PCR N/A NA/NEG 01/03/2017 11:45am 01/03/2017 1: 14pm Stool Shigella/EIEC (PCR) NEGATIVE NEGATIVE 01/03/2017 11:45am 2016 1:14pm Stool Cryptosporidium PCR NEGATIVE NEGATIVE 01/03/2017 11:45am 2016 1:14pm Stool Cyclospora species Detection NEGATIVE NEGATIVE 01/03/2017 11: 45am 01/03/2017 1:14pm Stool Entamoeba (PCR) NEGATIVE NEGATIVE 01/03/2017 11:45am 2016 1:14pm Stool Giardia Lamblia PCR NEGATIVE NEGATIVE 01/03/2017 11:45am 2016 1:14pm Stool Adenovirus (PCR) NEGATIVE NEGATIVE 01/03/2017 11:45am 2016 1:14pm Stool Astrovirus (PCR) NEGATIVE NEGATIVE 01/03/2017 11:45am 2016 1:14pm Stool Norovirus GI/GII PCR NEGATIVE NEGATIVE 01/03/2017 11:45am 01/03 1:14pm Stool Rotavirus A PCR NEGATIVE NEGATIVE 01/03/2017 11:45am 2016 1:14pm Stool Sapovirus (PCR) NEGATIVE NEGATIVE 01/03/2017 11:45am 2016 1:14pm Procedures Procedure Status Date Provider(s) Colonoscopy w/lesion removal Completed 11/03/16 MAXWELL YING MD, FACS, CWS Reagent strip/blood glucose Completed 11/03/16 Prothrombin time Completed 11/03/16 Tissue exam by pathologist Completed 11/03/16"RINGERS LACTATE INFUSION, UP TO 1000 CC" Completed 11/03/16 Ther/proph/diag inj sc/im Completed 10/29/16613596"INJECTION, ENOXAPARIN SODIUM, 10 MG" Completed 10/29/16 Ther/proph/diag inj sc/im Completed 10/29/16894534"INJECTION, ENOXAPARIN SODIUM, 10 MG" Completed 10/29/16 Ther/proph/diag inj sc/im Completed 10/29/16 409226"INJECTION, ENOXAPARIN SODIUM, 10 MG" Completed 10/29/16 Complete cbc w/auto diff wbc Completed 10/29/16 Ther/proph/diag inj sc/im Completed 10/29/16"INJECTION, ENOXAPARIN SODIUM, 10 MG" Completed 10/29/16 Ther/proph/diag inj sc/im Completed 10/29/16625835"INJECTION, ENOXAPARIN SODIUM, 10 MG" Completed 10/29/16 Ther/proph/diag inj sc/im Completed 10/29/16 873676"INJECTION, ENOXAPARIN SODIUM, 10 MG" Completed 10/29/16 Ther/proph/diag inj sc/im Completed 10/29/16663112"INJECTION, ENOXAPARIN SODIUM, 10 MG" Completed 10/29/16 Njx interlaminar lmbr/sac Completed 11/02/16"INJECTION, METHYLPREDNISOLONE ACETATE, 40 MG" Completed 11/02/16920785"LOW OSMOLAR CONTRAST MATERIAL, 100-199 MG/ML IODINE C Completed Drain/inj joint/bursa w/o us Completed 11/20/16 LUCERO DANIELLE MD Needle localization by xray Completed 11/20/16056389"INJECTION, METHYLPREDNISOLONE ACETATE, 80 MG" Completed 11/20/16988447"LOW OSMOLAR CONTRAST MATERIAL, 300-399 MG/ML IODINE C Completed "LOW OSMOLAR CONTRAST MATERIAL, 300-399 MG/ML IODINE C Completed Routine venipuncture Completed 12/05/16 Dxa bone density axial Completed 12/05/16 Vitamin d 25 hydroxy Completed 12/05/16 Assay of calcium Completed 12/05/16 Assay alkaline phosphatase Completed 12/05/16 Rpr s/n/ax/gen/trnk 2.5cm/< Completed 12/17/16 RENE RANGEL MD Emergency dept visit Completed 12/17/16 Capillary blood draw Completed 12/26/16 Metabolic panel total ca Completed 12/26/16 Complete cbc w/auto diff wbc Completed 12/26/16 Prothrombin time Completed 12/26/16 Encounters Encounter Location Arrival/Admit Date Discharge/Depart Date Attending Provider Registered [facility] 01/09/17 9:04am CARMENCITA SCALES MD Registered [facility] 01/03/17 11:03am CARMENCITA SCALES MD Registered [facility] 12/26/16 10:35am CARMENCITA SCALES MD Discharged [facility] 12/20/16 12:41pm 12/20/16 11: 59pm CARMENCITA SCALES MD Departed Emergency Room [facility] 12/17/16 12:27pm 12/17/16 1: 25pm RENE RANGEL MD Registered [facility] 12/05/16 12:09pm RENE BEARD MD Registered [facility] 11/20/16 7:11am LUCERO DANIELLE MD Departed Surgical Day Care [facility] 11/03/16 6:15am 11/03/16 10 :06am MAXWELL YING FACS, MD Registered [facility] 11/02/16 9:48am ERNESTO MCLEAN Discharged [facility] 10/29/16 4:21pm 11/04/16 6:04pm CARMENCITA SCALES MD
--- OUTSIDE RECORDS SUMMARY | 2017-01-23 20:23 | XMS REPORT | Continuity of Care Document ---
Author Author [facility] Organization [facility] Address Unknown Phone Unavailable Support Name Relationship Address Phone CONNOR CONCEPCION MD Caregiver [address] [place] [phone] CARMENCITA SOLIZ MD Caregiver [address] [place] [address] [place] [address] [phone] YARONVIRGILA Next Of Kin [address] [place] [address] Insurance Providers Payer Name Policy Number Subscriber Name Relationship Medicare [id number] Kayla Robertson 16 Self [facility] [id number] Kayla Robertson 16 Self Advance Directives Directive Response Recorded Date/Time Advanced Directives Type Living Will None 11/08/14 9:58pm Chief Complaint and Reason for Visit Chief Complaint Chest Pain Reason for Visit [id number] pain rule out [place] Problems Medical Problems Problem Onset Date Status Malaise and fatigue Unknown Active R/O [place] Unknown Active Chest pain rule out [place] Unknown Active Dizziness Unknown Active Malaise and [...] Date 10/21/14 7:18pm Disposition 02 [place] [facility] [facility] Condition at Discharge Improved Instructions/Education Provided DI [...] F (96.8 - 99.1) Temperature (Calculated Celsius) 36.37856 degrees C (36.0 - 37.3) Pulse Rate [...] 08, 2014 10:43pm 7.6 % N 0-9.0 TL-Mjq-N-Type Natriuretic Peptide October 20, 2014 9:59pm 481 [...] 2014 2:45pm 124.3 MG/DL - Urine Specific [place] November 08, 2014 11:35pm 1.010 L - [...] Streptococcus Anginosus Name: KAYLA ROBERTSON Unit #: [id number] : 1940 Sex: F Loc / Svc: SR DOS: 10/20/14 Signed Report #: [id number] DIAGNOSTIC IMAGING REPORT TYPE OF EXAM: CHEST 1 VIEW Dictated By: MAXWELL BALKE MD INDICATION: ITS.REASON: chest pain CHEST 1 [...] completed 08/27/14 EMERGENCY DEPT VISIT completed 08/27/14 [id number] ITEM OR SERVICE completed 08/27/14 [id number] ITEM OR SERVICE completed 08/27/14 ROUTINE VENIPUNCTURE [...] completed 10/20/14 EMERGENCY DEPT VISIT completed 10/20/14 [id number] ITEM OR SERVICE completed 10/20/14 [id number] ITEM OR SERVICE completed 10/20/14 [id number] ITEM OR SERVICE completed 10/20/14 [id number] ITEM OR SERVICE completed 10/20/14 [id number] ITEM OR SERVICE completed 10/20/14 [id number]-SQRDGYL ITEM OR SERVICE completed 10/20/14 387383"HOSPITAL OBSERVATION SERVICE, PER HOUR" completed 10/20/14 984777"HOSPITAL OBSERVATION SERVICE, PER HOUR" completed 10/20/14 950345"INJECTION, ENOXAPARIN SODIUM, 10 MG" completed 10/20/14"INJECTION, ENOXAPARIN SODIUM, 10 MG" completed 10/20/14"INJECTION, FUROSEMIDE, UP TO 20 MG" completed 10/20/14"INJECTION, VITAMIN B-12 CYANOCOBALAMIN, UP TO 1000 M completed ROUTINE VENIPUNCTURE completed 10/22/14 ASSAY OF SERUM POTASSIUM completed 10/22/14 PROTHROMBIN TIME completed 10/22/14 Encounters Encounter Location Date/Time Departed Emergency Room [facility] 11/08/14 9:56pm Registered [facility] 11/03/14 1:20pm Registered [facility] 10/29/14 9:56am Registered [facility] 10/22/14 10:38am Discharged Inpatient [facility] 10/20/14 11:40pm Departed Emergency Room [facility] 09/21/14 9:22pm Registered [facility] 09/16/14 9:30am Departed Emergency Room [facility] 08/27/14 7:36pm Discharged Recurring [facility] 08/26/14 8:39am Discharged Inpatient [facility] 08/16/14 10:43pm Recent Diagnosis
--- NOTE | 2017-01-23 20:26 | NUR ---
LAB LAB AT BEDSIDE FOR BLOOD DRAW
--- OUTSIDE RECORDS SUMMARY | 2017-01-23 20:32 | XMS REPORT | Continuity of Care Document ---
Author Author [facility] Organization [facility] Address Unknown Phone Unavailable Support Name Relationship Address Phone CARMENCITA SCALES MD Caregiver [address] [place] [address] [place], [place] [phone] CHRISSIE MARRUFO Next Of Kin [address] [place] [address] Insurance Providers Payer Name Policy Number Subscriber Name Relationship Medicare [id number] Kayla Robertson 16 Self [employer] [place] [id number] Kayla Robertson 16 Self Problems Medical Problems [...] F (96.8 - 99.1) Temperature (Calculated Celsius) 36.86199 degrees C (36.0 - 37.3) Pulse Rate [...] 21, 2014 9:30pm 9.6 % H 0-9.0 KI-Mpd-W-Type Natriuretic Peptide September 21, 2014 9:30pm 718 [...] 2014 2:45pm 124.3 MG/DL - Urine Specific [place] August 17, 2014 12:05am <=1.005 L - [...] Streptococcus Anginosus Name: KAYLA ROBERTSON Unit #: [id number] : 1940 Sex: F Loc / Svc: ED DOS: 09/21/14 Signed Report #: [id number] DIAGNOSTIC IMAGING REPORT TYPE OF EXAM: CHEST [...] completed 08/27/14 EMERGENCY DEPT VISIT completed 08/27/14 [id number] ITEM OR SERVICE completed 08/27/14 [id number] ITEM OR SERVICE completed 08/27/14 ROUTINE VENIPUNCTURE [...] 09/21/14 Encounters Encounter Location Date/Time Discharged Recurring [facility] 09/28/14 9:39am Departed Emergency Room [facility] 09/21/14 9:22pm Registered Clinic [facility] 09/16/14 9:30am Departed Emergency Room [facility] 08/27/14 7:36pm Discharged Inpatient [facility] 08/16/14 10:43pm Departed Emergency Room [facility] 07/29/14 8:12pm
--- OUTSIDE RECORDS SUMMARY | 2017-01-23 20:34 | XMS REPORT | Continuity of Care Document ---
Author Author [facility] Organization [facility] Address Unknown Phone Unavailable Support Name Relationship Address Phone BARBIE HARE MD Caregiver [facility] [address] [place] [address] Unavailable CARMENCITA SCALES MD Caregiver [address] [place] [address] [phone] CHRISSIE MARRUFO Next Of Kin [address] [place] [address] Insurance Providers Payer Name Policy Number Subscriber Name Relationship Medicare [id number] Kayla Robertson 16 Self Blue Cross [facility] [id number] Kayla Robertson 16 Self Problems Medical Problems [...] Mg PO BEDTIME PRN 04/10/12 Active Ipratropium [place] 2 [place] EA NOSTRIL DAILY 07/09/13 Active Chlorthalidone 25 [...] Has specimen been collected/obtained? Y Urine Specific [place] March 11, 2014 5:30pm <=1.005 L - [...] 01, 2011 10:07pm LAB TEST FORM REQUEST [id number] - EKG February 06, 2008 12:44pm Complete [...] March 11, 2014 4:00pm < 2 0-7 KV-Mhf-C-Type Natriuretic Peptide March 11, 2014 4:00pm 266 [...] Encounters Encounter Location Date/Time Departed Emergency Room [facility] 06/22/14 8:30pm Recent Diagnosis
--- OUTSIDE RECORDS SUMMARY | 2017-01-23 20:35 | XMS REPORT | Continuity of Care Document ---
Author Author [facility] Organization [facility] Address Unknown Phone Unavailable Support Name Relationship Address Phone BENJIE LEYVA DO Caregiver [facility] [address] [place], [place] [phone] CARMENCITA SCALES MD Caregiver [address] [place] [address] [place] [address] [phone] CHRISSIE MARRUFO Next Of Kin [address] [place] [address] Insurance Providers Payer Name Policy Number Subscriber Name Relationship Medicare [id number] Kayla Robertson 16 Self Blue Cross [facility] [id number] Kayla Robertson 16 Self Problems Medical Problems Problem Onset Date Status Malaise and fatigue Unknown Active R/O [place] Unknown Active Chest pain rule out [place] Unknown Active Dizziness Unknown Active Malaise and [...] Has specimen been collected/obtained? Y Urine Specific [place] March 11, 2014 5:30pm <=1.005 L - [...] 01, 2011 10:07pm LAB TEST FORM REQUEST [id number] - EKG February 06, 2008 12:44pm Complete [...] March 11, 2014 4:00pm < 2 0-7 ID-Uyp-V-Type Natriuretic Peptide March 11, 2014 4:00pm 266 [...] Encounters Encounter Location Date/Time Departed Emergency Room [facility] 07/29/14 8:12pm Departed Emergency Room [facility] 06/29/14 4:02pm Departed Emergency Room [facility] 06/22/14 8:30pm Recent Diagnosis
--- OUTSIDE RECORDS SUMMARY | 2017-01-23 20:36 | XMS REPORT | Continuity of Care Document ---
Author Author [facility] Organization [facility] Address Unknown Phone Unavailable Support Name Relationship Address Phone ARCHIE BLOOD MD Caregiver [address] [place] [address] CARMENCITA SCALES MD Caregiver [address] [place] [address] [place] [address] [phone] YARONVIRGILA Next Of Kin [address] [place], [place] [id number] Insurance Providers Payer Name Policy Number Subscriber Name Relationship Medicare [id number] Kayla Robertson 16 Self [facility] [id number] Kayla Robertson 16 Self Problems Medical Problems [...] F (96.8 - 99.1) Temperature (Calculated Celsius) 36.77025 degrees C (36.0 - 37.3) Pulse Rate [...] Has specimen been collected/obtained? Y Urine Specific [place] March 11, 2014 5:30pm <=1.005 L - [...] 01, 2011 10:07pm LAB TEST FORM REQUEST [id number] - EKG February 06, 2008 12:44pm Complete [...] March 11, 2014 4:00pm < 2 0-7 MA-Xrm-E-Type Natriuretic Peptide March 11, 2014 4:00pm 266 [...] Encounters Encounter Location Date/Time Departed Emergency Room [facility] 06/29/14 4:02pm Departed Emergency Room [facility] 06/22/14 8:30pm Recent Diagnosis
--- OUTSIDE RECORDS SUMMARY | 2017-01-23 20:37 | XMS REPORT | Continuity of Care Document ---
Author Author [facility] Organization [facility] Address Unknown Phone Unavailable Support Name Relationship Address Phone MAXWELL YING FACS, MD Caregiver [address] [place] [address] [place] [phone] CARMENCITA SCALES MD Caregiver [address] [place] [address] [place] [phone] CHRISSIE MARRUFO Next Of Kin [address] [place], [place] [id number] Insurance Providers Payer Name Policy Number Subscriber Name Relationship Medicare [id number] Kayla Robertson 16 Self [facility] [id number] Kayla Robertson 16 Self Advance Directives Directive [...] F (96.8 - 99.1) Temperature (Calculated Celsius) 36.93078 degrees C (36.0 - 37.3) Temperature Source [...] 01, 2011 10:07pm LAB TEST FORM REQUEST [id number] - Lipase April 10, 2012 3:16pm 16 [...] 11, 2014 4:00pm 9.9 % H 0-9.0 PV-Zck-S-Type Natriuretic Peptide March 11, 2014 4:00pm 266 [...] Has specimen been collected/obtained? Y Urine Specific [place] March 11, 2014 5:30pm <=1.005 L - [...] Date/Time Departed Emergency Room [facility] 06/29/14 4:02pm Departed Emergency Room [facility] 06/22/14 8:30pm
--- OUTSIDE RECORDS SUMMARY | 2017-01-23 20:38 | XMS REPORT | Continuity of Care Document ---
Author Author [facility] Organization [facility] Address Unknown Phone Unavailable Support Name Relationship Address Phone BARBIE HARE MD Caregiver [facility] [address] [place] [address] Unavailable CARMENCITA SCALES MD Caregiver [address] [place] [address] [phone] CHRISSIE MARRUFO Next Of Kin [address] [place] [address] Insurance Providers Payer Name Policy Number Subscriber Name Relationship Medicare [id number] Kayla Robertson 16 Self [facility] [id number] Kayla Robertson 16 Self Chief Complaint and Reason for Visit Chief Complaint Chest Pain Reason for Visit [id number] Problems Medical Problems Problem Onset Date Status [...] at time of discharge: Good Good at [phone]. 2. Problems such as: Temp above 101.5 degrees You develop redness, excessive swelling of the incision, increasing pain or excessive foul smelling drainage. 3. If the office is closed, call [facility] at [phone] and have your Surgeon paged. Condition at [...] Discharge Date 08/20/14 5:07pm Disposition 02 TO [facility] [place] [place] [facility] Condition at Discharge Improved Instructions/Education Provided [facility] [place] Discharge Instructions Vitamin K DI for [...] F (96.8 - 99.1) Temperature (Calculated Celsius) 36.37823 degrees C (36.0 - 37.3) Pulse Rate [...] 2014 2:45pm 124.3 MG/DL - Urine Specific [place] August 17, 2014 12:05am <=1.005 L - [...] 21, 2014 9:08pm LAB TEST FORM REQUEST [id number] - EKG February 06, 2008 12:44pm Complete [...] September 21, 2014 9:30pm < 2 0-7 GC-Qsf-C-Type Natriuretic Peptide September 21, 2014 9:30pm 718 [...] 2014 9:30am Name: KAYLA ROBERTSON Unit #: [id number] : 1940 Sex: F Loc / Svc: ED DOS: 08/27/14 Signed Report #: [id number] DIAGNOSTIC IMAGING REPORT TYPE OF EXAM: CHEST [...] completed 08/27/14 EMERGENCY DEPT VISIT completed 08/27/14 [id number] ITEM OR SERVICE completed 08/27/14 [id number] ITEM OR SERVICE completed 08/27/14 Encounters Encounter Location Date/Time Departed Emergency Room [facility] 09/21/14 9:22pm Registered [facility] 09/21/14 8:56am Registered Clinic [facility] 09/16/14 9:30am Departed Emergency Room [facility] 08/27/14 7:36pm Discharged Inpatient [facility] 08/16/14 10:43pm Departed Emergency Room [facility] 07/29/14 8:12pm Departed Emergency Room [facility] 06/29/14 4:02pm Recent Diagnosis
[2017-01-23 20:39] LABS: BASOPHILS % (AUTO) 0.3 % (0-2); EOSINOPHILS # (AUTO) 0.2 T/MM3 (0-0.5); EOSINOPHILS % (AUTO) 1.7 % (0-4); HCT - HEMATOCRIT 37.3 % (36-46); HGB - HEMOGLOBIN 11.6 GM/DL (12-16); IMMATURE GRANULOCYTE # (AUTO) 0.02 T/MM3 (0.00-0.03); IMMATURE GRANULOCYTE % (AUTO) 0.2 % (0.0-0.5); LYMPHOCYTES # (AUTO) 2.4 T/MM3 (1-4.8); LYMPHOCYTES % (AUTO) 28.4 % (23-45); MEAN CORPUSCULAR HGB 28.9 UUG (26-34); MEAN CORPUSCULAR HGB CONC(MCHC 31.1 GM/DL (31-37); MEAN CORPUSCULAR VOLUME 92.8 UM3 (80-100); MEAN PLATELET VOLUME 10.6 UM3 (9.4-12.4); MONOCYTES # (AUTO) 0.7 T/MM3 (0-0.8); MONOCYTES % (AUTO) 7.7 % (0-9.0); NEUTROPHILS #(AUTO)-ABSOLUTE 5.3 T/MM3 (1.8-7.7); NEUTROPHILS % (AUTO) 61.7 % (33-66); RED BLOOD COUNT 4.02 M/MM3 (4.00-5.20); WBC - WHITE BLOOD COUNT 8.6 T/MM3 (4.5-11.0)
--- OUTSIDE RECORDS SUMMARY | 2017-01-23 20:40 | XMS REPORT | Continuity of Care Document ---
Author Author [facility] Organization [facility] Address Unknown Phone Unavailable Support Name Relationship Address Phone AUTUMNBENJIE MENDIETA Caregiver [facility] [address] [place] [phone] CARMENCITA SOLIZ MD Caregiver [address] [place] [address] [place] [address] [phone] CHRISSIE MARRUFO Next Of Kin [address] [place] [address] Insurance Providers Payer Name Policy Number Subscriber Name Relationship Medicare [id number] Kayla Robertson 16 Self [facility] [id number] Kayla Robertson 16 Self Advance Directives Directive Response Recorded Date/Time Advanced Directives Type None 08/27/14 7:39pm Chief Complaint and Reason for Visit Chief Complaint Chest Pain Reason for Visit [id number] Problems Medical Problems Problem Onset Date Status [...] Discharge Date 08/20/14 5:07pm Disposition 02 TO [facility] [place] [facility] Condition at Discharge Improved Instructions/Education Provided [facility] [place] [facility] Discharge Instructions Vitamin K DI for [...] F (96.8 - 99.1) Temperature (Calculated Celsius) 36.64456 degrees C (36.0 - 37.3) Pulse Rate [...] Has specimen been collected/obtained? Y Urine Specific [place] August 17, 2014 12:05am <=1.005 L - [...] 26, 2014 10:29am LAB TEST FORM REQUEST [id number] - EKG February 06, 2008 12:44pm Complete [...] August 27, 2014 7:56pm < 2 0-7 JQ-Xtl-N-Type Natriuretic Peptide August 27, 2014 7:56pm 634 [...] 2014 9:30am Name: KAYLA ROBERTSON Unit #: [id number] : 1940 Sex: F DISCHARGE SUMMARY Admit Date: 08/16/14 Report #: [id number] General Date Date DATE: 08/20/14 TIME: 16:23 [...] BID #30 07/22/14 Losartan Potassium 100 Mg Prhnqf132 Mg PO DAILY #30 07/22/14 Chlorthalidone 25 Mg Ofmaww02 Mg PO PRN #30 07/22/14 Atorvastatin Calcium 40 Mg Gyflrm21 Mg PO HS #30 07/22/14 Pramipexole Di-Hcl (Mirapex)0.5 Mg Tablet0.5 Mg PO HS 08/23/11 Discharge Disposition stable Copies To 1: CARMENCITA SOLIZ MD, CARRIE DO Aug 20, 2014 16:24 Procedures Procedure Status Date Provider(s) EGD BIOPSY SINGLE/MULTIPLE completed 07/23/14 MAXWELL YING MD, FACS, CWS Encounters Encounter Location Date/Time Departed Emergency Room [facility] 08/27/14 7:36pm Registered Recurring [facility] 08/26/14 8:39am Discharged Inpatient [facility] 08/16/14 10:43pm Departed Emergency Room [facility] 07/29/14 8:12pm Departed Emergency Room [facility] 06/29/14 4:02pm Departed Emergency Room [facility] 06/22/14 8:30pm Recent Diagnosis
--- OUTSIDE RECORDS SUMMARY | 2017-01-23 20:40 | XMS REPORT | Continuity of Care Document ---
Author Author [facility] Organization [facility] Address Unknown Phone Unavailable Support Name Relationship Address Phone OMID OLIVARES MD Caregiver [address] [place] [address] [place] [phone] CONNOR CONCEPCION MD Caregiver [address] [place] [address] [place] [phone] CARMENCITA SOLIZ MD Caregiver [address] [place] [address] [place] [phone] CHRISSIE MARRUFO Next Of Kin [address] [place] [phone] Insurance Providers Payer Name Policy Number Subscriber Name Relationship Medicare [id number] Kayla Robertson 16 Self [facility] [id number] Kayla Robertson 16 Self Advance Directives Directive Response Recorded Date/Time Advanced Directives Type DNR Documentation Living Will DPOA for Healthcare 10:43pm Ordered Resuscitation Status Full Code 08/16/14 10:43pm Resuscitation Documents on File Yes 08/16/14 11:16pm Chief Complaint and Reason for Visit Chief Complaint BILATERAL PULMONARY EMBOLI Reason for Visit Chest pain rule out [place] Shortness of breath CHEST PAIN NOS Dyspnea [...] Follow Up Appointments: Appointment scheduled with Dr. Sloiz at 7:00 am, have your INR drawn at that time. Patient Instructions: Should your symptoms return you could contact Dr Soliz through the office or return to the ED for emergent evaluation. Please give PE and Coumadin handouts. Condition at time of discharge: Good Condition at time of discharge: Good your medications, please contact our office at [phone]. Condition at time of discharge: Fair Plan [...] F (96.8 - 99.1) Temperature (Calculated Celsius) 36.70600 degrees C (36.0 - 37.3) Temperature Source [...] 01, 2011 10:07pm LAB TEST FORM REQUEST [id number] - Lipase April 10, 2012 3:16pm 18 [...] 20, 2014 6:38am 9.2 % H 0-9.0 LJ-Edx-G-Type Natriuretic Peptide August 16, 2014 9:18pm 305 [...] Has specimen been collected/obtained? Y Urine Specific [place] August 17, 2014 12:05am <=1.005 L - [...] Streptococcus Anginosus Name: KAYLA ROBERTSON Unit #: [id number] : 1940 Sex: F DISCHARGE SUMMARY Admit Date: 08/16/14 Report #: [id number] General Date Date DATE: 08/20/14 TIME: 16:23 [...] BID #30 07/22/14 Losartan Potassium 100 Mg Isetnr220 Mg PO DAILY #30 07/22/14 Chlorthalidone 25 Mg Tpwota75 Mg PO PRN #30 07/22/14 Atorvastatin Calcium 40 Mg Ixmyeq00 Mg PO HS #30 07/22/14 Pramipexole Di-Hcl (Mirapex)0.5 Mg Tablet0.5 Mg PO HS 08/23/11 Discharge Disposition stable Copies To 1: CARMENCITA SOLIZ MD, CARRIE DO Aug 20, 2014 16:24 Procedures Procedure Status Date Provider(s) EGD BIOPSY SINGLE/MULTIPLE completed 07/23/14 MAXWELL YING MD, FACS, CWS Encounters Encounter Location Date/Time Discharged Inpatient [facility] 08/16/14 10:43pm Departed Emergency Room [facility] 07/29/14 8:12pm Departed Emergency Room [facility] 06/29/14 4:02pm Departed Emergency Room [facility] 06/22/14 8:30pm Recent Diagnosis Chest pain rule out NM Shortness of breath CHEST PAIN NOS Dyspnea Pulmonary emboli Diabetes Hypertension Dyslipidemia GERD (gastroesophageal reflux disease) RLS (restless legs syndrome) Osteoarthritis Anxiety and depression History of gastritis Hypomagnesemia Obesity (BMI 35.0-39.9 without comorbidity) Pleuritic chest pain
--- OUTSIDE RECORDS SUMMARY | 2017-01-23 20:41 | XMS REPORT | Continuity of Care Document ---
Author Author [facility] Organization [facility] Address Unknown Phone Unavailable Support Name Relationship Address Phone BENJIE LEYVA Caregiver [address] [place] [phone] CAMDEN HERNANDEZ MD Caregiver [address] [place] [address] [address] [place], [facility] CARMENCITA SOLIZ MD Caregiver [address] [place] [address] [place] [address] [phone] CHRISSIE MARRUFO Next Of Kin [address] [place] [phone] Insurance Providers Payer Name Policy Number Subscriber Name Relationship Medicare [id number] Kayla Robertson 16 Self [facility] [id number] Kayla Robertson 16 Self Advance Directives Directive [...] Status Malaise and fatigue Unknown Active R/O [place] Unknown Active Chest pain rule out [place] Unknown Active Dizziness Unknown Active Malaise and [...] F (96.8 - 99.1) Temperature (Calculated Celsius) 36.06116 degrees C (36.0 - 37.3) Temperature Source [...] 19, 2014 8:32pm LAB TEST FORM REQUEST [id number] - Lipase April 10, 2012 3:16pm 18 [...] 21, 2014 4:14am 8.8 % N 0-9.0 ED-Txw-R-Type Natriuretic Peptide October 20, 2014 9:59pm 481 [...] 2014 2:45pm 124.3 MG/DL - Urine Specific [place] August 17, 2014 12:05am <=1.005 L - [...] Streptococcus Anginosus Name: KAYLA ROBERTSON Unit #: [id number] : 1940 Sex: F Loc / Svc: SRG DOS: 10/20/14 Signed Report #: [id number] DIAGNOSTIC IMAGING REPORT TYPE OF EXAM: CHEST [...] completed 08/27/14 EMERGENCY DEPT VISIT completed 08/27/14 [id number] ITEM OR SERVICE completed 08/27/14 [id number] ITEM OR SERVICE completed 08/27/14 ROUTINE VENIPUNCTURE [...] 09/21/14 Encounters Encounter Location Date/Time Discharged Inpatient [facility] 10/20/14 11:40pm Registered [facility] 10/19/14 3:34pm Departed Emergency Room [facility] 09/21/14 9:22pm Registered Clinic [facility] 09/16/14 9:30am Departed Emergency Room [facility] 08/27/14 7:36pm Discharged Recurring [facility] 08/26/14 8:39am Discharged Inpatient [facility] 08/16/14 10:43pm Departed Emergency Room [facility] 07/29/14 8:12pm Recent Diagnosis Anxiety and depression Swelling of left knee joint Anticoagulated on Coumadin Swelling of left lower extremity
--- OUTSIDE RECORDS SUMMARY | 2017-01-23 20:41 | XMS REPORT | Continuity of Care Document ---
Author Author [facility] Organization [facility] Address Unknown Phone Unavailable Allergies Medications Problems Procedures Results Encounters ACCT No. Visit Date/Time Discharge Status Pt. Type Provider Facility Loc./Unit Complaint [id number] 11/06/2013 09:54:00 11/06/2013 23 :59:59 CLS Outpatient [id number] 10/20/2013 14:46:00 10/20/2013 23 :59:59 CLS Outpatient [id number] 10/06/2013 11:06:00 10/06/2013 23 :59:59 CLS Outpatient [id number] 09/03/2013 10:26:00 09/03/2013 23 :59:59 CLS Outpatient
--- OUTSIDE RECORDS SUMMARY | 2017-01-23 20:44 | XMS REPORT | Continuity of Care Document ---
Author Author [facility] Organization [facility] Address Unknown Phone Unavailable Support Name Relationship Address Phone CONNOR CONCEPCION MD Caregiver [address] [place] [phone] CARMENCITA SOLIZ MD Caregiver [address] [place] [address] [place] [address] [phone] YARONVIRGILA Next Of Kin [address] [place] [address] Insurance Providers Payer Name Policy Number Subscriber Name Relationship Medicare [id number] Kayla Robertson 16 Self [facility] [id number] Kayla Robertson 16 Self Advance Directives Directive Response Recorded Date/Time Advanced Directives Type Living Will None 11/08/14 9:58pm Chief Complaint and Reason for Visit Chief Complaint Chest Pain Reason for Visit [id number] pain rule out [place] Problems Medical Problems Problem Onset Date Status Malaise and fatigue Unknown Active R/O [place] Unknown Active Chest pain rule out [place] Unknown Active Dizziness Unknown Active Malaise and [...] Date 10/21/14 7:18pm Disposition 02 TO OBS [facility] Condition at Discharge Improved Instructions/Education Provided DI [...] F (96.8 - 99.1) Temperature (Calculated Celsius) 36.17754 degrees C (36.0 - 37.3) Pulse Rate [...] 08, 2014 10:43pm 7.6 % N 0-9.0 IO-Fme-N-Type Natriuretic Peptide October 20, 2014 9:59pm 481 [...] 2014 2:45pm 124.3 MG/DL - Urine Specific [place] November 08, 2014 11:35pm 1.010 L - [...] Streptococcus Anginosus Name: KAYLA ROBERTSON Unit #: [id number] : 1940 Sex: F Loc / Svc: SR DOS: 10/20/14 Signed Report #: [id number] DIAGNOSTIC IMAGING REPORT TYPE OF EXAM: CHEST [...] completed 08/27/14 EMERGENCY DEPT VISIT completed 08/27/14 [id number] ITEM OR SERVICE completed 08/27/14 [id number] ITEM OR SERVICE completed 08/27/14 ROUTINE VENIPUNCTURE [...] completed 10/20/14 EMERGENCY DEPT VISIT completed 10/20/14 [id number] ITEM OR SERVICE completed 10/20/14 [id number] ITEM OR SERVICE completed 10/20/14 [id number] ITEM OR SERVICE completed 10/20/14 [id number] ITEM OR SERVICE completed 10/20/14 [id number] ITEM OR SERVICE completed 10/20/14 [id number] ITEM OR SERVICE completed 10/20/14 [id number]"HOSPITAL OBSERVATION SERVICE, PER HOUR" completed 10/20/14 [id number]"HOSPITAL OBSERVATION SERVICE, PER HOUR" completed 10/20/14 [id number]"INJECTION, ENOXAPARIN SODIUM, 10 MG" completed 10/20/14"INJECTION, ENOXAPARIN SODIUM, 10 MG" completed 10/20/14"INJECTION, FUROSEMIDE, UP TO 20 MG" completed 10/20/14"INJECTION, VITAMIN B-12 CYANOCOBALAMIN, UP TO 1000 M completed ROUTINE VENIPUNCTURE completed 10/22/14 ASSAY OF SERUM POTASSIUM completed 10/22/14 PROTHROMBIN TIME completed 10/22/14 Encounters Encounter Location Date/Time Departed Emergency Room [facility] 11/08/14 9:56pm Registered [facility] 11/03/14 1:20pm Registered [facility] 10/29/14 9:56am Registered [facility] 10/22/14 10:38am Discharged Inpatient [facility] 10/20/14 11:40pm Departed Emergency Room [facility] 09/21/14 9:22pm Registered [facility] 09/16/14 9:30am Departed Emergency Room [facility] 08/27/14 7:36pm Discharged Recurring [facility] 08/26/14 8:39am Discharged Inpatient [facility] 08/16/14 10:43pm Recent Diagnosis
--- NOTE | 2017-01-23 20:46 | NUR ---
ACTIVITY PATIENT AMBULATORY TO RESTROOM, TOLERATES ACTIVITY WELL.
[2017-01-23 20:48] LABS: ANION GAP 12 MEQ/L (5-15); BUN/CREATININE RATIO 21 RATIO (6-26); CHLORIDE 102 MEQ/L (98-107); CO2 - CARBON DIOXIDE 27 MEQ/L (22-30); CREATININE 0.7 MG/DL (0.7-1.2); GLOMERULAR FILTRATION RATE 81; GLUCOSE 203 MG/DL (65-110); POTASSIUM 3.6 MEQ/L (3.6-5); SODIUM 141 MEQ/L (134-144)
[2017-01-23] MEDS ORDERED: ESCI10TA47 PO (20:50)
[2017-01-23] MEDS ORDERED: TRAM50TA4 PO (20:53)
[2017-01-23] MEDS ORDERED: WARF2TAB6 PO (20:53)
[2017-01-23] MEDS ORDERED: ACET-2890 PO (20:55)
[2017-01-23] MEDS ORDERED: [UNRECOGNIZED DRUG - CODE] SQ (20:55)
[2017-01-23 20:58] LABS: INR 2.54 (0.76-1.04); PROTHROMBIN TIME 27.7 SEC (9.31-12.49)
--- NOTE | 2017-01-23 20:58 | NUR ---
REPORT REPORT GIVEN TO Tamika STEWART RN
[2017-01-23 21:00] LABS: PROBNP 597 PG/ML (0-175)
[2017-01-23 21:20] VITALS: BP 183/87; PULSE 72; RESP 20; TEMP 98.1; O2SAT 97
--- NOTE | 2017-01-24 07:54 | DI ---
Indication: ITS.REASON: chest pain PROCEDURE: CHEST 1 VIEW: Encounter: Initial Comparison: July 24, 2016 and February 14, 2016 FINDINGS: The lungs are clear. There is no abnormal airspace opacity, pleural effusion or pneumothorax identified. The cardiac silhouette is mildly enlarged. The pulmonary vasculature and mediastinum are unchanged with widening of the mediastinal borders. No significant skeletal abnormality is seen. IMPRESSION: No acute cardiopulmonary abnormality. .
== END 2017-01-23 21:20 | disposition home or self-care (01) ==
LOC: ED 19:55
DX: R07.89 Other chest pain (principal); M79.89 Other specified soft tissue disorders; M54.9 Dorsalgia, unspecified; I10 Essential (primary) hypertension; I48.91 Unspecified atrial fibrillation; Z86.711 Personal history of pulmonary embolism; Z79.01 Long term (current) use of anticoagulants; Z87.891 Personal history of nicotine dependence
CPT/HCPCS: 36415; 71010; 80048; 83880; 84484; 85025; 85379; 85610; 93005; 99283; A9270

== ENCOUNTER → 2017-01-26 | Outpatient (CLI) | payer MEDICARE, BC ==
[~2017-01-26] MED LIST changes: +ACET-2890 PO; +ESCI10TA47 PO; -ESCI5TAB8 PO; +TRAM50TA4 PO; -TRAM50TA53 PO; +[UNRECOGNIZED DRUG - CODE] SQ
== END ==
LOC: LAB 09:25
PROVIDERS: ATTEND Family Medicine
DX: E11.65 Type 2 diabetes mellitus with hyperglycemia (principal)
CPT/HCPCS: 82043; 82570; 83036

== ENCOUNTER 2017-02-05 19:09 | Emergency (ER) | payer MEDICARE, BC ==
[~2017-02-05] VITALS: Ht 154.9 cm; Wt 96.6 kg
--- OUTSIDE RECORDS SUMMARY | 2017-02-05 19:15 | XMS REPORT | Continuity of Care Document ---
Author Author [facility] Organization [facility] Address Unknown Phone Unavailable Support Name Relationship Address Phone CARMENCITA SCALES MD Caregiver [address] [place] [address] [place], [place] [phone] CHRISSIE MARRUFO Next Of Kin [address] [place] [address] Insurance Providers Payer Name Policy Number Subscriber Name Relationship Medicare [id number] Kayla Robertson 16 Self [employer] [place] [id number] Kayla Robertson 16 Self Problems Medical Problems Problem Onset Date Status Malaise and fatigue Unknown Active R/O [place] Unknown Active Chest pain rule out [place] Unknown Active Dizziness Unknown Active Malaise and [...] F (96.8 - 99.1) Temperature (Calculated Celsius) 36.95823 degrees C (36.0 - 37.3) Pulse Rate [...] 21, 2014 9:30pm 9.6 % H 0-9.0 UU-Sos-W-Type Natriuretic Peptide September 21, 2014 9:30pm 718 [...] 2014 2:45pm 124.3 MG/DL - Urine Specific [place] August 17, 2014 12:05am <=1.005 L - [...] Streptococcus Anginosus Name: KAYLA ROBERTSON Unit #: [id number] : 1940 Sex: F Loc / Svc: ED DOS: 09/21/14 Signed Report #: [id number] DIAGNOSTIC IMAGING REPORT TYPE OF EXAM: CHEST [...] completed 08/27/14 EMERGENCY DEPT VISIT completed 08/27/14 [id number] ITEM OR SERVICE completed 08/27/14 [id number] ITEM OR SERVICE completed 08/27/14 ROUTINE VENIPUNCTURE [...] 09/21/14 Encounters Encounter Location Date/Time Discharged Recurring [facility] 09/28/14 9:39am Departed Emergency Room [facility] 09/21/14 9:22pm Registered Clinic [facility] 09/16/14 9:30am Departed Emergency Room [facility] 08/27/14 7:36pm Discharged Inpatient [facility] 08/16/14 10:43pm Departed Emergency Room [facility] 07/29/14 8:12pm
--- OUTSIDE RECORDS SUMMARY | 2017-02-05 19:16 | XMS REPORT | Continuity of Care Document ---
Author Author [facility] Organization [facility] Address Unknown Phone Unavailable Support Name Relationship Address Phone JANUARYSARIAH DO Caregiver [address] [place] [address] Unavailable CARMENCITA SCALES MD Caregiver [address] [facility] [place] [place] [address] Unavailable RAHUL ROBERTSON Next Of Kin [address] [place] [address] C Insurance Providers Guarantor Kayla Robertson Address [address] [place] [address] Email [email or web address] [email or web address] Medicare Policy Number [id number] Subscriber's Name Kayla Robertson Relationship 18 Self Effective Date 03 Payer [facility] Policy Number [id number] Subscriber's Name Kayla Robertson Relationship 18 Self Group Number [id number] Effective Date 91 Advance Directives Directive Response Recorded Date/Time Advanced Directives Type Living Will DPOA for Healthcare 01/23/17 7:58pm Chief Complaint and Reason for Visit Chief Complaint Chest Pain Reason for Visit 786.50 Problems Active Problems Medical Problem Onset Date [...] Unknown Acute Pulmonary emboli Unknown Acute R/O [place] Unknown Acute RLS (restless legs syndrome) Unknown [...] Route Directions Days Qty Instructions Start Date Acetaminophen 650 Mg Tablet.er 1,300 Mg Oral Bedtime 01/23/17 Atorvastatin Calcium 10 Mg Tablet 10 Mg Oral Bedtime 06/15/15 Cyanocobalamin (Vitamin B-12) (Vitamin B-12) 1,000 Mcg Tablet 1,000 Mcg Oral Daily 03/30/16 Escitalopram Oxalate 10 Mg Tablet 10 Mg Oral Daily 01/23/17 Furosemide 20 Mg Tablet 20 Mg Oral Every Other Day 12/17/16 Lactobacillus Combination No.4 (Probiotic) 1 Each Capsule 1 Cap Oral Daily 08/17/16 Lidocaine 1 Each Adh..patch 1 Patch Transderm Daily 12/17/16 Losartan Potassium 25 Mg Tablet 25 Mg Oral Daily 03/26/16 Magnesium Oxide 400 Mg Tablet 400 Mg Oral Daily 08/16/16 Metformin Hcl (Metformin Hcl Er) 500 Mg Tab.er.24h 1,000 Mg Oral Give With Supper 09/14/16 Omeprazole 20 Mg Capsule.dr 20 Mg Oral Before Breakfast 07/22/14 Pramipexole Di-Hcl (Mirapex) 0.5 Mg Tablet 0.5 Mg Oral Bedtime Teriparatide (Forteo) 600 Mcg/Syringe Inj 20 Mcg Sub-Q Give With Supper 01/23/17 Tramadol Hcl 50 Mg Tablet 50-100 Mg Oral Every 6 Hours as needed for Pain 01/23/17 Warfarin Sodium 2 Mg Tablet 2 Mg Oral Sumotuthfr@1800 06/24/15 Warfarin Sodium 2 Mg Tablet 1 Mg Oral Wesa@1800 01/23/17 Past Home Medications Medication Directions Ordered Status [...] Discontinued Ergocalciferol (Vitamin D) 50,000 Unit Capsule, 39805 Unit Oral Once A Week 05/26/10 Discontinued [...] Applicable Not Applicable Hx Substance Use No 01/23/2017 8:26pm Not Applicable Not Applicable Hx Alcohol Use No 01/23/2017 8:26pm Not Applicable Not Applicable Has the pt used tobacco in the last 12 months No 10/29/2016 4:34pm Not Applicable Not Applicable Tobacco Usage none 09/09/2015 10:15am Not Applicable Not Applicable Query Response Start Date Stop Date Smoking Status Never smoker Hospital Discharge Instructions No hospital discharge instructions. Plan of Care Discharge Date 01/23/17 9:20pm Disposition 01 DISCHARGED HOME, SELF-CARE Condition at Discharge Stable Instructions/Education Provided Chest Pain (ED) Prescriptions See Medication Section Referrals CARMENCITA SCALES MD Address: [address] [place] [address] [place] [phone] Additional Instructions/Education Your labs today are all in normal range. Your INR is 2.54. I do want you to follow up with your primary care provider for reevaluation this week however. Return to Er with any worsening chest pain, dyspnea, or any new issues/ concerns. Care Plan and Goals Physician Care Plan Problem:Chest Pain Goal: Follow up with primary care provider Instructions: Take medications and follow care plan as discussed/written Functional Status No functional status results. Allergies, Adverse Reactions, Alerts Allergen Type Severity Reaction Status Last Updated Procaine HCl Allergy Unknown NERVOUS AND HEART RACE Active 01/23/17 hydrocodone bit Allergy Mild FINE RASH AND HEADACHE Active 01/23/17 propoxyphene HCl Allergy Unknown SHAKY, AND LOPEZ Active 01/23/17 albuterol sulfate Allergy Intermediate NERVOUSNESS, PALPITATIONS Active ciprofloxacin HCl Allergy Mild ITCH,HEADACHE; HEART FLUTTER Active Lisinopril Adverse Reaction Unknown DRY COUGH Active 01/23/17 Lidocaine Allergy Unknown PER H&P Active 01/23/17 Codeine Allergy Mild RASH,HEADACHE Active 01/23/17 Epinephrine Allergy Unknown PER H&P Active 01/23/17 Hydrochlorothiazide Adverse Reaction Unknown NAUSEA, DIZZY Active 01/23/17 Cephalexin Adverse Reaction Intermediate C-DIFF Active 01/23/17 Doxycycline Adverse Reaction Unknown NAUSEA, DIZZY Active 01/23/17 Ciprofloxacin Allergy Mild ITCH,HEADACHE, HEART FLUTTER Active 01/23/17 Tuberculin,Old Skin Test Allergy Unknown SWELLING OF ARM AT INJECTION SITE Active 01/23/17 Rofecoxib Allergy Severe JOINT SWELL,RACHEL Active 01/23/17 Immunizations Query Response on File Recorded Date/Time Hx Influenza Vaccination Y 10/29/16 4:34pm Hx Pneumococcal Vaccination Y doesnt remember, less than 10yrs 10/29/16 4: 34pm Hx Influenza Vaccination Y 10/29/16 4:34pm Influenza Vaccine Hx AUGUST 2016 01/23/17 8:26pm Tetanus Diptheria Vaccine History 09/01/15 01/23/17 8:26pm Tdap Vaccine Hx 201412/17/16 12:56pm Vital Signs Acute Vital Signs Vital Response Date/Time Temperature (Fahrenheit) 98.1 deg F (96.8 - 99.1) 01/23/2017 9:20pm Temperature (Calculated Celsius) 36.03702 degrees C (36.0 - 37.3) 01/23/2017 9:20pm Temperature Source Temporal 11/03/2016 9:09am Pulse Rate (adult) 72 bpm (60 - 100) 01/23/2017 9:20pm Respiratory Rate 20 breaths/min (10 - 20) 01/23/2017 9:20pm O2 Sat by Pulse Oximetry 97 % (90 - 100) 01/23/2017 9:20pm Oxygen Delivery Method Room Air 11/03/2016 5:56pm Blood Pressure 183/87 mm Hg 01/23/2017 9:20pm Blood Pressure Source Automatic Cuff 11/04/2016 5:51pm Height (Feet) 5 feet 01/23/2017 7:58pm Height (Inches) 1.00 inches 01/23/2017 7:58pm Weight (Kilograms) 95.400 kg 01/23/2017 7:58pm Body Mass Index (BMI) 39.0 01/23/2017 7:58pm Results Laboratory Results Test Name Result Units Flags Reference Collection Date/Time Result Date/ Time Comments Glucometer 155 mg/dL H 65-110 11/03/2016 6:27am 11/03/2016 7:11am 25-Hydroxy Vitamin D3 <10 ng/mL 12/05/2016 1:00pm 12/07/2016 8:24am 25-Hydroxy Vitamin D2 <7 ng/mL 12/05/2016 1:00pm 12/07/2016 8:24am 25-Hydroxy Vitamin D Total <17 ng/mL L 30-74 12/05/2016 1:00pm 2016 8:24am The desirable level of 25-Hydroxy Vitamin D Total(D2 + D3) is 30- 74 ng/mL. A level consistently >200 is potentially toxic. Vitamin D, 25-Hydroxy performed at [facility] Reference [facility], [facility] [place] [address] Office Services Clerk Alhaji Ferreira DO Total Bilirubin 0.80 MG/DL 0.20-1.30 12/20/2016 1:20pm 12/20/2016 1: 37pm Alkaline Phosphatase 110 U/L 38-126 12/20/2016 1:20pm 12/20/2016 1: 37pm Total Protein 7.2 G/DL 6.3-8.2 12/20/2016 1:20pm 12/20/2016 1:37pm Albumin 4.1 G/DL 3.5-5.0 12/20/2016 1:20pm 12/20/2016 1:37pm Globulin 3.1 G/DL 2.4-3.6 12/20/2016 1:20pm 12/20/2016 1:37pm Albumin/Globulin Ratio 1.3 RATIO 1.1-2.2 12/20/2016 1:20pm 12/20/2016 1 :37pm Aspartate Amino Transf (AST/SGOT) 18 U/L 14-36 12/20/2016 1:20pm 2016 1:37pm Alanine Aminotransferase (ALT/SGPT) 29 U/L 9-52 12/20/2016 1:20pm 12/20 1:37pm Hemoglobin A1c 7.7 % 6.1-7.9 12/20/2016 1:20pm 12/20/2016 1:51pm <6.0 NON-DIABETIC RANGE 6.1-7.9 [facility] TARGET RANGE >8.0 ACTION SUGGESTED Neutrophils % (Manual) 51.0 % 33-66 01/03/2017 11:32am 01/04/2017 8: 16am Band Neutrophils % 1.0 % 0-6 01/03/2017 11:32am 01/04/2017 8:16am Lymphocytes % (Manual) 37.0 % 23-45 01/03/2017 11:32am 01/04/2017 8: 16am Monocytes % (Manual) 9.0 % 0-9.0 01/03/2017 11:32am 01/04/2017 8:16am Eosinophils % (Manual) 1.0 % 0-4 01/03/2017 11:32am 01/04/2017 8:16am Basophils % (Manual) 1.0 % 0-2 01/03/2017 11:32am 01/04/2017 8:16am Band Neutrophils # 0.1 T/MM3 01/03/2017 11:32am 01/04/2017 8:16am Absolute Neutrophils (Manual) 3.5 T/MM3 1.8-7.7 01/03/2017 11:32am 03/2017 8:16am Lymphocytes # (Manual) 2.6 T/MM3 1-4.8 01/03/2017 11:32am 01/04/2017 8: 16am Monocytes # (Manual) 0.6 T/MM3 0-0.8 01/03/2017 11:32am 01/04/2017 8: 16am Eosinophils # (Manual) 0.1 T/MM3 0-0.5 01/03/2017 11:32am 01/04/2017 8: 16am Basophils # (Manual) 0.1 T/MM3 0-0.2 01/03/2017 11:32am 01/04/2017 8: 16am Red Cell Morphology Comment NORMAL 01/03/2017 11:32am 01/04/2017 8: 16am Stool Campylobacter PCR NEGATIVE NEGATIVE 01/03/2017 11:45am [...] (PCR) NEGATIVE NEGATIVE 01/03/2017 11:45am 2016 1:14pm White Blood Count 8.6 T/MM3 4.5-11.0 01/23/2017 8:32pm 01/23/2017 8: 39pm Red Blood Count 4.02 M/MM3 4.00-5.20 01/23/2017 8:32pm 01/23/2017 8: 39pm Hemoglobin 11.6 GM/DL L 12-16 01/23/2017 8:32pm 01/23/2017 8:39pm Hematocrit 37.3 % 36-46 01/23/2017 8:32pm 01/23/2017 8:39pm Mean Corpuscular Volume 92.8 UM3 80-100 01/23/2017 8:32pm 01/23/2017 8: 39pm Mean Corpuscular Hemoglobin 28.9 UUG 26-34 01/23/2017 8:32pm 2016 8:39pm Mean Corpuscular Hemoglobin Concent 31.1 GM/DL 31-37 01/23/2017 8:32pm 01/23/2017 8:39pm RDW Standard Deviation 44.8 FL 36.9-50.2 01/23/2017 8:32pm 01/23/2017 8 :39pm Platelet Count 260 T/MM3 130-400 01/23/2017 8:32pm 01/23/2017 8:39pm Mean Platelet Volume 10.6 UM3 9.4-12.4 01/23/2017 8:32pm 01/23/2017 8: 39pm Neutrophils (%) (Auto) 61.7 % 33-66 01/23/2017 8:32pm 01/23/2017 8: 39pm Lymphocytes (%) (Auto) 28.4 % 23-45 01/23/2017 8:32pm 01/23/2017 8: 39pm Monocytes (%) (Auto) 7.7 % 0-9.0 01/23/2017 8:32pm 01/23/2017 8:39pm Eosinophils (%) (Auto) 1.7 % 0-4 01/23/2017 8:32pm 01/23/2017 8:39pm Basophils (%) (Auto) 0.3 % 0-2 01/23/2017 8:32pm 01/23/2017 8:39pm Immature Granulocyte % (Auto) 0.2 % 0.0-0.5 01/23/2017 8:32pm 2016 8:39pm Absolute Neutrophils (auto) 5.3 T/MM3 1.8-7.7 01/23/2017 8:[facility] 2016 8:39pm Absolute Lymphocytes (auto) 2.4 T/MM3 1-4.8 01/23/2017 8:[facility] 2016 8:39pm Absolute Monocytes (auto) 0.7 T/MM3 0-0.8 01/23/2017 8:[facility] 01/23/2017 8:39pm Absolute Eosinophils (auto) 0.2 T/MM3 0-0.5 01/23/2017 8:[facility] 2016 8:39pm Absolute Basophils (auto) 0.0 T/MM3 0-0.2 01/23/2017 8:[facility] 01/23/2017 8:39pm Absolute Immature Granulocyte (auto 0.02 T/MM3 0.00-0.03 01/23/2017 8: [facility] 01/23/2017 8:39pm Prothromb Time International Ratio 2.54 H 0.76-1.04 01/23/2017 8:[facility] 01/23/2017 8:58pm THERAPUTIC RANGE=2.00-3.00 FOR ANTI-THROMBOSIS THERAPUTIC RANGE=2.50-3.50 FOR IMPLANTED VALVE D-Dimer < 150 NG/ML 0-230 01/23/2017 8:[facility] 01/23/2017 8:58pm <230 NG/ ML D-DU=PRESUMPTIVE NEGATIVE FOR PE OR DVT >230 NG/ML D-DU=ADDITIONAL EVAL FOR PE OR DVT RECOMMENDED Icterus Index < 2 0-7 01/23/2017 8:[facility] 01/23/2017 8:48pm Chemistry Specimen Hemolysis < 15 0-25 01/23/2017 8:[facility] 01/23/2017 8 :48pm 0-25: Specimen Exhibited No Hemolysis. Turbidity < 20 0-20 01/23/2017 8:32p 01/23/2017 8:48pm Sodium Level 141 MEQ/L 134-144 01/23/2017 8:32p 01/23/2017 8:48pm Potassium Level 3.6 MEQ/L 3.6-5 01/23/2017 8:32p 01/23/2017 8:48pm Chloride Level 102 MEQ/L 98-107 01/23/2017 8:32p 01/23/2017 8:48pm Carbon Dioxide Level 27 MEQ/L 22-30 01/23/2017 8:32p 01/23/2017 8: 48pm Anion Gap 12 MEQ/L 5-15 01/23/2017 8:32p 01/23/2017 8:48pm Blood Urea Nitrogen 15.0 MG/DL 7-17 01/23/2017 8:32p 01/23/2017 8: 48pm Creatinine 0.7 MG/DL 0.7-1.2 01/23/2017 8:32p 01/23/2017 8:48pm BUN/Creatinine Ratio 21 RATIO 6-01/23/2017 8:32p 01/23/2017 8:48pm Glomerular Filtration Rate Calc 81 01/23/2017 8:32p 01/23/2017 8: 48pm Glucose Level 203 MG/DL H 65-110 01/23/2017 8:[facility] 01/23/2017 8:48pm Calculated Osmolality 278 MOSM/KG 261-280 01/23/2017 8:[facility] 01/23/2017 8:48pm Calcium Level 9.0 MG/DL 8.4-10.2 01/23/2017 8:32p 01/23/2017 8:48pm Troponin I < 0.012 ng/ml 0-0.12 01/23/2017 8:[facility] 01/23/2017 9:00pm Troponin values with a difference of 55% increase from orginal troponin value represent a true biological DELTA value. (%increase Calc=Orginal Troponin value, divided by subsequent Troponin value, multiplied by 100) EO-Tou-H-Type Natriuretic Peptide 597 PG/ML H 0-175 01/23/2017 8:[facility] 9:00pm Rule in cut points: <50 years old=450; 50-75 years old=900; >75 years old=1800; When utilizing ProBNP rule-in cut points, adjustment for impaired renal function is typically not required. Procedures Procedure Status Date Provider(s) Colonoscopy w/lesion removal Completed 11/03/16 MAXWELL YING MD, FACS, CWS Reagent strip/blood glucose Completed 11/03/16 Prothrombin time Completed 11/03/16 Tissue exam by pathologist Completed 11/03/16 [id number]"RINGERS LACTATE INFUSION, UP TO 1000 CC" Completed 11/03/16 Ther/proph/diag inj sc/im Completed 10/29/16247664"INJECTION, ENOXAPARIN SODIUM, 10 MG" Completed 10/29/16 Ther/proph/diag inj sc/im Completed 10/29/16016082"INJECTION, ENOXAPARIN SODIUM, 10 MG" Completed 10/29/16 Ther/proph/diag inj sc/im Completed 10/29/16197466"INJECTION, ENOXAPARIN SODIUM, 10 MG" Completed 10/29/16 Complete cbc w/auto diff wbc Completed 10/29/16 Ther/proph/diag inj sc/im Completed 10/29/16286676"INJECTION, ENOXAPARIN SODIUM, 10 MG" Completed 10/29/16 Ther/proph/diag inj sc/im Completed 10/29/16467132"INJECTION, ENOXAPARIN SODIUM, 10 MG" Completed 10/29/16 Ther/proph/diag inj sc/im Completed 10/29/16643083"INJECTION, ENOXAPARIN SODIUM, 10 MG" Completed 10/29/16 Ther/proph/diag inj sc/im Completed 10/29/16099500"INJECTION, ENOXAPARIN SODIUM, 10 MG" Completed 10/29/16 Njx interlaminar lmbr/sac Completed 11/02/16504821"INJECTION, METHYLPREDNISOLONE ACETATE, 40 MG" Completed 11/02/16"LOW OSMOLAR CONTRAST MATERIAL, 100-199 MG/ML IODINE C Completed Drain/inj joint/bursa w/o us Completed 11/20/16 LUCERO DANIELLE MD Needle localization by xray Completed 11/20/16030556"INJECTION, METHYLPREDNISOLONE ACETATE, 80 MG" Completed 11/20/16090105"LOW OSMOLAR CONTRAST MATERIAL, 300-399 MG/ML IODINE C Completed 003"LOW OSMOLAR CONTRAST MATERIAL, 300-399 MG/ML IODINE C Completed Routine venipuncture Completed 12/05/16 Dxa bone density axial Completed 12/05/16 Vitamin d 25 hydroxy Completed 12/05/16 Assay of calcium Completed 12/05/16 Assay alkaline phosphatase Completed 12/05/16 Rpr s/n/ax/gen/trnk 2.5cm/< Completed 12/17/16 RENE RANGEL MD Emergency dept visit Completed 12/17/16 Capillary blood draw Completed 12/20/16 Comprehen metabolic panel Completed 12/20/16 Glycosylated hemoglobin test Completed 12/20/16 Bl smear w/diff wbc count Completed 12/20/16 Complete cbc automated Completed 12/20/16 Prothrombin time Completed 12/20/16 Capillary blood draw Completed 12/26/16 Metabolic panel total ca Completed 12/26/16 Complete cbc w/auto diff wbc Completed 12/26/16 Prothrombin time Completed 12/26/16 Routine venipuncture Completed 01/03/17 Metabolic panel total ca Completed 01/03/17 Bl smear w/diff wbc count Completed 01/03/17 Complete cbc automated Completed 01/03/17 Prothrombin time Completed 01/03/17 Iadna-dna/rna probe tq 12-25 Completed 01/03/17 Capillary blood draw Completed 01/17/17 Metabolic panel total ca Completed 01/17/17 Prothrombin time Completed 01/17/17 Encounters Encounter Location Arrival/Admit Date Discharge/Depart Date Attending Provider Departed Emergency Room [facility] 01/23/17 7:55pm 01/23/17 9: 20pm JANUARYSARIAH DO Registered [facility] 01/17/17 10:22am CARMENCITA SCALES MD Registered [facility] 01/09/17 9:04am CARMENCITA SCALES MD Registered [facility] 01/03/17 11:03am CARMENCITA SCALES MD Registered [facility] 12/26/16 10:35am CARMENCITA SCALES MD Discharged [facility] 12/20/16 12:41pm 12/20/16 11: 59pm CARMENCITA SCALES MD Departed Emergency Room [facility] 12/17/16 12:27pm 12/17/16 1: 25pm RENE RANGEL MD Registered [facility] 12/05/16 12:09pm RENE BEARD MD Registered [facility] 11/20/16 7:11am LUCERO DANIELLE MD Departed [facility] 11/03/16 6:15am 11/03/16 10 :06am MAXWELL YING FACS, MD Registered [facility] 11/02/16 9:48am ERNESTO MCLEAN Discharged [facility] 10/29/16 4:21pm 11/04/16 6:04pm CARMENCITA SCALES MD Recent Diagnosis
--- OUTSIDE RECORDS SUMMARY | 2017-02-05 19:18 | XMS REPORT | Continuity of Care Document ---
Author Author [facility] Organization [facility] Address Unknown Phone Unavailable Support Name Relationship Address Phone BARBIE HARE MD Caregiver [facility] [address] [place] [address] Unavailable CARMENCITA SCALES MD Caregiver [address] [place] [address] [phone] CHRISSIE MARRUFO Next Of Kin [address] [place] [address] Insurance Providers Payer Name Policy Number Subscriber Name Relationship Medicare [id number] Kayla Robertson 18 Self Blue Cross [facility] [id number] Kayla Robertson 18 Self Problems Medical Problems [...] Mg PO BEDTIME PRN 04/10/12 Active Ipratropium [place] [facility] NOSTRIL DAILY 07/09/13 Active Chlorthalidone 25 [...] Has specimen been collected/obtained? Y Urine Specific [place] March 11, 2014 5:30pm <=1.005 L - [...] 01, 2011 10:07pm LAB TEST FORM REQUEST [id number] - EKG February 06, 2008 12:44pm Complete [...] March 11, 2014 4:00pm < 2 0-7 YJ-Yyq-L-Type Natriuretic Peptide March 11, 2014 4:00pm 266 [...] Encounters Encounter Location Date/Time Departed Emergency Room [facility] 06/22/14 8:30pm Recent Diagnosis
--- OUTSIDE RECORDS SUMMARY | 2017-02-05 19:19 | XMS REPORT | Continuity of Care Document ---
Author Author [facility] Organization [facility] Address Unknown Phone Unavailable Support Name Relationship Address Phone ARCHIE BLOOD MD Caregiver [address] [place] [address] CARMENCITA SCALES MD Caregiver [address] [place] [address] [place] [address] [phone] YARONVIRGILA Next Of Kin [address] [place], [place] [id number] Insurance Providers Payer Name Policy Number Subscriber Name Relationship Medicare [id number] Kayla Robertson 18 Self Blue [facility] [id number] Kayla Robertson 18 Self Problems Medical Problems Problem Onset Date Status Malaise and fatigue Unknown Active R/O [place] Unknown Active Chest pain rule out [place] Unknown Active Dizziness Unknown Active Malaise and [...] F (96.8 - 99.1) Temperature (Calculated Celsius) 36.93390 degrees C (36.0 - 37.3) Pulse Rate [...] Has specimen been collected/obtained? Y Urine Specific [place] March 11, 2014 5:30pm <=1.005 L - [...] 01, 2011 10:07pm LAB TEST FORM REQUEST [id number] - EKG February 06, 2008 12:44pm Complete [...] March 11, 2014 4:00pm < 2 0-7 JT-Nfc-S-Type Natriuretic Peptide March 11, 2014 4:00pm 266 [...] Encounters Encounter Location Date/Time Departed Emergency Room 06/29/14 4:02pm Departed Emergency Room 06/22/14 8:30pm Recent Diagnosis
--- OUTSIDE RECORDS SUMMARY | 2017-02-05 19:19 | XMS REPORT | Continuity of Care Document ---
Author Author [facility] Organization [facility] Address Unknown Phone Unavailable Support Name Relationship Address Phone BENJIE LEYVA DO Caregiver [facility] [address] [place], [place] [phone] CARMENCITA SCALES MD Caregiver [address] [place] [address] [place] [address] [phone] CHRISSIE MARRUFO Next Of Kin [address] [place] [address] Insurance Providers Payer Name Policy Number Subscriber Name Relationship Medicare [id number] Kayla Robertson 18 Self Blue Cross [facility] [id number] Kayla Robertson 18 Self Problems Medical Problems [...] Has specimen been collected/obtained? Y Urine Specific [place] March 11, 2014 5:30pm <=1.005 L - [...] 01, 2011 10:07pm LAB TEST FORM REQUEST [id number] - EKG February 06, 2008 12:44pm Complete [...] March 11, 2014 4:00pm < 2 0-7 NE-Kqk-P-Type Natriuretic Peptide March 11, 2014 4:00pm 266 [...] Encounters Encounter Location Date/Time Departed Emergency Room [facility] 07/29/14 8:12pm Departed Emergency Room [facility] 06/29/14 4:02pm Departed Emergency Room [facility] 06/22/14 8:30pm Recent Diagnosis
--- OUTSIDE RECORDS SUMMARY | 2017-02-05 19:21 | XMS REPORT | Continuity of Care Document ---
Author Author [facility] Organization [facility] Address Unknown Phone Unavailable Support Name Relationship Address Phone MAWXELL YING FACS, MD Caregiver [address] [place] [address] [place] [phone] CARMENCITA SCALES MD Caregiver [address] [place] [address] [place] [phone] CHRISSIE MARRUFO Next Of Kin [address] [place], [place] [id number] Insurance Providers Payer Name Policy Number Subscriber Name Relationship Medicare [id number] Kayla Robertson 16 Self [facility] [id number] Kayla Robertson 16 Self Advance Directives Directive Response Recorded Date/Time Ordered Resuscitation Status Full Code 07/22/14 12:13pm Resuscitation Documents on File Yes 07/22/14 11:52am Problems Medical Problems Problem Onset Date Status Malaise and fatigue Unknown Active R/O [place] Unknown Active Chest pain rule out [place] Unknown Active Dizziness Unknown Active Malaise and [...] F (96.8 - 99.1) Temperature (Calculated Celsius) 36.06620 degrees C (36.0 - 37.3) Temperature Source [...] 01, 2011 10:07pm LAB TEST FORM REQUEST [id number] - Lipase April 10, 2012 3:16pm 16 [...] 11, 2014 4:00pm 9.9 % H 0-9.0 HY-Oav-O-Type Natriuretic Peptide March 11, 2014 4:00pm 266 [...] Has specimen been collected/obtained? Y Urine Specific [place] March 11, 2014 5:30pm <=1.005 L - [...] Encounters Encounter Location Date/Time Departed Emergency Room [facility] 06/29/14 4:02pm Departed Emergency Room [facility] 06/22/14 8:30pm
--- OUTSIDE RECORDS SUMMARY | 2017-02-05 19:21 | XMS REPORT | Continuity of Care Document ---
Author Author [facility] Organization [facility] Address Unknown Phone Unavailable Support Name Relationship Address Phone BARBIE HARE MD Caregiver [facility] [address] [place] [address] Unavailable CARMENCITA SCALES MD Caregiver [address] [place] [phone] CHRISSIE MARRUFO Next Of Kin [address] [place] [address] Insurance Providers Payer Name Policy Number Subscriber Name Relationship Medicare [id number] Kayla Robertson 16 Self [facility] [id number] Kayla Robertson 16 Self Chief Complaint and Reason for Visit Chief Complaint Chest Pain Reason for Visit [id number] Problems Medical Problems Problem Onset Date Status [...] at time of discharge: Good Good at [phone]. 2. Problems such as: Temp above 101.5 degrees You develop redness, excessive swelling of the incision, increasing pain or excessive foul smelling drainage. 3. If the office is closed, call [facility] at [phone] and have your Surgeon paged. Condition at [...] Date 08/20/14 5:07pm Disposition 02 [place] [facility] Condition at Discharge Improved Instructions/Education Provided [facility] [place] [...] F (96.8 - 99.1) Temperature (Calculated Celsius) 36.96993 degrees C (36.0 - 37.3) Pulse Rate [...] 2014 2:45pm 124.3 MG/DL - Urine Specific [place] August 17, 2014 12:05am <=1.005 L [...] 21, 2014 9:08pm LAB TEST FORM REQUEST [id number] - EKG February 06, 2008 12:44pm Complete [...] September 21, 2014 9:30pm < 2 0-7 JN-Nxj-R-Type Natriuretic Peptide September 21, 2014 9:30pm 718 [...] 2014 9:30am Name: KAYLA ROBERTSON Unit #: [id number] : 1940 Sex: F Loc / Svc: ED DOS: 08/27/14 Signed Report #: [id number] DIAGNOSTIC IMAGING REPORT TYPE OF EXAM: CHEST [...] completed 08/27/14 EMERGENCY DEPT VISIT completed 08/27/14 [id number] ITEM OR SERVICE completed 08/27/14 [id number] ITEM OR SERVICE completed 08/27/14 Encounters Encounter Location Date/Time Departed Emergency Room [facility] 09/21/14 9:22pm Registered [facility] 09/21/14 8:56am Registered Clinic [facility] 09/16/14 9:30am Departed Emergency Room [facility] 08/27/14 7:36pm Discharged Inpatient [facility] 08/16/14 10:43pm Departed Emergency Room [facility] 07/29/14 8:12pm Departed Emergency Room [facility] 06/29/14 4:02pm Recent Diagnosis
--- OUTSIDE RECORDS SUMMARY | 2017-02-05 19:23 | XMS REPORT | Continuity of Care Document ---
Author Author [facility] Organization [facility] Address Unknown Phone Unavailable Support Name Relationship Address Phone AUTUMNBENJIE MENDIETA Caregiver [facility] [address] [place] [phone] CARMENCITA SOLIZ MD Caregiver [address] [place] [address] [place] [address] [phone] CHRISSIE MARRUFO Next Of Kin [address] [place] [address] Insurance Providers Payer Name Policy Number Subscriber Name Relationship Medicare [id number] Kayla Robertson 16 Self [facility] [id number] Kayla Robertson 16 Self Advance Directives Directive Response Recorded Date/Time Advanced Directives Type None 08/27/14 7:39pm Chief Complaint and Reason for Visit Chief Complaint Chest Pain Reason for Visit [id number] Problems Medical Problems Problem Onset Date Status [...] Date 08/20/14 5:07pm Disposition 02 TO [facility] Condition at Discharge Improved Instructions/Education Provided [facility] Discharge Instructions Vitamin K DI for [...] F (96.8 - 99.1) Temperature (Calculated Celsius) 36.85523 degrees C (36.0 - 37.3) Pulse Rate [...] Has specimen been collected/obtained? Y Urine Specific [place] August 17, 2014 12:05am <=1.005 L - [...] 26, 2014 10:29am LAB TEST FORM REQUEST [id number] - EKG February 06, 2008 12:44pm Complete [...] August 27, 2014 7:56pm < 2 0-7 UW-Pxo-O-Type Natriuretic Peptide August 27, 2014 7:56pm 634 [...] 2014 9:30am Name: KAYLA ROBERTSON Unit #: [id number] : 1940 Sex: F DISCHARGE SUMMARY Admit Date: 08/16/14 Report #: [id number] General Date Date DATE: 08/20/14 TIME: 16:23 [...] BID #30 07/22/14 Losartan Potassium 100 Mg [id number] Mg PO DAILY #30 07/22/14 Chlorthalidone 25 Mg Bdkyhy72 Mg PO PRN #30 07/22/14 Atorvastatin Calcium 40 Mg Rcdyrr94 Mg PO HS #30 07/22/14 Pramipexole Di-Hcl (Mirapex)0.5 Mg Tablet0.5 Mg PO HS 08/23/11 Discharge Disposition stable Copies To 1: CARMENCITA SOLIZ MD, CARRIE DO Aug 20, 2014 16:24 Procedures Procedure Status Date Provider(s) EGD BIOPSY SINGLE/MULTIPLE completed 07/23/14 MAXWELL YING MD, FACS, CWS Encounters Encounter Location Date/Time Departed Emergency Room [facility] 08/27/14 7:36pm Registered Recurring [facility] 08/26/14 8:39am Discharged Inpatient [facility] 08/16/14 10:43pm Departed Emergency Room [facility] 07/29/14 8:12pm Departed Emergency Room [facility] 06/29/14 4:02pm Departed Emergency Room [facility] 06/22/14 8:30pm Recent Diagnosis
--- OUTSIDE RECORDS SUMMARY | 2017-02-05 19:24 | XMS REPORT | Continuity of Care Document ---
Author Author [facility] Organization [facility] Address Unknown Phone Unavailable Support Name Relationship Address Phone OMID OLIVARES MD Caregiver [address] [place] [address] [place] [phone] CONNOR CONCEPCION MD Caregiver [address] [place] [address] [place] [phone] CARMENCITA SOLIZ MD Caregiver [address] [place] [address] [place] [phone] CHRISSIE MARRUFO Next Of Kin [address] [place] [phone] Insurance Providers Payer Name Policy Number Subscriber Name Relationship Medicare [id number] Kayla Robertson 16 Self [facility] [id number] Kayla Robertson 16 Self Advance Directives Directive Response Recorded Date/Time Advanced Directives Type DNR Documentation Living Will DPOA for Healthcare 10:43pm Ordered Resuscitation Status Full Code 08/16/14 10:43pm Resuscitation Documents on File Yes 08/16/14 11:16pm Chief Complaint and Reason for Visit Chief Complaint BILATERAL PULMONARY EMBOLI Reason for Visit Chest pain rule out MA Shortness of breath CHEST PAIN NOS Dyspnea Pulmonary emboli Diabetes Hypertension Dyslipidemia GERD (gastroesophageal reflux disease) RLS (restless legs syndrome) Osteoarthritis Anxiety and depression History of gastritis Hypomagnesemia Obesity (BMI 35.0-39.9 without comorbidity) Pleuritic chest pain Problems Medical Problems Problem Onset Date Status Malaise and fatigue Unknown Active R/O MA Unknown Active Chest pain rule out MA Unknown Active Dizziness Unknown Active Malaise and [...] your medications, please contact our office at [phone]. Condition at time of discharge: Fair Plan [...] F (96.8 - 99.1) Temperature (Calculated Celsius) 36.81578 degrees C (36.0 - 37.3) Temperature Source [...] 01, 2011 10:07pm LAB TEST FORM REQUEST [id number] - Lipase April 10, 2012 3:16pm 18 [...] 20, 2014 6:38am 9.2 % H 0-9.0 OM-Vvm-K-Type Natriuretic Peptide August 16, 2014 9:18pm 305 [...] Has specimen been collected/obtained? Y Urine Specific [place] August 17, 2014 12:05am <=1.005 L - [...] Streptococcus Anginosus Name: KAYLA ROBERTSON Unit #: [id number] : 1940 Sex: F DISCHARGE SUMMARY Admit Date: 08/16/14 Report #: [id number] General Date Date DATE: 08/20/14 TIME: 16:23 [...] BID #30 07/22/14 Losartan Potassium 100 Mg [id number] Mg PO DAILY #30 07/22/14 Chlorthalidone 25 Mg Fdpfpd48 Mg PO PRN #30 07/22/14 Atorvastatin Calcium 40 Mg Eexfia93 Mg PO HS #30 07/22/14 Pramipexole Di-Hcl (Mirapex)0.5 Mg Tablet0.5 Mg PO HS 08/23/11 Discharge Disposition stable Copies To 1: CARMENCITA SOLIZ MD, CARRIE DO Aug 20, 2014 16:24 Procedures Procedure Status Date Provider(s) EGD BIOPSY SINGLE/MULTIPLE completed 07/23/14 MAXWELL YING MD, FACS, CWS Encounters Encounter Location Date/Time Discharged Inpatient [facility] 08/16/14 10:43pm Departed Emergency Room [facility] 07/29/14 8:12pm Departed Emergency Room [facility] 06/29/14 4:02pm Departed Emergency Room [facility] 06/22/14 8:30pm Recent Diagnosis Chest pain rule out MA Shortness of breath CHEST PAIN NOS Dyspnea Pulmonary emboli Diabetes Hypertension Dyslipidemia GERD (gastroesophageal reflux disease) RLS (restless legs syndrome) Osteoarthritis Anxiety and depression History of gastritis Hypomagnesemia Obesity (BMI 35.0-39.9 without comorbidity) Pleuritic chest pain
--- OUTSIDE RECORDS SUMMARY | 2017-02-05 19:25 | XMS REPORT | Continuity of Care Document ---
Author Author [facility] Organization [facility] Address Unknown Phone Unavailable Allergies Medications Problems Procedures Results Encounters ACCT No. Visit Date/Time Discharge Status Pt. Type Provider Facility Loc./Unit Complaint [id number] 11/06/2013 09:54:00 11/06/2013 23 :59:59 CLS Outpatient [id number] 10/20/2013 14:46:00 10/20/2013 23 :59:59 CLS Outpatient [id number] 10/06/2013 11:06:00 10/06/2013 23 :59:59 CLS Outpatient [id number] 09/03/2013 10:26:00 09/03/2013 23 :59:59 CLS Outpatient
--- OUTSIDE RECORDS SUMMARY | 2017-02-05 19:25 | XMS REPORT | Continuity of Care Document ---
Author Author [facility] Organization [facility] Address Unknown Phone Unavailable Support Name Relationship Address Phone BENJIE LEYVA Caregiver [address] [place] [phone] CAMDEN HERNANDEZ MD Caregiver [address] [place] [address] [address] [place], [id number] CARMENCITA SOLIZ MD Caregiver [address] [place] [address] [place] [address] [phone] CHRISSIE MARRUFO Next Of Kin [address] [place] [phone] Insurance Providers Payer Name Policy Number Subscriber Name Relationship Medicare [id number] Kayla Robertson 16 Self [facility] [id number] Kayla Robertson 16 Self Advance Directives Directive [...] Status Malaise and fatigue Unknown Active R/O CT Unknown Active Chest pain rule out CT Unknown Active Dizziness Unknown Active Malaise and [...] F (96.8 - 99.1) Temperature (Calculated Celsius) 36.92819 degrees C (36.0 - 37.3) Temperature Source [...] 19, 2014 8:32pm LAB TEST FORM REQUEST [id number] - Lipase April 10, 2012 3:16pm 18 [...] 21, 2014 4:14am 8.8 % N 0-9.0 KH-Aup-M-Type Natriuretic Peptide October 20, 2014 9:59pm 481 [...] 2014 2:45pm 124.3 MG/DL - Urine Specific [place] August 17, 2014 12:05am <=1.005 L - [...] Streptococcus Anginosus Name: KAYLA ROBERTSON Unit #: [id number] : 1940 Sex: F Loc / Svc: SRG DOS: 10/20/14 Signed Report #: [id number] DIAGNOSTIC IMAGING REPORT TYPE OF EXAM: CHEST [...] completed 08/27/14 EMERGENCY DEPT VISIT completed 08/27/14 [id number] ITEM OR SERVICE completed 08/27/14 [id number] ITEM OR SERVICE completed 08/27/14 ROUTINE VENIPUNCTURE [...] 09/21/14 Encounters Encounter Location Date/Time Discharged Inpatient [facility] 10/20/14 11:40pm Registered [facility] 10/19/14 3:34pm Departed Emergency Room [facility] 09/21/14 9:22pm Registered Clinic [facility] 09/16/14 9:30am Departed Emergency Room [facility] 08/27/14 7:36pm Discharged Recurring [facility] 08/26/14 8:39am Discharged Inpatient [facility] 08/16/14 10:43pm Departed Emergency Room [facility] 07/29/14 8:12pm Recent Diagnosis Anxiety and depression Swelling of left knee joint Anticoagulated on Coumadin Swelling of left lower extremity
--- OUTSIDE RECORDS SUMMARY | 2017-02-05 19:28 | XMS REPORT | Continuity of Care Document ---
Author Author [facility] Organization [facility] Address Unknown Phone Unavailable Support Name Relationship Address Phone CONNOR CONCEPCION MD Caregiver [address] [place] [phone] CARMENCITA SOLIZ MD Caregiver [address] [place] [address] [place] [address] [phone] YARONVIRGILA Next Of Kin [address] [place] [address] Insurance Providers Payer Name Policy Number Subscriber Name Relationship Medicare [id number] Kayla Robertson 18 Self [facility] [id number] Kayla Robertson 16 Self Advance Directives Directive Response Recorded Date/Time Advanced Directives Type Living Will None 11/08/14 9:58pm Chief Complaint and Reason for Visit Chief Complaint Chest Pain Reason for Visit [id number] pain rule out CA Problems Medical Problems Problem Onset Date Status Malaise and fatigue Unknown Active R/O CA Unknown Active Chest pain rule out CA Unknown Active Dizziness Unknown Active Malaise and [...] Date 10/21/14 7:18pm Disposition 02 TO [facility] Condition at Discharge Improved Instructions/Education Provided DI [...] F (96.8 - 99.1) Temperature (Calculated Celsius) 36.18206 degrees C (36.0 - 37.3) Pulse Rate [...] 08, 2014 10:43pm 7.6 % N 0-9.0 EY-Cgj-Q-Type Natriuretic Peptide October 20, 2014 9:59pm 481 [...] 2014 2:45pm 124.3 MG/DL - Urine Specific [place] November 08, 2014 11:35pm 1.010 L - [...] Streptococcus Anginosus Name: KAYLA ROBERTSON Unit #: [id number] : 1940 Sex: F Loc / Svc: SR DOS: 10/20/14 Signed Report #: [id number] DIAGNOSTIC IMAGING REPORT TYPE OF EXAM: CHEST [...] completed 08/27/14 EMERGENCY DEPT VISIT completed 08/27/14 [id number] ITEM OR SERVICE completed 08/27/14 [id number] ITEM OR SERVICE completed 08/27/14 ROUTINE VENIPUNCTURE [...] completed 10/20/14 EMERGENCY DEPT VISIT completed 10/20/14 [id number] ITEM OR SERVICE completed 10/20/14 [id number] ITEM OR SERVICE completed 10/20/14 [id number] ITEM OR SERVICE completed 10/20/14 [id number] ITEM OR SERVICE completed 10/20/14 [id number] ITEM OR SERVICE completed 10/20/14 [id number] ITEM OR SERVICE completed 10/20/14 [id number]"HOSPITAL OBSERVATION SERVICE, PER HOUR" completed 10/20/14 [id number]"HOSPITAL OBSERVATION SERVICE, PER HOUR" completed 10/20/14 [id number]"INJECTION, ENOXAPARIN SODIUM, 10 MG" completed 10/20/14"INJECTION, ENOXAPARIN SODIUM, 10 MG" completed 10/20/14"INJECTION, FUROSEMIDE, UP TO 20 MG" completed 10/20/14"INJECTION, VITAMIN B-12 CYANOCOBALAMIN, UP TO 1000 M completed ROUTINE VENIPUNCTURE completed 10/22/14 ASSAY OF SERUM POTASSIUM completed 10/22/14 PROTHROMBIN TIME completed 10/22/14 Encounters Encounter Location Date/Time Departed Emergency Room [facility] 11/08/14 9:56pm Registered [facility] 11/03/14 1:20pm Registered [facility] 10/29/14 9:56am Registered [facility] 10/22/14 10:38am Discharged Inpatient [facility] 10/20/14 11:40pm Departed Emergency Room [facility] 09/21/14 9:22pm Registered [facility] 09/16/14 9:30am Departed Emergency Room [facility] 08/27/14 7:36pm Discharged Recurring [facility] 08/26/14 8:39am Discharged Inpatient [facility] 08/16/14 10:43pm Recent Diagnosis
[2017-02-05 19:38] VITALS: TEMP 97.8; Ht 154.9 cm; Wt 96.6 kg
[2017-02-05] MEDS ORDERED: OXYCODONE/APAP 5mg/325mg TABLET PO ONE (21:00)
[2017-02-05] MEDS ORDERED: NORMAL SALINE 1,000 ML IV ONE (21:00)
[2017-02-05] MEDS ORDERED: CEFTRIAXONE I.V. (ER USE ONLY) 1 G in NORMAL SALINE 100 ML IV ONE (21:00)
--- NOTE | 2017-02-05 21:05 | ERPDOC ---
Departure Disposition Decision Date: February 05, 2017 Disposition Decision Time: 23:28 Disposition: 01 DISCHARGED HOME, SELF-CARE Impression Impression Impression: Primary Impression: Cellulitis Additional Impression: Lymphedema Severity: Moderate Condition: Stable Seen By: Physician only Referrals: CARMENCITA SCALES MD (Family) Patient Instructions: Cellulitis (ED) Problems/Meds/Labs Reviewed?: Yes Medications reviewed and manag: Yes Additional Instructions: Lasix 20 mg daily. Potassium 20 mEq daily. Your potassium is slightly low, so this important you take a potassium pill because Lasix will also lower your potassium. Bactrim DS, one tablet twice daily. Need to increase your probiotic so that you do not get another occurrence of C. difficile. Percocet 5 mg, one half to one tablet twice daily as needed for pain. This is a short-term prescription. Follow up care ordered?: Yes Mental Status: Alert, Oriented Scripts Sulfamethoxazole/Trimethoprim (Bactrim Ds Tablet) 1 Each Tablet 1 TAB PO BID, #20 TAB Take 1 tablet, by mouth, 2 times a day. Prov: RENE RANGEL MD 02/05/17 Potassium Chloride (Potassium Chloride) 20 Meq Tab.er.prt 20 MEQ PO DAILY, #30 TAB Prov: RENE RANGEL MD 02/05/17 Oxycodone HCl/Acetaminophen (Percocet 5-325 mg Tablet) 5-325 Tablet 1 TAB PO BID for PAIN, #15 TAB Take 1 tablet, by mouth, 4 times a day. Prov: RENE RANGEL MD 02/05/17 Furosemide (Lasix) 20 Mg Tablet 1 TAB PO DAILY for 30 Days, #30 TAB Prov: RENE RANGEL MD 02/05/17 HPI - Lower Extremity General Chief Complaint: Lower Extremity Pain Stated Complaint: BOTH LEG SWOLLEN/PAIN Time Seen by Provider: 20:47 HPI - Lower Extremity Initial Comments 76 yo female with bilat lower leg swelling and pain. Legs burning and hot, feel infected, with blisters forming. Hx of DM. She is very frustrated, feels like she is having bad luck with her health going badly at once. Allergies: Coded Allergies: rofecoxib (Verified Allergy, Severe, JOINT SWELL,RACHEL, 01/23/17) albuterol sulfate (Verified Allergy, Intermediate, NERVOUSNESS, PALPITATIONS, 01/23/17) ciprofloxacin (Verified Allergy, Mild, ITCH,HEADACHE, HEART FLUTTER, ) ciprofloxacin HCl (Verified Allergy, Mild, ITCH,HEADACHE; HEART FLUTTER, ) codeine (Verified Allergy, Mild, RASH,HEADACHE, 01/23/17) hydrocodone bit (Verified Allergy, Mild, FINE RASH AND HEADACHE, 01/23/17) Procaine HCl (Verified Allergy, Unknown, NERVOUS AND HEART RACE, 01/23/17) FROM DR SCALES H&P DATED 03-14-12 Tuberculin,Old Skin Test (Verified Allergy, Unknown, SWELLING OF ARM AT INJECTION SITE, 01/23/17) epinephrine (Verified Allergy, Unknown, PER H&P, 01/23/17) lidocaine (Verified Allergy, Unknown, PER H&P, 01/23/17) propoxyphene HCl (Verified Allergy, Unknown, SHAKY, AND LOPEZ, 01/23/17) cephalexin (Verified Adverse Reaction, Intermediate, C-DIFF, 01/23/17) C-Diff doxycycline (Verified Adverse Reaction, Unknown, NAUSEA, DIZZY, 01/23/17) hydrochlorothiazide (Verified Adverse Reaction, Unknown, NAUSEA, DIZZY, ) PER H&P lisinopril (Verified Adverse Reaction, Unknown, DRY COUGH, 01/23/17) Past History Patient Surgical History 1. Appendectomy 2. Cholecystectomy 3. Hysterectomy 4. Bilateral total knee arthroplasties 5. Tendon surgeries on both forearms, right hip, and right wrist 6. ORIF trimalleolar fracture with ORIF of periprosthetic femur fracture Past Medical History Metabolic: diabetes, hypercholesterolemia, hypertension ENMT: sinusitis Cardiac: A-fib Respiratory: pulmonary embolus GI: GERD, constipation, gallbladder disease, other, ulcers Female: kidney stones Neurological: CVA, migraines Musculoskeletal: osteoarthritis, other Hematologic: DVT Psychological: anxiety, depression Surgical History General: appendix, gallbladder Reproductive/: hysterectomy Joint: elbow, foot, knee Family History Family PMH: FOUND: CAD, hypertension Vaccines Hx Influenza Vaccination: Yes () Hx Pneumococcal Vaccination: Yes (doesnt remember, less than 10yrs) Social History Does patient use chewing tobac: No Second Hand Exposure: No Substance Use Type: does not use Alcohol Intake: none Housing: house Household Members: none Review of Systems Musculoskeletal General: see HPI Integumentary Skin: see HPI All other Systems All Other Systems: Reviewed and Negative Physical Exam General General Nourishment: well nourished, adult, obese Distress Description Legs are red and hot looking, patient is in pain. Vitals and Pain First Documented Vital Signs Date Time Temp Pulse Resp B/P Pulse Ox O2 Delivery O2 Flow Rate FiO2 02/05/17 19:38 97.8 67 15 165/77 98 Room Air Weight: Kilograms: 96.600 Height (feet): 5 Height (inches): 1.00 Triage Pain Scale: Normal Exams: Head: Normocephalic w/o trauma Chest/Resp: Clear all lora, with good airflow, and symmetry bilaterally CV: Regular rate and rhythm, without murmur or gallop, Pulses 2+ all extremities, capillary refill, <2 seconds all ext., no pedal edema noted Abdomen: Bowel sounds positive, soft, non-tender, non-distended, no hepatosplenomegaly, masses or bruits noted Neurologic: Patient is alert, and oriented, cranial nerves, motor/sensory/ cerebellar, exams w/o gross deficits, to observation Psychiatric: Patient exhibits, appropriate attention, emotion and affect Integumentary (brief) Comments Bilateral calves hot angry red appearance with small blisters forming across the anterior portions of both calves. Tender to touch. Differential Diagnoses Considering: Other (cellulitis, venous stasis) Progress Results/Orders Orders Procedure Category Date Status Time Normal Saline (Normal PHA 02/05/17 In Process Saline Iv) 21:00 Ceftriaxone I.V. (Er PHA 02/05/17 Complete Use Only) (Rocephin 21:00 Oxycodone/Apap 5/325 PHA 02/05/17 Complete (Percocet 5/325) 21:00 Iv Lock (Ed Only) EDM 02/05/17 Transmitted 21:00 Cbc W/Auto LAB 02/05/17 Complete Diff-Reflex Manual Cmp - Comprehensive LAB 02/05/17 Complete Metabolic Furosemide (Lasix) PHA 02/05/17 Logged 21:15 Lab Results Laboratory Tests Test 02/05/17 21:55 White Blood Count 9.8T/MM3 Red Blood Count 3.84M/MM3 Hemoglobin 11.3GM/DL Hematocrit 34.9% Mean Corpuscular Volume 90.9UM3 Mean Corpuscular Hemoglobin 29.4UUG Mean Corpuscular Hemoglobin Concent 32.4GM/DL RDW Standard Deviation 42.7FL Platelet Count 238T/MM3 Mean Platelet Volume 10.9UM3 Immature Granulocyte % (Auto) 0.2% Neutrophils (%) (Auto) 69.3% Lymphocytes (%) (Auto) 20.2% Monocytes (%) (Auto) 8.5% Eosinophils (%) (Auto) 1.6% Basophils (%) (Auto) 0.2% Absolute Immature Granulocyte (auto 0.02T/MM3 Absolute Neutrophils (auto) 6.8T/MM3 Absolute Lymphocytes (auto) 2.0T/MM3 Absolute Monocytes (auto) 0.8T/MM3 Absolute Eosinophils (auto) 0.2T/MM3 Absolute Basophils (auto) 0.0T/MM3 Turbidity < 20 Sodium Level 142MEQ/L Potassium Level 3.3MEQ/L Chloride Level 104MEQ/L Carbon Dioxide Level 26MEQ/L Anion Gap 12MEQ/L Blood Urea Nitrogen 17.0MG/DL Creatinine 0.7MG/DL Glomerular Filtration Rate Calc 81 BUN/Creatinine Ratio 24RATIO Glucose Level 146MG/DL Calculated Osmolality 278MOSM/KG Calcium Level 9.1MG/DL Total Bilirubin 0.80MG/DL Icterus Index < 2 Aspartate Amino Transf (AST/SGOT) 16U/L Alanine Aminotransferase (ALT/SGPT) 35U/L Alkaline Phosphatase 108U/L Total Protein 6.1G/DL Albumin 3.7G/DL Globulin 2.4G/DL Albumin/Globulin Ratio 1.5RATIO Chemistry Specimen Hemolysis < 15 Medications Current ED Medications Sodium Chloride 1,000 ml @ 100 mls/hr Q10H ONCE IV Last administered on 22:07; Start 02/05/17 at 21:00; Stop 02/06/17 at 06:59 Ceftriaxone Sodium/Sodium Chloride (Rocephin/NS) 100 ml @ 100 mls/hr O ONCE IV Last administered on 02/05/17 22:07; Start 02/05/17 at 21:00; Stop 02/05/17 at 21:59; Status DC Oxycodone/ Acetaminophen (Percocet 5/325) 1 tab O ONCE PO Last administered on 02/05/17 22:05; Start 02/05/17 at 21:00; Stop 02/05/17 at 21:01; Status DC Furosemide (Lasix) 20 mg O ONCE IV Last administered on 02/05/17t 22:11; Start 02/05/17 at 21:15; Stop 02/05/17 at 21:16; Status UNV Progress Progress Pt reports cefuroxime caused c diff, not a direct allergy. Given 1 gram IV rocephin to start tx of cellulitis on legs. Given bactrim ds one tab tonight and prescription to take with. She also had low K+ at 3.1. Started on KDUR 20meq daily. Lasix increased to 20mg daily. Recommend compression stockings low to med compression 5-15cm/h20. Pt will get stockings at pharmacy. Keep legs elevated. Follow up with PCP. RENE RANGEL MD February 05, 2017 21:05
[2017-02-05] MEDS ORDERED: FUROSEMIDE 20 MG/2 ML INJECTION IV ONE (21:15)
--- OUTSIDE RECORDS SUMMARY | 2017-02-05 21:54 | XMS REPORT | Continuity of Care Document ---
Author Author [facility] Organization [facility] Address Unknown Phone Unavailable Support Name Relationship Address Phone CARMENCITA SCALES MD Caregiver [address] [place] [address] [place], [place] [phone] CHRISSIE MARRUFO Next Of Kin [address] [place] [address] Insurance Providers Payer Name Policy Number Subscriber Name Relationship Medicare [id number] Kayla Robertson 16 Self [employer] [place] [id number] Kayla Robertson 16 Self Problems Medical Problems Problem Onset Date Status Malaise and fatigue Unknown Active R/O [place] Unknown Active Chest pain rule out [place] Unknown Active Dizziness Unknown Active Malaise and [...] F (96.8 - 99.1) Temperature (Calculated Celsius) 36.65754 degrees C (36.0 - 37.3) Pulse Rate [...] 21, 2014 9:30pm 9.6 % H 0-9.0 SQ-Ooa-D-Type Natriuretic Peptide September 21, 2014 9:30pm 718 [...] 2014 2:45pm 124.3 MG/DL - Urine Specific [place] August 17, 2014 12:05am <=1.005 L - [...] Streptococcus Anginosus Name: KAYLA ROBERTSON Unit #: [id number] : 1940 Sex: F Loc / Svc: ED DOS: 09/21/14 Signed Report #: [id number] DIAGNOSTIC IMAGING REPORT TYPE OF EXAM: CHEST [...] completed 08/27/14 EMERGENCY DEPT VISIT completed 08/27/14 [id number] ITEM OR SERVICE completed 08/27/14 [id number] ITEM OR SERVICE completed 08/27/14 ROUTINE VENIPUNCTURE [...] 09/21/14 Encounters Encounter Location Date/Time Discharged Recurring [facility] 09/28/14 9:39am Departed Emergency Room [facility] 09/21/14 9:22pm Registered Clinic [facility] 09/16/14 9:30am Departed Emergency Room [facility] 08/27/14 7:36pm Discharged Inpatient [facility] 08/16/14 10:43pm Departed Emergency Room [facility] 07/29/14 8:12pm
--- OUTSIDE RECORDS SUMMARY | 2017-02-05 21:57 | XMS REPORT | Continuity of Care Document ---
Author Author [facility] Organization [facility] Address Unknown Phone Unavailable Support Name Relationship Address Phone BARBIE HARE MD Caregiver [facility] [address] [place] [address] Unavailable CARMENCITA SCALES MD Caregiver [address] [place] [address] [phone] CHRISSIE MARRUFO Next Of Kin [address] [place] [address] Insurance Providers Payer Name Policy Number Subscriber Name Relationship Medicare [id number] Kayla Robertson 16 Self Blue [employer] [facility] [id number] Kayla Robertson 16 Self Problems Medical Problems [...] Mg PO BEDTIME PRN 04/10/12 Active Ipratropium [place] 2 [place] EA NOSTRIL DAILY 07/09/13 Active Chlorthalidone 25 [...] Has specimen been collected/obtained? Y Urine Specific [place] March 11, 2014 5:30pm <=1.005 L - [...] 01, 2011 10:07pm LAB TEST FORM REQUEST [id number] - EKG February 06, 2008 12:44pm Complete [...] March 11, 2014 4:00pm < 2 0-7 IS-Oza-C-Type Natriuretic Peptide March 11, 2014 4:00pm 266 [...] Encounters Encounter Location Date/Time Departed Emergency Room [facility] 06/22/14 8:30pm Recent Diagnosis
--- OUTSIDE RECORDS SUMMARY | 2017-02-05 21:58 | XMS REPORT | Continuity of Care Document ---
Author Author [facility] Organization [facility] Address Unknown Phone Unavailable Support Name Relationship Address Phone BENJIE LEYVA DO Caregiver [facility] [address] [place], [place] [phone] CARMENCITA SCALES MD Caregiver [address] [place] [address] [place] [address] [phone] CHRISSIE MARRUFO Next Of Kin [address] [place] [address] Insurance Providers Payer Name Policy Number Subscriber Name Relationship Medicare [id number] Kayla Robertson 16 Self Blue Cross [facility] [id number] Kayla Robertson 16 Self Problems Medical Problems Problem Onset Date Status Malaise and fatigue Unknown Active R/O [place] Unknown Active Chest pain rule out [place] Unknown Active Dizziness Unknown Active Malaise and [...] Has specimen been collected/obtained? Y Urine Specific [place] March 11, 2014 5:30pm <=1.005 L - [...] 01, 2011 10:07pm LAB TEST FORM REQUEST [id number] - EKG February 06, 2008 12:44pm Complete [...] March 11, 2014 4:00pm < 2 0-7 PV-Yua-F-Type Natriuretic Peptide March 11, 2014 4:00pm 266 [...] Encounters Encounter Location Date/Time Departed Emergency Room [facility] 07/29/14 8:12pm Departed Emergency Room [facility] 06/29/14 4:02pm Departed Emergency Room [facility] 06/22/14 8:30pm Recent Diagnosis
--- OUTSIDE RECORDS SUMMARY | 2017-02-05 21:58 | XMS REPORT | Continuity of Care Document ---
Author Author [facility] Organization [facility] Address Unknown Phone Unavailable Support Name Relationship Address Phone ARCHIE BLOOD MD Caregiver [address] [place] [address] CARMENCITA SCALES MD Caregiver [address] [place] [address] [place] [address] [phone] YARONVIRGILA Next Of Kin [address] [place], [place] [phone] Insurance Providers Payer Name Policy Number Subscriber Name Relationship Medicare [id number] Kayla Robertson 16 Self [facility] [id number] Kayla Robertson 16 Self Problems Medical Problems [...] F (96.8 - 99.1) Temperature (Calculated Celsius) 36.86746 degrees C (36.0 - 37.3) Pulse Rate [...] Has specimen been collected/obtained? Y Urine Specific [place] March 11, 2014 5:30pm <=1.005 L - [...] 01, 2011 10:07pm LAB TEST FORM REQUEST [id number] - EKG February 06, 2008 12:44pm Complete [...] March 11, 2014 4:00pm < 2 0-7 IF-Eql-U-Type Natriuretic Peptide March 11, 2014 4:00pm 266 [...] Encounters Encounter Location Date/Time Departed Emergency Room [facility] 06/29/14 4:02pm Departed Emergency Room [facility] 06/22/14 8:30pm Recent Diagnosis
[2017-02-05 22:00] LABS: BASOPHILS % (AUTO) 0.2 % (0-2); EOSINOPHILS # (AUTO) 0.2 T/MM3 (0-0.5); EOSINOPHILS % (AUTO) 1.6 % (0-4); HCT - HEMATOCRIT 34.9 % (36-46); HGB - HEMOGLOBIN 11.3 GM/DL (12-16); IMMATURE GRANULOCYTE # (AUTO) 0.02 T/MM3 (0.00-0.03); IMMATURE GRANULOCYTE % (AUTO) 0.2 % (0.0-0.5); LYMPHOCYTES % (AUTO) 20.2 % (23-45); MEAN CORPUSCULAR HGB 29.4 UUG (26-34); MEAN CORPUSCULAR HGB CONC(MCHC 32.4 GM/DL (31-37); MEAN CORPUSCULAR VOLUME 90.9 UM3 (80-100); MEAN PLATELET VOLUME 10.9 UM3 (9.4-12.4); MONOCYTES # (AUTO) 0.8 T/MM3 (0-0.8); MONOCYTES % (AUTO) 8.5 % (0-9.0); NEUTROPHILS #(AUTO)-ABSOLUTE 6.8 T/MM3 (1.8-7.7); NEUTROPHILS % (AUTO) 69.3 % (33-66); RED BLOOD COUNT 3.84 M/MM3 (4.00-5.20); WBC - WHITE BLOOD COUNT 9.8 T/MM3 (4.5-11.0)
--- OUTSIDE RECORDS SUMMARY | 2017-02-05 22:00 | XMS REPORT | Continuity of Care Document ---
Author Author [facility] Organization [facility] Address Unknown Phone Unavailable Support Name Relationship Address Phone BARBIE HARE MD Caregiver [facility] [address] [address] Unavailable CARMENCITA SCALES MD Caregiver [address] [place] [phone] CHRISSIE MARRUFO Next Of Kin [address] [place] [address] Insurance Providers Payer Name Policy Number Subscriber Name Relationship Medicare [id number] Kayla Robertson 16 Self [facility] [id number] Kayla Robertson 16 Self Chief Complaint and Reason for Visit Chief Complaint Chest Pain Reason for Visit [id number] Problems Medical Problems Problem Onset Date Status Malaise and fatigue Unknown Active R/O [place] Unknown Active Chest pain rule out [place] Unknown Active Dizziness Unknown Active Malaise and [...] at time of discharge: Good Good at [phone]. 2. Problems such as: Temp above 101.5 degrees You develop redness, excessive swelling of the incision, increasing pain or excessive foul smelling drainage. 3. If the office is closed, call [facility] at [phone] and have your Surgeon paged. Condition at [...] Discharge Date 08/20/14 5:07pm Disposition 02 TO [facility] Condition at Discharge Improved Instructions/Education Provided [facility] Discharge Instructions Vitamin K DI for [...] F (96.8 - 99.1) Temperature (Calculated Celsius) 36.17398 degrees C (36.0 - 37.3) Pulse Rate [...] 2014 2:45pm 124.3 MG/DL - Urine Specific [place] August 17, 2014 12:05am <=1.005 L - [...] 21, 2014 9:08pm LAB TEST FORM REQUEST [id number] - EKG February 06, 2008 12:44pm Complete [...] September 21, 2014 9:30pm < 2 0-7 MH-Rij-I-Type Natriuretic Peptide September 21, 2014 9:30pm 718 [...] 2014 9:30am Name: KAYLA ROBERTSON Unit #: [id number] : 1940 Sex: F Loc / Svc: ED DOS: 08/27/14 Signed Report #: [id number] DIAGNOSTIC IMAGING REPORT TYPE OF EXAM: CHEST [...] completed 08/27/14 EMERGENCY DEPT VISIT completed 08/27/14 [id number] ITEM OR SERVICE completed 08/27/14 [id number] ITEM OR SERVICE completed 08/27/14 Encounters Encounter Location Date/Time Departed Emergency Room [facility] 09/21/14 9:22pm Registered [facility] 09/21/14 8:56am Registered Clinic [facility] 09/16/14 9:30am Departed Emergency Room [facility] 08/27/14 7:36pm Discharged Inpatient [facility] 08/16/14 10:43pm Departed Emergency Room [facility] 07/29/14 8:12pm Departed Emergency Room [facility] 06/29/14 4:02pm Recent Diagnosis
--- OUTSIDE RECORDS SUMMARY | 2017-02-05 22:00 | XMS REPORT | Continuity of Care Document ---
Author Author [facility] Organization [facility] Address Unknown Phone Unavailable Support Name Relationship Address Phone MAXWELL YING FACS, MD Caregiver [address] [place] [address] [place] [phone] CARMENCITA SCALES MD Caregiver [address] [place] [address] [place] [phone] CHRISSIE MARRUFO Next Of Kin [address] [place], [place] [phone] Insurance Providers Payer Name Policy Number Subscriber Name Relationship Medicare [id number] Kayla Robertson 16 Self [facility] [id number] Kayla Robertson 16 Self Advance Directives Directive [...] F (96.8 - 99.1) Temperature (Calculated Celsius) 36.71608 degrees C (36.0 - 37.3) Temperature Source [...] 01, 2011 10:07pm LAB TEST FORM REQUEST [id number] - Lipase April 10, 2012 3:16pm 18 [...] 11, 2014 4:00pm 9.9 % H 0-9.0 RP-Vgd-Y-Type Natriuretic Peptide March 11, 2014 4:00pm 266 [...] Has specimen been collected/obtained? Y Urine Specific [place] March 11, 2014 5:30pm <=1.005 L - [...] Encounters Encounter Location Date/Time Departed Emergency Room [facility] 06/29/14 4:02pm Departed Emergency Room [facility] 06/22/14 8:30pm
--- OUTSIDE RECORDS SUMMARY | 2017-02-05 22:02 | XMS REPORT | Continuity of Care Document ---
Author Author LIVE Organization LIVE Address Unknown Phone Unavailable Support Name Relationship Address Phone AUTUMNBENJIE MENDIETA Caregiver [facility] [address] [place] [phone] CARMENCITA SOLIZ MD Caregiver [address] [place] [address] [place] [address] [phone] CHRISSIE MARRUFO Next Of Kin [address] [place] [address] Insurance Providers Payer Name Policy Number Subscriber Name Relationship Medicare [id number] Kayla Robertson 16 Self [facility] [id number] Kayla Robertson 16 Self Advance Directives Directive Response Recorded Date/Time Advanced Directives Type None 08/27/14 7:39pm Chief Complaint and Reason for Visit Chief Complaint Chest Pain Reason for Visit [id number] Problems Medical Problems Problem Onset Date Status [...] Discharge Date 08/20/14 5:07pm Disposition 02 TO [facility] Condition at Discharge Improved Instructions/Education Provided [facility] Discharge Instructions Vitamin K DI for [...] F (96.8 - 99.1) Temperature (Calculated Celsius) 36.72079 degrees C (36.0 - 37.3) Pulse Rate [...] Has specimen been collected/obtained? Y Urine Specific [place] August 17, 2014 12:05am <=1.005 L - [...] 26, 2014 10:29am LAB TEST FORM REQUEST [id number] - EKG February 06, 2008 12:44pm Complete [...] August 27, 2014 7:56pm < 2 0-7 UB-Rmt-U-Type Natriuretic Peptide August 27, 2014 7:56pm 634 [...] 2014 9:30am Name: KAYLA ROBERTSON Unit #: [id number] : 1940 Sex: F DISCHARGE SUMMARY Admit Date: 08/16/14 Report #: [id number] General Date Date DATE: 08/20/14 TIME: 16:23 [...] BID #30 07/22/14 Losartan Potassium 100 Mg [id number] Mg PO DAILY #30 07/22/14 Chlorthalidone 25 Mg Ukjnpt38 Mg PO PRN #30 07/22/14 Atorvastatin Calcium 40 Mg Ksexoq94 Mg PO HS #30 07/22/14 Pramipexole Di-Hcl (Mirapex)0.5 Mg Tablet0.5 Mg PO HS 08/23/11 Discharge Disposition stable Copies To 1: CARMENCITA SOLIZ MD, CARRIE DO Aug 20, 2014 16:24 Procedures Procedure Status Date Provider(s) EGD BIOPSY SINGLE/MULTIPLE completed 07/23/14 MAXWELL YING MD, FACS, CWS Encounters Encounter Location Date/Time Departed Emergency Room [facility] 08/27/14 7:36pm Registered Recurring [facility] 08/26/14 8:39am Discharged Inpatient [facility] 08/16/14 10:43pm Departed Emergency Room [facility] 07/29/14 8:12pm Departed Emergency Room [facility] 06/29/14 4:02pm Departed Emergency Room [facility] 06/22/14 8:30pm Recent Diagnosis
--- OUTSIDE RECORDS SUMMARY | 2017-02-05 22:03 | XMS REPORT | Continuity of Care Document ---
Author Author [facility] Organization [facility] Address Unknown Phone Unavailable Support Name Relationship Address Phone OMID OLIVARES MD Caregiver [address] [place] [address] [place] [phone] CONNOR CONCEPCION MD Caregiver [address] [place] [address] [place] [phone] CARMENCITA SOLIZ MD Caregiver [address] [place] [address] [address] [place] [phone] CHRISSIE MARRUFO Next Of Kin [address] [place] [phone] Insurance Providers Payer Name Policy Number Subscriber Name Relationship Medicare [id number] Kayla Robertson 18 Self [facility] [id number] Kayla Robertson 16 Self Advance Directives Directive Response Recorded Date/Time Advanced Directives Type DNR Documentation Living Will DPOA for Healthcare 10:43pm Ordered Resuscitation Status Full Code 08/16/14 10:43pm Resuscitation Documents on File Yes 08/16/14 11:16pm Chief Complaint and Reason for Visit Chief Complaint BILATERAL PULMONARY EMBOLI Reason for Visit Chest pain rule out [place] Shortness of breath CHEST PAIN NOS Dyspnea Pulmonary emboli Diabetes Hypertension Dyslipidemia GERD (gastroesophageal reflux disease) RLS (restless legs syndrome) Osteoarthritis Anxiety and depression History of gastritis Hypomagnesemia Obesity (BMI 35.0-39.9 without comorbidity) Pleuritic chest pain Problems Medical Problems Problem Onset Date Status Malaise and fatigue Unknown Active R/O [place] Unknown Active Chest pain rule out [place] Unknown Active Dizziness Unknown Active Malaise and [...] your medications, please contact our office at [phone]. Condition at time of discharge: Fair Plan [...] F (96.8 - 99.1) Temperature (Calculated Celsius) 36.95990 degrees C (36.0 - 37.3) Temperature Source [...] 01, 2011 10:07pm LAB TEST FORM REQUEST [id number] - Lipase April 10, 2012 3:16pm 18 [...] 20, 2014 6:38am 9.2 % H 0-9.0 LU-Jur-H-Type Natriuretic Peptide August 16, 2014 9:18pm 305 [...] Has specimen been collected/obtained? Y Urine Specific [place] August 17, 2014 12:05am <=1.005 L - [...] Streptococcus Anginosus Name: KAYLA ROBERTSON Unit #: [id number] : 1940 Sex: F DISCHARGE SUMMARY Admit Date: 08/16/14 Report #: [id number] General Date Date DATE: 08/20/14 TIME: 16:23 [...] BID #30 07/22/14 Losartan Potassium 100 Mg Fdydqn252 Mg PO DAILY #30 07/22/14 Chlorthalidone 25 Mg Ofcbfr73 Mg PO PRN #30 07/22/14 Atorvastatin Calcium 40 Mg Jrdkhf25 Mg PO HS #30 07/22/14 Pramipexole Di-Hcl (Mirapex)0.5 Mg Tablet0.5 Mg PO HS 08/23/11 Discharge Disposition stable Copies To 1: CARMENCITA SOLIZ MD, CARRIE DO Aug 20, 2014 16:24 Procedures Procedure Status Date Provider(s) EGD BIOPSY SINGLE/MULTIPLE completed 07/23/14 MAXWELL YING MD, FACS, CWS Encounters Encounter Location Date/Time Discharged Inpatient [facility] 08/16/14 10:43pm Departed Emergency Room [facility] 07/29/14 8:12pm Departed Emergency Room [facility] 06/29/14 4:02pm Departed Emergency Room [facility] 06/22/14 8:30pm Recent Diagnosis Chest pain rule out [place] Shortness of breath CHEST PAIN NOS Dyspnea Pulmonary emboli Diabetes Hypertension Dyslipidemia GERD (gastroesophageal reflux disease) RLS (restless legs syndrome) Osteoarthritis Anxiety and depression History of gastritis Hypomagnesemia Obesity (BMI 35.0-39.9 without comorbidity) Pleuritic chest pain
--- OUTSIDE RECORDS SUMMARY | 2017-02-05 22:04 | XMS REPORT | Continuity of Care Document ---
Author Author [facility] Organization [facility] Address Unknown Phone Unavailable Allergies Medications Problems Procedures Results Encounters ACCT No. Visit Date/Time Discharge Status Pt. Type Provider Facility Loc./Unit Complaint [id number] 11/06/2013 09:54:00 11/06/2013 23 :59:59 CLS Outpatient [id number] 10/20/2013 14:46:00 10/20/2013 23 :59:59 CLS Outpatient [id number] 10/06/2013 11:06:00 10/06/2013 23 :59:59 CLS Outpatient [id number] 09/03/2013 10:26:00 09/03/2013 23 :59:59 CLS Outpatient
--- OUTSIDE RECORDS SUMMARY | 2017-02-05 22:04 | XMS REPORT | Continuity of Care Document ---
Author Author [facility] LIVE Organization [facility]IVE Address Unknown Phone Unavailable Support Name Relationship Address Phone BENJIE LEYVA Caregiver [address] [place] [phone] CAMDEN HERNANDEZ MD Caregiver [address] [place] [address] DR [place], [facility] CARMENCITA SOLIZ MD Caregiver [address] [place] [address] [place] [address] [phone] CHRISSIE MARRUFO Next Of Kin [address] [place] [phone] Insurance Providers Payer Name Policy Number Subscriber Name Relationship Medicare [id number] Kayla Robertson 18 Self [facility] [id number] Kayla Robertson 18 Self Advance Directives Directive [...] F (96.8 - 99.1) Temperature (Calculated Celsius) 36.42562 degrees C (36.0 - 37.3) Temperature Source [...] 19, 2014 8:32pm LAB TEST FORM REQUEST [id number] - Lipase April 10, 2012 3:16pm 18 [...] 21, 2014 4:14am 8.8 % N 0-9.0 WL-Cpu-T-Type Natriuretic Peptide October 20, 2014 9:59pm 481 [...] 2014 2:45pm 124.3 MG/DL - Urine Specific [place] August 17, 2014 12:05am <=1.005 L - [...] Streptococcus Anginosus Name: KAYLA ROBERTSON Unit #: [id number] : 1940 Sex: F Loc / Svc: SRG DOS: 10/20/14 Signed Report #: [id number] DIAGNOSTIC IMAGING REPORT TYPE OF EXAM: CHEST [...] completed 08/27/14 EMERGENCY DEPT VISIT completed 08/27/14 [id number] ITEM OR SERVICE completed 08/27/14 [id number] ITEM OR SERVICE completed 08/27/14 ROUTINE VENIPUNCTURE [...] 09/21/14 Encounters Encounter Location Date/Time Discharged Inpatient [facility] 10/20/14 11:40pm Registered [facility] 10/19/14 3:34pm Departed Emergency Room [facility] 09/21/14 9:22pm Registered Clinic [facility] 09/16/14 9:30am Departed Emergency Room [facility] 08/27/14 7:36pm Discharged Recurring [facility] 08/26/14 8:39am Discharged Inpatient [facility] 08/16/14 10:43pm Departed Emergency Room [facility] 07/29/14 8:12pm Recent Diagnosis Anxiety and depression Swelling of left knee joint Anticoagulated on Coumadin Swelling of left lower extremity
--- OUTSIDE RECORDS SUMMARY | 2017-02-05 22:07 | XMS REPORT | Continuity of Care Document ---
Author Author [facility] LIVE Organization [facility]IVE Address Unknown Phone Unavailable Support Name Relationship Address Phone CONNOR CONCEPCION MD Caregiver [address] [place] [phone] CARMENCITA SOLIZ MD Caregiver [address] [place] [address] [place] [address] [phone] YARONVIRGILA Next Of Kin [address] [place] [address] Insurance Providers Payer Name Policy Number Subscriber Name Relationship Medicare [id number] Kayla Robertson 18 Self [facility] [id number] Kayla Robertson 18 Self Advance Directives Directive Response Recorded Date/Time Advanced Directives Type Living Will None 11/08/14 9:58pm Chief Complaint and Reason for Visit Chief Complaint Chest Pain Reason for Visit MUO-DTXB-Dadwv pain rule out [place] Problems Medical Problems Problem Onset Date Status [...] Date 10/21/14 7:18pm Disposition 02 TO [facility] Condition at Discharge Improved [...] F (96.8 - 99.1) Temperature (Calculated Celsius) 36.11634 degrees C (36.0 - 37.3) Pulse Rate [...] 08, 2014 10:43pm 7.6 % N 0-9.0 MR-Mzq-O-Type Natriuretic Peptide October 20, 2014 9:59pm 481 [...] 2014 2:45pm 124.3 MG/DL - Urine Specific [place] November 08, 2014 11:35pm 1.010 L - [...] Streptococcus Anginosus Name: KAYLA ROBERTSON Unit #: [id number] : 1940 Sex: F Loc / Svc: SR DOS: 10/20/14 Signed Report #: [id number] DIAGNOSTIC IMAGING REPORT TYPE OF EXAM: CHEST [...] completed 08/27/14 EMERGENCY DEPT VISIT completed 08/27/14 [id number] ITEM OR SERVICE completed 08/27/14 [id number] ITEM OR SERVICE completed 08/27/14 ROUTINE VENIPUNCTURE [...] completed 10/20/14 EMERGENCY DEPT VISIT completed 10/20/14 [id number] ITEM OR SERVICE completed 10/20/14 [id number] ITEM OR SERVICE completed 10/20/14 [id number] ITEM OR SERVICE completed 10/20/14 [id number] ITEM OR SERVICE completed 10/20/14 [id number] ITEM OR SERVICE completed 10/20/14 [id number] ITEM OR SERVICE completed 10/20/14 [id number]"HOSPITAL OBSERVATION SERVICE, PER HOUR" completed 10/20/14 [id number]"HOSPITAL OBSERVATION SERVICE, PER HOUR" completed 10/20/14 [id number]"INJECTION, ENOXAPARIN SODIUM, 10 MG" completed 10/20/14"INJECTION, ENOXAPARIN SODIUM, 10 MG" completed 10/20/14"INJECTION, FUROSEMIDE, UP TO 20 MG" completed 10/20/14"INJECTION, VITAMIN B-12 CYANOCOBALAMIN, UP TO 1000 M completed ROUTINE VENIPUNCTURE completed 10/22/14 ASSAY OF SERUM POTASSIUM completed 10/22/14 PROTHROMBIN TIME completed 10/22/14 Encounters Encounter Location Date/Time Departed Emergency Room [facility] 11/08/14 9:56pm Registered [facility] 11/03/14 1:20pm Registered [facility] 10/29/14 9:56am Registered [facility] 10/22/14 10:38am Discharged Inpatient [facility] 10/20/14 11:40pm Departed Emergency Room [facility] 09/21/14 9:22pm Registered [facility] 09/16/14 9:30am Departed Emergency Room [facility] 08/27/14 7:36pm Discharged Recurring [facility] 08/26/14 8:39am Discharged Inpatient [facility] 08/16/14 10:43pm Recent Diagnosis
[2017-02-05 22:10] LABS: ALBUMIN 3.7 G/DL (3.5-5.0); ALBUMIN/GLOBULIN RATIO 1.5 RATIO (1.1-2.2); ALKALINE PHOSPHATASE 108 U/L (38-126); ALT (SGPT) 35 U/L (9-52); ANION GAP 12 MEQ/L (5-15); AST (SGOT) 16 U/L (14-36); BUN/CREATININE RATIO 24 RATIO (6-26); CALCIUM 9.1 MG/DL (8.4-10.2); CHLORIDE 104 MEQ/L (98-107); CO2 - CARBON DIOXIDE 26 MEQ/L (22-30); CREATININE 0.7 MG/DL (0.7-1.2); GLOMERULAR FILTRATION RATE 81; GLUCOSE 146 MG/DL (65-110); POTASSIUM 3.3 MEQ/L (3.6-5); SODIUM 142 MEQ/L (134-144); TOTAL PROTEIN 6.1 G/DL (6.3-8.2)
--- NOTE | 2017-02-05 23:01 | NUR ---
ELIMINATION PT HAS HAD URINE X 2
[2017-02-05] MEDS ORDERED: POTA20TA87 PO (23:27)
[2017-02-05] MEDS ORDERED: OXYC1TAB8 PO (23:27)
[2017-02-05] MEDS ORDERED: FURO-154 PO (23:27)
[2017-02-05] MEDS ORDERED: SULF1TAB42 PO (23:28)
[2017-02-06 00:10] VITALS: BP 123/60; PULSE 84; RESP 16; O2SAT 96
== END 2017-02-06 00:10 | disposition home or self-care (01) ==
LOC: ED 19:09
DX: L03.116 Cellulitis of left lower limb (principal); L03.115 Cellulitis of right lower limb; I89.0 Lymphedema, not elsewhere classified
CPT/HCPCS: 36415; 80053; 85025; 96361; 96365; 96375; 99284; A9270; J0696; J1940; J7030; J7050

== ENCOUNTER 2017-02-23 22:10 | Emergency (ER) | payer MEDICARE, BC ==
[~2017-02-23] VITALS: Ht 151.1 cm; Wt 96.6 kg
[~2017-02-23 22:10] MED LIST changes: +FURO-154 PO; +OXYC1TAB8 PO; +POTA20TA87 PO; +SULF1TAB42 PO
--- OUTSIDE RECORDS SUMMARY | 2017-02-23 22:15 | XMS REPORT | Continuity of Care Document ---
Author Author [facility] Organization [facility] Address Unknown Phone Unavailable Support Name Relationship Address Phone CARMENCITA SCALES MD Caregiver [address] [place] [address] [place], [place] [phone] CHRISSIE MARRUFO Next Of Kin [address] [place] [address] Insurance Providers Payer Name Policy Number Subscriber Name Relationship Medicare [id number] Kayla Robertson 16 Self [employer] [place] [id number] Kayla Robertson 16 Self Problems Medical Problems Problem Onset Date Status Malaise and fatigue Unknown Active R/O UT Unknown Active Chest pain rule out [place] Unknown Active Dizziness Unknown Active Malaise and [...] F (96.8 - 99.1) Temperature (Calculated Celsius) 36.96852 degrees C (36.0 - 37.3) Pulse Rate [...] 21, 2014 9:30pm 9.6 % H 0-9.0 UY-Rgl-H-Type Natriuretic Peptide September 21, 2014 9:30pm 718 [...] 2014 2:45pm 124.3 MG/DL - Urine Specific [place] August 17, 2014 12:05am <=1.005 L - [...] Streptococcus Anginosus Name: KAYLA ROBERTSON Unit #: [id number] : 1940 Sex: F Loc / Svc: ED DOS: 09/21/14 Signed Report #: [id number] DIAGNOSTIC IMAGING REPORT TYPE OF EXAM: CHEST [...] completed 08/27/14 EMERGENCY DEPT VISIT completed 08/27/14 [id number] ITEM OR SERVICE completed 08/27/14 [id number] ITEM OR SERVICE completed 08/27/14 ROUTINE VENIPUNCTURE [...] 09/21/14 Encounters Encounter Location Date/Time Discharged Recurring [facility] 09/28/14 9:39am Departed Emergency Room [facility] 09/21/14 9:22pm Registered Clinic [facility] 09/16/14 9:30am Departed Emergency Room [facility] 08/27/14 7:36pm Discharged Inpatient [facility] 08/16/14 10:43pm Departed Emergency Room [facility] 07/29/14 8:12pm
[2017-02-23 22:17] VITALS: Ht 151.1 cm; Wt 96.6 kg
--- OUTSIDE RECORDS SUMMARY | 2017-02-23 22:18 | XMS REPORT | Continuity of Care Document ---
Author Author [facility] Organization [facility] Address Unknown Phone Unavailable Support Name Relationship Address Phone BARBIE HARE MD Caregiver [facility] [address] [address] Unavailable CARMENCITA SCALES MD Caregiver [address] [place] [address] [phone] CHRISSIE MARRUFO Next Of Kin [address] [place] [address] Insurance Providers Payer Name Policy Number Subscriber Name Relationship Medicare [id number] Kayla Robertson 16 Self Blue Cross [facility] [id number] Kayla Robertson 16 Self Problems Medical Problems [...] Mg PO BEDTIME PRN 04/10/12 Active Ipratropium [place] 2 [place] EA NOSTRIL DAILY 07/09/13 Active Chlorthalidone 25 [...] Has specimen been collected/obtained? Y Urine Specific [place] March 11, 2014 5:30pm <=1.005 L [...] 01, 2011 10:07pm LAB TEST FORM REQUEST [id number] - EKG February 06, 2008 12:44pm Complete [...] March 11, 2014 4:00pm < 2 0-7 TD-Scb-X-Type Natriuretic Peptide March 11, 2014 4:00pm 266 [...] Encounters Encounter Location Date/Time Departed Emergency Room [facility] 06/22/14 8:30pm Recent Diagnosis
--- OUTSIDE RECORDS SUMMARY | 2017-02-23 22:19 | XMS REPORT | Continuity of Care Document ---
Author Author [facility] Organization [facility] Address Unknown Phone Unavailable Support Name Relationship Address Phone ARCHIE BLOOD MD Caregiver [address] [place] [address] CARMENCITA SCALES MD Caregiver [address] [place] [address] [place] [address] [phone] YARONVIRGILA Next Of Kin [address] [place], [place] [id number] Insurance Providers Payer Name Policy Number Subscriber Name Relationship Medicare [id number] Kayla Robertson 16 Self Blue [facility] [id number] Kayla Robertson 16 Self Problems Medical Problems Problem Onset Date Status Malaise and fatigue Unknown Active R/O PR Unknown Active Chest pain rule out [place] Unknown Active Dizziness Unknown Active Malaise and [...] F (96.8 - 99.1) Temperature (Calculated Celsius) 36.71276 degrees C (36.0 - 37.3) Pulse Rate [...] Has specimen been collected/obtained? Y Urine Specific [place] March 11, 2014 5:30pm <=1.005 L - [...] 01, 2011 10:07pm LAB TEST FORM REQUEST [id number] - EKG February 06, 2008 12:44pm Complete [...] March 11, 2014 4:00pm < 2 0-7 IM-Hbt-N-Type Natriuretic Peptide March 11, 2014 4:00pm 266 [...] Encounters Encounter Location Date/Time Departed Emergency Room [facility] 06/29/14 4:02pm Departed Emergency Room [facility] 06/22/14 8:30pm Recent Diagnosis
--- OUTSIDE RECORDS SUMMARY | 2017-02-23 22:19 | XMS REPORT | Continuity of Care Document ---
Author Author [facility] Organization [facility] Address Unknown Phone Unavailable Support Name Relationship Address Phone BENJIE LEYVA DO Caregiver [facility] [address] [place], [place] [phone] CARMENCITA SCALES MD Caregiver [address] [place] [address] [place] [address] [phone] CHRISSIE MARRUFO Next Of Kin [address] [place] [address] Insurance Providers Payer Name Policy Number Subscriber Name Relationship Medicare [id number] Kayla Robertson [address] [facility] [id number] Kayla Robertson 16 Self Problems Medical Problems [...] Has specimen been collected/obtained? Y Urine Specific [place] March 11, 2014 5:30pm <=1.005 L - [...] 01, 2011 10:07pm LAB TEST FORM REQUEST [id number] - EKG February 06, 2008 12:44pm Complete [...] March 11, 2014 4:00pm < 2 0-7 YN-Sis-V-Type Natriuretic Peptide March 11, 2014 4:00pm 266 [...] Encounters Encounter Location Date/Time Departed Emergency Room [facility] 07/29/14 8:12pm Departed Emergency Room [facility] 06/29/14 4:02pm Departed Emergency Room [facility] 06/22/14 8:30pm Recent Diagnosis
--- OUTSIDE RECORDS SUMMARY | 2017-02-23 22:21 | XMS REPORT | Continuity of Care Document ---
Author Author [facility] Organization [facility]IVE Address Unknown Phone Unavailable Support Name Relationship Address Phone MAXWELL YING FACS, MD Caregiver [address] [place] [address] [place] [phone] CARMENCITA SCALES MD Caregiver [address] [place] [address] [place] [phone] CHRISSIE MARRUFO Next Of Kin [address] [place], [place] [phone] Insurance Providers Payer Name Policy Number Subscriber Name Relationship Medicare [id number] Kayla Robertson 16 Self [facility] [id number] Kayla Robertson 16 Self Advance Directives Directive [...] F (96.8 - 99.1) Temperature (Calculated Celsius) 36.03969 degrees C (36.0 - 37.3) Temperature Source [...] 01, 2011 10:07pm LAB TEST FORM REQUEST [id number] - Lipase April 10, 2012 3:16pm 18 [...] 11, 2014 4:00pm 9.9 % H 0-9.0 TC-Ieq-W-Type Natriuretic Peptide March 11, 2014 4:00pm 266 [...] Has specimen been collected/obtained? Y Urine Specific [place] March 11, 2014 5:30pm <=1.005 L - [...] Room [facility] 06/29/14 4:02pm Departed Emergency Room [facility] 06/22/14 8:30pm
--- OUTSIDE RECORDS SUMMARY | 2017-02-23 22:21 | XMS REPORT | Continuity of Care Document ---
Author Author [facility] Organization [facility] Address Unknown Phone Unavailable Support Name Relationship Address Phone BARBIE HARE MD Caregiver [facility] [address] [place] [address] Unavailable CARMENCITA SCALES MD Caregiver [address] [place] [phone] CHRISSIE MARRUFO Next Of Kin [address] [place] [address] Insurance Providers Payer Name Policy Number Subscriber Name Relationship Medicare [id number] Kayla Robertson 16 Self [facility] [id number] Kayla Robertson 16 Self Chief Complaint and Reason for Visit Chief Complaint Chest Pain Reason for Visit [id number] Problems Medical Problems Problem Onset Date Status [...] at time of discharge: Good Good at [phone]. 2. Problems such as: Temp above 101.5 degrees You develop redness, excessive swelling of the incision, increasing pain or excessive foul smelling drainage. 3. If the office is closed, call [facility] at [phone] and have your Surgeon paged. Condition at [...] Discharge Date 08/20/14 5:07pm Disposition 02 TO [facility] Condition at Discharge Improved Instructions/Education Provided [facility] [...] F (96.8 - 99.1) Temperature (Calculated Celsius) 36.94110 degrees C (36.0 - 37.3) Pulse Rate [...] 2014 2:45pm 124.3 MG/DL - Urine Specific [place] August 17, 2014 12:05am <=1.005 L - [...] 21, 2014 9:08pm LAB TEST FORM REQUEST [id number] - EKG February 06, 2008 12:44pm Complete [...] September 21, 2014 9:30pm < 2 0-7 GZ-Ixc-C-Type Natriuretic Peptide September 21, 2014 9:30pm 718 [...] 2014 9:30am Name: KAYLA ROBERTSON Unit #: [id number] : 1940 Sex: F Loc / Svc: ED DOS: 08/27/14 Signed Report #: [id number] DIAGNOSTIC IMAGING REPORT TYPE OF EXAM: CHEST [...] completed 08/27/14 EMERGENCY DEPT VISIT completed 08/27/14 [id number] ITEM OR SERVICE completed 08/27/14 [id number] ITEM OR SERVICE completed 08/27/14 Encounters Encounter Location Date/Time Departed Emergency Room [facility] 09/21/14 9:22pm Registered [facility] 09/21/14 8:56am Registered Clinic [facility] 09/16/14 9:30am Departed Emergency Room [facility] 08/27/14 7:36pm Discharged Inpatient [facility] 08/16/14 10:43pm Departed Emergency Room [facility] 07/29/14 8:12pm Departed Emergency Room [facility] 06/29/14 4:02pm Recent Diagnosis
--- OUTSIDE RECORDS SUMMARY | 2017-02-23 22:23 | XMS REPORT | Continuity of Care Document ---
Author Author [facility] Organization [facility] Address Unknown Phone Unavailable Support Name Relationship Address Phone AUTUMNBENJIE MENDIETA Caregiver [facility] [address] [place] [phone] CARMENCITA SOLIZ MD Caregiver [address] [place] [address] [place] [address] [phone] CHRISSIE MARRUFO Next Of Kin [address] [place] [address] Insurance Providers Payer Name Policy Number Subscriber Name Relationship Medicare [id number] Kayla Robertson 16 Self [facility] [id number] Kayla Robertson 16 Self Advance Directives Directive Response Recorded Date/Time Advanced Directives Type None 08/27/14 7:39pm Chief Complaint and Reason for Visit Chief Complaint Chest Pain Reason for Visit [id number] Problems Medical Problems Problem Onset Date Status Malaise and fatigue Unknown Active R/O [place] Unknown Active Chest pain rule out [place] Unknown Active Dizziness Unknown Active Malaise and [...] Date 08/20/14 5:07pm Disposition 02 TO [facility] Condition at Discharge Improved Instructions/Education Provided [facility] Discharge Instructions Vitamin K [...] F (96.8 - 99.1) Temperature (Calculated Celsius) 36.42244 degrees C (36.0 - 37.3) Pulse Rate [...] Has specimen been collected/obtained? Y Urine Specific [place] August 17, 2014 12:05am <=1.005 L - [...] 26, 2014 10:29am LAB TEST FORM REQUEST [id number] - EKG February 06, 2008 12:44pm Complete [...] August 27, 2014 7:56pm < 2 0-7 UD-Yol-X-Type Natriuretic Peptide August 27, 2014 7:56pm 634 [...] 2014 9:30am Name: KAYLA ROBERTSON Unit #: [id number] : 1940 Sex: F DISCHARGE SUMMARY Admit Date: 08/16/14 Report #: [id number] General Date Date DATE: 08/20/14 TIME: 16:23 [...] BID #30 07/22/14 Losartan Potassium 100 Mg [id number] Mg PO DAILY #30 07/22/14 Chlorthalidone 25 Mg Lhykfi14 Mg PO PRN #30 07/22/14 Atorvastatin Calcium 40 Mg Uozusw98 Mg PO HS #30 07/22/14 Pramipexole Di-Hcl (Mirapex)0.5 Mg Tablet0.5 Mg PO HS 08/23/11 Discharge Disposition stable Copies To 1: CARMENCITA SOLIZ MD, CARRIE DO Aug 20, 2014 16:24 Procedures Procedure Status Date Provider(s) EGD BIOPSY SINGLE/MULTIPLE completed 07/23/14 MAXWELL YING MD, FACS, CWS Encounters Encounter Location Date/Time Departed Emergency Room [facility] 08/27/14 7:36pm Registered Recurring [facility] 08/26/14 8:39am Discharged Inpatient [facility] 08/16/14 10:43pm Departed Emergency Room [facility] 07/29/14 8:12pm Departed Emergency Room [facility] 06/29/14 4:02pm Departed Emergency Room [facility] 06/22/14 8:30pm Recent Diagnosis
--- OUTSIDE RECORDS SUMMARY | 2017-02-23 22:24 | XMS REPORT | Continuity of Care Document ---
Author Author [facility] Organization [facility] LIVE Address Unknown Phone Unavailable Support Name Relationship Address Phone OMID OLIVARES MD Caregiver [address] [place] [address] [place] [phone] CONNOR CONCEPCION MD Caregiver [address] [place] [address] [place] [phone] CARMENCITA SOLIZ MD Caregiver [address] [place] [address] [place] [phone] CHRISSIE MARRUFO Next Of Kin [address] [place] [phone] Insurance Providers Payer Name Policy Number Subscriber Name Relationship Medicare [id number] Kayla Robertson 16 Self [facility] [id number] Kayla Robertson 16 Self Advance Directives Directive Response Recorded Date/Time Advanced Directives Type DNR Documentation Living Will DPOA for Healthcare 10:43pm Ordered Resuscitation Status Full Code 08/16/14 10:43pm Resuscitation Documents on File Yes 08/16/14 11:16pm Chief Complaint and Reason for Visit Chief Complaint BILATERAL PULMONARY EMBOLI Reason for Visit Chest pain rule out DE Shortness of breath CHEST PAIN NOS Dyspnea [...] your medications, please contact our office at [phone]. Condition at time of discharge: Fair Plan [...] F (96.8 - 99.1) Temperature (Calculated Celsius) 36.15904 degrees C (36.0 - 37.3) Temperature Source [...] 01, 2011 10:07pm LAB TEST FORM REQUEST [id number] - Lipase April 10, 2012 3:16pm 18 [...] 20, 2014 6:38am 9.2 % H 0-9.0 ZR-Eko-V-Type Natriuretic Peptide August 16, 2014 9:18pm 305 [...] Has specimen been collected/obtained? Y Urine Specific [place] August 17, 2014 12:05am <=1.005 L - [...] Streptococcus Anginosus Name: KAYLA ROBERTSON Unit #: [id number] : 1940 Sex: F DISCHARGE SUMMARY Admit Date: 08/16/14 Report #: [id number] General Date Date DATE: 08/20/14 TIME: 16:23 [...] BID #30 07/22/14 Losartan Potassium 100 Mg Fzbwqj316 Mg PO DAILY #30 07/22/14 Chlorthalidone 25 Mg Awvcvi82 Mg PO PRN #30 07/22/14 Atorvastatin Calcium 40 Mg Ovbltz13 Mg PO HS #30 07/22/14 Pramipexole Di-Hcl (Mirapex)0.5 Mg Tablet0.5 Mg PO HS 08/23/11 Discharge Disposition stable Copies To 1: CARMENCITA SOLIZ MD, CARRIE DO Aug 20, 2014 16:24 Procedures Procedure Status Date Provider(s) EGD BIOPSY SINGLE/MULTIPLE completed 07/23/14 MAXWELL YING MD, FACS, CWS Encounters Encounter Location Date/Time Discharged Inpatient 08/16/14 10:43pm Departed Emergency Room 07/29/14 8:12pm Departed Emergency Room 06/29/14 4:02pm Departed Emergency Room 06/22/14 8:30pm Recent Diagnosis Chest pain rule out DE Shortness of breath CHEST PAIN NOS Dyspnea Pulmonary emboli Diabetes Hypertension Dyslipidemia GERD (gastroesophageal reflux disease) RLS (restless legs syndrome) Osteoarthritis Anxiety and depression History of gastritis Hypomagnesemia Obesity (BMI 35.0-39.9 without comorbidity) Pleuritic chest pain
--- OUTSIDE RECORDS SUMMARY | 2017-02-23 22:25 | XMS REPORT | Continuity of Care Document ---
Author Author [facility] Organization [facility] Address Unknown Phone Unavailable Allergies Medications Problems Procedures Results Encounters ACCT No. Visit Date/Time Discharge Status Pt. Type Provider Facility Loc./Unit Complaint [id number] 11/06/2013 09:54:00 11/06/2013 23 :59:59 CLS Outpatient [id number] 10/20/2013 14:46:00 10/20/2013 23 :59:59 CLS Outpatient [id number] 10/06/2013 11:06:00 10/06/2013 23 :59:59 CLS Outpatient [id number] 09/03/2013 10:26:00 09/03/2013 23 :59:59 CLS Outpatient
--- OUTSIDE RECORDS SUMMARY | 2017-02-23 22:25 | XMS REPORT | Continuity of Care Document ---
Author Author [facility] Organization [facility] Address Unknown Phone Unavailable Support Name Relationship Address Phone BENJIE LEYVA Caregiver [address] [place] [phone] CAMDEN HERNANDEZ MD Caregiver [address] [place] [address] DR [place], [facility] CARMENCITA SOLIZ MD Caregiver [address] [place] [address] [place] [address] [phone] CHRISSIE MARRUFO Next Of Kin [address] [place] [phone] Insurance Providers Payer Name Policy Number Subscriber Name Relationship Medicare [id number] Kayla Robertson 18 Self Blue [facility] [id number] Kayla Robertson 16 Self Advance Directives Directive [...] Status Malaise and fatigue Unknown Active R/O [place] Unknown Active Chest pain rule out [place] Unknown Active Dizziness Unknown Active Malaise and [...] F (96.8 - 99.1) Temperature (Calculated Celsius) 36.86108 degrees C (36.0 - 37.3) Temperature Source [...] 19, 2014 8:32pm LAB TEST FORM REQUEST [id number] - Lipase April 10, 2012 3:16pm 18 [...] 21, 2014 4:14am 8.8 % N 0-9.0 LJ-Gms-B-Type Natriuretic Peptide October 20, 2014 9:59pm 481 [...] 2014 2:45pm 124.3 MG/DL - Urine Specific [place] August 17, 2014 12:05am <=1.005 L - [...] Streptococcus Anginosus Name: KAYLA ROBERTSON Unit #: [id number] : 1940 Sex: F Loc / Svc: SRG DOS: 10/20/14 Signed Report #: [id number] DIAGNOSTIC IMAGING REPORT TYPE OF EXAM: CHEST [...] completed 08/27/14 EMERGENCY DEPT VISIT completed 08/27/14 [id number] ITEM OR SERVICE completed 08/27/14 [id number] ITEM OR SERVICE completed 08/27/14 ROUTINE VENIPUNCTURE [...] Inpatient [facility] 10/20/14 11:40pm Registered [facility] 10/19/14 3:34pm Departed Emergency Room [facility] [...]
--- OUTSIDE RECORDS SUMMARY | 2017-02-23 22:28 | XMS REPORT | Continuity of Care Document ---
Author Author [facility] Organization [facility] Address Unknown Phone Unavailable Support Name Relationship Address Phone RENE RANGEL MD Caregiver [address] [place] [address] Unavailable CARMENCITA SCALES MD Caregiver [address] [place] [address] Unavailable RAHUL ROBERTSON Next Of Kin [address] [place] [address] C Insurance Providers Guarantor Kayla Robertson Address [address] [place] [phone] Email [email or web address] Payer Medicare Policy Number [id number] Subscriber's Name Kayla Robertson Relationship 18 Self Effective Date 03 Payer [facility] Policy Number [id number] Subscriber's Name Kayla Robertson Relationship 18 Self Group Number [id number] Effective Date 91 Advance Directives Directive Response Recorded Date/Time Advanced Directives Type None 02/05/17 7:55pm Chief Complaint and Reason for Visit Chief Complaint Lower Extremity Pain Reason for Visit Cellulitis Lymphedema Problems Active Problems Medical Problem Onset Date Status Anticoagulated on Coumadin Unknown Chronic Anticoagulated on Coumadin Unknown Acute Anxiety and depression Unknown Chronic Atypical chest pain Unknown Acute Bilateral lower extremity edema Unknown Acute C. difficile colitis Unknown Resolved CHEST PAIN NOS 08/16/2014 Acute Diabetes Unknown Chronic Dizziness Unknown Acute [...] Unknown Acute Low back pain Unknown Acute Malaise and fatigue Unknown Acute Nausea & vomiting Unknown Acute Obesity (BMI 35.0-39.9 without comorbidity) Unknown Chronic Osteoarthritis Unknown Chronic Palpitations Unknown Acute Peptic ulcer disease Unknown Chronic Pleuritic chest pain Unknown Acute Pulmonary emboli Unknown Acute R/O OR Unknown Acute RLS (restless legs syndrome) Unknown Chronic Shortness of breath 08/16/2014 Acute Status post ORIF of fracture of ankle Unknown Chronic Swelling of left knee joint Unknown Acute Swelling of left lower extremity Unknown Acute Thrush Unknown Acute Trimalleolar fracture of ankle, closed Unknown Acute UTI (urinary tract infection) Unknown Acute Vitamin B12 deficiency Unknown Chronic Past Problems Medical Problem Onset Date Cellulitis Unknown Dyspnea 08/16/2014 History of pulmonary embolism Unknown Leg laceration Unknown Lymphedema Unknown Mixed headache Unknown Palpitations Unknown Postoperative [...] 20 Mg Oral Every Other Day 12/17/16 Furosemide (Lasix) 20 Mg Tablet 1 Tab Oral Daily 30 Days 30 Tablet Lactobacillus Combination No.4 (Probiotic) 1 Each Capsule [...] Capsule.dr 20 Mg Oral Before Breakfast 07/22/14 Oxycodone Hcl/Acetaminophen (Percocet 5-325 Mg Tablet) 5-325 Tablet 1 Tab Oral Twice A Day for Pain 15 Tablet Take 1 tablet, by mouth, 4 times a day. 02/05/17 Potassium Chloride 20 Meq Tab.er.prt 20 Meq Oral Daily 30 Tablet Pramipexole Di-Hcl (Mirapex) 0.5 Mg Tablet 0.5 Mg Oral Bedtime Sulfamethoxazole/Trimethoprim (Bactrim Ds Tablet) 1 Each Tablet 1 Tab Oral Twice A Day 20 Tablet Take 1 tablet, by mouth, 2 times a day. 02/05/17 Teriparatide (Forteo) 600 Mcg/Syringe Inj 20 Mcg [...] Discontinued Ergocalciferol (Vitamin D) 50,000 Unit Capsule, 19658 Unit Oral Once A Week 05/26/10 Discontinued [...] Applicable Not Applicable Hx Substance Use No 02/05/2017 10:20pm Not Applicable Not Applicable Hx Alcohol Use No 02/05/2017 10:20pm Not Applicable Not Applicable Has the pt used tobacco in the last 12 months No 10/29/2016 4:34pm Not Applicable Not Applicable Tobacco Usage none 09/09/2015 10:15am Not Applicable Not Applicable Query Response Start Date Stop Date Smoking Status Never smoker Hospital Discharge Instructions No hospital discharge instructions. Plan of Care Discharge Date 02/06/17 12:10am Disposition 01 DISCHARGED HOME, SELF-CARE Condition at Discharge Stable Instructions/Education Provided Cellulitis (ED) Prescriptions See Medication Section Referrals CARMENCITA SCALES MD Address: [address] [place] [address] [place] [phone] Additional Instructions/Education Lasix 20 mg daily. Potassium 20 mEq daily. Your potassium is slightly low, so this important you take a potassium pill because Lasix will also lower your potassium. Bactrim DS, one tablet twice daily. Need to increase your probiotic so that you do not get another occurrence of C. difficile. Percocet 5 mg, one half to one tablet twice daily as needed for pain. This is a short-term prescription. Functional Status No functional status results. Allergies, [...] 10/29/16 4:34pm Influenza Vaccine Hx AUGUST 2016 02/05/17 10:21pm Tetanus Diptheria Vaccine History 09/01/15 02/05/17 10:20pm Tdap Vaccine Hx 201402/05/17 10:21pm Vital Signs Acute Vital Signs Vital Response Date/Time Temperature (Fahrenheit) 97.8 deg F (96.8 - 99.1) 02/05/2017 7:38pm Temperature (Calculated Celsius) 36.72042 degrees C (36.0 - 37.3) 02/05/2017 7:38pm Pulse Rate (adult) 84 bpm (60 - 100) 02/06/2017 12:10am Respiratory Rate 16 breaths/min (10 - 20) 02/06/2017 12:10am O2 Sat by Pulse Oximetry 96 % (90 - 100) 02/06/2017 12:10am Blood Pressure 123/60 mm Hg 02/06/2017 12:10am Height (Feet) 5 feet 02/05/2017 7:38pm Height (Inches) 1.00 inches 02/05/2017 7:38pm Weight (Kilograms) 96.600 kg 02/05/2017 7:38pm Body Mass Index (BMI) 40.0 02/05/2017 7:38pm Results Laboratory Results Test Name Result Units Flags Reference Collection Date/Time Result Date/ Time Comments 25-Hydroxy Vitamin D3 <10 ng/mL 12/05/2016 1:00pm 12/07/2016 8:24am 25-Hydroxy Vitamin D2 <7 ng/mL 12/05/2016 1:00pm 12/07/2016 8:24am 25-Hydroxy Vitamin D Total <17 ng/mL L 30-74 12/05/2016 1:00pm 2016 8:24am The desirable level of 25-Hydroxy Vitamin D Total(D2 + D3) is 30- 74 ng/mL. A level consistently >200 is potentially toxic. Vitamin D, 25-Hydroxy performed at [facility] Reference Lab, [facility] [place] [address] Parts Counterperson Alhaji Ferreira DO Neutrophils % (Manual) 51.0 % 33-66 01/03/2017 [...] (PCR) NEGATIVE NEGATIVE 01/03/2017 11:45am 2016 1:14pm Prothromb Time International Ratio 2.54 H 0.76-1.04 01/23/2017 8:32pm 01/23/2017 8:58pm THERAPUTIC RANGE=2.00-3.00 FOR ANTI-THROMBOSIS THERAPUTIC RANGE=2.50-3.50 FOR IMPLANTED VALVE D-Dimer < 150 NG/ML 0-230 01/23/2017 8:32pm 01/23/2017 8:58pm <230 NG/ ML D-DU=PRESUMPTIVE NEGATIVE FOR PE OR DVT >230 NG/ML D-DU=ADDITIONAL EVAL FOR PE OR DVT RECOMMENDED Troponin I < 0.012 ng/ml 0-0.12 01/23/2017 8:32pm 01/23/2017 9:00pm Troponin values with a difference of 55% increase from orginal troponin value represent a true biological DELTA value. (%increase Calc=Orginal Troponin value, divided by subsequent Troponin value, multiplied by 100) LL-Yjo-X-Type Natriuretic Peptide 597 PG/ML H 0-175 01/23/2017 8:32pm 9:00pm Rule in cut points: <50 years old=450; 50-75 years old=900; >75 years old=1800; When utilizing ProBNP rule-in cut points, adjustment for impaired renal function is typically not required. Hemoglobin A1c 7.8 % 6.1-7.9 01/26/2017 9:30am 01/26/2017 10:21am < 6.0 NON-DIABETIC RANGE 6.1-7.9 [facility] TARGET RANGE >8.0 ACTION SUGGESTED Urine Random Creatinine 263.0 MG/DL 01/26/2017 9:55am 02/02/2017 10: 59am Urine Microalbumin 25.6 MG/L H 0-17 01/26/2017 9:55am 02/02/2017 11: 06am Urine Microalbumin/Creatinine Ratio 9.7 MG/GM 0-30 01/26/2017 9:55am 11:06am White Blood Count 9.8 T/MM3 4.5-11.0 02/05/2017 9:55pm 02/05/2017 10: 00pm Red Blood Count 3.84 M/MM3 L 4.00-5.20 02/05/2017 9:55pm 02/05/2017 10: 00pm Hemoglobin 11.3 GM/DL L 12-16 02/05/2017 9:55pm 02/05/2017 10:00pm Hematocrit 34.9 % L 36-46 02/05/2017 9:55pm 02/05/2017 10:00pm Mean Corpuscular Volume 90.9 UM3 80-100 02/05/2017 9:55pm 02/05/2017 10 :00pm Mean Corpuscular Hemoglobin 29.4 UUG 26-34 02/05/2017 9:55pm 2016 10:00pm Mean Corpuscular Hemoglobin Concent 32.4 GM/DL 31-37 02/05/2017 9:55pm 02/05/2017 10:00pm RDW Standard Deviation 42.7 FL 36.9-50.2 02/05/2017 9:55pm 02/05/2017 10:00pm Platelet Count 238 T/MM3 130-400 02/05/2017 9:55pm 02/05/2017 10:00pm Mean Platelet Volume 10.9 UM3 9.4-12.4 02/05/2017 9:55pm 02/05/2017 10: 00pm Neutrophils (%) (Auto) 69.3 % H 33-66 02/05/2017 9:55pm 02/05/2017 10: 00pm Lymphocytes (%) (Auto) 20.2 % L 23-45 02/05/2017 9:55pm 02/05/2017 10: 00pm Monocytes (%) (Auto) 8.5 % 0-9.0 02/05/2017 9:55pm 02/05/2017 10:00pm Eosinophils (%) (Auto) 1.6 % 0-4 02/05/2017 9:55pm 02/05/2017 10:00pm Basophils (%) (Auto) 0.2 % 0-2 02/05/2017 9:55pm 02/05/2017 10:00pm Immature Granulocyte % (Auto) 0.2 % 0.0-0.5 02/05/2017 9:55pm 2016 10:00pm Absolute Neutrophils (auto) 6.8 T/MM3 1.8-7.7 02/05/2017 9:55pm 2016 10:00pm Absolute Lymphocytes (auto) 2.0 T/MM3 1-4.8 02/05/2017 9:55pm 2016 10:00pm Absolute Monocytes (auto) 0.8 T/MM3 0-0.8 02/05/2017 9:55pm 02/05/2017 10:00pm Absolute Eosinophils (auto) 0.2 T/MM3 0-0.5 02/05/2017 9:55pm 2016 10:00pm Absolute Basophils (auto) 0.0 T/MM3 0-0.2 02/05/2017 9:55pm 02/05/2017 10:00pm Absolute Immature Granulocyte (auto 0.02 T/MM3 0.00-0.03 02/05/2017 9: 55pm 02/05/2017 10:00pm Icterus Index < 2 0-7 02/05/2017 9:55pm 02/05/2017 10:10pm Chemistry Specimen Hemolysis < 15 0-25 02/05/2017 9:55pm 02/05/2017 10:10pm 0-25: Specimen Exhibited No Hemolysis. Turbidity < 20 0-20 02/05/2017 9:55pm 02/05/2017 10:10pm Sodium Level 142 MEQ/L 134-144 02/05/2017 9:55pm 02/05/2017 10:10pm Potassium Level 3.3 MEQ/L L 3.6-5 02/05/2017 9:55pm 02/05/2017 10:10pm Chloride Level 104 MEQ/L 98-107 02/05/2017 9:55pm 02/05/2017 10:10pm Carbon Dioxide Level 26 MEQ/L 22-30 02/05/2017 9:55pm 02/05/2017 10: 10pm Anion Gap 12 MEQ/L 5-15 02/05/2017 9:55pm 02/05/2017 10:10pm Blood Urea Nitrogen 17.0 MG/DL 7-17 02/05/2017 9:55pm 02/05/2017 10: 10pm Creatinine 0.7 MG/DL 0.7-1.2 02/05/2017 9:55pm 02/05/2017 10:10pm BUN/Creatinine Ratio 24 RATIO 6-26 02/05/2017 9:55pm 02/05/2017 10: 10pm Glomerular Filtration Rate Calc 81 02/05/2017 9:55pm 02/05/2017 10: 10pm Glucose Level 146 MG/DL H 65-110 02/05/2017 9:55pm 02/05/2017 10:10pm Calculated Osmolality 278 MOSM/KG 261-280 02/05/2017 9:55pm 02/05/2017 10:10pm Calcium Level 9.1 MG/DL 8.4-10.2 02/05/2017 9:55pm 02/05/2017 10:10pm Total Bilirubin 0.80 MG/DL 0.20-1.30 02/05/2017 9:55pm 02/05/2017 10: 10pm Alkaline Phosphatase 108 U/L 38-126 02/05/2017 9:55pm 02/05/2017 10: 10pm Total Protein 6.1 G/DL L 6.3-8.2 02/05/2017 9:55pm 02/05/2017 10:10pm Albumin 3.7 G/DL 3.5-5.0 02/05/2017 9:55pm 02/05/2017 10:10pm Globulin 2.4 G/DL 2.4-3.6 02/05/2017 9:55pm 02/05/2017 10:10pm Albumin/Globulin Ratio 1.5 RATIO 1.1-2.2 02/05/2017 9:55pm 02/05/2017 10:10pm Aspartate Amino Transf (AST/SGOT) 16 U/L 14-36 02/05/2017 9:55pm 2016 10:10pm Alanine Aminotransferase (ALT/SGPT) 35 U/L 9-52 02/05/2017 9:55pm 02/05 10:10pm Procedures Procedure Status Date Provider(s) Drain/inj joint/bursa w/o us Completed 11/20/16 LUCERO DANIELLE MD Needle localization by xray Completed 11/20/16 482160"INJECTION, METHYLPREDNISOLONE ACETATE, 80 MG" Completed 11/20/16 [id number]"LOW OSMOLAR CONTRAST MATERIAL, 300-399 MG/ML IODINE C [...] ca Completed 01/17/17 Prothrombin time Completed 01/17/17 Routine venipuncture Completed 01/23/17 Chest x-ray 1 view frontal Completed 01/23/17 Metabolic panel total ca Completed 01/23/17 Assay of natriuretic peptide Completed 01/23/17 Assay of troponin quant Completed 01/23/17 Complete cbc w/auto diff wbc Completed 01/23/17 Fibrin degradation quant Completed 01/23/17 Prothrombin time Completed 01/23/17 Electrocardiogram tracing Completed 01/23/17 Emergency dept visit Completed 01/23/17 [id number] ITEM OR SERVICE Completed 01/23/17 Microalbumin quantitative Completed 01/26/17 Assay of urine creatinine Completed 01/26/17 Glycosylated hemoglobin test Completed 01/26/17 Encounters Encounter Location Arrival/Admit Date Discharge/Depart Date Attending Provider Departed Emergency Room [facility] 02/05/17 7:09pm 02/06/17 12: 10am RENE RANGEL MD Registered [facility] 01/26/17 9:25am CARMENCITA SCALES MD Departed Emergency Room [facility] 01/23/17 7:55pm 01/23/17 9: 20pm SARIAH ADDISON DO Registered [facility] 01/17/17 10:22am CARMENCITA SCALES MD Registered [facility] 01/09/17 9:04am CARMENCITA SCALES MD Registered [facility] 01/03/17 11:03am CARMENCITA SCALES MD Registered [facility] 12/26/16 10:35am CARMENCITA SCALES MD Discharged [facility] 12/20/16 12:41pm 12/20/16 11: 59pm CARMENCITA SCALES MD Departed Emergency Room [facility] 12/17/16 12:27pm 12/17/16 1: 25pm RENE RANGEL MD Registered [facility] 12/05/16 12:09pm RENE BEARD MD Registered [facility] 11/20/16 7:11am LUCERO DANIELLE MD Recent Diagnosis
--- OUTSIDE RECORDS SUMMARY | 2017-02-23 22:28 | XMS REPORT | Continuity of Care Document ---
Author Author [facility] Organization [facility] Address Unknown Phone Unavailable Support Name Relationship Address Phone CONNOR CONCEPCION MD Caregiver [address] [place] [phone] CARMENCITA SOLIZ MD Caregiver [address] [place] [address] [place] [address] [phone] YARONVIRGILA Next Of Kin [address] [place] [address] Insurance Providers Payer Name Policy Number Subscriber Name Relationship Medicare [id number] Kayla Robertson 16 Self [facility] [id number] Kayla Robertson 18 Self Advance Directives Directive Response Recorded Date/Time Advanced Directives Type Living Will None 11/08/14 9:58pm Chief Complaint and Reason for Visit Chief Complaint Chest Pain Reason for Visit [id number] pain rule out [place] Problems Medical Problems [...] Date 10/21/14 7:18pm Disposition 02 [place] [facility] [place] Improved Instructions/Education Provided DI [...] F (96.8 - 99.1) Temperature (Calculated Celsius) 36.89242 degrees C (36.0 - 37.3) Pulse Rate [...] 08, 2014 10:43pm 7.6 % N 0-9.0 XV-Bxg-T-Type Natriuretic Peptide October 20, 2014 9:59pm 481 [...] 2014 2:45pm 124.3 MG/DL - Urine Specific [place] November 08, 2014 11:35pm 1.010 L - [...] Streptococcus Anginosus Name: KAYLA ROBERTSON Unit #: [id number] : 1940 Sex: F Loc / Svc: SR DOS: 10/20/14 Signed Report #: [id number] DIAGNOSTIC IMAGING REPORT TYPE OF EXAM: CHEST [...] completed 08/27/14 EMERGENCY DEPT VISIT completed 08/27/14 [id number] ITEM OR SERVICE completed 08/27/14 [id number] ITEM OR SERVICE completed 08/27/14 ROUTINE VENIPUNCTURE [...] completed 10/20/14 EMERGENCY DEPT VISIT completed 10/20/14 [id number] ITEM OR SERVICE completed 10/20/14 [id number] ITEM OR SERVICE completed 10/20/14 [id number] ITEM OR SERVICE completed 10/20/14 [id number] ITEM OR SERVICE completed 10/20/14 [id number] ITEM OR SERVICE completed 10/20/14 [id number] ITEM OR SERVICE completed 10/20/14 [id number]"HOSPITAL OBSERVATION SERVICE, PER HOUR" completed 10/20/14 [id number]"HOSPITAL OBSERVATION SERVICE, PER HOUR" completed 10/20/14 [id number]"INJECTION, ENOXAPARIN SODIUM, 10 MG" completed 10/20/14"INJECTION, ENOXAPARIN SODIUM, 10 MG" completed 10/20/14"INJECTION, FUROSEMIDE, UP TO 20 MG" completed 10/20/14"INJECTION, VITAMIN B-12 CYANOCOBALAMIN, UP TO 1000 M completed ROUTINE VENIPUNCTURE completed 10/22/14 ASSAY OF SERUM POTASSIUM completed 10/22/14 PROTHROMBIN TIME completed 10/22/14 Encounters Encounter Location Date/Time Departed Emergency Room [facility] 11/08/14 9:56pm Registered [facility] 11/03/14 1:20pm Registered [facility] 10/29/14 9:56am Registered [facility] 10/22/14 10:38am Discharged Inpatient [facility] 10/20/14 11:40pm Departed Emergency Room [facility] 09/21/14 9:22pm Registered [facility] 09/16/14 9:30am Departed Emergency Room [facility] 08/27/14 7:36pm Discharged Recurring [facility] 08/26/14 8:39am Discharged Inpatient [facility] 08/16/14 10:43pm Recent Diagnosis
--- NOTE | 2017-02-23 22:52 | ERPDOC ---
Departure Disposition Decision Date: February 24, 2017 Disposition Decision Time: 00:58 (IGNACIO HERRERA MD) Disposition: 01 DISCHARGED HOME, SELF-CARE Impression Impression (RASHAWN SANTIAGO APRN) Impression: Primary Impression: Elevated blood pressure Severity: Moderate (IGNACIO HERRERA MD) Condition: Improved Seen By: Physician and Mid-level (IGNACIO HERRERA MD) Referrals: CARMENCITA SCALES MD (Family) Follow-up for evaluation Patient Instructions: Hypertension (ED) Problems/Meds/Labs Reviewed?: Yes Medications reviewed and manag: Yes (IGNACIO HERRERA MD) Follow up care ordered?: Yes Mental Status: Alert, Oriented (IGNACIO HERRERA MD) HPI - General Medical General Chief Complaint: Hypertension Stated Complaint: BLOOD PRESSURE HIGH,LIGHTHEADED Time Seen by Provider: 22:50 Source: patient (RASHAWN SANTIAGO APRN) Time Seen by Provider: 22:50 (IGNACIO HERRERA MD) HPI - General Medical Initial Comments 76 YO F presents to ED with report of elevated blood pressure. Patient took her usual prescribed dose of losartin this morning and repeat an additional does 1 1 /2 hours later. BP has continue to be elevated all day. Patient denies CP, nausea, dizziness, LOPEZ or ataxia. Says that she feels "a little lightheaded". Associated Symptoms: DENIES: chest pain, cough, diaphoresis, fever/chills, loss of appetite, malaise, nausea/vomiting, rash, seizure, shortness of breath, syncope, weakness (RASHAWN SANTIAGO APRN) Allergies: Coded Allergies: rofecoxib (Verified Allergy, Severe, JOINT SWELL,RACHEL, 01/23/17) albuterol sulfate (Verified Allergy, Intermediate, NERVOUSNESS, PALPITATIONS, 01/23/17) ciprofloxacin (Verified Allergy, Mild, ITCH,HEADACHE, HEART FLUTTER, ) ciprofloxacin HCl (Verified Allergy, Mild, ITCH,HEADACHE; HEART FLUTTER, ) codeine (Verified Allergy, Mild, RASH,HEADACHE, 01/23/17) hydrocodone bit (Verified Allergy, Mild, FINE RASH AND HEADACHE, 01/23/17) Procaine HCl (Verified Allergy, Unknown, NERVOUS AND HEART RACE, 01/23/17) FROM DR YORDY H&P DATED 03-14-12 Tuberculin,Old Skin Test (Verified Allergy, Unknown, SWELLING OF ARM AT INJECTION SITE, 01/23/17) epinephrine (Verified Allergy, Unknown, PER H&P, 01/23/17) lidocaine (Verified Allergy, Unknown, PER H&P, 01/23/17) propoxyphene HCl (Verified Allergy, Unknown, SHAKY, AND LOPEZ, 01/23/17) cephalexin (Verified Adverse Reaction, Intermediate, C-DIFF, 01/23/17) C-Diff doxycycline (Verified Adverse Reaction, Unknown, NAUSEA, DIZZY, 01/23/17) hydrochlorothiazide (Verified Adverse Reaction, Unknown, NAUSEA, DIZZY, ) PER H&P lisinopril (Verified Adverse Reaction, Unknown, DRY COUGH, 01/23/17) Past History Patient Surgical History 1. Appendectomy 2. Cholecystectomy 3. Hysterectomy 4. Bilateral total knee arthroplasties 5. Tendon surgeries on both forearms, right hip, and right wrist 6. ORIF trimalleolar fracture with ORIF of periprosthetic femur fracture (RASHAWN SANTIAGO APRN) Past Medical History Metabolic: diabetes, hypercholesterolemia, hypertension ENMT: sinusitis Cardiac: A-fib Respiratory: pulmonary embolus, DENIES: asthma GI: GERD, constipation, gallbladder disease, other, ulcers Female: kidney stones Neurological: CVA, migraines Musculoskeletal: osteoarthritis, other Hematologic: DVT Psychological: anxiety, depression (RASHAWN SANTIAGO APRN) Surgical History General: appendix, gallbladder Reproductive/: hysterectomy Joint: elbow, foot, knee (RASHAWN SANTIAGO APRN) Family History Family PMH: FOUND: CAD, hypertension (RASHAWN SANTIAGO APRN) Vaccines Hx Influenza Vaccination: Yes () Hx Pneumococcal Vaccination: Yes (doesnt remember, less than 10yrs) (RASHAWN SANTIAGO APRN) Social History Does patient use chewing tobac: No Second Hand Exposure: No Substance Use Type: does not use Alcohol Intake: none Housing: house Household Members: none (RASHAWN SANTIAGO APRN) Review of Systems Constitutional Constitutional: DENIES: chills, dizziness, fever, weakness (RASHAWN SANTIAGO APRN) Eyes General: DENIES: erythema, exudate Lids/Accessories: DENIES: erythema, swelling Vision: DENIES: blurring (JEYSON SANTIAGOS A COMMERCIAL MARKETING SPECIALIST) ENMT Ears: DENIES: pain Hearing: DENIES: hearing loss Sinuses: DENIES: congestion, rhinorrhea Mouth/Throat: DENIES: sore throat (SANTIAGO,RASHAWN A COMMERCIAL MARKETING SPECIALIST) Cardiovascular Cardiac: DENIES: chest pain, murmur Rhythm/Rate: DENIES: palpitations (SANTIAGO,RASHAWN A COMMERCIAL MARKETING SPECIALIST) Pulmonary Respiratory: DENIES: cough, dyspnea (SANTIAGORASHAWN A COMMERCIAL MARKETING SPECIALIST) GI Upper Abdomen: DENIES: nausea, pain, vomiting Lower Abdomen: DENIES: diarrhea, pain (SANTIAGO,RASHAWN A COMMERCIAL MARKETING SPECIALIST) General: DENIES: dysuria, pain (SANTIAGO,RASHAWN A COMMERCIAL MARKETING SPECIALIST) Musculoskeletal General: pain, see HPI (SANTIAGO,RASHAWN A COMMERCIAL MARKETING SPECIALIST) Integumentary Skin: DENIES: color change, itching, rash (SANTIAGORASHAWN A COMMERCIAL MARKETING SPECIALIST) Neurological General: DENIES: ataxia, change in strength, numbness, paralysis/paresis, weakness (SANTIAGORASHAWN A COMMERCIAL MARKETING SPECIALIST) Psychiatric Psychiatric: DENIES: anxiety, depression, nervousness (SANTIAGORASHAWN A COMMERCIAL MARKETING SPECIALIST) Physical Exam General General Nourishment: well nourished, well developed, no acute distress, adult, obese General Body Habitus: well groomed (SANTIAGO,RASHAWN A COMMERCIAL MARKETING SPECIALIST) Vitals and Pain Weight: Kilograms: Height (feet): 5 Height (inches): 1.00 Triage Pain Scale: (SANTIAGO,RASHAWN A COMMERCIAL MARKETING SPECIALIST) Eyes (brief) Eyes Brief: found: EOMI, PERRL (SANTIAGO,RASHAWN A COMMERCIAL MARKETING SPECIALIST) ENMT (brief) ENMT Brief: NOT FOUND: nasal exudate, nasal swelling (SANTIAGORASHAWN A COMMERCIAL MARKETING SPECIALIST) Neck (brief) Neck: FOUND: trachea midline (SANTIAGO,RASHAWN A COMMERCIAL MARKETING SPECIALIST) Respiratory (brief) Respiratory: FOUND: clear all lora, equal bilaterally, symmetrical (SANTIAGO, RASHAWN A COMMERCIAL MARKETING SPECIALIST) Cardiovascular Auscultation: FOUND: S1, S2, rate (90), regular Edema : Edema Site: bilateral Edema Location: leg Edema Degree: 2+ (SANTIAGO,RASHAWN A COMMERCIAL MARKETING SPECIALIST) Musculoskeletal Back: FOUND: tenderness (TTP over right thoracolumbar area), NOT FOUND: spasm, spine point tenderness (SANTIAGORASHAWN A COMMERCIAL MARKETING SPECIALIST) Integumentary (brief) Integumentary Brief: FOUND: dry, pink, warm (RASHAWN SANTIAGO APRN) Neurologic (brief) Neurological Brief: FOUND: CN w/o gross def to obs, gait w/o gross def to obs, motor-no gross deficits, sensory-no gross deficits (RASHAWN SANTIAGO APRN) Psychiatric (brief) Psychiatric Brief: FOUND: alert, normal affect, oriented (RASHAWN SANTIAGO APRN ) Differential Diagnoses Considering: Acute SD, CVA Considering: Hypertensive Emergency, Other (Chronic pain) (RASHAWN SANTIAGO APRN) Progress Results/Orders Orders Procedure Category Date Status Time Bgm (Ed) EDM 02/23/17 Transmitted 22:18 Cbc W/Auto LAB 02/23/17 Complete Diff-Reflex Manual Cmp - Comprehensive LAB 02/23/17 Complete Metabolic Troponin I W LAB 02/23/17 Complete Hemolysis Index Iv Lock (Ed Only) EDM 02/23/17 Transmitted 22:58 Hydralazine PHA 02/23/17 Complete (Apresoline) 23:00 INR LAB 02/23/17 Complete (IGNACIO HERRERA MD) Lab Results Laboratory Tests Test 02/23/17 23:50 02/24/17 00:08 White Blood Count 9.6T/MM3 Red Blood Count 4.08M/MM3 Hemoglobin 12.1GM/DL Hematocrit 37.0% Mean Corpuscular Volume 90.7UM3 Mean Corpuscular Hemoglobin 29.7UUG Mean Corpuscular Hemoglobin Concent 32.7GM/DL RDW Standard Deviation 42.5FL Platelet Count 278T/MM3 Mean Platelet Volume 10.7UM3 Immature Granulocyte % (Auto) 0.5% Neutrophils (%) (Auto) 68.3% Lymphocytes (%) (Auto) 20.2% Monocytes (%) (Auto) 9.6% Eosinophils (%) (Auto) 1.1% Basophils (%) (Auto) 0.3% Absolute Immature Granulocyte (auto 0.05T/MM3 Absolute Neutrophils (auto) 6.6T/MM3 Absolute Lymphocytes (auto) 1.9T/MM3 Absolute Monocytes (auto) 0.9T/MM3 Absolute Eosinophils (auto) 0.1T/MM3 Absolute Basophils (auto) 0.0T/MM3 Prothromb Time International Ratio 2.00 Turbidity 41 Sodium Level 139MEQ/L Potassium Level 4.5MEQ/L Chloride Level 104MEQ/L Carbon Dioxide Level 24MEQ/L Anion Gap 11MEQ/L Blood Urea Nitrogen 15.0MG/DL Creatinine 0.6MG/DL Glomerular Filtration Rate Calc 97 BUN/Creatinine Ratio 25RATIO Glucose Level 235MG/DL Calculated Osmolality 277MOSM/KG Calcium Level 9.6MG/DL Total Bilirubin 0.60MG/DL Icterus Index < 2 Aspartate Amino Transf (AST/SGOT) 17U/L Alanine Aminotransferase (ALT/SGPT) 32U/L Alkaline Phosphatase 113U/L Troponin I < 0.012ng/ml Total Protein 6.1G/DL Albumin 3.9G/DL Globulin 2.2G/DL Albumin/Globulin Ratio 1.8RATIO Chemistry Specimen Hemolysis 29 (IGNACIO HERRERA MD) Lab Results Laboratory Tests Test 02/23/17 23:50 02/24/17 00:08 White Blood Count 9.6T/MM3 Red Blood Count 4.08M/MM3 Hemoglobin 12.1GM/DL Hematocrit 37.0% Mean Corpuscular Volume 90.7UM3 Mean Corpuscular Hemoglobin 29.7UUG Mean Corpuscular Hemoglobin Concent 32.7GM/DL RDW Standard Deviation 42.5FL Platelet Count 278T/MM3 Mean Platelet Volume 10.7UM3 Immature Granulocyte % (Auto) 0.5% Neutrophils (%) (Auto) 68.3% Lymphocytes (%) (Auto) 20.2% Monocytes (%) (Auto) 9.6% Eosinophils (%) (Auto) 1.1% Basophils (%) (Auto) 0.3% Absolute Immature Granulocyte (auto 0.05T/MM3 Absolute Neutrophils (auto) 6.6T/MM3 Absolute Lymphocytes (auto) 1.9T/MM3 Absolute Monocytes (auto) 0.9T/MM3 Absolute Eosinophils (auto) 0.1T/MM3 Absolute Basophils (auto) 0.0T/MM3 Prothromb Time International Ratio 2.00 Turbidity 41 Sodium Level 139MEQ/L Potassium Level 4.5MEQ/L Chloride Level 104MEQ/L Carbon Dioxide Level 24MEQ/L Anion Gap 11MEQ/L Blood Urea Nitrogen 15.0MG/DL Creatinine 0.6MG/DL Glomerular Filtration Rate Calc 97 BUN/Creatinine Ratio 25RATIO Glucose Level 235MG/DL Calculated Osmolality 277MOSM/KG Calcium Level 9.6MG/DL Total Bilirubin 0.60MG/DL Icterus Index < 2 Aspartate Amino Transf (AST/SGOT) 17U/L Alanine Aminotransferase (ALT/SGPT) 32U/L Alkaline Phosphatase 113U/L Troponin I Pending Total Protein 6.1G/DL Albumin 3.9G/DL Globulin 2.2G/DL Albumin/Globulin Ratio 1.8RATIO Chemistry Specimen Hemolysis 29 (RASHAWN SANTIAGO APRN) Medications Current ED Medications Hydralazine HCl (Apresoline) 10 mg O ONCE IV Last administered on 02/23/17 23 :47; Start 02/23/17 at 23:00; Stop 02/23/17 at 23:01; Status DC (IGNACIO HERRERA MD) Progress Progress BP improving after the grams IV of hydralazine. Provider care turned over to Dr. Herrera at 0034. (RASHAWN SANTIAGO APRN) RASHAWN SANTIAGO APRN February 23, 2017 22:52 IGNACIO HERRERA MD February 24, 2017 00:58
--- OUTSIDE RECORDS SUMMARY | 2017-02-23 23:03 | XMS REPORT | Continuity of Care Document ---
Author Author [facility] Organization [facility] Address Unknown Phone Unavailable Support Name Relationship Address Phone CARMENCITA SCALES MD Caregiver [address] [place] [address] [address] [place], [place] [phone] CHRISSIE MARRUFO Next Of Kin [address] [place] [address] Insurance Providers Payer Name Policy Number Subscriber Name Relationship Medicare [id number] Kayla Robertson 16 Self [employer] [place] [id number] Kayla Robertson 16 Self Problems Medical Problems [...] F (96.8 - 99.1) Temperature (Calculated Celsius) 36.32171 degrees C (36.0 - 37.3) Pulse Rate [...] 21, 2014 9:30pm 9.6 % H 0-9.0 XZ-Laf-Z-Type Natriuretic Peptide September 21, 2014 9:30pm 718 [...] 2:45pm 124.3 MG/DL - Urine Specific [place] August 17, 2014 12:05am <=1.005 L - [...] Streptococcus Anginosus Name: KAYLA ROBERTSON Unit #: [id number] : 1940 Sex: F Loc / Svc: ED DOS: 09/21/14 Signed Report #: [id number] DIAGNOSTIC IMAGING REPORT TYPE OF EXAM: CHEST [...] completed 08/27/14 EMERGENCY DEPT VISIT completed 08/27/14 [id number] ITEM OR SERVICE completed 08/27/14 [id number] ITEM OR SERVICE completed 08/27/14 ROUTINE VENIPUNCTURE completed 09/16/14 COMPREHEN METABOLIC PANEL completed 09/16/14 MICROALBUMIN QUANTITATIVE completed 09/16/14 ASSAY OF URINE CREATININE completed 09/16/14 GLYCOSYLATED HEMOGLOBIN TEST completed 09/16/14 PROTHROMBIN TIME completed 09/16/14 PLACE NEEDLE IN VEIN completed 09/21/14 BABRIE HARE MD CHEST X-RAY 1 VIEW FRONTAL completed 09/21/14 COMPREHEN METABOLIC PANEL completed 09/21/14 ASSAY OF NATRIURETIC PEPTIDE completed 09/21/14 ASSAY OF TROPONIN QUANT completed 09/21/14 COMPLETE CBC W/AUTO DIFF WBC completed 09/21/14 PROTHROMBIN TIME completed 09/21/14 ELECTROCARDIOGRAM TRACING completed 09/21/14 EMERGENCY DEPT VISIT completed 09/21/14 Encounters Encounter Location Date/Time Discharged Recurring [facility] 09/28/14 9:39am Departed Emergency Room [facility] 09/21/14 9:22pm Registered Clinic [facility] 09/16/14 9:30am Departed Emergency Room [facility] 08/27/14 7:36pm Discharged Inpatient [facility] 08/16/14 10:43pm Departed Emergency Room [facility] 07/29/14 8:12pm
--- OUTSIDE RECORDS SUMMARY | 2017-02-23 23:06 | XMS REPORT | Continuity of Care Document ---
Author Author [facility] Organization [facility] Address Unknown Phone Unavailable Support Name Relationship Address Phone BARBIE HARE MD Caregiver [facility] [address] [place] [address] Unavailable CARMENCITA SCALES MD Caregiver [address] [place] [address] [phone] CHRISSIE MARRUFO Next Of Kin [address] [place] [address] Insurance Providers Payer Name Policy Number Subscriber Name Relationship Medicare [id number] Kayla Robertson 16 Self Blue [employer] [facility] [id number] Kayla Robertson 16 Self Problems Medical Problems [...] Mg PO BEDTIME PRN 04/10/12 Active Ipratropium [place] 2 [place] EA NOSTRIL DAILY 07/09/13 Active Chlorthalidone 25 [...] Has specimen been collected/obtained? Y Urine Specific [place] March 11, 2014 5:30pm <=1.005 L - [...] 01, 2011 10:07pm LAB TEST FORM REQUEST [id number] - EKG February 06, 2008 12:44pm Complete [...] March 11, 2014 4:00pm < 2 0-7 WH-Udx-E-Type Natriuretic Peptide March 11, 2014 4:00pm 266 [...]
--- OUTSIDE RECORDS SUMMARY | 2017-02-23 23:07 | XMS REPORT | Continuity of Care Document ---
Author Author [facility] Organization [facility] Address Unknown Phone Unavailable Support Name Relationship Address Phone ARCHIE BLOOD MD Caregiver [address] [place] [phone] CARMENCITA SCALES MD Caregiver [address] [place] [address] [place] [address] [phone] YARONVIRGILA Next Of Kin [address] [place], [place] [phone] Insurance Providers Payer Name Policy Number Subscriber Name Relationship Medicare [id number] Kayla Robertson 18 Self [facility] [id number] Kayla Robertson 16 Self Problems Medical Problems [...] F (96.8 - 99.1) Temperature (Calculated Celsius) 36.44750 degrees C (36.0 - 37.3) Pulse Rate [...] Has specimen been collected/obtained? Y Urine Specific [place] March 11, 2014 5:30pm <=1.005 L - [...] 01, 2011 10:07pm LAB TEST FORM REQUEST [id number] - EKG February 06, 2008 12:44pm Complete [...] March 11, 2014 4:00pm < 2 0-7 UK-Buf-L-Type Natriuretic Peptide March 11, 2014 4:00pm 266 [...] Date/Time Departed Emergency Room [facility] 06/29/14 4:02pm Departed Emergency Room [facility] 06/22/14 8:30pm Recent Diagnosis
--- OUTSIDE RECORDS SUMMARY | 2017-02-23 23:07 | XMS REPORT | Continuity of Care Document ---
Author Author [facility] Organization [facility] Address Unknown Phone Unavailable Support Name Relationship Address Phone BENJIE LEYVA DO Caregiver [facility] [address] [place], [place] [phone] CARMENCITA SCALES MD Caregiver [address] [place] [address] [place] [address] [phone] CHRISSIE MARRUFO Next Of Kin [address] [place] [address] Insurance Providers Payer Name Policy Number Subscriber Name Relationship Medicare [id number] Kayla Robertson 16 Self [employer] [facility] [id number] Kayla Robertson 16 Self Problems Medical Problems [...] Has specimen been collected/obtained? Y Urine Specific [place] March 11, 2014 5:30pm <=1.005 L - [...] 01, 2011 10:07pm LAB TEST FORM REQUEST [id number] - EKG February 06, 2008 12:44pm Complete [...] March 11, 2014 4:00pm < 2 0-7 ER-Qen-A-Type Natriuretic Peptide March 11, 2014 4:00pm 266 [...] Date/Time Departed Emergency Room [facility] 07/29/14 8:12pm Departed Emergency Room [facility] 06/29/14 4:02pm Departed Emergency Room [facility] 06/22/14 8:30pm Recent Diagnosis
--- OUTSIDE RECORDS SUMMARY | 2017-02-23 23:09 | XMS REPORT | Continuity of Care Document ---
Author Author [facility] Organization [facility] Address Unknown Phone Unavailable Support Name Relationship Address Phone MAXWELL YING FACS, MD Caregiver [address] [place] [address] [place] [phone] CARMENCITA SCALES MD Caregiver [address] [place] [address] [place] [phone] CHRISSIE MARRUFO Next Of Kin [address] [place], [place] [phone] Insurance Providers Payer Name Policy Number Subscriber Name Relationship Medicare [id number] Kayla Robertson 16 Self [facility] [id number] Kayla Robertson 16 Self Advance Directives Directive [...] F (96.8 - 99.1) Temperature (Calculated Celsius) 36.28618 degrees C (36.0 - 37.3) Temperature Source [...] 01, 2011 10:07pm LAB TEST FORM REQUEST [id number] - Lipase April 10, 2012 3:16pm 18 [...] 11, 2014 4:00pm 9.9 % H 0-9.0 DR-Kob-X-Type Natriuretic Peptide March 11, 2014 4:00pm 266 [...] Has specimen been collected/obtained? Y Urine Specific [place] March 11, 2014 5:30pm <=1.005 L - [...] Encounters Encounter Location Date/Time Departed Emergency Room [facility] 06/29/14 4:02pm Departed Emergency Room [facility] 06/22/14 8:30pm
--- OUTSIDE RECORDS SUMMARY | 2017-02-23 23:10 | XMS REPORT | Continuity of Care Document ---
Author Author [facility] Organization [facility] Address Unknown Phone Unavailable Support Name Relationship Address Phone BARBIE HARE MD Caregiver [facility] [address] [address] Unavailable CARMENCITA SCALES MD Caregiver [address] [place] [phone] CHRISSIE MARRUFO Next Of Kin [address] [place] [address] Insurance Providers Payer Name Policy Number Subscriber Name Relationship Medicare [id number] Kayla Robertson 16 Self [facility] [id number] Kayla Robertson 16 Self Chief Complaint and Reason for Visit Chief Complaint Chest Pain Reason for Visit [id number] Problems Medical Problems Problem Onset Date Status Malaise and fatigue Unknown Active R/O MO Unknown Active Chest pain rule out MO Unknown Active Dizziness Unknown Active Malaise and [...] at time of discharge: Good Good at [phone]. 2. Problems such as: Temp above 101.5 degrees You develop redness, excessive swelling of the incision, increasing pain or excessive foul smelling drainage. 3. If the office is closed, call [facility] at [phone] and have your Surgeon paged. Condition at [...] Discharge Date 08/20/14 5:07pm Disposition 02 TO [facility] Condition at Discharge Improved Instructions/Education Provided [facility] Discharge Instructions Vitamin K DI for [...] F (96.8 - 99.1) Temperature (Calculated Celsius) 36.13022 degrees C (36.0 - 37.3) Pulse Rate [...] 2014 2:45pm 124.3 MG/DL - Urine Specific [place] August 17, 2014 12:05am <=1.005 L - [...] 21, 2014 9:08pm LAB TEST FORM REQUEST [id number] - EKG February 06, 2008 12:44pm Complete [...] September 21, 2014 9:30pm < 2 0-7 LW-Zgf-E-Type Natriuretic Peptide September 21, 2014 9:30pm 718 [...] 2014 9:30am Name: KAYLA ROBERTSON Unit #: [id number] : 1940 Sex: F Loc / Svc: ED DOS: 08/27/14 Signed Report #: [id number] DIAGNOSTIC IMAGING REPORT TYPE OF EXAM: CHEST [...] completed 08/27/14 EMERGENCY DEPT VISIT completed 08/27/14 [id number] ITEM OR SERVICE completed 08/27/14 [id number] ITEM OR SERVICE completed 08/27/14 Encounters Encounter Location Date/Time Departed Emergency Room [facility] 09/21/14 9:22pm Registered [facility] 09/21/14 8:56am Registered Clinic [facility] 09/16/14 9:30am Departed Emergency Room [facility] 08/27/14 7:36pm Discharged Inpatient [facility] 08/16/14 10:43pm Departed Emergency Room [facility] 07/29/14 8:12pm Departed Emergency Room [facility] 06/29/14 4:02pm Recent Diagnosis
--- OUTSIDE RECORDS SUMMARY | 2017-02-23 23:12 | XMS REPORT | Continuity of Care Document ---
Author Author [facility] Organization [facility] Address Unknown Phone Unavailable Support Name Relationship Address Phone OMID OLIVARES MD Caregiver [address] [place] [address] [place] [phone] CONNOR CONCEPCION MD Caregiver [address] [place] [address] [place] [phone] CARMENCITA SOLIZ MD Caregiver [address] [place] [address] [address] [place] [phone] CHRISSIE MARRUFO Next Of Kin [address] [place] [phone] Insurance Providers Payer Name Policy Number Subscriber Name Relationship Medicare [id number] Kayla Robertson 16 Self [facility] [id number] Kayla Robertson 16 Self Advance Directives Directive Response Recorded Date/Time Advanced Directives Type DNR Documentation Living Will DPOA for Healthcare 10:43pm Ordered Resuscitation Status Full Code 08/16/14 10:43pm Resuscitation Documents on File Yes 08/16/14 11:16pm Chief Complaint and Reason for Visit Chief Complaint BILATERAL PULMONARY EMBOLI Reason for Visit Chest pain rule out NE Shortness of breath CHEST PAIN NOS Dyspnea Pulmonary emboli Diabetes Hypertension Dyslipidemia GERD (gastroesophageal reflux disease) RLS (restless legs syndrome) Osteoarthritis Anxiety and depression History of gastritis Hypomagnesemia Obesity (BMI 35.0-39.9 without comorbidity) Pleuritic chest pain Problems Medical Problems Problem Onset Date Status Malaise and fatigue Unknown Active R/O NE Unknown Active Chest pain rule out NE Unknown Active Dizziness Unknown Active Malaise and [...] your medications, please contact our office at [phone]. Condition at time of discharge: Fair Plan [...] F (96.8 - 99.1) Temperature (Calculated Celsius) 36.93611 degrees C (36.0 - 37.3) Temperature Source [...] 01, 2011 10:07pm LAB TEST FORM REQUEST [id number] - Lipase April 10, 2012 3:16pm 18 [...] 20, 2014 6:38am 9.2 % H 0-9.0 WN-Uew-I-Type Natriuretic Peptide August 16, 2014 9:18pm 305 [...] Has specimen been collected/obtained? Y Urine Specific [place] August 17, 2014 12:05am <=1.005 L - [...] Streptococcus Anginosus Name: KAYLA ROBERTSON Unit #: [id number] : 1940 Sex: F DISCHARGE SUMMARY Admit Date: 08/16/14 Report #: [id number] General Date Date DATE: 08/20/14 TIME: 16:23 [...] BID #30 07/22/14 Losartan Potassium 100 Mg [id number] Mg PO DAILY #30 07/22/14 Chlorthalidone 25 Mg Dgtigi25 Mg PO PRN #30 07/22/14 Atorvastatin Calcium 40 Mg Wlzdxt08 Mg PO HS #30 07/22/14 Pramipexole Di-Hcl (Mirapex)0.5 Mg Tablet0.5 Mg PO HS 08/23/11 Discharge Disposition stable Copies To 1: CARMENCITA SOLIZ MD, CARRIE DO Aug 20, 2014 16:24 Procedures Procedure Status Date Provider(s) EGD BIOPSY SINGLE/MULTIPLE completed 07/23/14 MAXWELL YING MD, FACS, CWS Encounters Encounter Location Date/Time Discharged Inpatient [facility] 08/16/14 10:43pm Departed Emergency Room [facility] 07/29/14 8:12pm Departed Emergency Room [facility] 06/29/14 4:02pm Departed Emergency Room [facility] 06/22/14 8:30pm Recent Diagnosis Chest pain rule out NE Shortness of breath CHEST PAIN NOS Dyspnea Pulmonary emboli Diabetes Hypertension Dyslipidemia GERD (gastroesophageal reflux disease) RLS (restless legs syndrome) Osteoarthritis Anxiety and depression History of gastritis Hypomagnesemia Obesity (BMI 35.0-39.9 without comorbidity) Pleuritic chest pain
--- OUTSIDE RECORDS SUMMARY | 2017-02-23 23:12 | XMS REPORT | Continuity of Care Document ---
Author Author [facility] Organization [facility] Address Unknown Phone Unavailable Support Name Relationship Address Phone AUTUMNBENJIE MENDIETA Caregiver [facility] [address] [place] [phone] CARMENCITA SOLIZ MD Caregiver [address] [place] [address] [place] [address] [phone] CHRISSIE MARRUFO Next Of Kin [address] [place] [address] Insurance Providers Payer Name Policy Number Subscriber Name Relationship Medicare [id number] Kayla Robertson 16 Self [facility] [id number] Kayla Robertson 16 Self Advance Directives Directive Response Recorded Date/Time Advanced Directives Type None 08/27/14 7:39pm Chief Complaint and Reason for Visit Chief Complaint Chest Pain Reason for Visit [id number] Problems Medical Problems Problem Onset Date Status Malaise and fatigue Unknown Active R/O GA Unknown Active Chest pain rule out GA Unknown Active Dizziness Unknown Active Malaise and [...] Discharge Date 08/20/14 5:07pm Disposition 02 TO [facility] Condition at Discharge Improved Instructions/Education Provided [facility] Discharge Instructions Vitamin [...] F (96.8 - 99.1) Temperature (Calculated Celsius) 36.22777 degrees C (36.0 - 37.3) Pulse Rate [...] Has specimen been collected/obtained? Y Urine Specific [place] August 17, 2014 12:05am <=1.005 L - [...] 26, 2014 10:29am LAB TEST FORM REQUEST [id number] - EKG February 06, 2008 12:44pm Complete [...] August 27, 2014 7:56pm < 2 0-7 AT-Jat-F-Type Natriuretic Peptide August 27, 2014 7:56pm 634 [...] 2014 9:30am Name: KAYLA ROBERTSON Unit #: [id number] : 1940 Sex: F DISCHARGE SUMMARY Admit Date: 08/16/14 Report #: [id number] General Date Date DATE: 08/20/14 TIME: 16:23 [...] BID #30 07/22/14 Losartan Potassium 100 Mg [id number] Mg PO DAILY #30 07/22/14 Chlorthalidone 25 Mg Xmmdag41 Mg PO PRN #30 07/22/14 Atorvastatin Calcium 40 Mg Yzfits62 Mg PO HS #30 07/22/14 Pramipexole Di-Hcl (Mirapex)0.5 Mg Tablet0.5 Mg PO HS 08/23/11 Discharge Disposition stable Copies To 1: CARMENCITA SOLIZ MD, CARRIE DO Aug 20, 2014 16:24 Procedures Procedure Status Date Provider(s) EGD BIOPSY SINGLE/MULTIPLE completed 07/23/14 MAXWELL YING MD, FACS, CWS Encounters Encounter Location Date/Time Departed Emergency Room [facility] 08/27/14 7:36pm Registered Recurring [facility] 08/26/14 8:39am Discharged Inpatient [facility] 08/16/14 10:43pm Departed Emergency Room [facility] 07/29/14 8:12pm Departed Emergency Room [facility] 06/29/14 4:02pm Departed Emergency Room [facility] 06/22/14 8:30pm Recent Diagnosis
--- OUTSIDE RECORDS SUMMARY | 2017-02-23 23:13 | XMS REPORT | Continuity of Care Document ---
Author Author [facility] Organization [facility] Address Unknown Phone Unavailable Support Name Relationship Address Phone BENJIE LEYVA Caregiver [address] [place] [phone] CAMDEN HERNANDEZ MD Caregiver [address] [place] [address] [address] [place], [id number] CARMENCITA SOLIZ MD Caregiver [address] [place] [address] [place] [address] [phone] CHRISSIE MARRUFO Next Of Kin [address] [place] [phone] Insurance Providers Payer Name Policy Number Subscriber Name Relationship Medicare [id number] Kayla Robertson 18 Self [facility] [id number] Kayla Robertson 18 Self Advance Directives Directive [...] F (96.8 - 99.1) Temperature (Calculated Celsius) 36.37149 degrees C (36.0 - 37.3) Temperature Source [...] 19, 2014 8:32pm LAB TEST FORM REQUEST [id number] - Lipase April 10, 2012 3:16pm 18 [...] 21, 2014 4:14am 8.8 % N 0-9.0 JF-Tby-I-Type Natriuretic Peptide October 20, 2014 9:59pm 481 [...] 2014 2:45pm 124.3 MG/DL - Urine Specific [place] August 17, 2014 12:05am <=1.005 L - [...] Streptococcus Anginosus Name: KAYLA ROBERTSON Unit #: [id number] : 1940 Sex: F Loc / Svc: SRG DOS: 10/20/14 Signed Report #: [id number] DIAGNOSTIC IMAGING REPORT TYPE OF EXAM: CHEST [...] completed 08/27/14 EMERGENCY DEPT VISIT completed 08/27/14 [id number] ITEM OR SERVICE completed 08/27/14 [id number] ITEM OR SERVICE completed 08/27/14 ROUTINE VENIPUNCTURE [...] 09/21/14 Encounters Encounter Location Date/Time Discharged Inpatient [facility] 10/20/14 11:40pm Registered [facility] 10/19/14 3:34pm Departed Emergency Room [facility] 09/21/14 9:22pm Registered Clinic [facility] 09/16/14 9:30am Departed Emergency Room [facility] 08/27/14 7:36pm Discharged Recurring [facility] 08/26/14 8:39am Discharged Inpatient [facility] 08/16/14 10:43pm Departed Emergency Room [facility] 07/29/14 8:12pm Recent Diagnosis Anxiety and depression Swelling of left knee joint Anticoagulated on Coumadin Swelling of left lower extremity
--- OUTSIDE RECORDS SUMMARY | 2017-02-23 23:13 | XMS REPORT | Continuity of Care Document ---
Author Author [facility] Organization [facility] Address Unknown Phone Unavailable Allergies Medications Problems Procedures Results Encounters ACCT No. Visit Date/Time Discharge Status Pt. Type Provider Facility Loc./Unit Complaint [id number] 11/06/2013 09:54:00 11/06/2013 23 :59:59 CLS Outpatient [id number] 10/20/2013 14:46:00 10/20/2013 23 :59:59 CLS Outpatient [id number] 10/06/2013 11:06:00 10/06/2013 23 :59:59 CLS Outpatient [id number] 09/03/2013 10:26:00 09/03/2013 23 :59:59 CLS Outpatient
--- OUTSIDE RECORDS SUMMARY | 2017-02-23 23:16 | XMS REPORT | Continuity of Care Document ---
Author Author [facility] Organization [facility] Address Unknown Phone Unavailable Support Name Relationship Address Phone CONNOR CONCEPCION MD Caregiver [address] [place] [phone] CARMENCITA SOLIZ MD Caregiver [address] [place] [address] [place] [address] [phone] YARONVIRGILA Next Of Kin [address] [place] [address] Insurance Providers Payer Name Policy Number Subscriber Name Relationship Medicare [id number] Kayla Robertson 16 Self [facility] [id number] Kayla Robertson 16 Self Advance Directives Directive Response Recorded Date/Time Advanced Directives Type Living Will None 11/08/14 9:58pm Chief Complaint and Reason for Visit Chief Complaint Chest Pain Reason for Visit [id number]-[id number] pain rule out AR Problems Medical Problems Problem Onset Date Status Malaise and fatigue Unknown Active R/O AR Unknown Active Chest pain rule out AR Unknown Active Dizziness Unknown Active Malaise and [...] 10/21/14 7:18pm Disposition 02 TO [facility] Condition at Discharge Improved Instructions/Education Provided DI for Chest Pain Prescriptions See Medications Section Referrals CARMENCITA SOLZI MD Functional Status Query Response Date Recorded [...] F (96.8 - 99.1) Temperature (Calculated Celsius) 36.73299 degrees C (36.0 - 37.3) Pulse Rate [...] 08, 2014 10:43pm 7.6 % N 0-9.0 KV-Ztf-K-Type Natriuretic Peptide October 20, 2014 9:59pm 481 [...] 2014 2:45pm 124.3 MG/DL - Urine Specific [place] November 08, 2014 11:35pm 1.010 L - [...] Streptococcus Anginosus Name: KAYLA ROBERTSON Unit #: [id number] : 1940 Sex: F Loc / Svc: SR DOS: 10/20/14 Signed Report #: [id number] DIAGNOSTIC IMAGING REPORT TYPE OF EXAM: CHEST [...] completed 08/27/14 EMERGENCY DEPT VISIT completed 08/27/14 [id number] ITEM OR SERVICE completed 08/27/14 [id number] ITEM OR SERVICE completed 08/27/14 ROUTINE VENIPUNCTURE [...] completed 10/20/14 EMERGENCY DEPT VISIT completed 10/20/14 [id number] ITEM OR SERVICE completed 10/20/14 [id number] ITEM OR SERVICE completed 10/20/14 [id number] ITEM OR SERVICE completed 10/20/14 [id number] ITEM OR SERVICE completed 10/20/14 [id number] ITEM OR SERVICE completed 10/20/14 [id number] ITEM OR SERVICE completed 10/20/14 [id number]"HOSPITAL OBSERVATION SERVICE, PER HOUR" completed 10/20/14 [id number]"HOSPITAL OBSERVATION SERVICE, PER HOUR" completed 10/20/14 [id number]"INJECTION, ENOXAPARIN SODIUM, 10 MG" completed 10/20/14"INJECTION, ENOXAPARIN SODIUM, 10 MG" completed 10/20/14"INJECTION, FUROSEMIDE, UP TO 20 MG" completed 10/20/14"INJECTION, VITAMIN B-12 CYANOCOBALAMIN, UP TO 1000 M completed ROUTINE VENIPUNCTURE completed 10/22/14 ASSAY OF SERUM POTASSIUM completed 10/22/14 PROTHROMBIN TIME completed 10/22/14 Encounters Encounter Location Date/Time Departed Emergency Room [facility] 11/08/14 9:56pm Registered [facility] 11/03/14 1:20pm Registered [facility] 10/29/14 9:56am Registered [facility] 10/22/14 10:38am Discharged Inpatient [facility] 10/20/14 11:40pm Departed Emergency Room [facility] 09/21/14 9:22pm Registered [facility] 09/16/14 9:30am Departed Emergency Room [facility] 08/27/14 7:36pm Discharged Recurring [facility] 08/26/14 8:39am Discharged Inpatient [facility] 08/16/14 10:43pm Recent Diagnosis
--- NOTE | 2017-02-24 00:09 | NUR ---
PT STATUS PT RESTING COMFORTABLY ON COT AT THIS TIME, REPORTS CHRONIC BACK PAIN WHICH SHE RATES A 0/10 BUT STATES IF SHE GOT UP SHE FEELS IT WOULD BE A 10/10. PT DENIES ANY H/A, NAUSEA, VERBAL DISTURBANCES. PT HAS CALL LIGHT IN REACH.
[2017-02-24 00:13] LABS: BASOPHILS % (AUTO) 0.3 % (0-2); EOSINOPHILS # (AUTO) 0.1 T/MM3 (0-0.5); EOSINOPHILS % (AUTO) 1.1 % (0-4); HGB - HEMOGLOBIN 12.1 GM/DL (12-16); IMMATURE GRANULOCYTE # (AUTO) 0.05 T/MM3 (0.00-0.03); IMMATURE GRANULOCYTE % (AUTO) 0.5 % (0.0-0.5); LYMPHOCYTES # (AUTO) 1.9 T/MM3 (1-4.8); LYMPHOCYTES % (AUTO) 20.2 % (23-45); MEAN CORPUSCULAR HGB 29.7 UUG (26-34); MEAN CORPUSCULAR HGB CONC(MCHC 32.7 GM/DL (31-37); MEAN CORPUSCULAR VOLUME 90.7 UM3 (80-100); MEAN PLATELET VOLUME 10.7 UM3 (9.4-12.4); MONOCYTES # (AUTO) 0.9 T/MM3 (0-0.8); MONOCYTES % (AUTO) 9.6 % (0-9.0); NEUTROPHILS #(AUTO)-ABSOLUTE 6.6 T/MM3 (1.8-7.7); NEUTROPHILS % (AUTO) 68.3 % (33-66); RED BLOOD COUNT 4.08 M/MM3 (4.00-5.20); WBC - WHITE BLOOD COUNT 9.6 T/MM3 (4.5-11.0)
[2017-02-24 00:13] LABS: PROTHROMBIN TIME 23.3 SEC (10.8-13.8)
[2017-02-24] MEDS ORDERED: WARF3TAB6 PO (00:21)
[2017-02-24] MEDS ORDERED: WARF2TAB6 PO (00:22)
[2017-02-24 00:24] LABS: ALBUMIN 3.9 G/DL (3.5-5.0); ALBUMIN/GLOBULIN RATIO 1.8 RATIO (1.1-2.2); ALKALINE PHOSPHATASE 113 U/L (38-126); ALT (SGPT) 32 U/L (9-52); ANION GAP 11 MEQ/L (5-15); AST (SGOT) 17 U/L (14-36); BUN/CREATININE RATIO 25 RATIO (6-26); CALCIUM 9.6 MG/DL (8.4-10.2); CHLORIDE 104 MEQ/L (98-107); CO2 - CARBON DIOXIDE 24 MEQ/L (22-30); CREATININE 0.6 MG/DL (0.7-1.2); GLOMERULAR FILTRATION RATE 97; GLUCOSE 235 MG/DL (65-110); POTASSIUM 4.5 MEQ/L (3.6-5); SODIUM 139 MEQ/L (134-144); TOTAL PROTEIN 6.1 G/DL (6.3-8.2)
[2017-02-24 01:13] VITALS: BP 167/81; PULSE 81; RESP 20; TEMP 98.5; O2SAT 96
--- NOTE | 2017-02-24 03:11 | NUR ---
DISCHARGE PT GIVEN INSTRUCTIONS FOR CONT CARE OF HYPERTENSION, PT VERBALIZED UNDERSTANDING AND SIGNED FORM, PT LEFT ER ALERT, AMBULATORY BUT DUE TO EFFORT PT PUT IN WHEEL CHAIR. IN ACUTE DISTRESS.
== END 2017-02-24 01:13 | disposition home or self-care (01) ==
LOC: ED 22:10
DX: I10 Essential (primary) hypertension (principal); R42 Dizziness and giddiness; I48.91 Unspecified atrial fibrillation; Z79.01 Long term (current) use of anticoagulants
CPT/HCPCS: 36415; 36416; 80053; 84484; 85025; 85610; 96374; 99284; J0360